=== PATIENT | female | born 1955 | race Asian ===

== ENCOUNTER 2017-10-03 12:40 | Inpatient (IN) | payer OTHER ==
[2017-10-03] MEDS ORDERED: SODIUM CHLORIDE 1,000 ML IV ONE (13:34)
--- NOTE | 2017-10-03 13:46 | PDOC ---
History of Present Illness - General History Source: Patient, Family Exam Limitations: No Limitations - History of Present Illness Initial Comments: 10/03/17 14:23 The patient is a 62 year old female, with a significant past medical history ETOH abuse, who presents to the emergency department with, approx. 3 days of generalized weakness. The patient report she has been feeling progressively weaker for the past couple of days and has been eating and drinking less. The patients daughter is present and states she has been concerned because the patient appears yellow for the past couple of days. The patient reports she normally drinks about 2 glasses of Scotch per day with her last drink being approx. 3-4 days ago. She denies recent fevers, chills, headache or dizziness. She denies recent nausea, vomit, diarrhea or constipation. She denies recent dysuria, frequency, urgency or hematuria. She denies recent chest pain or shortness of breath. Allergies: NKA Primary Care Physician: Dr. Muro <Derick Chisholm - Last Filed: 10/03/17 17:50> <Geoffrey Jenkins - Last Filed: 10/06/17 11:38> - General Chief Complaint: Weakness Stated Complaint: UNABLE TO EAT/WEAKNESS Time Seen by Provider: 10/03/17 13:32 Past History <Derick Chisholm - Last Filed: 10/03/17 17:50> - Past Medical History CVA: No COPD: No DVT: No Dementia: No - Immunization History Immunization Up to Date: Yes - Suicide/Smoking/Psychosocial Hx Smoking History: Never smoked Information on smoking cessation initiated: No Hx Alcohol Use: Yes (LAST DRINK 3 WEEKS AGO) Drug/Substance Use Hx: No Substance Use Type: None <Geoffrey Jenkins - Last Filed: 10/06/17 11:38> - Past Medical History Allergies/Adverse Reactions: Allergies Allergy/AdvReac Type Severity Reaction Status Date / Time No Known Allergies Allergy Verified 10/03/17 13:00 Home Medications: Ambulatory Orders Pantoprazole Sodium [Protonix -] 40 mg PO DAILY tablet.ec 10/04/17 Review of Systems - Review of Systems Comments:: 10/03/17 14:23 CONSTITUTIONAL: Present: +Generalized weakness. +Loss of appetite. Jaundice No reported: Fever, Chills, Diaphoresis, Malaise, HEENT: No reported: Rhinorrhea, Nasal Congestion, Throat Pain, Throat Swelling, Difficulty Swallowing, Mouth Swelling, Ear Pain, Eye Pain, Visual Changes CARDIOVASCULAR: No reported: Chest Pain, Syncope, Palpitations, Irregular Heart Rate, Lightheadedness, Peripheral Edema RESPIRATORY: No reported: Cough, Shortness of Breath, SOB with Exertion, Orthopnea, Wheezing , Stridor, Hemoptysis GASTROINTESTINAL: No reported: Abdominal pain, Abdominal Distension, Nausea, Vomiting, Diarrhea, Constipation, Melena, Hematochezia GENITOURINARY: No reported: Dysuria, Frequency, Urgency, Hesitancy, Flank Pain, Genital Pain MUSCULOSKELETAL: No reported: Myalgia, Arthralgia, Joint Swelling, Back pain, Neck Pain SKIN: No reported: Rash, Itching, Pallor HEMEATOLOGIC/IMMUNOLOGIC: No reported: Easy Bleeding, Easy Bruising, Lymphadenopathy, Frequent infections ENDOCRINE: No reported: Unexplained Weight Gain, Unexplained Weight Loss, Heat Intolerance , Cold Intolerance NEUROLOGIC: No reported: Headache, Focal Weakness, Paresthesias, Vertigo, Lightheadedness, Unsteady Gait, Seizure, Mental Status Changes, Incontinence PSYCHIATRIC: No reported: Anxiety, Depression <Derick Chisholm - Last Filed: 10/03/17 17:50> *Physical Exam - Vital Signs Last Vital Signs Temp Pulse Resp BP Pulse Ox 98.6 F 87 17 89/45 98 10/03/17 13:00 10/03/17 13:00 10/03/17 13:00 10/03/17 13:00 10/03/17 13:30 - Physical Exam Comments: 10/03/17 14:23 GENERAL: The patient is awake, alert, and fully oriented, Nontoxic - in no acute distress. HEAD: Normocephalic, atraumatic. EYES: extraocular movements intact, sclera icteric, conjunctiva clear. ENT: Normal voice, Moist mucous membranes. NECK: Normal range of motion, supple LUNGS: Breath sounds equal, clear to auscultation bilaterally. No wheezes, no rhonchi, no rales. HEART: Regular rate and rhythm, normal S1 and S2 without murmur, rub or gallop. ABDOMEN: Soft, nontender, distended No guarding, no rebound. . No CVA tenderness EXTREMITIES: Normal range of motion, no edema. No clubbing or cyanosis. No cords, erythema, or tenderness. NEUROLOGICAL: No facial assymetry, Normal speech, BACK: Mild tenderness in the mid thoracic region PSYCH: Normal mood, normal affect. SKIN: Warm, Dry, normal turgor, jaundiced skin <Derick Chisholm - Last Filed: 10/03/17 17:50> - Vital Signs Last Vital Signs Temp Pulse Resp BP Pulse Ox 98.6 F 87 17 89/45 98 10/03/17 13:00 10/03/17 13:00 10/03/17 13:00 10/03/17 13:00 10/03/17 13:30 <Gregory,Geoffrey - Last Filed: 10/06/17 11:38> Heart Score/ECG Review - ECG Impressions Comment:: 10/03/17 15:01 Twelve-lead EKG was performed and reviewed by me. There is normal sinus rhythm with a normal rate. Rate of 81 The axis is normal. Nonspecific ST wave changes <GregoryGeoffrey - Last Filed: 10/06/17 11:38> ED Treatment Course - LABORATORY CBC & Chemistry Diagram: 10/03/17 13:55 10/03/17 13:55 - ADDITIONAL ORDERS Additional order review: Laboratory Results 10/03/17 10/03/17 13:55 13:55 PT with INR 23.00 H INR 2.04 H Alcohol, Quantitative Cancelled 10/03/17 13:55 RBC 2.48 L MCV 121.6 H MCHC 34.2 RDW 21.0 H MPV 6.6 L Neutrophils % No Result Required. Lymphocytes % No Result Required. - RADIOLOGY Radiograph Interpretation: 10/03/17 15:39 EXAM#: TYPE/EXAM: RESULT: [id number] RAD/CHEST X-RAY PORTABLE* HISTORY PROVIDED: Baseline. A single frontal portable projection of the chest at 2:43 PM is submitted. The heart size is within normal limits. The lung devi are free of pulmonary infiltrates or pleural effusions. IMPRESSION: No acute pathology Reported By: Ayush Porter MD 10/03/17 15:46 EXAM#: TYPE/EXAM: RESULT: [id number] RAD/SPINE-THORACIC HISTORY PROVIDED: Rule out fracture. AP and lateral projections of the thoracic spine reveals no evidence of fracture, subluxation or acute bony abnormalities. Mild degenerative changes are noted diffusely. IMPRESSION: Mild degenerative arthritis, no fracture or acute bony abnormalities. Reported By: Ayush Porter MD <Derick Chisholm - Last Filed: 10/03/17 17:50> - LABORATORY CBC & Chemistry Diagram: 10/06/17 07:20 10/06/17 07:20 - RADIOLOGY Radiology Studies Ordered: Category Date Time Status CHEST X-RAY PORTABLE* [RAD] Stat Radiology 10/03/17 13:34 Ordered <Geoffrey Jenkins - Last Filed: 10/06/17 11:38> Medical Decision Making - Medical Decision Making 10/03/17 15:[address] Muro at 3:05 pm. Page returned at 3:15 pm. 10/03/17 17:32 Dr. Burkett paged at 5:30 pm. Folding Machine Operator advised Dr. Mann is rn transitional care and will return the page. Dr. Mann returned the page at 5:50 pm. <Derick Chisholm - Last Filed: 10/03/17 17:50> - Medical Decision Making 10/03/17 13:44 62y F hx of ETOH abuse presents with painless juandice - pt states she has been feeling generally weak for the past month, 2-3 days ago, they found her jaundiced. The pt states she drinks 2 cups of scotch daily formany years. No cp , abd pain, f/c, n/v, headache, dizzines.. on exam the pt is noted jaundice. her BP noted to be hypotensive, abd slightly distended but nontender, obese vs. asctic concern for possible liver cirrhosis, consider pancreatic ca will obtain labs, will obtain RUQ US will give fluids A portion of this note was documented by scribe services under my direction. I have reviewed the details of the note, within reason, and agree with the documentation with the following case summary and management plan written by me 10/03/17 18:04 labs reviewed elevated bilirubins and lfts gb US shows no ductal diltation cr slightly elevated - likely hepatorenal syndrome dw hospitalist service, requests attepmt to transfer to a liver center for higher level of care oralia franks - recommends attempting to transfer but might be declined due to hx of active etoh use. 10/03/17 18:39 discussed with za from [facility] liver technical training coordinator - thy will let their doctor know and call back 10/03/17 19:03 i discussed with the patient - she states she refuses to be transferred to a tertiary care center at this time. she would prefer to wait until tomorrow after a through discussion with her family and the options. will admit to med surg for further management 10/03/17 19:25 [facility] had called back and said liver refused on their service, but would agree to transfer to their medicine servie - i went back to the patient to discuss with the pt, and recommended that she be transferred, but the pt refused, states she needs to talk to her family to make the decision to transfer. i specifically discussed that although she might feel ok right now, she may quickly deteriorate and would best be served in a more advanced facility. case dw dr. capps agree with admission for further management Case discussed in detail with admitting physician including history, physical exam and ancillary studies. Admitting physician has assumed care for the patient, will follow all pending diagnostics and will complete the evaluation and treatment. MyCRITICAL CARE DOCUMENTATION: I spent ~35 minutes of Critical Care time, excluding separately billable procedures, involving high complexity decision making to assess, manipulate and support vital system function(s) to treat single or multiple vital organ system failure and/or to prevent further life threatening deterioration of the patient' s condition. <Geoffrey Jenkins - Last Filed: 10/06/17 11:38> *DC/Admit/Observation/Transfer - Attestations Scribe Attestion: 10/03/17 14:24 Documentation prepared by Derick Chisholm, acting as medical surgical tech for Geoffrey Jenkins MD. <Derick Chisholm - Last Filed: 10/03/17 17:50> - Discharge Dispostion Admit: Yes <Geoffrey Jenkins - Last Filed: 10/06/17 11:38> Diagnosis at time of Disposition: Hepatorenal syndrome Liver failure Qualifiers: Liver failure chronicity: acute Hepatic coma status: without hepatic coma Qualified Code(s): K72.00 - Acute and subacute hepatic failure without coma - Discharge Dispostion Condition at time of disposition: Guarded
[2017-10-03 14:03] LABS: HEMATOCRIT 30.1 % (32.4-45.2); HEMOGLOBIN 10.3 GM/dL (10.7-15.3); MCHC 34.2 g/dl (32.0-36.0); MEAN CELL VOLUME 121.6 fl (80-96); MEAN PLT VOLUME 6.6 fl (7.5-11.1); PLATELET COUNT 142 K/MM3 (134-434); RBC 2.48 M/mm3 (3.60-5.2); WHITE BLOOD COUNT 13.9 K/mm3 (4.0-10.0)
[2017-10-03 14:15] LABS: INR 2.04 (0.82-1.09)
[2017-10-03 14:18] LABS: MCH 41.5 pg (25.7-33.7)
[2017-10-03 14:30] LABS: ALBUMIN 1.7 g/dl (3.4-5.0); ALCOHOL < 5.0 mg/dl (0-5); ANION GAP 13 (8-16); BILIRUBIN,TOTAL 14.7 mg/dL (0.2-1.0); BLOOD UREA NITROGEN 50 mg/dL (7-18); CALCIUM 8.7 mg/dL (8.5-10.1); CHLORIDE 88 mmol/L (98-107); CO2 31 mmol/L (21-32); CREATININE 1.8 mg/dL (0.55-1.02); GLUCOSE,RANDOM 114 mg/dL (74-106); POTASSIUM 3.4 mmol/L (3.5-5.1); SGOT/AST 352 U/L (15-37); SGPT/ALT 127 U/L (12-78); SODIUM 132 mmol/L (136-145); TOT PROT 7.2 g/dl (6.4-8.2)
[2017-10-03 14:31] LABS: BILIRUBIN,DIRECT 11.1 mg/dL (0.0-0.2); LIPASE 1264 U/L (73-393)
[2017-10-03 14:33] LABS: ALK PHOS 205 U/L (45-117)
[2017-10-03 14:36] LABS: ACETAMINOPHEN < 3 ug/ml (10.0-30.0)
[2017-10-03 15:30] LABS: ANISOCYTOSIS 2+; MACROCYTOSIS 3+; OVALOCYTE 2+; PLATELET ESTIMATE DECREASED; TARGET CELLS 1+
--- NOTE | 2017-10-03 17:02 | EKG ---
Test Reason : Blood Pressure : / mmHG Vent. Rate : 081 BPM Atrial Rate : 081 BPM P-R Int : 124 ms QRS Dur : 086 ms QT Int : 238 ms P-R-T Axes : 020 001 220 degrees QTc Int : 276 ms NORMAL SINUS RHYTHM NONSPECIFIC ST AND T WAVE ABNORMALITY ABNORMAL ECG NO PREVIOUS ECGS AVAILABLE Confirmed by MD Kaden, Stanislaw ([id number]) on 10/03/2017 5:01:44 PM Referred By: Confirmed By:Stanislaw Alfonso MD
[2017-10-03 18:54] LABS: URINE APPEARANCE CLOUDY; URINE BLOOD 2+ (NEGATIVE); URINE COLOR AMBER; URINE GLUCOSE (UA) NEGATIVE (NEGATIVE); URINE KETONE NEGATIVE (NEGATIVE); URINE NITRITE NEGATIVE (NEGATIVE); URINE PROTEIN NEGATIVE (NEGATIVE); URINE UROBILINOGEN 4.0 E.U/dl mg/dL (0.2-1.0)
[2017-10-03 19:31] LABS: URINE LEUK ESTERASE 1+ (NEGATIVE)
[2017-10-03 20:31] LABS: EPI CELLS FEW /HPF (FEW); URINE BACTERIA MANY /hpf (NONE SEEN); URINE MUCUS RARE
[2017-10-03] MEDS ORDERED: FOLIC ACID INJECTION - 1 MG, THIAMINE HCL 100 MG, MULTIVIT INJECTION ADULT 10 ML in SOD... IVPB ONE (20:52)
[2017-10-03] MEDS ORDERED: OCTREOTIDE ACETATE 500 MCG/1 ML - 1 ML VIAL IVPUSH SCH (21:00)
--- NOTE | 2017-10-03 21:14 | PN ---
Teaching Attending Note Name of Resident: Medardo Roblero ATTENDING PHYSICIAN STATEMENT I saw and evaluated the patient. I reviewed the resident's note and discussed the case with the resident. I agree with the resident's findings and plan as documented. SUBJECTIVE: 62 year old female with history of alcoholic liver cirrhosis brought for evaluation of generalized weakness and fatigue. Reports low appetite. Denies nausea, vomiting , abdominal pain . She reports that her last drink was around [place] OBJECTIVE: Vital Signs Temperature 98.6 F 10/03/17 13:00 Pulse Rate 81 10/03/17 19:40 Respiratory Rate 16 10/03/17 19:40 Blood Pressure 108/62 10/03/17 19:40 O2 Sat by Pulse Oximetry (%) 96 10/03/17 19:40 Dry mucous membraines Jaundice S1 S2 WNL CTA b.l abdomen is distended , non tender , no fluid wave appreciated anasarca CBC, BMP 10/03/17 13:55 10/03/17 13:55 CMP Sodium 132 mmol/L (136-145) L 10/03/17 13:55 Potassium 3.4 mmol/L (3.5-5.1) L 10/03/17 13:55 Chloride 88 mmol/L (98-107) L 10/03/17 13:55 Carbon Dioxide 31 mmol/L (21-32) 10/03/17 13:55 Anion Gap 13 (8-16) 10/03/17 13:55 BUN 50 mg/dL (7-18) H 10/03/17 13:55 Creatinine 1.8 mg/dL (0.55-1.02) H 10/03/17 13:55 Creat Clearance w eGFR 28.33 (>60) 10/03/17 13:55 Random Glucose 114 mg/dL (74-106) H 10/03/17 13:55 Calcium 8.7 mg/dL (8.5-10.1) 10/03/17 13:55 Total Bilirubin 14.7 mg/dL (0.2-1.0) H 10/03/17 13:55 Direct Bilirubin 11.1 mg/dL (0.0-0.2) H 10/03/17 13:55 AST 352 U/L (15-37) H 10/03/17 13:55 ALT 127 U/L (12-78) H 10/03/17 13:55 Alkaline Phosphatase 205 U/L (45-117) H 10/03/17 13:55 Creatine Kinase 44 IU/L (26-192) 10/03/17 13:55 Troponin I < 0.02 ng/ml (0.00-0.05) 10/03/17 13:55 Total Protein 7.2 g/dl (6.4-8.2) 10/03/17 13:55 Albumin 1.7 g/dl (3.4-5.0) L 10/03/17 13:55 Lipase 1264 U/L (73-393) H 10/03/17 13:55 ASSESSMENT AND PLAN: 1. Acute on chronic liver failure with high risk of hepatorenal syndrome. MELD [address] [facility] / hepatology unit was initiated however patient refused. I had an extensive discussion regarding proposed plan of care and need to be in specialized unit due to high risk of deterioration. Patient is fully alert understands. She wants to await for her family to discuss her condition with Dr Douglas. I offered to speak to her family but she inssts on not getting transferred anywhere till tomorrow. - admit to ICU - IVF/ Albumin - Thiamine + MVI IV - GI consult - monitor CMP/CBC - reevaluate MELD in am - possible transfer in am - monitor MAP 2. Hypokalemia- supplement 3. History of alcohol abuse- last drink in august - no risk of withdrawal 4 DVT PPX - no pharm ac due to elevated inr
--- NOTE | 2017-10-03 21:43 | HP ---
CHIEF COMPLAINT: weak and tired for 3 days with decreased PO intake PCP: Jina HISTORY OF PRESENT ILLNESS: Pt is a 62 y/o F with history of EtOH abuse who presents to the ED with fatigue and weakness for 3 days. Pt states that in during this time, she has not been eating or drinking. She states that she had been drinking 2 glasses of scotch daily for years but stopped drinking alcohol on Sep 01 except for a small drink on Sep 11. Pt denies having had any withdrawal symptoms following her cessation of alcohol including fever, chills, tremors, sweating. Pt normally has a BM every other day, and last BM was yesterday. Admits to distended abdomen. Pt states that at this time she feels weak from not having eaten for the past few days. No other complaints. Denies fever, chills, nausea, vomiting, diarrhea , bleeding gums, blood in urine/stools, difficulty urinating/defecated. ER course was notable for: (1) WBC 13.9, Hb 10.3, INR 2.04, Na 132, K 3.4, BUN 50, Certified Pharmacy Tech 1.8, T bili 14.7, D bili 11.1, AST 352, ALT 127, AlkP 205, Alb 1.7, Lipase 1264, Urine blood 2+, U bili 4, LE 1+ (2) CXR neg, Abd U/S: ascites, ? gall bladder wall thickening (3) Recent Travel: denies PAST MEDICAL HISTORY: EtOH abuse PAST SURGICAL HISTORY: denies Social History: Smoking: denies Alcohol: 2 scotch daily. Quit Sep 11 Drugs: denies Family History: denies Allergies No Known Allergies Allergy (Verified 10/03/17 13:00) HOME MEDICATIONS: Home Medications Medication Instructions Recorded NK [No Known Home Medication] 10/03/17 REVIEW OF SYSTEMS CONSTITUTIONAL: generalized weakness Absent: fever, chills, diaphoresis, , malaise, loss of appetite, weight change HEENT: Absent: rhinorrhea, nasal congestion, throat pain, throat swelling, difficulty swallowing, mouth swelling, ear pain, eye pain, visual changes CARDIOVASCULAR: Absent: chest pain, syncope, palpitations, irregular heart rate, lightheadedness , peripheral edema RESPIRATORY: Absent: cough, shortness of breath, dyspnea with exertion, orthopnea, wheezing, stridor, hemoptysis GASTROINTESTINAL:abdominal distension Absent: abdominal pain, , nausea, vomiting, diarrhea, constipation, melena, hematochezia GENITOURINARY: Absent: dysuria, frequency, urgency, hesitancy, hematuria, flank pain, genital pain MUSCULOSKELETAL: Absent: myalgia, arthralgia, joint swelling, back pain, neck pain SKIN: Absent: rash, itching, pallor HEMATOLOGIC/IMMUNOLOGIC: Absent: easy bleeding, easy bruising, lymphadenopathy, frequent infections ENDOCRINE: Absent: unexplained weight gain, unexplained weight loss, heat intolerance, cold intolerance NEUROLOGIC: Absent: headache, focal weakness or paresthesias, dizziness, unsteady gait, seizure, mental status changes, bladder or bowel incontinence PSYCHIATRIC: Absent: anxiety, depression, suicidal or homicidal ideation, hallucinations. PHYSICAL EXAMINATION Vital Signs - 24 hr 10/03/17 10/03/17 10/03/17 13:00 13:30 18:52 Temperature 98.6 F Pulse Rate 87 Pulse Rate [ 78 Apical] Respiratory 17 18 Rate Blood Pressure 89/45 Blood Pressure 103/58 [Right Arm] O2 Sat by Pulse 98 98 99 Oximetry (%) 10/03/17 19:40 Temperature Pulse Rate Pulse Rate [ 81 Apical] Respiratory 16 Rate Blood Pressure Blood Pressure 108/62 [Right Arm] O2 Sat by Pulse 96 Oximetry (%) GENERAL: Awake, alert, and fully oriented, in no acute distress. jaundiced HEAD: Normal with no signs of trauma. EYES: Pupils equal, round and reactive to light, extraocular movements intact, sclera icteric, conjunctiva clear. No lid lag. EARS, NOSE, THROAT: oropharynx clear without exudates. Dry mucous membranes. NECK: Normal range of motion, supple without lymphadenopathy, JVD, or masses. LUNGS: Breath sounds equal, clear to auscultation bilaterally. No wheezes, and no crackles. No accessory muscle use. HEART: Regular rate and rhythm, normal S1 and S2 with systolic 3/6 cresc/ decresc murmur, no rub or gallop. ABDOMEN: Soft, nontender, distended, tympanic normoactive bowel sounds, no guarding, no rebound, no masses. No hepatomegaly or splenomegaly detected. MUSCULOSKELETAL: Normal range of motion at all joints. No bony deformities or tenderness. No CVA tenderness. UPPER EXTREMITIES: 2+ pulses, warm, well-perfused. No cyanosis. No clubbing. No peripheral edema. LOWER EXTREMITIES: 2+ pulses, warm, well-perfused. No calf tenderness. No peripheral edema. NEUROLOGICAL: Cranial nerves II-XII intact. Normal speech. Gait not observed. PSYCHIATRIC: Cooperative. Good eye contact. Appropriate mood and affect. SKIN: Warm, dry, normal turgor, no rashes or lesions noted, normal capillary refill. Laboratory Results - last 24 hr 10/03/17 10/03/17 10/03/17 13:55 13:55 13:55 WBC 13.9 H RBC 2.48 L Hgb 10.3 L Hct 30.1 L MCV 121.6 H MCH 41.5 H MCHC 34.2 RDW 21.0 H Plt Count 142 MPV 6.6 L Neutrophils % No Result Required. Neutrophils % (Manual) 87.1 H Band Neutrophils % 0.0 Lymphocytes % No Result Required. Lymphocytes % (Manual) 4.0 L Monocytes % (Manual) 9 Eosinophils % (Manual) 0.0 Basophils % (Manual) 0.0 Myelocytes % (Man) 0 Metamyelocytes 0 Hypochromia 0 Platelet Estimate Decreased Polychromasia 1+ Poikilocytosis 1+ Anisocytosis 2+ Microcytosis 0 Macrocytosis 3+ Target Cells 1+ Ovalocytes 2+ PT with INR 23.00 H INR 2.04 H Sodium 132 L Potassium 3.4 L Chloride 88 L Carbon Dioxide 31 Anion Gap 13 BUN 50 H Creatinine 1.8 H Creat Clearance w eGFR 28.33 Random Glucose 114 H Calcium 8.7 Total Bilirubin 14.7 H Direct Bilirubin 11.1 H AST 352 H ALT 127 H Alkaline Phosphatase 205 H Creatine Kinase 44 Troponin I < 0.02 Total Protein 7.2 Albumin 1.7 L Lipase 1264 H Urine Color Urine Appearance Urine pH Ur Specific Newton Urine Protein Urine Glucose (UA) Urine Ketones Urine Blood Urine Nitrite Urine Bilirubin Urine Urobilinogen Ur Leukocyte Esterase Urine WBC (Auto) Urine RBC (Auto) Ur Epithelial Cells Urine Bacteria Urine Mucus Acetaminophen Alcohol, Quantitative Acetone, Qual 10/03/17 10/03/17 10/03/17 13:55 13:55 13:55 WBC RBC Hgb Hct MCV MCH MCHC RDW Plt Count MPV Neutrophils % Neutrophils % (Manual) Band Neutrophils % Lymphocytes % Lymphocytes % (Manual) Monocytes % (Manual) Eosinophils % (Manual) Basophils % (Manual) Myelocytes % (Man) Metamyelocytes Hypochromia Platelet Estimate Polychromasia Poikilocytosis Anisocytosis Microcytosis Macrocytosis Target Cells Ovalocytes PT with INR INR Sodium Potassium Chloride Carbon Dioxide Anion Gap BUN Creatinine Creat Clearance w eGFR Random Glucose Calcium Total Bilirubin Direct Bilirubin AST ALT Alkaline Phosphatase Creatine Kinase Troponin I Total Protein Albumin Lipase Urine Color Urine Appearance Urine pH Ur Specific [place] Urine Protein Urine Glucose (UA) Urine Ketones Urine Blood Urine Nitrite Urine Bilirubin Urine Urobilinogen Ur Leukocyte Esterase Urine WBC (Auto) Urine RBC (Auto) Ur Epithelial Cells Urine Bacteria Urine Mucus Acetaminophen < 3 L Alcohol, Quantitative < 5.0 Cancelled Acetone, Qual Negative L 10/03/17 18:38 WBC RBC Hgb Hct MCV MCH MCHC RDW Plt Count MPV Neutrophils % Neutrophils % (Manual) Band Neutrophils % Lymphocytes % Lymphocytes % (Manual) Monocytes % (Manual) Eosinophils % (Manual) Basophils % (Manual) Myelocytes % (Man) Metamyelocytes Hypochromia Platelet Estimate Polychromasia Poikilocytosis Anisocytosis Microcytosis Macrocytosis Target Cells Ovalocytes PT with INR INR Sodium Potassium Chloride Carbon Dioxide Anion Gap BUN Creatinine Creat Clearance w eGFR Random Glucose Calcium Total Bilirubin Direct Bilirubin AST ALT Alkaline Phosphatase Creatine Kinase Troponin I Total Protein Albumin Lipase Urine Color Martha Urine Appearance Cloudy Urine pH 5.0 Ur Specific [place] 1.015 Urine Protein Negative Urine Glucose (UA) Negative Urine Ketones Negative Urine Blood 2+ H Urine Nitrite Negative Urine Bilirubin 4.0 Urine Urobilinogen 4.0 e.u/dl H Ur Leukocyte Esterase 1+ H Urine WBC (Auto) 22 Urine RBC (Auto) 4 Ur Epithelial Cells Few Urine Bacteria Many Urine Mucus Rare Acetaminophen Alcohol, Quantitative Acetone, Qual ASSESSMENT/PLAN: Pt is a 62 y/o F with a hist of chronic alcohol abuse who presents to ED with weakness/fatigue decreased PO intake for 3d. Pt with transaminitis, bilirubinemia, hypokalemia, hyponatremia, ascites. #Alcoholic hepatitis -MELD: 30, MORTALITY: 52.6% (INR 2.04, Tbili 14.7, Certified Pharmacy Tech 1.8, Na 132) -ascites, fatty liver on U/S -GI consult -NPO -banana bag -albumin -octreotide drip -Admit to ICU -Note that numerous people have discussed possibility of transfer to [facility] and pt refuses insisting she wants to speak with Dr. Muro tomorrow before making any decisions. Pt has not seen Dr. Muro as a patient, but states that he cares for her family members. #? EtOH withdrawal -pt does not appear to be withdrawing at the moment. -no anxiousness -no tremor -VS wnl -Will monitor #Pancreatitis -elevated lipase -NPO -IV fluids #FEN -banana bag at 200 ml/hr -hypoNa, hypoK, repleting -NPO (lipase elevated) #PPx -SCDs -no Hep. INR 2.04 -Octreotide #Dispo -admit to ICU Medardo Roblero MD PGY-1 Visit type - Emergency Visit Emergency Visit: Yes ED Registration Date: 10/03/17 Care time: The patient presented to the Emergency Department on the above date and was hospitalized for further evaluation of their emergent condition. - New Patient This patient is new to me today: Yes Date on this admission: 10/04/17 - Critical Care Critical Care patient: Yes Total Critical Care Time (in minutes): 35 Critical Care Statement: The care of this patient involved high complexity decision making to prevent further life threatening deterioration of the patient 's condition and/or to evaluate & treat vital organ system(s) failure or risk of failure.
[2017-10-03] MEDS ORDERED: POTASSIUM CHLORIDE TABS 20 MEQ TABLET.ER (FP) PO ONE ×2 (21:45→22:21)
[2017-10-03] MEDS ORDERED: OCTREOTIDE ACETATE 500 MCG/1 ML - 1 ML VIAL IVPB SCH (22:15)
[2017-10-03] MEDS: ALBUMIN HUMAN 25% 12.5 GM/50 ML VIAL IVPB SCH ×3 (22:30→23:24)
[2017-10-04] MEDS: ALBUMIN HUMAN 25% 12.5 GM/50 ML VIAL IVPB SCH (00:14)
[2017-10-04] MEDS: CHLORHEXIDINE GLUCONATE 4% CLEANSER FOR DECOLONIZATION TP SCH (06:10)
[2017-10-04] MEDS: MUPIROCIN 2% TOPICAL OINTMENT FOR DECOLONIZATION NS SCH ×2 (06:10→11:04)
[2017-10-04 07:51] LABS: BASO % 0.5 % (0-2.0); EOS % 0.6 % (0-4.5); HEMATOCRIT 25.5 % (32.4-45.2); HEMOGLOBIN 8.8 GM/dL (10.7-15.3); LYMPH % 13.8 % (8-40); MCHC 34.5 g/dl (32.0-36.0); MEAN CELL VOLUME 122.7 fl (80-96); MEAN PLT VOLUME 6.6 fl (7.5-11.1); MONO % 8.9 % (3.8-10.2); NEUT % 76.2 % (42.8-82.8); PLATELET COUNT 110 K/MM3 (134-434); RBC 2.07 M/mm3 (3.60-5.2); WHITE BLOOD COUNT 11.5 K/mm3 (4.0-10.0)
[2017-10-04 08:11] LABS: INR 2.09 (0.82-1.09); PROTHROMBIN TIME (PATIENT) 23.6 SEC (9.98-11.88)
[2017-10-04 08:21] LABS: MCH 42.3 pg (25.7-33.7)
[2017-10-04 08:24] LABS: ALBUMIN 2.3 g/dl (3.4-5.0); AMYLASE 74 U/L (25-115); ANION GAP 10 (8-16); BLOOD UREA NITROGEN 49 mg/dL (7-18); CALCIUM 8.1 mg/dL (8.5-10.1); CHLORIDE 94 mmol/L (98-107); CO2 30 mmol/L (21-32); CREATININE 1.7 mg/dL (0.55-1.02); GLUCOSE,RANDOM 82 mg/dL (74-106); MAGNESIUM 2.1 mg/dL (1.8-2.4); PHOSPHOROUS 2.9 mg/dL (2.5-4.9); POTASSIUM 3.6 mmol/L (3.5-5.1); SGOT/AST 265 U/L (15-37); SGPT/ALT 96 U/L (12-78); SODIUM 134 mmol/L (136-145)
[2017-10-04 08:27] LABS: ALK PHOS 159 U/L (45-117); LIPASE 1004 U/L (73-393); TOT PROT 6.5 g/dl (6.4-8.2)
[2017-10-04 08:30] LABS: BILIRUBIN,TOTAL 15.5 mg/dL (0.2-1.0)
[2017-10-04] MEDS ORDERED: ALBUMIN HUMAN 25% 12.5 GM/50 ML VIAL IVPB ONE (11:24)
--- NOTE | 2017-10-04 11:26 | CONSULT ---
Consult Consult Specialty:: nephrology Referred by:: Dr. Vanegas Reason for Consultation:: Possible hepatorenal syndrome - History of Present Illness Chief Complaint: "I came to the hospital because I was weak and could not eat" History of Present Illness: 62F denies PMH with history of alcohol abuse presents to the hospital with a 3 day history of loss of appetite and weakness. She sates she has been drinking 2 glasses of scotch daily for many years but has recently stopped since august but had one drink on . Patient denies a family history of any liver or kidney disease although she seems uncertain of her families medical history. She also endorses she had one blood tranfusion here in the [facility] in 1985 but she does not know the reason for the transfusion. Pt denies having had any withdrawal symptoms following her cessation of alcohol including fever, chills, tremors, sweating. Patient currently feels better. No other complaints. Denies nausea vomiting fever chills chest pain or shortness of breath. Denies hematuria or dysuria. Patient has never followed with a primary care doctor but states her family uses Dr. Douglas. - History Source History Provided By: Patient, Medical Record Limitations to Obtaining History: Poor Historian - Past Medical History Additional Medical History: Denies all medical problems. Alcohol abuse - Past Surgical History Past Surgical History: Yes: None - Alcohol/Substance Use Hx Alcohol Use: Yes (LAST DRINK 3 WEEKS AGO 2 scotches ) - Smoking History Smoking history: Never smoked Home Medications - Allergies Allergies/Adverse Reactions: Allergies Allergy/AdvReac Type Severity Reaction Status Date / Time No Known Allergies Allergy Verified 10/03/17 13:00 - Home Medications Home Medications: Ambulatory Orders NK [No Known Home Medication] 10/03/17 Family Disease History - Family Disease History Family History: Denies (patient unsure of family history) Review of Systems - Review of Systems Constitutional: reports: Loss of Appetite, Weakness HENT: reports: No Symptoms Cardiovascular: reports: No Symptoms Respiratory: reports: No Symptoms Gastrointestinal: reports: Other (+distention and thirst) Genitourinary: reports: No Symptoms Breasts: reports: No Symptoms Reported Musculoskeletal: reports: No Symptoms Integumentary: reports: No Symptoms Neurological: reports: No Symptoms Endocrine: reports: No Symptoms Physical Exam Vital Signs: Vital Signs Temperature 97.6 F 10/04/17 08:00 Pulse Rate 86 10/04/17 08:00 Respiratory Rate 20 10/04/17 08:00 Blood Pressure 101/64 10/04/17 08:00 O2 Sat by Pulse Oximetry (%) 97 10/04/17 08:00 Constitutional: Yes: No Distress, Calm, Obese Eyes: Yes: Conjunctiva Clear, Sclera Icterus HENT: Yes: Atraumatic Neck: Yes: Supple Cardiovascular: Yes: Regular Rate and Rhythm, Murmur (systolic 3/6 murmur at RUSB) Respiratory: Yes: CTA Bilaterally Gastrointestinal: Yes: Soft, Abdomen, Obese, Ascites Edema: Yes Edema: LLE: 1+, RLE: 1+ Integumentary: Yes: Jaundice Neurological: Yes: Alert, Oriented Labs: CBC, BMP 10/04/17 07:36 10/04/17 07:36 Imaging - Results X-ray: Report Reviewed, Image Reviewed Ultrasound: Report Reviewed, Image Reviewed Assessment/Plan 62F presents with weakness and anorexia found to have multiple lab abnormalities and jaundice. Problem List: Leukocytosis possible hepatorenal syndrome hyponatremia VALERIA Possible CKD coagulopathy-elevated INR Sclreal icterus/jaundiced Hyperbilirubinemia transaminitis morbid obesity hypokalemia Plan: Primary team plans to transfer patient to hepatology service at [facility]-in agreement with this plan Give patient 100ml/hr normal saline for 5 hours and 25gm albumin and repeat labs in morning avoid nephrotoxic drugs renally dose all medications trend electrolytes GI consult trend LFTs f/u renal ultrasound-Seems like there is ascites on monitor while ultrasound being done.
[2017-10-04] MEDS ORDERED: SODIUM CHLORIDE 500 ML IV SCH (11:30)
--- NOTE | 2017-10-04 13:17 | PN ---
Teaching Attending Note Name of Resident: Chandra Garrett ATTENDING PHYSICIAN STATEMENT Time of evaluation: 9:20 AM I saw and evaluated the patient. I reviewed the resident's note and discussed the case with the resident. I agree with the resident's findings and plan as documented. SUBJECTIVE: Patient seen and examined. report weakness, but no nausea, vomiting or abdominal pain currently. Reports had some 'gas' pain in her abdomen yesterday, resolved now. No other complaints. Reports last drink in August. OBJECTIVE: Vital Signs Period Temp Pulse Resp BP Sys/Lui Pulse Ox Last 24 Hr 97.5 F-97.6 F 64-86 15-20 93-108/52-64 96-99 Intake & Output 10/01/17 10/02/17 10/03/17 10/04/17 23:59 23:59 23:59 23:59 Weight 165 lb General: sitting in bed in no acute distress, postive icterus, dry skin and mucous membrane CVS;S1S2 regular Chest: decreased breath sounds at bases Abdomen: soft, distended, zain-umbilical and epigastric mild tenderness, no voluntary or involuntary guarding or rigidity, unable to appreciate bowel sounds extremities: no asterexis, no edema, positive pulses Neuro: AAOx3 Home Medication List Medication Instructions Recorded Confirmed Type NK [No Known Home Medication] 10/03/17 10/03/17 History Active Medications Generic Name Dose Route Start Last Admin Trade Name Khushbu PRN Reason Stop Dose Admin Chlorhexidine Gluconate 1 applic 10/03/17 22:00 10/04/17 06:10 Hibiclens For Decolonization - TP Not Given HS JOVANNA Sodium Chloride 500 mls @ 100 mls/hr 10/04/17 11:30 Normal Saline - IV 10/04/17 16:29 ASDIR JOVANNA Mupirocin 1 applic 10/03/17 22:00 10/04/17 11:04 Bactroban Ointment (For Decolonization) - NS 10/08/17 21:59 Not Given BID JOVANNA Octreotide Acetate 500 mcg 10/03/17 22:15 Sandostatin - IVPB 10/04/17 14:16 Q8H JOVANNA Laboratory Results - last 24 hr 10/03/17 10/03/17 10/03/17 13:55 13:55 13:55 WBC 13.9 H RBC 2.48 L Hgb 10.3 L Hct 30.1 L MCV 121.6 H MCH 41.5 H MCHC 34.2 RDW 21.0 H Plt Count 142 MPV 6.6 L Neutrophils % No Result Required. Neutrophils % (Manual) 87.1 H Band Neutrophils % 0.0 Lymphocytes % No Result Required. Lymphocytes % (Manual) 4.0 L Monocytes % Monocytes % (Manual) 9 Eosinophils % Eosinophils % (Manual) 0.0 Basophils % Basophils % (Manual) 0.0 Myelocytes % (Man) 0 Metamyelocytes 0 Hypochromia 0 Platelet Estimate Decreased Polychromasia 1+ Poikilocytosis 1+ Anisocytosis 2+ Microcytosis 0 Macrocytosis 3+ Target Cells 1+ Ovalocytes 2+ PT with INR 23.00 H INR 2.04 H Sodium 132 L Potassium 3.4 L Chloride 88 L Carbon Dioxide 31 Anion Gap 13 BUN 50 H Creatinine 1.8 H Creat Clearance w eGFR 28.33 Random Glucose 114 H Calcium 8.7 Phosphorus Magnesium Total Bilirubin 14.7 H Direct Bilirubin 11.1 H AST 352 H ALT 127 H Alkaline Phosphatase 205 H Ammonia Creatine Kinase 44 Troponin I < 0.02 Total Protein 7.2 Albumin 1.7 L Total Amylase Lipase 1264 H Urine Color Urine Appearance Urine pH Ur Specific [place] Urine Protein Urine Glucose (UA) Urine Ketones Urine Blood Urine Nitrite Urine Bilirubin Urine Urobilinogen Ur Leukocyte Esterase Urine WBC (Auto) Urine RBC (Auto) Ur Epithelial Cells Urine Bacteria Urine Mucus Acetaminophen Alcohol, Quantitative Acetone, Qual Blood Type Antibody Screen 10/03/17 10/03/17 10/03/17 13:55 13:55 13:55 WBC RBC Hgb Hct MCV MCH MCHC RDW Plt Count MPV Neutrophils % Neutrophils % (Manual) Band Neutrophils % Lymphocytes % Lymphocytes % (Manual) Monocytes % Monocytes % (Manual) Eosinophils % Eosinophils % (Manual) Basophils % Basophils % (Manual) Myelocytes % (Man) Metamyelocytes Hypochromia Platelet Estimate Polychromasia Poikilocytosis Anisocytosis Microcytosis Macrocytosis Target Cells Ovalocytes PT with INR INR Sodium Potassium Chloride Carbon Dioxide Anion Gap BUN Creatinine Creat Clearance w eGFR Random Glucose Calcium Phosphorus Magnesium Total Bilirubin Direct Bilirubin AST ALT Alkaline Phosphatase Ammonia Creatine Kinase Troponin I Total Protein Albumin Total Amylase Lipase Urine Color Urine Appearance Urine pH Ur Specific [place] Urine Protein Urine Glucose (UA) Urine Ketones Urine Blood Urine Nitrite Urine Bilirubin Urine Urobilinogen Ur Leukocyte Esterase Urine WBC (Auto) Urine RBC (Auto) Ur Epithelial Cells Urine Bacteria Urine Mucus Acetaminophen < 3 L Alcohol, Quantitative < 5.0 Cancelled Acetone, Qual Negative L Blood Type Antibody Screen 10/03/17 10/03/17 10/04/17 18:38 20:34 07:36 WBC 11.5 H RBC 2.07 L Hgb 8.8 L D Hct 25.5 L D MCV 122.7 H MCH 42.3 H MCHC 34.5 RDW 21.0 H Plt Count 110 L D MPV 6.6 L Neutrophils % 76.2 Neutrophils % (Manual) Band Neutrophils % Lymphocytes % 13.8 Lymphocytes % (Manual) Monocytes % 8.9 Monocytes % (Manual) Eosinophils % 0.6 Eosinophils % (Manual) Basophils % 0.5 Basophils % (Manual) Myelocytes % (Man) Metamyelocytes Hypochromia Platelet Estimate Polychromasia Poikilocytosis Anisocytosis Microcytosis Macrocytosis Target Cells Ovalocytes PT with INR INR Sodium Potassium Chloride Carbon Dioxide Anion Gap BUN Creatinine Creat Clearance w eGFR Random Glucose Calcium Phosphorus Magnesium Total Bilirubin Direct Bilirubin AST ALT Alkaline Phosphatase Ammonia 12.6 Creatine Kinase Troponin I Total Protein Albumin Total Amylase Lipase Urine Color [place] Urine Appearance Cloudy Urine pH 5.0 Ur Specific [place] 1.015 Urine Protein Negative Urine Glucose (UA) Negative Urine Ketones Negative Urine Blood 2+ H Urine Nitrite Negative Urine Bilirubin 4.0 Urine Urobilinogen 4.0 e.u/dl H Ur Leukocyte Esterase 1+ H Urine WBC (Auto) 22 Urine RBC (Auto) 4 Ur Epithelial Cells Few Urine Bacteria Many Urine Mucus Rare Acetaminophen Alcohol, Quantitative Acetone, Qual Blood Type Antibody Screen 10/04/17 10/04/17 10/04/17 07:36 07:36 10:00 WBC RBC Hgb Hct MCV MCH MCHC RDW Plt Count MPV Neutrophils % Neutrophils % (Manual) Band Neutrophils % Lymphocytes % Lymphocytes % (Manual) Monocytes % Monocytes % (Manual) Eosinophils % Eosinophils % (Manual) Basophils % Basophils % (Manual) Myelocytes % (Man) Metamyelocytes Hypochromia Platelet Estimate Polychromasia Poikilocytosis Anisocytosis Microcytosis Macrocytosis Target Cells Ovalocytes PT with INR 23.60 H INR 2.09 H Sodium 134 L Potassium 3.6 Chloride 94 L Carbon Dioxide 30 Anion Gap 10 BUN 49 H Creatinine 1.7 H Creat Clearance w eGFR 30.26 Random Glucose 82 Calcium 8.1 L Phosphorus 2.9 Magnesium 2.1 Total Bilirubin 15.5 H* Direct Bilirubin Cancelled AST 265 H D ALT 96 H D Alkaline Phosphatase 159 H D Ammonia Creatine Kinase Troponin I Total Protein 6.5 Albumin 2.3 L D Total Amylase 74 Lipase 1004 H Urine Color Urine Appearance Urine pH Ur Specific [place] Urine Protein Urine Glucose (UA) Urine Ketones Urine Blood Urine Nitrite Urine Bilirubin Urine Urobilinogen Ur Leukocyte Esterase Urine WBC (Auto) Urine RBC (Auto) Ur Epithelial Cells Urine Bacteria Urine Mucus Acetaminophen Alcohol, Quantitative Acetone, Qual Blood Type A POSITIVE Antibody Screen Negative 10/04/17 10/04/17 10:37 10:37 WBC RBC Hgb Hct MCV MCH MCHC RDW Plt Count MPV Neutrophils % Neutrophils % (Manual) Band Neutrophils % Lymphocytes % Lymphocytes % (Manual) Monocytes % Monocytes % (Manual) Eosinophils % Eosinophils % (Manual) Basophils % Basophils % (Manual) Myelocytes % (Man) Metamyelocytes Hypochromia Platelet Estimate Polychromasia Poikilocytosis Anisocytosis Microcytosis Macrocytosis Target Cells Ovalocytes PT with INR INR Sodium Potassium Chloride Carbon Dioxide Anion Gap BUN Creatinine Creat Clearance w eGFR Random Glucose Calcium Phosphorus Magnesium Total Bilirubin Direct Bilirubin AST ALT Alkaline Phosphatase Ammonia Creatine Kinase Troponin I Total Protein Albumin Total Amylase Lipase Urine Color Urine Appearance Urine pH Ur Specific [place] Urine Protein Urine Glucose (UA) Urine Ketones Urine Blood Urine Nitrite Urine Bilirubin Urine Urobilinogen Ur Leukocyte Esterase Urine WBC (Auto) Urine RBC (Auto) Ur Epithelial Cells Urine Bacteria Urine Mucus Acetaminophen Alcohol, Quantitative Acetone, Qual Blood Type Cancelled A POSITIVE Antibody Screen Cancelled Abdominal Ultrasound and renal utlrasound noted ASSESSMENT AND PLAN: 62 yof with PMHx of ETOH abuse, reportedly last drink in 08/2017, comes with jaundice, ascitis, abnormal LFTs, all suggestive of acute alcoholic hepatitis. -Acute alcoholic hepatitis with coagulopathy/ascitis -Cholelithiasis, low suspicion for obstructive jaundice -Coagulopathy -Anemia -Renzo, prerenal vs hepatorenal syndrome -?alcoholic pancreatitis Plan: GI consulted with Dr. Pa, MELD score of 38, high 3 month mortality. Plan for diagnostic paracentesis, start on prednisolone once SBP ruled out. Patient with mild tenderness in epigastric region, ?pancreatitis, NPO and diagnostic paracentesis as above. FFP prior to tap. MRCP per Dr Douglas, will follow up. ERCP with Dr. Mann if obstructive process. Check FOBT, place on PPI, monitor h/h, follow up with GI. Check iron panel. Renal input appreciated. Trial with IVF with albumin, if fails to improve, high suspicion for hepatorenal synddrome. Alcohol abstinence counseling. DVTPXX with heparin with caution. GIPPX with protonix Dispo possible transfer to [facility]/tertiary care center for concerning alcoholic hepatitis if MRCP neg for obstructive process. Plan discussed with patient in detail and all questions answered. Care co-ordinated with ED, Dr. Douglas, Dr. Pa and Dr. Hernández.
--- NOTE | 2017-10-04 13:28 | CON.GI ---
Consult Consult Specialty:: GI Reason for Consultation:: ascites - History of Present Illness History of Present Illness: A 62 yof with history of alcohol abuse presents to ED with complaints of feeling weak and tired for the last 3 days. Denies passing out, increased forgetfulness, altered mental status, dysphagia, odynophagia, nausea, vomiting, jaundice, fever, blood in stool, changes stool caliber, unexplained weight loss. Early satiety, abdominal pain. Denies prior history of liver disease. Patient's grandfather had known liver disease. Patient reports last medical checkup 5 years ago. At the time of this exam awake, alert and oriented to place and time. Appears mildly lethargic however. MELD 30, HDF 81 - History Source History Provided By: Patient, Medical Record - Past Medical History Additional Medical History: Denies all medical problems. Alcohol abuse - Past Surgical History Past Surgical History: Yes: None - Alcohol/Substance Use Hx Alcohol Use: Yes (LAST DRINK 3 WEEKS AGO 2 scotches ) - Smoking History Smoking history: Never smoked Home Medications - Allergies Allergies/Adverse Reactions: Allergies Allergy/AdvReac Type Severity Reaction Status Date / Time No Known Allergies Allergy Verified 10/03/17 13:00 - Home Medications Home Medications: Ambulatory Orders NK [No Known Home Medication] 10/03/17 Family Disease History - Family Disease History Family Disease History: Other: Grandparent (liver diseasev) Review of Systems Findings/Remarks: Please see history of present illness and history and physical Physical Exam-GI Vital Signs: Vital Signs Temperature 97.5 F L 10/04/17 12:07 Pulse Rate 83 10/04/17 12:07 Respiratory Rate 16 10/04/17 12:07 Blood Pressure 104/60 10/04/17 12:07 O2 Sat by Pulse Oximetry (%) 96 10/04/17 12:07 Constitutional: Yes: No Distress Eyes: Yes: Sclera Icterus HENT: Yes: Normocephalic, Other (Dental hygiene) Neck: Yes: Supple Cardiovascular: Yes: Regular Rate and Rhythm Respiratory: Yes: Regular Gastrointestinal Inspection: Yes: Distention ...Palpate: Yes: Soft. No: Firm/Rigid, Guarding, Splenomegaly, Tenderness, Epigastium, Tenderness, Rebound Labs: CBC, BMP 10/04/17 07:36 10/04/17 07:36 INR, PTT INR 2.09 (0.82-1.09) H 10/04/17 07:36 Laboratory Tests 10/03/17 10/03/17 10/03/17 13:55 13:55 13:55 WBC 13.9 H RBC 2.48 L Hgb 10.3 L Hct 30.1 L MCV 121.6 H MCH 41.5 H MCHC 34.2 RDW 21.0 H Plt Count 142 MPV 6.6 L Neutrophils % No Result Required. Neutrophils % (Manual) 87.1 H Band Neutrophils % 0.0 Lymphocytes % No Result Required. Lymphocytes % (Manual) 4.0 L Monocytes % Monocytes % (Manual) 9 Eosinophils % Eosinophils % (Manual) 0.0 Basophils % Basophils % (Manual) 0.0 Myelocytes % (Man) 0 Metamyelocytes 0 Hypochromia 0 Platelet Estimate Decreased Polychromasia 1+ Poikilocytosis 1+ Anisocytosis 2+ Microcytosis 0 Macrocytosis 3+ Target Cells 1+ Ovalocytes 2+ PT with INR 23.00 H INR 2.04 H Sodium 132 L Potassium 3.4 L Chloride 88 L Carbon Dioxide 31 Anion Gap 13 BUN 50 H Creatinine 1.8 H Creat Clearance w eGFR 28.33 Random Glucose 114 H Calcium 8.7 Phosphorus Magnesium Total Bilirubin 14.7 H Direct Bilirubin 11.1 H AST 352 H ALT 127 H Alkaline Phosphatase 205 H Ammonia Creatine Kinase 44 Troponin I < 0.02 Total Protein 7.2 Albumin 1.7 L Total Amylase Lipase 1264 H Urine Color Urine Appearance Urine pH Ur Specific [place] Urine Protein Urine Glucose (UA) Urine Ketones Urine Blood Urine Nitrite Urine Bilirubin Urine Urobilinogen Ur Leukocyte Esterase Urine WBC (Auto) Urine RBC (Auto) Ur Epithelial Cells Urine Bacteria Urine Mucus Acetaminophen Alcohol, Quantitative Acetone, Qual Blood Type Antibody Screen 10/03/17 10/03/17 10/03/17 13:55 13:55 13:55 WBC RBC Hgb Hct MCV MCH MCHC RDW Plt Count MPV Neutrophils % Neutrophils % (Manual) Band Neutrophils % Lymphocytes % Lymphocytes % (Manual) Monocytes % Monocytes % (Manual) Eosinophils % Eosinophils % (Manual) Basophils % Basophils % (Manual) Myelocytes % (Man) Metamyelocytes Hypochromia Platelet Estimate Polychromasia Poikilocytosis Anisocytosis Microcytosis Macrocytosis Target Cells Ovalocytes PT with INR INR Sodium Potassium Chloride Carbon Dioxide Anion Gap BUN Creatinine Creat Clearance w eGFR Random Glucose Calcium Phosphorus Magnesium Total Bilirubin Direct Bilirubin AST ALT Alkaline Phosphatase Ammonia Creatine Kinase Troponin I Total Protein Albumin Total Amylase Lipase Urine Color Urine Appearance Urine pH Ur Specific [place] Urine Protein Urine Glucose (UA) Urine Ketones Urine Blood Urine Nitrite Urine Bilirubin Urine Urobilinogen Ur Leukocyte Esterase Urine WBC (Auto) Urine RBC (Auto) Ur Epithelial Cells Urine Bacteria Urine Mucus Acetaminophen < 3 L Alcohol, Quantitative < 5.0 Cancelled Acetone, Qual Negative L Blood Type Antibody Screen 10/03/17 10/03/17 10/04/17 18:38 20:34 07:36 WBC 11.5 H RBC 2.07 L Hgb 8.8 L D Hct 25.5 L D MCV 122.7 H MCH 42.3 H MCHC 34.5 RDW 21.0 H Plt Count 110 L D MPV 6.6 L Neutrophils % 76.2 Neutrophils % (Manual) Band Neutrophils % Lymphocytes % 13.8 Lymphocytes % (Manual) Monocytes % 8.9 Monocytes % (Manual) Eosinophils % 0.6 Eosinophils % (Manual) Basophils % 0.5 Basophils % (Manual) Myelocytes % (Man) Metamyelocytes Hypochromia Platelet Estimate Polychromasia Poikilocytosis Anisocytosis Microcytosis Macrocytosis Target Cells Ovalocytes PT with INR INR Sodium Potassium Chloride Carbon Dioxide Anion Gap BUN Creatinine Creat Clearance w eGFR Random Glucose Calcium Phosphorus Magnesium Total Bilirubin Direct Bilirubin AST ALT Alkaline Phosphatase Ammonia 12.6 Creatine Kinase Troponin I Total Protein Albumin Total Amylase Lipase Urine Color [place] Urine Appearance Cloudy Urine pH 5.0 Ur Specific [place] 1.015 Urine Protein Negative Urine Glucose (UA) Negative Urine Ketones Negative Urine Blood 2+ H Urine Nitrite Negative Urine Bilirubin 4.0 Urine Urobilinogen 4.0 e.u/dl H Ur Leukocyte Esterase 1+ H Urine WBC (Auto) 22 Urine RBC (Auto) 4 Ur Epithelial Cells Few Urine Bacteria Many Urine Mucus Rare Acetaminophen Alcohol, Quantitative Acetone, Qual Blood Type Antibody Screen 10/04/17 10/04/17 10/04/17 07:36 07:36 10:00 WBC RBC Hgb Hct MCV MCH MCHC RDW Plt Count MPV Neutrophils % Neutrophils % (Manual) Band Neutrophils % Lymphocytes % Lymphocytes % (Manual) Monocytes % Monocytes % (Manual) Eosinophils % Eosinophils % (Manual) Basophils % Basophils % (Manual) Myelocytes % (Man) Metamyelocytes Hypochromia Platelet Estimate Polychromasia Poikilocytosis Anisocytosis Microcytosis Macrocytosis Target Cells Ovalocytes PT with INR 23.60 H INR 2.09 H Sodium 134 L Potassium 3.6 Chloride 94 L Carbon Dioxide 30 Anion Gap 10 BUN 49 H Creatinine 1.7 H Creat Clearance w eGFR 30.26 Random Glucose 82 Calcium 8.1 L Phosphorus 2.9 Magnesium 2.1 Total Bilirubin 15.5 H* Direct Bilirubin Cancelled AST 265 H D ALT 96 H D Alkaline Phosphatase 159 H D Ammonia Creatine Kinase Troponin I Total Protein 6.5 Albumin 2.3 L D Total Amylase 74 Lipase 1004 H Urine Color Urine Appearance Urine pH Ur Specific [place] Urine Protein Urine Glucose (UA) Urine Ketones Urine Blood Urine Nitrite Urine Bilirubin Urine Urobilinogen Ur Leukocyte Esterase Urine WBC (Auto) Urine RBC (Auto) Ur Epithelial Cells Urine Bacteria Urine Mucus Acetaminophen Alcohol, Quantitative Acetone, Qual Blood Type A POSITIVE Antibody Screen Negative 10/04/17 10/04/17 10:37 10:37 WBC RBC Hgb Hct MCV MCH MCHC RDW Plt Count MPV Neutrophils % Neutrophils % (Manual) Band Neutrophils % Lymphocytes % Lymphocytes % (Manual) Monocytes % Monocytes % (Manual) Eosinophils % Eosinophils % (Manual) Basophils % Basophils % (Manual) Myelocytes % (Man) Metamyelocytes Hypochromia Platelet Estimate Polychromasia Poikilocytosis Anisocytosis Microcytosis Macrocytosis Target Cells Ovalocytes PT with INR INR Sodium Potassium Chloride Carbon Dioxide Anion Gap BUN Creatinine Creat Clearance w eGFR Random Glucose Calcium Phosphorus Magnesium Total Bilirubin Direct Bilirubin AST ALT Alkaline Phosphatase Ammonia Creatine Kinase Troponin I Total Protein Albumin Total Amylase Lipase Urine Color Urine Appearance Urine pH Ur Specific [place] Urine Protein Urine Glucose (UA) Urine Ketones Urine Blood Urine Nitrite Urine Bilirubin Urine Urobilinogen Ur Leukocyte Esterase Urine WBC (Auto) Urine RBC (Auto) Ur Epithelial Cells Urine Bacteria Urine Mucus Acetaminophen Alcohol, Quantitative Acetone, Qual Blood Type Cancelled A POSITIVE Antibody Screen Cancelled Imaging - Results Ultrasound: Report Reviewed Problem List - Problems (1) Ascites Code(s): R18.8 - OTHER ASCITES (2) Leukocytosis Code(s): D72.829 - ELEVATED WHITE BLOOD CELL COUNT, UNSPECIFIED (3) Cholestasis Code(s): K83.1 - OBSTRUCTION OF BILE DUCT (4) Acute on chronic alcoholic liver disease Code(s): K70.9 - ALCOHOLIC LIVER DISEASE, UNSPECIFIED (5) Encephalopathy Code(s): G93.40 - ENCEPHALOPATHY, UNSPECIFIED (6) Liver failure Code(s): K72.90 - HEPATIC FAILURE, UNSPECIFIED WITHOUT COMA Qualifiers: Liver failure chronicity: acute Hepatic coma status: without hepatic coma Qualified Code(s): K72.00 - Acute and subacute hepatic failure without coma (7) Renal insufficiency Code(s): N28.9 - DISORDER OF KIDNEY AND URETER, UNSPECIFIED (8) Hepatorenal syndrome Code(s): K76.7 - HEPATORENAL SYNDROME Assessment/Plan Stop IVF Urine Na, electrolytes 500 cc fluid challenge if oliguric Diagnostic paracentesis to r/o SBP, start abx while awaiting for the results ( Cefotaxime 2 gm IV q8) Viral hepatitis profile Autoimmune liver work up JEYSON, AMA, ASMA, ALK-1 MRI of the abdomen/liver If negative for infection, SBP, HBV, HCV start prednisolone 40 mg po daily Protonix 40 mg po qAM 2 gm sodium and 1.5 L/day fluid restriction EGD for EGV variceal dx/surveillance Daily PT/INR, CMP, dir. bili, ALP, CBC
--- NOTE | 2017-10-04 13:38 | PN ---
Teaching Attending Note Name of Resident: Rico Beltran (Nephrology) ATTENDING PHYSICIAN STATEMENT I saw and evaluated the patient. I reviewed the resident's note and discussed the case with the resident. I agree with the resident's findings and plan as documented. Nephrology Consult Pt is a 62 year old female with pmhx of etoh abuse who presents to the ER with increased weakness. She complains of decreased appetite. She was found to be in liver failure. She says she drinks daily but her last drink was a few days ago. I was called to evaluate her for elevated creatinine. She denies dysuria or hematuria. She denies diarrhea or vomiting PMHx liver disease pshx denies social hx daily etoh use nkda family hx denies Current Medications Generic Name Dose Route Start Last Admin Trade Name Freq PRN Reason Stop Dose Admin Chlorhexidine Gluconate 1 applic 10/03/17 22:00 10/04/17 06:10 Hibiclens For Decolonization - TP Not Given HS JOVANNA Sodium Chloride 500 mls @ 100 mls/hr 10/04/17 11:30 Normal Saline - IV 10/04/17 16:29 ASDIR JOVANNA Mupirocin 1 applic 10/03/17 22:00 10/04/17 11:04 Bactroban Ointment (For Decolonization) - NS 10/08/17 21:59 Not Given BID JOVANNA Octreotide Acetate 500 mcg 10/03/17 22:15 Sandostatin - IVPB 10/04/17 14:16 Q8H JOVANNA Last Vital Signs Temp Pulse Resp BP Pulse Ox 97.5 F L 83 16 104/60 96 10/04/17 12:07 10/04/17 12:07 10/04/17 12:07 10/04/17 12:07 10/04/17 12:07 Laboratory Tests 10/03/17 10/03/17 10/03/17 13:55 13:55 18:38 WBC 13.9 H Hgb 10.3 L Sodium 132 L Potassium 3.4 L Chloride 88 L BUN 50 H Creatinine 1.8 H Total Bilirubin 14.7 H Lipase 1264 H Tumor Marker AFP Urine Protein Negative Urine Blood 2+ H Hepatitis A Ab Total Hep Bs Antigen Hep Bs Antibody Hep B Core Total Ab Hepatitis C Antibody 10/04/17 10/04/17 10/04/17 07:36 07:36 09:00 WBC 11.5 H Hgb 8.8 L D Sodium 134 L Potassium 3.6 Chloride BUN 49 H Creatinine 1.7 H Total Bilirubin 15.5 H* Lipase 1004 H Tumor Marker AFP Urine Protein Urine Blood Hepatitis A Ab Total Hep Bs Antigen Hep Bs Antibody Hep B Core Total Ab Hepatitis C Antibody Pending 10/04/17 10/04/17 09:00 09:00 WBC Hgb Sodium Potassium Chloride BUN Creatinine Total Bilirubin Lipase Tumor Marker AFP Pending Urine Protein Urine Blood Hepatitis A Ab Total Pending Hep Bs Antigen Pending Hep Bs Antibody Pending Hep B Core Total Ab Pending Hepatitis C Antibody cardio s1s2 reg pulm clear GI soft, ascites ext edema neuro awake skin jaundice heent scleral icterus Impression 1. VALERIA with unclear baseline creatinine, r/o HRS 2. liver failure likely from etoh 3. etoh abuse 4. jaundice Plan - will give fluid and albumin challenge - repeat labs in am - check urine sodium - discussed with medical team - GI eval - pt is up for transfer to [facility] - follow hep panel Dr Hernández
--- NOTE | 2017-10-04 15:14 | MSN ---
Progress Note (short form) - Note Progress Note: SUBJECTIVE CC: progressive weakness and lethargy for 3 days with decreased PO intake HPI: Pt is a 62 y/o F with PMHx ETOH abuse who presented to the ED with worsening PO intake and progressive fatigue/weakness. She states her feeling of anorexia began after Thanksgi, when she stopped feeling hungry. However, it has gotten progressively worse over the past 3 days. She states the smell of food makes her averse. She states she feels weak when ambulating; this began August 22. She has been drinking 2 glasses of scotch daily for many years but had her last drink on September 11. Pt denies any fever, chills, nausea, vomiting, tremors, hallucinations, and reports her abdominal distension is much improved from admission. She believes her abdomen is "normal size" now. She denies noticing any new bruises or bleeding, denies pain in stomach or feeling lightheaded. She has no problems urinating or passing stool. CIWA score 0 at time of exam (8:20 AM). Throughout exam, pt paused in between sentences and would take a 3-4 seconds to focus back to the conversation. OBJECTIVE Last Vital Signs Temp Pulse Resp BP Pulse Ox 97.3 F L 72 16 108/62 96 10/04/17 14:00 10/04/17 14:00 10/04/17 14:00 10/04/17 14:10/04/17 12:07 General: Pt was lying comfortably in bed, resting, in no acute distress. Alert and oriented x 3. Eyes: PERRLA. EOMI B/L. Severe scleroicterus noted B/L. No APD. Chest: Regular rate, regular rhythm. No murmurs appreciated. Lungs: Clear to auscultation B/L. Equal breath sounds. Abdomen: NTto light palpation. Mild tenderness to deep palpation in epigastric region. Mild distention. Obese. Normoactive bowel sounds in all 4 quadrants. No ecchymoses noted. Tympanic to percussion throughout. Extremities: 2+ DP pulses. 2+ radial pulses. No edema noted in B/L LE. Intact to light sensation all throughout UE and LE. Symmetric sensation in UE and LE B/ L. CBC, BMP 10/04/17 07:36 10/04/17 07:36 Abnormal Lab Results 10/03/17 10/03/17 10/04/17 13:55 18:38 07:36 WBC 11.5 H RBC 2.07 L Hgb 8.8 L D Hct 25.5 L D MCV 122.7 H MCH 42.3 H RDW 21.0 H Plt Count 110 L D MPV 6.6 L Neutrophils % (Manual) 87.1 H Lymphocytes % (Manual) 4.0 L PT with INR INR Sodium Chloride BUN Creatinine Calcium Total Bilirubin AST ALT Alkaline Phosphatase Albumin Lipase Urine Blood 2+ H Urine Urobilinogen 4.0 e.u/dl H Ur Leukocyte Esterase 1+ H 10/04/17 10/04/17 07:36 07:36 WBC RBC Hgb Hct MCV MCH RDW Plt Count MPV Neutrophils % (Manual) Lymphocytes % (Manual) PT with INR 23.60 H INR 2.09 H Sodium 134 L Chloride 94 L BUN 49 H Creatinine 1.7 H Calcium 8.1 L Total Bilirubin 15.5 H* AST 265 H D ALT 96 H D Alkaline Phosphatase 159 H D Albumin 2.3 L D Lipase 1004 H Urine Blood Urine Urobilinogen Ur Leukocyte Esterase Active Medications Generic Name Dose Route Start Last Admin Trade Name Freq PRN Reason Stop Dose Admin Chlorhexidine Gluconate 1 applic 10/03/17 22:00 10/04/17 06:10 Hibiclens For Decolonization - TP Not Given HS JOVANNA Mupirocin 1 applic 10/03/17 22:00 10/04/17 11:04 Bactroban Ointment (For Decolonization) - NS 10/08/17 21:59 Not Given BID JOVANNA Pantoprazole Sodium 40 mg 10/05/17 10:00 Protonix - PO DAILY JOVANNA Home Medications Medication Instructions Recorded NK [No Known Home Medication] 10/03/17 ASSESSMENT Pt is a 62 y/o F with PMHx ETOH abuse who presented to the ED with worsening PO intake, progressive fatigue/weakness, jaundice, ascites, and admitted for acute alcoholic hepatitis. PLAN 1. Acute alcoholic hepatitis with coagulopathy/ascites * likely secondary to chronic alcohol abuse * FFP prior to diagnostic paracentesis for ascites to r/o SBP; start on Prenisolone once SBP, HBV, HCV ruled out. * MELD score 38, high 3 mo mortality * GI consult - Dr. Pa - will stop IVF, order urine lytes, 500cc fluid challenge if oligouric. Start abx - Cefotaxime 2 gm IVq8. Order Viral hepatitis profile. Autoimmune liver work up: JEYSON, AMA, ASMA, ALK-1. MRI abdomen/liver. Protonix 40mg po qAM, 2 gm sodium, 1.5 L/day fluid restriction. EGD for EGV variceal dx/surveillance. Daily PT/INR, CMP, dir. bili, ALP, CBC. * MRCP as per Dr. Douglas, f/u official report. Spoke with Dr. Bates ( radiologist) who gave a verbal non-official read -- peripancreatic edema with enlarged pancreas, likely pancreatitis. No obstructive process noted. Normal common bile duct. 2. VALERIA * likely secondary to pre-renal azotemia (poor PO intake) vs. hepatorenal syndrome * Urine lytes * Nephro consult - fluid and albumin challenge to r/o pre-renal azotemia vs. hepatorenal syndrome. Follow help panel. Repeat labs. 3. PPX * DVT PPX: Heparin 5000U SQ. Monitor for active bleeding, marv. given increased INR and hepatic disease. * GI PPX: Protonix 40 mg PO daily as per Dr. Pa rec 4. FEN * Fluids: Hold IV fluids, give fluid/albumin challenge * Electrolytes: monitor, replenish lytes as needed * Nutrition: NPO 4. Dispo * Transfer to [facility]/tertiary care center for more intensive care, pending bed availability
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
--- NOTE | 2017-10-04 18:24 | DS ---
Physical Exam: SUBJECTIVE: Patient seen and examined. She complained of bright red blood in her underwear when she went to use the restroom. Also says she has not had a BM in 3 days. Denies abdominal pain, dysuria, diarrhea, chest pain, dizziness. OBJECTIVE: Vital Signs Period Temp Pulse Resp BP Sys/Lui Pulse Ox Last 24 Hr 97.3 F-97.6 F 64-86 15-20 93-108/52-64 96-99 PHYSICAL EXAM GENERAL:Jaundiced. A/o x 3, in no acute distress HEAD: Normal with no signs of trauma. EYES: Scleral icterus. ENT: dry mucous membranes NECK: supple. LUNGS: Breath sounds equal, clear to auscultation bilaterally, no wheezes, no crackles, no accessory muscle use. HEART: Regular rate and rhythm, S1, S2 without murmur, rub or gallop. ABDOMEN: Distended, RUQ tenderness to palpation, negative burleson. Hepatomegaly. No asterixes. mild hand tremors. EXTREMITIES: 2+ pulses, warm, well-perfused, no edema. NEUROLOGICAL: Cranial nerves II through XII grossly intact. Normal speech, gait not observed. PSYCH: Normal mood, normal affect. SKIN: jaunced. LABS Laboratory Results - last 24 hr 10/03/17 10/03/17 10/04/17 18:38 20:34 07:36 WBC 11.5 H RBC 2.07 L Hgb 8.8 L D Hct 25.5 L D MCV 122.7 H MCH 42.3 H MCHC 34.5 RDW 21.0 H Plt Count 110 L D MPV 6.6 L Neutrophils % 76.2 Lymphocytes % 13.8 Monocytes % 8.9 Eosinophils % 0.6 Basophils % 0.5 PT with INR INR Sodium Potassium Chloride Carbon Dioxide Anion Gap BUN Creatinine Creat Clearance w eGFR Random Glucose Calcium Phosphorus Magnesium Total Bilirubin Direct Bilirubin AST ALT Alkaline Phosphatase Ammonia 12.6 Total Protein Albumin Total Amylase Lipase Urine Color Martha Urine Appearance Cloudy Urine pH 5.0 Ur Specific [place] 1.015 Urine Protein Negative Urine Glucose (UA) Negative Urine Ketones Negative Urine Blood 2+ H Urine Nitrite Negative Urine Bilirubin 4.0 Urine Urobilinogen 4.0 e.u/dl H Ur Leukocyte Esterase 1+ H Urine WBC (Auto) 22 Urine RBC (Auto) 4 Ur Epithelial Cells Few Urine Bacteria Many Urine Mucus Rare Hepatitis C Antibody Blood Type Antibody Screen 10/04/17 10/04/17 10/04/17 07:36 07:36 09:00 WBC RBC Hgb Hct MCV MCH MCHC RDW Plt Count MPV Neutrophils % Lymphocytes % Monocytes % Eosinophils % Basophils % PT with INR 23.60 H INR 2.09 H Sodium 134 L Potassium 3.6 Chloride 94 L Carbon Dioxide 30 Anion Gap 10 BUN 49 H Creatinine 1.7 H Creat Clearance w eGFR 30.26 Random Glucose 82 Calcium 8.1 L Phosphorus 2.9 Magnesium 2.1 Total Bilirubin 15.5 H* Direct Bilirubin Cancelled AST 265 H D ALT 96 H D Alkaline Phosphatase 159 H D Ammonia Total Protein 6.5 Albumin 2.3 L D Total Amylase 74 Lipase 1004 H Urine Color Urine Appearance Urine pH Ur Specific [place] Urine Protein Urine Glucose (UA) Urine Ketones Urine Blood Urine Nitrite Urine Bilirubin Urine Urobilinogen Ur Leukocyte Esterase Urine WBC (Auto) Urine RBC (Auto) Ur Epithelial Cells Urine Bacteria Urine Mucus Hepatitis C Antibody Cancelled Blood Type Antibody Screen 10/04/17 10/04/17 10/04/17 10:00 10:37 10:37 WBC RBC Hgb Hct MCV MCH MCHC RDW Plt Count MPV Neutrophils % Lymphocytes % Monocytes % Eosinophils % Basophils % PT with INR INR Sodium Potassium Chloride Carbon Dioxide Anion Gap BUN Creatinine Creat Clearance w eGFR Random Glucose Calcium Phosphorus Magnesium Total Bilirubin Direct Bilirubin AST ALT Alkaline Phosphatase Ammonia Total Protein Albumin Total Amylase Lipase Urine Color Urine Appearance Urine pH Ur Specific [place] Urine Protein Urine Glucose (UA) Urine Ketones Urine Blood Urine Nitrite Urine Bilirubin Urine Urobilinogen Ur Leukocyte Esterase Urine WBC (Auto) Urine RBC (Auto) Ur Epithelial Cells Urine Bacteria Urine Mucus Hepatitis C Antibody Blood Type A POSITIVE Cancelled A POSITIVE Antibody Screen Negative Cancelled HOSPITAL COURSE: Date of Admission:10/03/17 Date of Discharge: 10/04/17 Discharge Summary Reason For Visit: LIVER FAILURE Current Active Problems Acute on chronic alcoholic liver disease (Acute) Ascites (Acute) Cholestasis (Acute) Encephalopathy (Acute) Hepatorenal syndrome (Acute) Leukocytosis (Acute) Liver failure (Acute) Renal insufficiency (Acute) Condition: Guarded - Instructions Diet, Activity, Other Instructions: You are being transferred to [facility] for higher level of care. Referrals: Singh Muro MD [Primary Care Provider] - Disposition: TRANSFER ACUTE CARE/OTHER HOSP - Home Medications Comprehensive Discharge Medication List: Ambulatory Orders Pantoprazole Sodium [Protonix -] 40 mg PO DAILY tablet.ec 10/04/17
[2017-10-04 18:31] LABS: COCAINE, UR NEGATIVE ng/ml (CUTOFF=300); METHADONE, UR NEGATIVE ng/ml (CUTOFF=300); OPIATES, URI NEGATIVE ng/ml (CUTOFF=300); PHENCYCLIDINE,URINE NEGATIVE ng/ml (CUTOFF=25); URINE AMPHETAMINES NEGATIVE ng/ml (CUTOFF=500); URINE BARBITURATES NEGATIVE ng/ml (CUTOFF=200); URINE BENZODIAZEPINES NEGATIVE ng/ml (CUTOFF=200)
--- NOTE | 2017-10-04 19:52 | HOSP ---
Physical Examination Vital Signs: Vital Signs Temperature 97.3 F L 10/04/17 14:00 Pulse Rate 72 10/04/17 14:00 Respiratory Rate 16 10/04/17 14:00 Blood Pressure 108/62 10/04/17 14:00 O2 Sat by Pulse Oximetry (%) 96 10/04/17 12:07 Labs: CBC, BMP 10/04/17 07:36 10/04/17 07:36 Hospitalist Encounter Assessment: Time of encounter: 7:45 am this morning. Was signed out by the night team regarding patients transfer to [facility]. Last night, [facility] had accepted the patient however patient refused to leave hence transfer was cancelled. Spoke with the patient this morning who agrees to be transferred to [facility]. Discussed the case with Dr. Pa and Dr. Vanegas who recommended patient to be transferred hence initiated the transfer. Spoke with Dr Gloria Gates (Attending physician at [facility] ) who accepted the patient in Med-Surg floor for further evaluation and treatment. Called transfer center again at 5:45 pm:Awaiting for bed. Transfer papers has been filled. Phone no: [phone]. Case discussed with Dr. Vanegas and Math Coach. Visit type - Emergency Visit Emergency Visit: Yes ED Registration Date: 10/03/17 Care time: The patient presented to the Emergency Department on the above date and was hospitalized for further evaluation of their emergent condition. - New Patient This patient is new to me today: Yes Date on this admission: 10/04/17 - Critical Care Critical Care patient: No
[2017-10-05] MEDS: MUPIROCIN 2% TOPICAL OINTMENT FOR DECOLONIZATION NS SCH (00:48)
[2017-10-05] MEDS: CHLORHEXIDINE GLUCONATE 4% CLEANSER FOR DECOLONIZATION TP SCH (00:48)
[2017-10-05 01:07] VITALS: BMI 33.8
[2017-10-05 07:39] LABS: HEMATOCRIT 22.6 % (32.4-45.2); HEMOGLOBIN 7.9 GM/dL (10.7-15.3); MCHC 34.7 g/dl (32.0-36.0); MEAN CELL VOLUME 123.2 fl (80-96); MEAN PLT VOLUME 6.8 fl (7.5-11.1); PLATELET COUNT 92 K/MM3 (134-434); RBC 1.84 M/mm3 (3.60-5.2); RDW 20.4 % (11.6-15.6); WHITE BLOOD COUNT 8.6 K/mm3 (4.0-10.0)
--- NOTE | 2017-10-05 07:48 | MSN ---
Progress Note (short form) - Note Progress Note: SUBJECTIVE Pt seen and examined today. Pt has less pauses in between sentences, as compared to yesterday. Nurse reports bright red blood seen in incontinence underwear. Pt states her last BM was 1 week ago, she does not experience any urge to go. She denies abdominal fullness, nausea, vomiting, pain in abdomen. She states she is able to drink and ambulate fine with her cane. She denies fever, chills. OBJECTIVE Last Vital Signs Temp Pulse Resp BP Pulse Ox 97.9 F 70 21 120/69 96 10/05/17 05:55 10/05/17 05:55 10/05/17 05:55 10/05/17 05:55 10/04/17 23:00 General: Pt was lying comfortably in bed, resting, in no acute distress. Alert and oriented x 3. Eyes: PERRLA. EOMI B/L. Severe scleroicterus noted B/L. No APD. Chest: Regular rate, regular rhythm. No murmurs appreciated. Lungs: Clear to auscultation B/L. Equal breath sounds. Abdomen: NT to light palpation. Tender to deep palpation in epigastric region. Distended. Obese. Hypoactive bowel sounds in all 4 quadrants. No ecchymoses noted. Tympanic to percussion throughout. Negative Garcia's sign. Hepatomegaly 3 cm below rib cage noted on percussion. Extremities: 2+ DP pulses. 2+ radial pulses. No edema noted in B/L LE. Intact to light sensation all throughout UE and LE. Symmetric sensation in UE and LE B/ L. Ecchymosis noted on dorsal forearm. No asterixis. 1+ b/l hand tremor noted with arms outstretched. CBC, BMP 10/05/17 06:30 10/05/17 06:30 Laboratory Results - last 24 hr 10/04/17 10/04/17 10/04/17 09:00 09:00 17:50 WBC RBC Hgb Hct MCV MCH MCHC RDW Plt Count MPV PT with INR INR Sodium Potassium Chloride Carbon Dioxide Anion Gap BUN Creatinine Creat Clearance w eGFR POC Glucometer Random Glucose Calcium Magnesium Total Bilirubin AST ALT Alkaline Phosphatase Total Protein Albumin Tumor Marker AFP 3.2 Vitamin B12 Serum Folate Urine Creatinine Stool Occult Blood Opiates Screen Negative Methadone Screen Negative Barbiturate Screen Negative Phencyclidine Screen Negative Ur Amphetamines Screen Negative MDMA (Ecstasy) Screen Negative Benzodiazepines Screen Negative Cocaine Screen Negative U Marijuana (THC) Screen Negative Hep A IgM Ab Confirm Negative Hepatitis A Ab Total Positive H Hep Bs Antigen Negative Hep Bs Antibody Non reactive Hep B Core Total Ab Negative Hepatitis C Antibody 0.1 10/04/17 10/05/17 10/05/17 17:50 06:00 06:30 WBC 8.6 RBC 1.84 L Hgb 7.9 L D Hct 22.6 L MCV 123.2 H MCH 42.7 H MCHC 34.7 RDW 20.4 H Plt Count 92 L MPV 6.8 L PT with INR INR Sodium Potassium Chloride Carbon Dioxide Anion Gap BUN Creatinine Creat Clearance w eGFR POC Glucometer Random Glucose Calcium Magnesium Total Bilirubin AST ALT Alkaline Phosphatase Total Protein Albumin Tumor Marker AFP Vitamin B12 Serum Folate Urine Creatinine 126.0 Stool Occult Blood Negative Opiates Screen Methadone Screen Barbiturate Screen Phencyclidine Screen Ur Amphetamines Screen MDMA (Ecstasy) Screen Benzodiazepines Screen Cocaine Screen U Marijuana (THC) Screen Hep A IgM Ab Confirm Hepatitis A Ab Total Hep Bs Antigen Hep Bs Antibody Hep B Core Total Ab Hepatitis C Antibody 10/05/17 10/05/17 10/05/17 06:30 06:30 07:05 WBC RBC Hgb Hct MCV MCH MCHC RDW Plt Count MPV PT with INR 19.70 H INR 1.74 H Sodium 137 Potassium 3.2 L Chloride 99 Carbon Dioxide 29 Anion Gap 9 BUN 44 H Creatinine 1.3 H Creat Clearance w eGFR 41.24 POC Glucometer Random Glucose 66 L Calcium 7.8 L Magnesium 2.2 Cancelled Total Bilirubin 16.2 H* AST 208 H ALT 79 H Alkaline Phosphatase 135 H Total Protein 5.9 L Albumin 2.2 L Tumor Marker AFP Vitamin B12 2613 H Serum Folate 4 Urine Creatinine Stool Occult Blood Opiates Screen Methadone Screen Barbiturate Screen Phencyclidine Screen Ur Amphetamines Screen MDMA (Ecstasy) Screen Benzodiazepines Screen Cocaine Screen U Marijuana (THC) Screen Hep A IgM Ab Confirm Hepatitis A Ab Total Hep Bs Antigen Hep Bs Antibody Hep B Core Total Ab Hepatitis C Antibody 10/05/17 10/05/17 11:57 12:45 WBC RBC Hgb Hct MCV MCH MCHC RDW Plt Count MPV PT with INR INR Sodium Potassium Chloride Carbon Dioxide Anion Gap BUN Creatinine Creat Clearance w eGFR POC Glucometer 76 Random Glucose Calcium Magnesium Total Bilirubin AST ALT Alkaline Phosphatase Total Protein Albumin Tumor Marker AFP Vitamin B12 Serum Folate Urine Creatinine Stool Occult Blood Positive Opiates Screen Methadone Screen Barbiturate Screen Phencyclidine Screen Ur Amphetamines Screen MDMA (Ecstasy) Screen Benzodiazepines Screen Cocaine Screen U Marijuana (THC) Screen Hep A IgM Ab Confirm Hepatitis A Ab Total Hep Bs Antigen Hep Bs Antibody Hep B Core Total Ab Hepatitis C Antibody Active Medications Generic Name Dose Route Start Last Admin Trade Name Freq PRN Reason Stop Dose Admin Hepatitis B Vaccine 10 mcg 10/05/17 15:11 Engerix-B 10 Mcg/0.5 Ml *Pediatric* - IM 10/05/17 15:12 .ONCE ONE Sodium Chloride 1,000 mls @ 42 mls/hr 10/05/17 11:30 10/05/17 12:41 Normal Saline - IV 42 mls/hr ASDIR JOVANNA Administration Lactulose 20 gm 10/05/17 14:58 Cephulac (Oral Use) PO Q8H PRN CONSTIPATION Pantoprazole Sodium 40 mg 10/05/17 10:00 10/05/17 11:18 Protonix - PO 40 mg DAILY JOVANNA Administration Prednisolone 45 mg 10/05/17 15:15 Prednisolone Unit Dose Cups PO DAILY JOVANNA Rifaximin 550 mg 10/05/17 22:00 Xifaxan - PO BID JOVANNA Home Medications Medication Instructions Recorded Pantoprazole Sodium [Protonix -] 40 mg PO DAILY tablet.ec 10/04/17 ASSESSMENT Pt is a 62 y/o F with PMHx ETOH abuse who presented to the ED with worsening PO intake, progressive fatigue/weakness, jaundice, ascites, and admitted for acute alcoholic hepatitis. PLAN 1. Acute on chronic alcoholic hepatitis with coagulopathy/ascites * likely secondary to chronic alcohol abuse * FFP prior to diagnostic paracentesis for ascites to r/o SBP; start on Prenisolone once SBP, HBV, HCV ruled out. * MELD score 26, high 3 mo mortality. * GI consult - Dr. Pa - will stop IVF, order urine lytes, 500cc fluid challenge if oligouric. Start abx - Cefotaxime 2 gm IVq8. Order Viral hepatitis profile. Autoimmune liver work up: JEYSON, AMA, ASMA, ALK-1. MRI abdomen/liver. Protonix 40mg po qAM, 2 gm sodium, 1.5 L/day fluid restriction. EGD for EGV variceal dx/surveillance. Daily PT/INR, CMP, dir. bili, ALP, CBC. * Dr. Muro consult, as per family request -- no MRCP evidence to suggest CBD stone. Likely acute pancreatitis. renal insufficiency. Macrocytic anemia likely due to liver disease. IVF as required. Check B12/folate/lipase/Ca 19-9. Renal/GI f/u. * Pt is pending transfer to [facility]. * BRBPM - stool occult blood positive. Likely secondary to increased INR, possible anorectal varices vs. internal hemorrhoids. Will require anoscopy at later time. INR improved from yesterday. Pt hemodynamically stable. H/H 7.9/ 22.6. BP 120/69. No need to transfuse at this time. * Start rifaximin, lactulose for hepatic encephalopathy given physical exam findings, acute hepatitis and pt lab abnormalities. * Thrombocytopenia likely alcohol induced. 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 B12 and folate were wnl. * AFP wnl 3.2, not likely HCC. 2. Acute Pancreatitis * likely due to alcohol consumption vs. gallbladder stone. * IVF NS 1000 mls @ 42 cc/hr * NPO, bowel rest 3. VALERIA * likely secondary to pre-renal azotemia (poor PO intake) * Urine lytes * Nephro consult - fluid and albumin challenge to r/o pre-renal azotemia vs. hepatorenal syndrome. Follow hep panel. * Given improvement with fluid/albumin challenge, not likely to be hepatorenal syndrome. 4. PPX * DVT PPX: SCDs b/l. * GI PPX: Protonix 40 mg PO daily 5. FEN * Fluids: NS 1000 mls @42 mls/hr. * Electrolytes: monitor, replenish lytes as needed * Nutrition: NPO 6. Dispo * Transfer to [facility]/tertiary care center for more intensive care, transfer pending.
[2017-10-05 08:01] LABS: INR 1.74 (0.82-1.09); PROTHROMBIN TIME (PATIENT) 19.7 SEC (9.98-11.88)
[2017-10-05 08:03] LABS: ALBUMIN 2.2 g/dl (3.4-5.0); ANION GAP 9 (8-16); BLOOD UREA NITROGEN 44 mg/dL (7-18); CALCIUM 7.8 mg/dL (8.5-10.1); CHLORIDE 99 mmol/L (98-107); CO2 29 mmol/L (21-32); CREATININE 1.3 mg/dL (0.55-1.02); GLUCOSE,RANDOM 66 mg/dL (74-106); POTASSIUM 3.2 mmol/L (3.5-5.1); SGOT/AST 208 U/L (15-37); SGPT/ALT 79 U/L (12-78); SODIUM 137 mmol/L (136-145)
[2017-10-05 08:16] LABS: ALK PHOS 135 U/L (45-117); TOT PROT 5.9 g/dl (6.4-8.2)
[2017-10-05 08:33] LABS: BILIRUBIN,TOTAL 16.2 mg/dL (0.2-1.0)
[2017-10-05] MEDS ORDERED: KCL 10 MEQ IVPB 10 MEQ/100 ML INFUS.BAG IVPB SCH (09:15)
[2017-10-05 09:17] LABS: MCH 42.7 pg (25.7-33.7)
[2017-10-05 09:33] LABS: MAGNESIUM 2.2 mg/dL (1.8-2.4)
[2017-10-05] MEDS ORDERED: LACTULOSE 20 GM/30 ML UDC (FOR ORAL USE ONLY) PO ONE (10:00)
[2017-10-05] MEDS ORDERED: SODIUM CHLORIDE 100 ML with POTASSIUM CHLORIDE 10 MEQ IVPB SCH (10:45)
--- NOTE | 2017-10-05 11:04 | PN ---
Progress Note (short form) - Note Progress Note: Resting in NAD. No acute events overnight. No CP or SOB. Intake & Output 10/02/17 10/03/17 10/04/17 10/05/17 23:59 23:59 23:59 23:59 Intake Total 444 Balance 444 Weight 165 lb 191 lb 4.8 oz Last Vital Signs Temp Pulse Resp BP Pulse Ox 97.9 F 70 21 120/69 96 10/05/17 05:55 10/05/17 05:55 10/05/17 05:55 10/05/17 05:55 10/04/17 23:00 Active Medications Potassium Chloride 10 meq/ (Sodium Chloride) 105 mls @ 105 mls/hr IVPB Q1H JOVANNA Stop: 10/05/17 12:44 Pantoprazole Sodium (Protonix -) 40 mg PO DAILY JOVANNA Constitutional: Yes: NAD Eyes: Yes: EOM Intact HENT: Yes: Normocephalic Neck: Yes: Trachea Midline Cardiovascular: Yes: Regular Rate and Rhythm Respiratory: Yes: CTA Bilaterally Gastrointestinal: Yes: Soft, Ascites Renal/: Yes: WNL Extremities: Yes: WNL Labs: Laboratory Results - last 24 hr 10/04/17 10/04/17 10/04/17 09:00 09:00 09:00 WBC RBC Hgb Hct MCV MCH MCHC RDW Plt Count MPV PT with INR INR Sodium Potassium Chloride Carbon Dioxide Anion Gap BUN Creatinine Creat Clearance w eGFR Random Glucose Calcium Magnesium Total Bilirubin AST ALT Alkaline Phosphatase Total Protein Albumin Tumor Marker AFP 3.2 Urine Creatinine Stool Occult Blood Opiates Screen Methadone Screen Barbiturate Screen Phencyclidine Screen Ur Amphetamines Screen MDMA (Ecstasy) Screen Benzodiazepines Screen Cocaine Screen U Marijuana (THC) Screen Hepatitis C Antibody Cancelled 0.1 Blood Type Antibody Screen 10/04/17 10/04/17 10/04/17 10:00 10:37 10:37 WBC RBC Hgb Hct MCV MCH MCHC RDW Plt Count MPV PT with INR INR Sodium Potassium Chloride Carbon Dioxide Anion Gap BUN Creatinine Creat Clearance w eGFR Random Glucose Calcium Magnesium Total Bilirubin AST ALT Alkaline Phosphatase Total Protein Albumin Tumor Marker AFP Urine Creatinine Stool Occult Blood Opiates Screen Methadone Screen Barbiturate Screen Phencyclidine Screen Ur Amphetamines Screen MDMA (Ecstasy) Screen Benzodiazepines Screen Cocaine Screen U Marijuana (THC) Screen Hepatitis C Antibody Blood Type A POSITIVE Cancelled A POSITIVE Antibody Screen Negative Cancelled 10/04/17 10/04/17 10/05/17 17:50 17:50 06:00 WBC RBC Hgb Hct MCV MCH MCHC RDW Plt Count MPV PT with INR INR Sodium Potassium Chloride Carbon Dioxide Anion Gap BUN Creatinine Creat Clearance w eGFR Random Glucose Calcium Magnesium Total Bilirubin AST ALT Alkaline Phosphatase Total Protein Albumin Tumor Marker AFP Urine Creatinine 126.0 Stool Occult Blood Negative Opiates Screen Negative Methadone Screen Negative Barbiturate Screen Negative Phencyclidine Screen Negative Ur Amphetamines Screen Negative MDMA (Ecstasy) Screen Negative Benzodiazepines Screen Negative Cocaine Screen Negative U Marijuana (THC) Screen Negative Hepatitis C Antibody Blood Type Antibody Screen 10/05/17 10/05/17 10/05/17 06:30 06:30 06:30 WBC 8.6 RBC 1.84 L Hgb 7.9 L D Hct 22.6 L MCV 123.2 H MCH 42.7 H MCHC 34.7 RDW 20.4 H Plt Count 92 L MPV 6.8 L PT with INR INR Sodium 137 Potassium 3.2 L Chloride 99 Carbon Dioxide 29 Anion Gap 9 BUN 44 H Creatinine 1.3 H Creat Clearance w eGFR 41.24 Random Glucose 66 L Calcium 7.8 L Magnesium Cancelled Total Bilirubin 16.2 H* AST 208 H ALT 79 H Alkaline Phosphatase 135 H Total Protein 5.9 L Albumin 2.2 L Tumor Marker AFP Urine Creatinine Stool Occult Blood Opiates Screen Methadone Screen Barbiturate Screen Phencyclidine Screen Ur Amphetamines Screen MDMA (Ecstasy) Screen Benzodiazepines Screen Cocaine Screen U Marijuana (THC) Screen Hepatitis C Antibody Blood Type Antibody Screen 10/05/17 07:05 WBC RBC Hgb Hct MCV MCH MCHC RDW Plt Count MPV PT with INR 19.70 H INR 1.74 H Sodium Potassium Chloride Carbon Dioxide Anion Gap BUN Creatinine Creat Clearance w eGFR Random Glucose Calcium Magnesium Total Bilirubin AST ALT Alkaline Phosphatase Total Protein Albumin Tumor Marker AFP Urine Creatinine Stool Occult Blood Opiates Screen Methadone Screen Barbiturate Screen Phencyclidine Screen Ur Amphetamines Screen MDMA (Ecstasy) Screen Benzodiazepines Screen Cocaine Screen U Marijuana (THC) Screen Hepatitis C Antibody Blood Type Antibody Screen Problem List - Problems (1) Acute on chronic alcoholic liver disease Code(s): K70.9 - ALCOHOLIC LIVER DISEASE, UNSPECIFIED (2) Ascites Code(s): R18.8 - OTHER ASCITES (3) Encephalopathy Code(s): G93.40 - ENCEPHALOPATHY, UNSPECIFIED (4) Renal insufficiency Code(s): N28.9 - DISORDER OF KIDNEY AND URETER, UNSPECIFIED Assessment/Plan Acute on chronic alcoholic liver disease Ascites Likely acute pancreatitis No MRCP evidence to suggest CBD stone Renal insufficiency Macrocytic anemia likely due to liver disease Patient to be transferred to [facility] for further treatment of her cirrhosis Off ABX O2 as needed Aspiration precautions Dr Richardson
[2017-10-05] MEDS: PANTOPRAZOLE 40 MG TABLET (FP) PO SCH (11:18)
--- NOTE | 2017-10-05 11:28 | PN ---
Progress Note, Physician History of Present Illness: Patient seen ane examined at bedside feels the same as yesterday no complaints pending transfer to [facility] - Current Medication List Current Medications: Active Medications Potassium Chloride 10 meq/ (Sodium Chloride) 105 mls @ 105 mls/hr IVPB Q1H [facility] Stop: 10/05/17 12:44 Sodium Chloride (Normal Saline -) 1,000 mls @ 50 mls/hr IV ASDIR JOVANNA Pantoprazole Sodium (Protonix -) 40 mg PO DAILY JOVANNA Last Admin: 10/05/17 11:18 Dose: 40 mg - Objective Vital Signs: Vital Signs Temperature 97.9 F 10/05/17 05:55 Pulse Rate 70 10/05/17 05:55 Respiratory Rate 21 10/05/17 05:55 Blood Pressure 120/69 10/05/17 05:55 O2 Sat by Pulse Oximetry (%) 96 10/04/17 23:00 Constitutional: Yes: No Distress, Calm, Obese Eyes: Yes: Sclera Icterus HENT: Yes: Atraumatic Neck: Yes: Supple Cardiovascular: Yes: Regular Rate and Rhythm, Murmur (systolic 3/6 murmur best heard at LUSB) Respiratory: Yes: CTA Bilaterally Gastrointestinal: Yes: Soft, Abdomen, Obese, Ascites Edema: Yes Edema: LLE: 1+, RLE: 1+ Integumentary: Yes: Jaundice-worsened from yesterday Neurological: Yes: Alert, Oriented Labs: CBC, BMP 10/05/17 06:30 10/05/17 06:30 INR, PTT INR 1.74 (0.82-1.09) H 10/05/17 07:05 - ....Imaging Ultrasound: Report Reviewed, Image Reviewed MRI: Report Reviewed, Image Reviewed Assessment/Plan 62F presents with weakness and anorexia found to have multiple lab abnormalities and jaundice. Problem List: Leukocytosis possible hepatorenal syndrome-unlikely hyponatremia-resolved VALERIA Possible CKD coagulopathy-elevated INR Sclreal icterus/jaundiced Hyperbilirubinemia transaminitis morbid obesity hypokalemia Plan: Primary team plans to transfer patient to hepatology service at [facility]-in agreement with this plan start NS @ 42ml/hr Renal ultrasound showed kidneys WNL. Show hepatocellular disease vs fatty infiltration. Also shows ascites avoid nephrotoxic drugs MRI reviewed renally dose all medications trend electrolytes GI consult trend LFTs f/u urine sodium Given improvement with albumin/fluid challenge yesterday, it is unlikely patient has hepatorenal syndrome Case discussed with Dr. Hernández .
[2017-10-05] MEDS ORDERED: SODIUM CHLORIDE 1,000 ML IV SCH ×2 (11:30)
[2017-10-05] MEDS: SODIUM CHLORIDE 1,000 ML IV SCH (12:41)
[2017-10-05] MEDS: POTASSIUM CHLORIDE 10 MEQ in SODIUM CHLORIDE 100 ML IVPB SCH ×2 (12:42→16:51)
[2017-10-05 14:11] LABS: HBSAG SCREEN Negative (Negative); HEP A AB, IGM Negative (Negative); HEP B CORE AB, TOT Negative (Negative)
--- NOTE | 2017-10-05 14:29 | PN ---
Teaching Attending Note Name of Resident: Rico Beltran (Nephrology) ATTENDING PHYSICIAN STATEMENT I saw and evaluated the patient. I reviewed the resident's note and discussed the case with the resident. I agree with the resident's findings and plan as documented. Renal Follow Up Pt seen and examined at bedside. She is awake and appears comfortable. She denies shortness of breath. Current Medications Generic Name Dose Route Start Last Admin Trade Name Freq PRN Reason Stop Dose Admin Sodium Chloride 1,000 mls @ 42 mls/hr 10/05/17 11:30 10/05/17 12:41 Normal Saline - IV 42 mls/hr ASDIR JOVANNA Administration Pantoprazole Sodium 40 mg 10/05/17 10:00 10/05/17 11:18 Protonix - PO 40 mg DAILY JOVANNA Administration Last Vital Signs Temp Pulse Resp BP Pulse Ox 97.9 F 70 21 120/69 96 10/05/17 05:55 10/05/17 05:55 10/05/17 05:55 10/05/17 05:55 10/04/17 23:00 Laboratory Tests 10/04/17 10/05/17 07:36 06:30 Sodium 137 Potassium 3.2 L BUN 44 H Creatinine 1.3 H Total Bilirubin 15.5 H* 16.2 H* cardio s1s2 reg pulm clear GI soft, ascites ext edema neuro awake skin jaundice heent scleral icterus Impression 1. VALERIA with unclear baseline creatinine, r/o HRS 2. liver failure likely from etoh 3. etoh abuse 4. jaundice 5. hypokalemia Plan - renal function is improving, she responded to fluids/albumin challenge - unlikely HRS - repeat labs in am - bili is worse - replace potassium - check mag - GI follow up Dr Hernández
--- NOTE | 2017-10-05 14:51 | PN ---
Progress Note, Physician History of Present Illness: Jaundiced, and lethargic, but oriented x 3. Astirexis present. Visible, small amount of fresh blood per rectum reported. No acute events overnight. MELD 26. MRI, viral serology results noted. - Current Medication List Current Medications: Active Medications Sodium Chloride (Normal Saline -) 1,000 mls @ 42 mls/hr IV ASDIR [facility] Last Admin: 10/05/17 12:41 Dose: 42 mls/hr Pantoprazole Sodium (Protonix -) 40 mg PO DAILY [facility] Last Admin: 10/05/17 11:18 Dose: 40 mg - Objective Vital Signs: Vital Signs Temperature 98.7 F 10/05/17 14:38 Pulse Rate 83 10/05/17 14:38 Respiratory Rate 21 10/05/17 05:55 Blood Pressure 100/63 10/05/17 14:38 O2 Sat by Pulse Oximetry (%) 96 10/04/17 23:00 Constitutional: Yes: Calm Eyes: Yes: Sclera Icterus Neck: Yes: Supple Cardiovascular: Yes: Regular Rate and Rhythm Respiratory: Yes: Regular Gastrointestinal: Yes: Soft, Distention. No: Melena, Rectal Bleeding, Tenderness, Vomiting Integumentary: Yes: Jaundice Neurological: Yes: Asterixis, Lethargy Labs: CBC, BMP 10/05/17 06:30 10/05/17 06:30 INR, PTT INR 1.74 (0.82-1.09) H 10/05/17 07:05 Laboratory Results - last 24 hr 10/04/17 10/04/17 10/04/17 09:00 09:00 09:00 WBC RBC Hgb Hct MCV MCH MCHC RDW Plt Count MPV PT with INR INR Sodium Potassium Chloride Carbon Dioxide Anion Gap BUN Creatinine Creat Clearance w eGFR POC Glucometer Random Glucose Calcium Magnesium Total Bilirubin AST ALT Alkaline Phosphatase Total Protein Albumin Tumor Marker AFP 3.2 Vitamin B12 Serum Folate Urine Creatinine Stool Occult Blood Opiates Screen Methadone Screen Barbiturate Screen Phencyclidine Screen Ur Amphetamines Screen MDMA (Ecstasy) Screen Benzodiazepines Screen Cocaine Screen U Marijuana (THC) Screen Hep A IgM Ab Confirm Negative Hepatitis A Ab Total Positive H Hep Bs Antigen Negative Hep Bs Antibody Non reactive Hep B Core Total Ab Negative Hepatitis C Antibody Cancelled 0.1 01/17/18 01/17/18 01/18/18 17:50 17:50 06:00 WBC RBC Hgb Hct MCV MCH MCHC RDW Plt Count MPV PT with INR INR Sodium Potassium Chloride Carbon Dioxide Anion Gap BUN Creatinine Creat Clearance w eGFR POC Glucometer Random Glucose Calcium Magnesium Total Bilirubin AST ALT Alkaline Phosphatase Total Protein Albumin Tumor Marker AFP Vitamin B12 Serum Folate Urine Creatinine 126.0 Stool Occult Blood Negative Opiates Screen Negative Methadone Screen Negative Barbiturate Screen Negative Phencyclidine Screen Negative Ur Amphetamines Screen Negative MDMA (Ecstasy) Screen Negative Benzodiazepines Screen Negative Cocaine Screen Negative U Marijuana (THC) Screen Negative Hep A IgM Ab Confirm Hepatitis A Ab Total Hep Bs Antigen Hep Bs Antibody Hep B Core Total Ab Hepatitis C Antibody 10/05/17 10/05/17 10/05/17 06:30 06:30 06:30 WBC 8.6 RBC 1.84 L Hgb 7.9 L D Hct 22.6 L MCV 123.2 H MCH 42.7 H MCHC 34.7 RDW 20.4 H Plt Count 92 L MPV 6.8 L PT with INR INR Sodium 137 Potassium 3.2 L Chloride 99 Carbon Dioxide 29 Anion Gap 9 BUN 44 H Creatinine 1.3 H Creat Clearance w eGFR 41.24 POC Glucometer Random Glucose 66 L Calcium 7.8 L Magnesium 2.2 Cancelled Total Bilirubin 16.2 H* AST 208 H ALT 79 H Alkaline Phosphatase 135 H Total Protein 5.9 L Albumin 2.2 L Tumor Marker AFP Vitamin B12 2613 H Serum Folate 4 Urine Creatinine Stool Occult Blood Opiates Screen Methadone Screen Barbiturate Screen Phencyclidine Screen Ur Amphetamines Screen MDMA (Ecstasy) Screen Benzodiazepines Screen Cocaine Screen U Marijuana (THC) Screen Hep A IgM Ab Confirm Hepatitis A Ab Total Hep Bs Antigen Hep Bs Antibody Hep B Core Total Ab Hepatitis C Antibody 10/05/17 10/05/17 10/05/17 07:05 11:57 12:45 WBC RBC Hgb Hct MCV MCH MCHC RDW Plt Count MPV PT with INR 19.70 H INR 1.74 H Sodium Potassium Chloride Carbon Dioxide Anion Gap BUN Creatinine Creat Clearance w eGFR POC Glucometer 76 Random Glucose Calcium Magnesium Total Bilirubin AST ALT Alkaline Phosphatase Total Protein Albumin Tumor Marker AFP Vitamin B12 Serum Folate Urine Creatinine Stool Occult Blood Positive Opiates Screen Methadone Screen Barbiturate Screen Phencyclidine Screen Ur Amphetamines Screen MDMA (Ecstasy) Screen Benzodiazepines Screen Cocaine Screen U Marijuana (THC) Screen Hep A IgM Ab Confirm Hepatitis A Ab Total Hep Bs Antigen Hep Bs Antibody Hep B Core Total Ab Hepatitis C Antibody Problem List - Problems (1) Ascites Code(s): R18.8 - OTHER ASCITES (2) Leukocytosis Code(s): D72.829 - ELEVATED WHITE BLOOD CELL COUNT, UNSPECIFIED (3) Cholestasis Code(s): K83.1 - OBSTRUCTION OF BILE DUCT (4) Acute on chronic alcoholic liver disease Code(s): K70.9 - ALCOHOLIC LIVER DISEASE, UNSPECIFIED (5) Encephalopathy Code(s): G93.40 - ENCEPHALOPATHY, UNSPECIFIED (6) Liver failure Code(s): K72.90 - HEPATIC FAILURE, UNSPECIFIED WITHOUT COMA Qualifiers: Liver failure chronicity: acute Hepatic coma status: without hepatic coma Qualified Code(s): K72.00 - Acute and subacute hepatic failure without coma (7) Renal insufficiency Code(s): N28.9 - DISORDER OF KIDNEY AND URETER, UNSPECIFIED (8) Hepatorenal syndrome Code(s): K76.7 - HEPATORENAL SYNDROME Assessment/Plan Autoimmune liver work up JEYSON, AMA, ASMA, ALK-1 Start prednisolone 40 mg po daily Protonix 40 mg po qAM Lactulose 10 gm po tid Rifaximine 550 po bid 2 gm sodium and 1.5 L/day fluid restriction EGD for EGV variceal dx/surveillance Daily PT/INR, CMP, dir. bili, ALP, CBC
[2017-10-05] MEDS ORDERED: LACTULOSE 20 GM/30 ML UDC (FOR ORAL USE ONLY) PO PRN (14:58)
[2017-10-05] MEDS ORDERED: HEPATITIS B VIR VAC (ENGERIX) 10 MCG/0.5 ML VIAL (PF) IM ONE (15:11)
[2017-10-05] MEDS ORDERED: PrednisoLONE 15 MG/5 ML UNIT-DOSE CUP PO SCH (15:15)
--- NOTE | 2017-10-05 15:24 | PN ---
Physical Exam: SUBJECTIVE: Patient seen and examined. Patient states she feels better than she did the night before. She denies abdominal pain, diarrhea, chest pain dizziness , nausea and vomiting. OBJECTIVE: Vital Signs Period Temp Pulse Resp BP Sys/Lui Pulse Ox Last 24 Hr 97.5 F-98.7 F 70-89 18-21 100-140/63-90 96-97 GENERAL:Jaundiced. A/o x 3, in no acute distress HEAD: Normal with no signs of trauma. EYES: Scleral icterus. ENT: dry mucous membranes NECK: supple. LUNGS: Breath sounds equal, clear to auscultation bilaterally, no wheezes, no crackles, no accessory muscle use. HEART: Regular rate and rhythm, S1, S2 without murmur, rub or gallop. ABDOMEN: +BS, episgastric tenderness to deep palpation, distended abdomen. hepatomegaly EXTREMITIES: 2+ pulses, warm, well-perfused, no edema. NEUROLOGICAL: Cranial nerves II through XII grossly intact. Normal speech, gait not observed. PSYCH: Normal mood, normal affect. SKIN: jaunced. Laboratory Results - last 24 hr 10/04/17 10/04/17 10/04/17 09:00 09:00 17:50 WBC RBC Hgb Hct MCV MCH MCHC RDW Plt Count MPV PT with INR INR Sodium Potassium Chloride Carbon Dioxide Anion Gap BUN Creatinine Creat Clearance w eGFR POC Glucometer Random Glucose Calcium Magnesium Total Bilirubin AST ALT Alkaline Phosphatase Total Protein Albumin Tumor Marker AFP 3.2 Vitamin B12 Serum Folate Urine Creatinine Stool Occult Blood Opiates Screen Negative Methadone Screen Negative Barbiturate Screen Negative Phencyclidine Screen Negative Ur Amphetamines Screen Negative MDMA (Ecstasy) Screen Negative Benzodiazepines Screen Negative Cocaine Screen Negative U Marijuana (THC) Screen Negative Hep A IgM Ab Confirm Negative Hepatitis A Ab Total Positive H Hep Bs Antigen Negative Hep Bs Antibody Non reactive Hep B Core Total Ab Negative Hepatitis C Antibody 0.1 10/04/17 10/05/17 10/05/17 17:50 06:00 06:30 WBC 8.6 RBC 1.84 L Hgb 7.9 L D Hct 22.6 L MCV 123.2 H MCH 42.7 H MCHC 34.7 RDW 20.4 H Plt Count 92 L MPV 6.8 L PT with INR INR Sodium Potassium Chloride Carbon Dioxide Anion Gap BUN Creatinine Creat Clearance w eGFR POC Glucometer Random Glucose Calcium Magnesium Total Bilirubin AST ALT Alkaline Phosphatase Total Protein Albumin Tumor Marker AFP Vitamin B12 Serum Folate Urine Creatinine 126.0 Stool Occult Blood Negative Opiates Screen Methadone Screen Barbiturate Screen Phencyclidine Screen Ur Amphetamines Screen MDMA (Ecstasy) Screen Benzodiazepines Screen Cocaine Screen U Marijuana (THC) Screen Hep A IgM Ab Confirm Hepatitis A Ab Total Hep Bs Antigen Hep Bs Antibody Hep B Core Total Ab Hepatitis C Antibody 10/05/17 10/05/17 10/05/17 06:30 06:30 07:05 WBC RBC Hgb Hct MCV MCH MCHC RDW Plt Count MPV PT with INR 19.70 H INR 1.74 H Sodium 137 Potassium 3.2 L Chloride 99 Carbon Dioxide 29 Anion Gap 9 BUN 44 H Creatinine 1.3 H Creat Clearance w eGFR 41.24 POC Glucometer Random Glucose 66 L Calcium 7.8 L Magnesium 2.2 Cancelled Total Bilirubin 16.2 H* AST 208 H ALT 79 H Alkaline Phosphatase 135 H Total Protein 5.9 L Albumin 2.2 L Tumor Marker AFP Vitamin B12 2613 H Serum Folate 4 Urine Creatinine Stool Occult Blood Opiates Screen Methadone Screen Barbiturate Screen Phencyclidine Screen Ur Amphetamines Screen MDMA (Ecstasy) Screen Benzodiazepines Screen Cocaine Screen U Marijuana (THC) Screen Hep A IgM Ab Confirm Hepatitis A Ab Total Hep Bs Antigen Hep Bs Antibody Hep B Core Total Ab Hepatitis C Antibody 10/05/17 10/05/17 11:57 12:45 WBC RBC Hgb Hct MCV MCH MCHC RDW Plt Count MPV PT with INR INR Sodium Potassium Chloride Carbon Dioxide Anion Gap BUN Creatinine Creat Clearance w eGFR POC Glucometer 76 Random Glucose Calcium Magnesium Total Bilirubin AST ALT Alkaline Phosphatase Total Protein Albumin Tumor Marker AFP Vitamin B12 Serum Folate Urine Creatinine Stool Occult Blood Positive Opiates Screen Methadone Screen Barbiturate Screen Phencyclidine Screen Ur Amphetamines Screen MDMA (Ecstasy) Screen Benzodiazepines Screen Cocaine Screen U Marijuana (THC) Screen Hep A IgM Ab Confirm Hepatitis A Ab Total Hep Bs Antigen Hep Bs Antibody Hep B Core Total Ab Hepatitis C Antibody Active Medications Generic Name Dose Route Start Last Admin Trade Name Freq PRN Reason Stop Dose Admin Sodium Chloride 1,000 mls @ 42 mls/hr 10/05/17 11:30 10/05/17 12:41 Normal Saline - IV 42 mls/hr ASDIR JOVANNA Administration Lactulose 20 gm 01/18/18 14:58 Cephulac (Oral Use) PO Q8H PRN CONSTIPATION Pantoprazole Sodium 40 mg 10/05/17 10:00 10/05/17 11:18 Protonix - PO 40 mg DAILY JOVANNA Administration Prednisolone 40 mg 10/05/17 15:00 Prednisolone Unit Dose Cups PO DAILY JOVANNA Rifaximin 550 mg 10/05/17 22:00 Xifaxan - PO BID JOVANNA ASSESSMENT/PLAN: Pt is a 62 y/o F with PMHx ETOH abuse who presented to the ED with worsening PO intake, progressive fatigue/weakness, jaundice, ascites, and admitted for acute alcoholic hepatitis. PLAN #Acute alcoholic hepatitis withascites -MELD score 38 -likely secondary to chronic alcohol abuse -Paracentesis planned to rule out SBP. FFP prior to diagnostic paracentesis. -Will start on Prenisolone once SBP, HBV, HCV ruled out. -GI consulted. -Cefotaxime 2 gm IVq8. -Hep panel -Autoimmune liver work up: JEYSON, AMA, ASMA, ALK-1. -MRI abdomen/liver. -fluid restriction -Daily PT/INR, CMP, dir. bili, ALP, CBC. -MRCP as per dr. Douglas -MRCP: Cirrhotic liver with small perihepatic and perisplenic ascites and mesenteric edema in addition to trace bilateral pleural effusions. Prominent and heterogeneous pancreas with peripancreatic edema likely pancreatitis. #VALERIA -likely secondary to pre-renal azotemia (poor PO intake) vs. hepatorenal syndrome -Urine lytes -Nephro consult - fluid and albumin challenge to r/o pre-renal azotemia vs. hepatorenal syndrome. Follow help panel. Repeat labs. #PPX -DVT: Heparin SQ -GI PPX: Protonix 40 mg PO daily #FEN Hold IV fluids, give fluid/albumin challenge Replenish as needed NPO # Dispo Plan to transfer to [facility] for higher level of care. Visit type - Emergency Visit Emergency Visit: Yes ED Registration Date: 10/03/17 Care time: The patient presented to the Emergency Department on the above date and was hospitalized for further evaluation of their emergent condition. - New Patient This patient is new to me today: Yes Date on this admission: 10/05/17 - Critical Care Critical Care patient: No
[2017-10-05] MEDS ORDERED: prednisoLONE SODIUM PHOSPHATE 5 MG/5 ML ORAL SOLN BOTTLE PO SCH (15:28)
[2017-10-05] MEDS ORDERED: prednisoLONE SODIUM PHOSPHATE 15 MG/5 ML ORAL SOLN BOTTLE PO SCH (15:34)
--- NOTE | 2017-10-05 15:41 | DS ---
Physical Exam: SUBJECTIVE: Patient seen and examined. No acute events overnight. Patient stated she saw bright red blood on underwear when going to the restroom. Patient denies abdominal pain, dizziness, chest pain, dysuria, fevers, nausea and vomiting. OBJECTIVE: Vital Signs Period Temp Pulse Resp BP Sys/Lui Pulse Ox Last 24 Hr 97.5 F-98.7 F 70-89 18-21 100-140/63-90 96-97 PHYSICAL EXAM GENERAL: Jaundiced (more than yesterday). A/o x 3, in no acute distress HEAD: Normal with no signs of trauma. EYES: Scleral icterus. ENT: dry mucous membranes NECK: supple. LUNGS: Breath sounds equal, clear to auscultation bilaterally, no wheezes, no crackles, no accessory muscle use. HEART: Regular rate and rhythm, S1, S2 without murmur, rub or gallop. ABDOMEN: +BS, distended, RUQ tenderness to deep palpation, no rebound or guarding, negative burleson Rectal: skin tag, NT to palpation, no external hemorrhoids, visible bright red blood, stool in rectal vault, no masses, normal sphincter tone. Vaginal: no discharge or bleeding. EXTREMITIES: 2+ pulses, warm, well-perfused, no edema. NEUROLOGICAL: Cranial nerves II through XII grossly intact. Normal speech, gait not observed. SKIN: jaundiced. LABS Laboratory Results - last 24 hr 10/04/17 10/04/17 10/04/17 09:00 09:00 17:50 WBC RBC Hgb Hct MCV MCH MCHC RDW Plt Count MPV PT with INR INR Sodium Potassium Chloride Carbon Dioxide Anion Gap BUN Creatinine Creat Clearance w eGFR POC Glucometer Random Glucose Calcium Magnesium Total Bilirubin AST ALT Alkaline Phosphatase Total Protein Albumin Tumor Marker AFP 3.2 Vitamin B12 Serum Folate Urine Creatinine Stool Occult Blood Opiates Screen Negative Methadone Screen Negative Barbiturate Screen Negative Phencyclidine Screen Negative Ur Amphetamines Screen Negative MDMA (Ecstasy) Screen Negative Benzodiazepines Screen Negative Cocaine Screen Negative U Marijuana (THC) Screen Negative Hep A IgM Ab Confirm Negative Hepatitis A Ab Total Positive H Hep Bs Antigen Negative Hep Bs Antibody Non reactive Hep B Core Total Ab Negative Hepatitis C Antibody 0.1 10/04/17 10/05/17 10/05/17 17:50 06:00 06:30 WBC 8.6 RBC 1.84 L Hgb 7.9 L D Hct 22.6 L MCV 123.2 H MCH 42.7 H MCHC 34.7 RDW 20.4 H Plt Count 92 L MPV 6.8 L PT with INR INR Sodium Potassium Chloride Carbon Dioxide Anion Gap BUN Creatinine Creat Clearance w eGFR POC Glucometer Random Glucose Calcium Magnesium Total Bilirubin AST ALT Alkaline Phosphatase Total Protein Albumin Tumor Marker AFP Vitamin B12 Serum Folate Urine Creatinine 126.0 Stool Occult Blood Negative Opiates Screen Methadone Screen Barbiturate Screen Phencyclidine Screen Ur Amphetamines Screen MDMA (Ecstasy) Screen Benzodiazepines Screen Cocaine Screen U Marijuana (THC) Screen Hep A IgM Ab Confirm Hepatitis A Ab Total Hep Bs Antigen Hep Bs Antibody Hep B Core Total Ab Hepatitis C Antibody 10/05/17 10/05/17 10/05/17 06:30 06:30 07:05 WBC RBC Hgb Hct MCV MCH MCHC RDW Plt Count MPV PT with INR 19.70 H INR 1.74 H Sodium 137 Potassium 3.2 L Chloride 99 Carbon Dioxide 29 Anion Gap 9 BUN 44 H Creatinine 1.3 H Creat Clearance w eGFR 41.24 POC Glucometer Random Glucose 66 L Calcium 7.8 L Magnesium 2.2 Cancelled Total Bilirubin 16.2 H* AST 208 H ALT 79 H Alkaline Phosphatase 135 H Total Protein 5.9 L Albumin 2.2 L Tumor Marker AFP Vitamin B12 2613 H Serum Folate 4 Urine Creatinine Stool Occult Blood Opiates Screen Methadone Screen Barbiturate Screen Phencyclidine Screen Ur Amphetamines Screen MDMA (Ecstasy) Screen Benzodiazepines Screen Cocaine Screen U Marijuana (THC) Screen Hep A IgM Ab Confirm Hepatitis A Ab Total Hep Bs Antigen Hep Bs Antibody Hep B Core Total Ab Hepatitis C Antibody 10/05/17 10/05/17 11:57 12:45 WBC RBC Hgb Hct MCV MCH MCHC RDW Plt Count MPV PT with INR INR Sodium Potassium Chloride Carbon Dioxide Anion Gap BUN Creatinine Creat Clearance w eGFR POC Glucometer 76 Random Glucose Calcium Magnesium Total Bilirubin AST ALT Alkaline Phosphatase Total Protein Albumin Tumor Marker AFP Vitamin B12 Serum Folate Urine Creatinine Stool Occult Blood Positive Opiates Screen Methadone Screen Barbiturate Screen Phencyclidine Screen Ur Amphetamines Screen MDMA (Ecstasy) Screen Benzodiazepines Screen Cocaine Screen U Marijuana (THC) Screen Hep A IgM Ab Confirm Hepatitis A Ab Total Hep Bs Antigen Hep Bs Antibody Hep B Core Total Ab Hepatitis C Antibody Imaging: MRCP: Cirrhotic liver with small perihepatic and perisplenic ascites and mesenteric edema in addition to trace bilateral pleural effusions. Prominent and heterogeneous pancreas with peripancreatic edema likely pancreatitis. Correlate with patient's symptoms, amylase and lipase level. No pancreatic ductal dilatation seen. Cholelithiasis with significantly distended gallbladder and some surrounding edema which could be secondary to the above-described third spacing however underlying cholecystitis cannot be completely excluded. If clinically indicated HIDA scan may be obtained for further evaluation. No choledocholithiasis or biliary ductal dilatation. Renal US: Both kidneys appear unremarkable. Ascites. Included portion of the liver is echogenic suggestive of fatty infiltration versus hepatocellular disease. Please correlate with liver enzymes. ABD US: Limited visualization due to body habitus and obscuring bowel gas. Ascites is noted which is probably moderate in volume. Cholelithiasis is seen. There is mild diffuse nonspecific gallbladder wall thickening with possible etiologies including acute cholecystitis versus reactive thickening due to ascites, hepatic disease or systemic illness. If there is clinical concern for possible acute cholecystitis additional evaluation utilizing a radionuclide HIDA scan may be performed. There is no obvious biliary tract dilatation. Prominent diffuse hepatic steatosis. The pancreas could not be evaluated due to obscuring bowel gas. HOSPITAL COURSE: Date of Admission:10/03/17 Pt is a 62 y/o F with history of EtOH abuse who presents to the ED with fatigue and weakness for 3 days with decreased appetite. . She states that she had been drinking 2 glasses of scotch daily for years but stopped drinking alcohol in August. Patient was found to have severe alcoholic hepatitis with ascites likely secondary to chronic alcohol abuse and VALERIA. Patient had MELD score of 38 with a 3 month mortality and no signs of Withdrawal symptoms. GI was consulted. A diagnostic paracentesis was planned with FFP given before, but was put on hold because no significant ascites was found. Patient was started on prednisolone/lactulose/rifaximin. For the VALERIA, patient's kidney functions improved with fluid challenge and albumin 25g and hepatorenal syndome ruled out. Endoscopy is planned for tomorrow due to lower GI bleed. Prior to endoscopy, 1 unit of blood and FFP will be given. Plan is to transfer patient to [facility] where she will need higher level of care and follow with a liver specialist. Case was discussed with attending physician at [facility] and patient was accepted for transfer. Date of Discharge: 10/05/17 Minutes to complete discharge: 30 Discharge Summary Reason For Visit: LIVER FAILURE Current Active Problems Acute on chronic alcoholic liver disease (Acute) Ascites (Acute) Cholestasis (Acute) Encephalopathy (Acute) Hepatorenal syndrome (Acute) Leukocytosis (Acute) Liver failure (Acute) Renal insufficiency (Acute) Condition: Guarded - Instructions Diet, Activity, Other Instructions: You are being transferred to [facility] for higher level of care. Referrals: Singh Muro MD [Primary Care Provider] - Disposition: TRANSFER ACUTE CARE/OTHER HOSP - Home Medications Comprehensive Discharge Medication List: Ambulatory Orders Pantoprazole Sodium [Protonix -] 40 mg PO DAILY tablet.ec 10/04/17 This patient is new to me today: No Emergency Visit: Yes ED Registration Date: 10/03/17 Care time: The patient presented to the Emergency Department on the above date and was hospitalized for further evaluation of their emergent condition. Critical Care patient: No - Discharge Referral Referred to [facility] Med P.C.: No
--- NOTE | 2017-10-05 15:53 | PN ---
Teaching Attending Note Name of Resident: Chandra Garrett ATTENDING PHYSICIAN STATEMENT Time of evaluation: 9:05 AM I saw and evaluated the patient. I reviewed the resident's note and discussed the case with the resident. I agree with the resident's findings and plan as documented. SUBJECTIVE: Patient seen and examined, no nausea, vomiting, abdominal pain. reports was told has some blood on her undergarments. no chest pain, palpitations, dyspnea or dizziness. OBJECTIVE: Vital Signs Period Temp Pulse Resp BP Sys/Lui Pulse Ox Last 24 Hr 97.5 F-98.7 F 70-89 18-21 100-140/50-90 93-97 Intake & Output 10/02/17 10/03/17 10/04/17 10/05/17 23:59 23:59 23:59 23:59 Intake Total 894 Balance 894 Weight 165 lb 191 lb 4.8 oz general: icterus, mild lethargy but AAOx3 in no acute distress in bed CVS:S1s2 regular Chest: decreased breath sounds at bases Abdomen: soft, distended, tenderness along right hepatic margin, epigastric region, hepatomegaly, neg burleson's sign, no voluntary or involuntary guarding or rigidity noted Extremities: mild asterexis noted neuro AAOX3, mild lethargy, facial symmetry, moves all extremities freely rectal: skin tag, dried minimal blood, brown stool on rectal exam Active Medications Generic Name Dose Route Start Last Admin Trade Name Freq PRN Reason Stop Dose Admin Hepatitis B Vaccine 10 mcg 10/05/17 15:11 Engerix-B 10 Mcg/0.5 Ml *Pediatric* - IM 10/05/17 15:12 .ONCE ONE Sodium Chloride 1,000 mls @ 42 mls/hr 10/05/17 11:30 10/05/17 12:41 Normal Saline - IV 42 mls/hr ASDIR JOVANNA Administration Lactulose 20 gm 10/05/17 16:00 Cephulac (Oral Use) PO Q8H JOVANNA Pantoprazole Sodium 40 mg 10/05/17 10:00 10/05/17 11:18 Protonix - PO 40 mg DAILY JOVANNA Administration Prednisolone Sodium Phosphate 45 mg 10/05/17 15:34 Orapred (15 Mg/5 Ml) Oral Solution - PO DAILY JOVANNA Rifaximin 550 mg 10/05/17 22:00 Xifaxan - PO BID JOVANNA Laboratory Results - last 24 hr 10/04/17 10/04/17 10/04/17 09:00 09:00 17:50 WBC RBC Hgb Hct MCV MCH MCHC RDW Plt Count MPV PT with INR INR Sodium Potassium Chloride Carbon Dioxide Anion Gap BUN Creatinine Creat Clearance w eGFR POC Glucometer Random Glucose Calcium Magnesium Total Bilirubin AST ALT Alkaline Phosphatase Total Protein Albumin Tumor Marker AFP 3.2 Vitamin B12 Serum Folate Urine Creatinine Stool Occult Blood Opiates Screen Negative Methadone Screen Negative Barbiturate Screen Negative Phencyclidine Screen Negative Ur Amphetamines Screen Negative MDMA (Ecstasy) Screen Negative Benzodiazepines Screen Negative Cocaine Screen Negative U Marijuana (THC) Screen Negative Hep A IgM Ab Confirm Negative Hepatitis A Ab Total Positive H Hep Bs Antigen Negative Hep Bs Antibody Non reactive Hep B Core Total Ab Negative Hepatitis C Antibody 0.1 10/04/17 10/05/17 10/05/17 17:50 06:00 06:30 WBC 8.6 RBC 1.84 L Hgb 7.9 L D Hct 22.6 L MCV 123.2 H MCH 42.7 H MCHC 34.7 RDW 20.4 H Plt Count 92 L MPV 6.8 L PT with INR INR Sodium Potassium Chloride Carbon Dioxide Anion Gap BUN Creatinine Creat Clearance w eGFR POC Glucometer Random Glucose Calcium Magnesium Total Bilirubin AST ALT Alkaline Phosphatase Total Protein Albumin Tumor Marker AFP Vitamin B12 Serum Folate Urine Creatinine 126.0 Stool Occult Blood Negative Opiates Screen Methadone Screen Barbiturate Screen Phencyclidine Screen Ur Amphetamines Screen MDMA (Ecstasy) Screen Benzodiazepines Screen Cocaine Screen U Marijuana (THC) Screen Hep A IgM Ab Confirm Hepatitis A Ab Total Hep Bs Antigen Hep Bs Antibody Hep B Core Total Ab Hepatitis C Antibody 10/05/17 10/05/17 10/05/17 06:30 06:30 07:05 WBC RBC Hgb Hct MCV MCH MCHC RDW Plt Count MPV PT with INR 19.70 H INR 1.74 H Sodium 137 Potassium 3.2 L Chloride 99 Carbon Dioxide 29 Anion Gap 9 BUN 44 H Creatinine 1.3 H Creat Clearance w eGFR 41.24 POC Glucometer Random Glucose 66 L Calcium 7.8 L Magnesium 2.2 Cancelled Total Bilirubin 16.2 H* AST 208 H ALT 79 H Alkaline Phosphatase 135 H Total Protein 5.9 L Albumin 2.2 L Tumor Marker AFP Vitamin B12 2613 H Serum Folate 4 Urine Creatinine Stool Occult Blood Opiates Screen Methadone Screen Barbiturate Screen Phencyclidine Screen Ur Amphetamines Screen MDMA (Ecstasy) Screen Benzodiazepines Screen Cocaine Screen U Marijuana (THC) Screen Hep A IgM Ab Confirm Hepatitis A Ab Total Hep Bs Antigen Hep Bs Antibody Hep B Core Total Ab Hepatitis C Antibody 10/05/17 10/05/17 11:57 12:45 WBC RBC Hgb Hct MCV MCH MCHC RDW Plt Count MPV PT with INR INR Sodium Potassium Chloride Carbon Dioxide Anion Gap BUN Creatinine Creat Clearance w eGFR POC Glucometer 76 Random Glucose Calcium Magnesium Total Bilirubin AST ALT Alkaline Phosphatase Total Protein Albumin Tumor Marker AFP Vitamin B12 Serum Folate Urine Creatinine Stool Occult Blood Positive Opiates Screen Methadone Screen Barbiturate Screen Phencyclidine Screen Ur Amphetamines Screen MDMA (Ecstasy) Screen Benzodiazepines Screen Cocaine Screen U Marijuana (THC) Screen Hep A IgM Ab Confirm Hepatitis A Ab Total Hep Bs Antigen Hep Bs Antibody Hep B Core Total Ab Hepatitis C Antibody MRCP results noted. ASSESSMENT AND PLAN: 62 yof with PMHx of ETOH abuse, reportedly last drink in 08/2017, comes with jaundice, ascitis, abnormal LFTs, all suggestive of acute alcoholic hepatitis. -Acute alcoholic hepatitis with coagulopathy/ascitis, MELD 26 -Possible early hepatic encephalopathy -Cholelithiasis, low suspicion for obstructive jaundice -FLuid around pancreas, more likely reactive from hepatic process rather than primary pancreatitis. -Fluid gall bladder wall suspect again reactive from hepatic process, rather than primary gall bladder process -Acute on ?chronic blood loss anemia with hematochezia. -Coagulopathy -Anemia -Renzo, prerenal vs hepatorenal syndrome -?alcoholic pancreatitis Plan: Gi input appreciated. Started on prednisolone/lactulose/rifaximin. Continue PPI Discussed with Dr. Pa, will transfuse 1 unit PRBC tonight, NPO post midnight and FFP 6 AM tomorrow for possible EGD in Am. Monitor h/h for now. As discussed with radiology not enough ascitic fluid to tap, makes SBP unlikely. MRCP results noted. FObt positive, plan as above. Creatinine improved, making hepatorenal syndrome less likely. Alcohol abstinence counseling. DVTPXX d/ c heparin given concerns for bleed, anemia and thrombocytopenia. SCDs in bed. GIPPX with protonix Dispo patient awaiting bed at [facility], discussed with patient, agreable with the plan.
[2017-10-05] MEDS ORDERED: HEPATITIS B VIRUS VACCINE-PF 20 MCG/1ML PRE-FILLED SYRINGE IM ONE (16:15)
[2017-10-05] MEDS: LACTULOSE 20 GM/30 ML UDC (FOR ORAL USE ONLY) PO SCH ×2 (16:50→21:24)
[2017-10-05] MEDS: RIFAXIMIN 550 MG TABLET (UD) PO SCH (21:25)
[2017-10-06] MEDS: LACTULOSE 20 GM/30 ML UDC (FOR ORAL USE ONLY) PO SCH ×2 (06:07→14:00)
--- NOTE | 2017-10-06 06:32 | PN ---
Physical Exam: SUBJECTIVE: Patient seen and examined. Says she feels better than yesterday. She denies bloody stools, abdominal pain, nausea, vomiting, chest pain, and dizziness. Events overnight: -4 BMs with bloody stools as per nurse. -pt received 1U PRBC 17:49 OBJECTIVE: Vital Signs Period Temp Pulse Resp BP Sys/Lui Pulse Ox Last 24 Hr 97.9 F-98.7 F 80-86 20-20 100-112/50-63 93-95 GENERAL: Jaundiced (more today). A/o x 3, in no acute distress HEAD: Normal with no signs of trauma. EYES: Scleral icterus. ENT: dry mucous membranes NECK: supple. LUNGS: Breath sounds equal, clear to auscultation bilaterally, no wheezes, no crackles, no accessory muscle use. HEART: Regular rate and rhythm, S1, S2 without murmur, rub or gallop. ABDOMEN: +BS, distended, RUQ tenderness to deep palpation, no rebound or guarding, negative burleson EXTREMITIES: 2+ pulses, warm, well-perfused, no edema. NEUROLOGICAL: Cranial nerves II through XII grossly intact. Normal speech, gait not observed. SKIN: jaundiced. Laboratory Results - last 24 hr 10/04/17 10/04/17 10/04/17 09:00 10:00 17:47 WBC RBC Hgb Hct MCV MCH MCHC RDW Plt Count MPV PT with INR INR Sodium Potassium Chloride Carbon Dioxide Anion Gap BUN Creatinine Creat Clearance w eGFR POC Glucometer Random Glucose Calcium Magnesium Total Bilirubin AST ALT Alkaline Phosphatase Total Protein Albumin Vitamin B12 Serum Folate Ur Random Sodium 6 Ur Random Potassium 49.6 Ur Random Chloride < 10 Stool Occult Blood Hep A IgM Ab Confirm Negative Hepatitis A Ab Total Positive H Hep Bs Antigen Negative Hep Bs Antibody Non reactive Hep B Core Total Ab Negative Blood Type A POSITIVE Antibody Screen Negative Crossmatch See Detail 10/05/17 10/05/17 10/05/17 06:00 06:30 06:30 WBC 8.6 RBC 1.84 L Hgb 7.9 L D Hct 22.6 L MCV 123.2 H MCH 42.7 H MCHC 34.7 RDW 20.4 H Plt Count 92 L MPV 6.8 L PT with INR INR Sodium 137 Potassium 3.2 L Chloride 99 Carbon Dioxide 29 Anion Gap 9 BUN 44 H Creatinine 1.3 H Creat Clearance w eGFR 41.24 POC Glucometer Random Glucose 66 L Calcium 7.8 L Magnesium 2.2 Total Bilirubin 16.2 H* AST 208 H ALT 79 H Alkaline Phosphatase 135 H Total Protein 5.9 L Albumin 2.2 L Vitamin B12 2613 H Serum Folate 4 Ur Random Sodium Ur Random Potassium Ur Random Chloride Stool Occult Blood Negative Hep A IgM Ab Confirm Hepatitis A Ab Total Hep Bs Antigen Hep Bs Antibody Hep B Core Total Ab Blood Type Antibody Screen Crossmatch 10/05/17 10/05/17 10/05/17 06:30 07:05 11:57 WBC RBC Hgb Hct MCV MCH MCHC RDW Plt Count MPV PT with INR 19.70 H INR 1.74 H Sodium Potassium Chloride Carbon Dioxide Anion Gap BUN Creatinine Creat Clearance w eGFR POC Glucometer 76 Random Glucose Calcium Magnesium Cancelled Total Bilirubin AST ALT Alkaline Phosphatase Total Protein Albumin Vitamin B12 Serum Folate Ur Random Sodium Ur Random Potassium Ur Random Chloride Stool Occult Blood Hep A IgM Ab Confirm Hepatitis A Ab Total Hep Bs Antigen Hep Bs Antibody Hep B Core Total Ab Blood Type Antibody Screen Crossmatch 10/05/17 10/05/17 12:45 18:20 WBC RBC Hgb Hct MCV MCH MCHC RDW Plt Count MPV PT with INR INR Sodium Potassium Chloride Carbon Dioxide Anion Gap BUN Creatinine Creat Clearance w eGFR POC Glucometer Random Glucose Calcium Magnesium Total Bilirubin AST ALT Alkaline Phosphatase Total Protein Albumin Vitamin B12 Serum Folate Ur Random Sodium Ur Random Potassium Ur Random Chloride Stool Occult Blood Positive Hep A IgM Ab Confirm Hepatitis A Ab Total Hep Bs Antigen Hep Bs Antibody Hep B Core Total Ab Blood Type A POSITIVE Antibody Screen Negative Crossmatch See Detail Active Medications Generic Name Dose Route Start Last Admin Trade Name Freq PRN Reason Stop Dose Admin Sodium Chloride 1,000 mls @ 42 mls/hr 10/05/17 11:30 10/05/17 12:41 Normal Saline - IV 42 mls/hr ASDIR JOVANNA Administration Lactulose 20 gm 10/05/17 16:15 10/06/17 06:07 Cephulac (Oral Use) PO 20 gm TID JOVANNA Administration Pantoprazole Sodium 40 mg 10/05/17 10:00 10/05/17 11:18 Protonix - PO 40 mg DAILY JOVANNA Administration Prednisolone Sodium Phosphate 45 mg 10/05/17 15:34 Orapred (15 Mg/5 Ml) Oral Solution - PO DAILY JOVANNA Rifaximin 550 mg 01/18/18 22:00 10/05/17 21:25 Xifaxan - PO 550 mg BID JOVANNA Administration ASSESSMENT/PLAN: Pt is a 62 y/o F with PMHx ETOH abuse who presented to the ED with worsening PO intake, progressive fatigue/weakness, jaundice, ascites, and admitted for acute alcoholic hepatitis. #Acute alcoholic hepatitis with coagulpathy/ ascities -MELD score 38 -likely secondary to chronic alcohol abuse -Discriminant Function Score 56 (Normal <32) -Possible Early hepatic encephalopathy -worsening bilirubin -Prednisolone 45mg PO -Lactulose 20mg TID -Xifaxan 550mg BID -GI consulted. -AFP 3.2. WNL -Autoimmune liver work up: JEYSON, AMA, ASMA, ALK-1. -Daily PT/INR, CMP, dir. bili, ALP, CBC. -MRCP: Cirrhotic liver with small perihepatic and perisplenic ascites and mesenteric edema in addition to trace bilateral pleural effusions. Prominent and heterogeneous pancreas with peripancreatic edema likely pancreatitis. -EGD: Portal hypertensive gastropathy, with no evidence of gastric, esophageal ulcers. -BRBPM - stool occult blood positive. Likely secondary to increased INR, possible anorectal varices vs. internal hemorrhoids. -Protonix 40mg po Daily -Pending transfer to [facility]. #Normocytic Anemia - HB 9.6 today -Follow H&H #VALERIA -likely secondary to pre-renal azotemia (poor PO intake) -urine lytes -IV fluids NS @42cc/hour -Will monitor #PPX -DVT: SCDs -GI PPX: Protonix 40 mg PO daily #FEN NS @ 42cc/ hour Replete: Potassium (3.1) and Phosphorus (2) NPO after midnight # Dispo Pending transfer to [facility] for higher level of care pending bed availability. Visit type - Emergency Visit Emergency Visit: Yes ED Registration Date: 10/03/17 Care time: The patient presented to the Emergency Department on the above date and was hospitalized for further evaluation of their emergent condition. - New Patient This patient is new to me today: No - Critical Care Critical Care patient: No
--- NOTE | 2017-10-06 07:46 | MSN ---
Progress Note (short form) - Note Progress Note: SUBJECTIVE Overnight, pt received 1U PRBC 17:49. Pt. had 2 large BMs with blood noted in both. Encouraged to use bedpan, D/T weakness & rectal bleeding 1 unit of PRBC's to be infused. Sclara & urine icteric, pt. skin remains jaundice. VSS, afebrile. Pt also received 1 U FFP at 5 AM this morning and 1U FFP at 2 PM yesterday. Pt seen and examined today. She states she is still feeling pain in her RUQ, mid epigastric pain. She states she otherwise has no complaints. Pt scheduled for endoscopy today. OBJECTIVE Last Vital Signs Temp Pulse Resp BP Pulse Ox 97.7 F 82 20 112/60 95 10/06/17 06:00 10/06/17 06:00 10/05/17 21:28 10/06/17 06:00 10/05/17 20:48 General: Pt was lying comfortably in bed, resting, in no acute distress. Alert and oriented x 3. Eyes: PERRLA. EOMI B/L. Severe scleroicterus noted B/L. No APD. Throat: Moist mucus membranes. Chest: Regular rate, regular rhythm. No murmurs appreciated. Lungs: Clear to auscultation B/L. Equal breath sounds. Abdomen: NT to light palpation. Tender to deep palpation in epigastric region and RUQ. Distended. Obese. Hypoactive bowel sounds in all 4 quadrants. No ecchymoses noted. Tympanic to percussion throughout. Negative Garcia's sign. Extremities: 2+ DP pulses. 2+ radial pulses. No edema noted in B/L LE. Intact to light sensation all throughout UE and LE. Symmetric sensation in UE and LE B/ L. Ecchymosis noted on dorsal forearm. No asterixis. 1+ b/l hand tremor noted with arms outstretched. CBC, BMP 10/06/17 07:20 10/06/17 07:20 Laboratory Results - last 24 hr 10/04/17 10/04/17 10/04/17 09:00 10:00 17:47 WBC RBC Hgb Hct MCV MCH MCHC RDW Plt Count MPV PT with INR INR Sodium Potassium Chloride Carbon Dioxide Anion Gap BUN Creatinine Creat Clearance w eGFR Random Glucose Calcium Phosphorus Magnesium Total Bilirubin Direct Bilirubin AST ALT Alkaline Phosphatase Total Protein Albumin Ur Random Sodium 6 Ur Random Potassium 49.6 Ur Random Chloride < 10 Stool Occult Blood Hep A IgM Ab Confirm Negative Hepatitis A Ab Total Positive H Hep Bs Antigen Negative Hep Bs Antibody Non reactive Hep B Core Total Ab Negative Blood Type A POSITIVE Antibody Screen Negative Crossmatch See Detail 10/05/17 10/05/17 10/06/17 12:45 18:20 07:20 WBC 9.9 RBC 2.40 L D Hgb 9.6 L D Hct 27.3 L D MCV 113.7 H D MCH 39.9 H MCHC 35.1 RDW 28.3 H Plt Count 98 L MPV 6.8 L PT with INR INR Sodium Potassium Chloride Carbon Dioxide Anion Gap BUN Creatinine Creat Clearance w eGFR Random Glucose Calcium Phosphorus Magnesium Total Bilirubin Direct Bilirubin AST ALT Alkaline Phosphatase Total Protein Albumin Ur Random Sodium Ur Random Potassium Ur Random Chloride Stool Occult Blood Positive Hep A IgM Ab Confirm Hepatitis A Ab Total Hep Bs Antigen Hep Bs Antibody Hep B Core Total Ab Blood Type A POSITIVE Antibody Screen Negative Crossmatch See Detail 10/06/17 10/06/17 07:20 07:20 WBC RBC Hgb Hct MCV MCH MCHC RDW Plt Count MPV PT with INR 18.40 H INR 1.63 H Sodium 142 Potassium 3.1 L Chloride 101 Carbon Dioxide 28 Anion Gap 13 BUN 38 H Creatinine 1.6 H Creat Clearance w eGFR 32.45 Random Glucose 87 Calcium 8.4 L Phosphorus 2.0 L Magnesium 2.1 Total Bilirubin 18.1 H* Direct Bilirubin 12.6 H AST 211 H ALT 85 H Alkaline Phosphatase 149 H Total Protein 6.6 Albumin 2.3 L Ur Random Sodium Ur Random Potassium Ur Random Chloride Stool Occult Blood Hep A IgM Ab Confirm Hepatitis A Ab Total Hep Bs Antigen Hep Bs Antibody Hep B Core Total Ab Blood Type Antibody Screen Crossmatch INR, PTT INR 1.74 (0.82-1.09) H 10/05/17 07:05 CXR PORTABLE AP 10/05/17 0745: Since the prior study of 10/03/2017, again is the elevated right hemidiaphragm with prominent mediastinum and hilar markings. An acute infiltrate or failure is not seen. ABD MRI w/o contrast 10/04/17 1707: IMPRESSION: Cirrhotic liver with small perihepatic and perisplenic ascites and mesenteric edema in addition to trace bilateral pleural effusions. Prominent and heterogeneous pancreas with peripancreatic edema likely pancreatitis. Correlate with patient's symptoms, amylase and lipase level. No pancreatic ductal dilatation seen. Cholelithiasis with significantly distended gallbladder and some surrounding edema which could be secondary to the above-described third spacing however underlying cholecystitis cannot be completely excluded. If clinically indicated HIDA scan may be obtained for further evaluation. No choledocholithiasis or biliary ductal dilatation. Active Medications Generic Name Dose Route Start Last Admin Trade Name Frechristopher PRN Reason Stop Dose Admin Sodium Chloride 1,000 mls @ 42 mls/hr 10/05/17 11:30 10/05/17 12:41 Normal Saline - IV 42 mls/hr ASDIR JOVANNA Administration Lactulose 20 gm 10/05/17 16:15 10/06/17 06:07 Cephulac (Oral Use) PO 20 gm TID JOVANNA Administration Pantoprazole Sodium 40 mg 10/05/17 10:00 10/05/17 11:18 Protonix - PO 40 mg DAILY JOVANNA Administration Prednisolone Sodium Phosphate 45 mg 10/05/17 15:34 Orapred (15 Mg/5 Ml) Oral Solution - PO DAILY JOVANNA Rifaximin 550 mg 10/05/17 22:00 10/05/17 21:25 Xifaxan - PO 550 mg BID JOVANNA Administration Home Medications Medication Instructions Recorded Pantoprazole Sodium [Protonix -] 40 mg PO DAILY tablet.ec 10/04/17 ASSESSMENT Pt is a 62 y/o F with PMHx ETOH abuse who presented to the ED with worsening PO intake, progressive fatigue/weakness, jaundice, ascites, and admitted for acute alcoholic hepatitis. PLAN 1. Acute on chronic alcoholic hepatitis with coagulopathy/ascites * likely secondary to chronic alcohol abuse * Start on Prednisolone; not likely to be SBP. Discriminant fxn 51.6 indicating poor prognosis and recommend start glucocorticoid therapy. * 10/05: MELD score 26, estimated 3 mo mortality 19.6% * f/u Autoimmune liver work up: JEYSON, AMA, ASMA, ALK-1. MRI abdomen/liver. * Will require EGD for EGV variceal dx/surveillance as per Dr. Pa. Defer until later time, possibly as outpt. * Daily PT/INR, CMP, dir. bili, ALP, CBC. * Pt is pending transfer to [facility]. * BRBPM - stool occult blood positive. Likely secondary to increased INR, possible anorectal varices vs. internal hemorrhoids. Will require anoscopy at later time. INR improved from yesterday. Pt hemodynamically stable. H/H 7.9/ 22.6. BP 120/69. No need to transfuse at this time. * Start rifaximin, lactulose for hepatic encephalopathy given hand tremors/ possible asterexis seen yesterday on physical exam, acute hepatitis and pt lab abnormalities. * Thrombocytopenia likely alcohol induced. 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 B12 and folate were wnl. * AFP wnl 3.2, not likely HCC. * Protonix 40mg po qAM, 2 gm sodium, 1.5 L/day fluid restriction * EGD performed today by Dr. Pa -- portal hypertensive gastropathy, no evidence of gastric, or esophageal varices, no biopsies taken due to hypocoagulable state 2. Acute Pancreatitis * likely due to alcohol consumption vs. cholelithiasis. * IVF NS 1000 mls @ 42 cc/hr * NPO, bowel rest 3. VALERIA * likely secondary to pre-renal azotemia (poor PO intake) * Urine lytes * Nephro consult - fluid and albumin challenge to r/o pre-renal azotemia vs. hepatorenal syndrome. Follow hep panel. * Given improvement with fluid/albumin challenge, not likely to be hepatorenal syndrome. 4. PPX * DVT PPX: SCDs b/l. * GI PPX: Protonix 40 mg PO daily 5. FEN * Fluids: NS 1000 mls @42 mls/hr. * Electrolytes: monitor, replenish lytes as needed * Nutrition: NPO - possibly start on D5 W? Pt has been NPO since admission 10/03. 6. Dispo * Transfer to [facility]/tertiary care center for more intensive care, transfer pending.
[2017-10-06 08:24] LABS: HEMATOCRIT 27.3 % (32.4-45.2); HEMOGLOBIN 9.6 GM/dL (10.7-15.3); MCH 39.9 pg (25.7-33.7); MCHC 35.1 g/dl (32.0-36.0); MEAN CELL VOLUME 113.7 fl (80-96); MEAN PLT VOLUME 6.8 fl (7.5-11.1); PLATELET COUNT 98 K/MM3 (134-434); RDW 28.3 % (11.6-15.6); WHITE BLOOD COUNT 9.9 K/mm3 (4.0-10.0)
[2017-10-06 08:29] LABS: INR 1.63 (0.82-1.09); PROTHROMBIN TIME (PATIENT) 18.4 SEC (9.98-11.88)
[2017-10-06 08:38] LABS: ALBUMIN 2.3 g/dl (3.4-5.0); ANION GAP 13 (8-16); BLOOD UREA NITROGEN 38 mg/dL (7-18); CALCIUM 8.4 mg/dL (8.5-10.1); CHLORIDE 101 mmol/L (98-107); CO2 28 mmol/L (21-32); GLUCOSE,RANDOM 87 mg/dL (74-106); MAGNESIUM 2.1 mg/dL (1.8-2.4); POTASSIUM 3.1 mmol/L (3.5-5.1); SODIUM 142 mmol/L (136-145)
[2017-10-06 08:50] LABS: ALK PHOS 149 U/L (45-117); CREATININE 1.6 mg/dL (0.55-1.02); SGOT/AST 211 U/L (15-37); SGPT/ALT 85 U/L (12-78); TOT PROT 6.6 g/dl (6.4-8.2)
[2017-10-06 08:52] LABS: BILIRUBIN,DIRECT 12.6 mg/dL (0.0-0.2)
[2017-10-06 09:09] LABS: BILIRUBIN,TOTAL 18.1 mg/dL (0.2-1.0)
[2017-10-06] MEDS ORDERED: PT OWN MED DRAWER 7, Y5N ONE ×2 (11:10→14:51)
--- NOTE | 2017-10-06 12:00 | PROC ---
Endoscopy Procedure Endoscopy procedure completed. Please see scanned procedure report. portal hypertensive gastropathy no evidence of gastric, or esophageal varices no biopsies taken due to hypocoagulable state
[2017-10-06] MEDS ORDERED: POTASSIUM PHOSPHATE 10 MM in SODIUM CHLORIDE 250 ML IVPB ONE (13:37)
[2017-10-06] MEDS ORDERED: POTASSIUM PHOSPHATE 15 MM in SODIUM CHLORIDE 250 ML IVPB ONE (13:38)
[2017-10-06] MEDS ORDERED: POTASSIUM CHLORIDE 10 MEQ in SODIUM CHLORIDE 100 ML IVPB SCH (13:45)
[2017-10-06] MEDS: RIFAXIMIN 550 MG TABLET (UD) PO SCH (14:00)
[2017-10-06] MEDS: PANTOPRAZOLE 40 MG TABLET (FP) PO SCH (14:00)
[2017-10-06] MEDS: SODIUM CHLORIDE 1,000 ML IV SCH (14:09)
--- NOTE | 2017-10-06 14:21 | PN ---
Progress Note, Physician History of Present Illness: Pt seen and examined at bedside. She is awake and appears comfortable. She denies shortness of breath. - Current Medication List Current Medications: Active Medications Sodium Chloride (Normal Saline -) 1,000 mls @ 42 mls/hr IV ASDIR [facility] Last Admin: 10/06/17 14:09 Dose: Not Given Potassium Chloride 10 meq/ (Sodium Chloride) 105 mls @ 105 mls/hr IVPB Q60M [facility] Stop: 10/06/17 15:44 Potassium Phosphate 15 mm/ (Sodium Chloride) 255 mls @ 62.5 mls/hr IVPB ONCE ONE Stop: 10/06/17 17:41 Lactulose (Cephulac (Oral Use)) 20 gm PO TID [facility] Last Admin: 10/06/17 14:00 Dose: 20 gm Pantoprazole Sodium (Protonix -) 40 mg PO DAILY [facility] Last Admin: 10/06/17 14:00 Dose: 40 mg Prednisolone Sodium Phosphate (Orapred (15 Mg/5 Ml) Oral Solution -) 45 mg PO DAILY [facility] Last Admin: 10/06/17 14:00 Dose: 45 mg Rifaximin (Xifaxan -) 550 mg PO BID [facility] Last Admin: 10/06/17 14:00 Dose: 550 mg - Objective Vital Signs: Vital Signs Temperature 97.2 F L 10/06/17 12:49 Pulse Rate 80 10/06/17 12:49 Respiratory Rate 14 10/06/17 12:49 Blood Pressure 109/55 10/06/17 12:49 O2 Sat by Pulse Oximetry (%) 100 10/06/17 12:49 Constitutional: Yes: Calm Eyes: Yes: Sclera Icterus HENT: Yes: Atraumatic Cardiovascular: Yes: S1, S2 Respiratory: Yes: CTA Bilaterally Gastrointestinal: Yes: Soft, Ascites Genitourinary: Yes: WNL Musculoskeletal: Yes: WNL Edema: Yes Neurological: Yes: Oriented Psychiatric: Yes: Oriented Labs: CBC, BMP 10/06/17 07:20 10/06/17 07:20 INR, PTT INR 1.63 (0.82-1.09) H 10/06/17 07:20 Problem List - Problems (1) Acute on chronic alcoholic liver disease Code(s): K70.9 - ALCOHOLIC LIVER DISEASE, UNSPECIFIED (2) Ascites Code(s): R18.8 - OTHER ASCITES (3) Liver failure Code(s): K72.90 - HEPATIC FAILURE, UNSPECIFIED WITHOUT COMA Qualifiers: Liver failure chronicity: acute Hepatic coma status: without hepatic coma Qualified Code(s): K72.00 - Acute and subacute hepatic failure without coma (4) Renal insufficiency Code(s): N28.9 - DISORDER OF KIDNEY AND URETER, UNSPECIFIED Assessment/Plan Current Medications Generic Name Dose Route Start Last Admin Trade Name Thomq PRN Reason Stop Dose Admin Sodium Chloride 1,000 mls @ 42 mls/hr 10/05/17 11:30 10/06/17 14:09 Normal Saline - IV Not Given ASDIR JOVANNA Potassium Chloride 10 meq/ 105 mls @ 105 mls/hr 10/06/17 13:45 Sodium Chloride IVPB 10/06/17 15:44 Q60M JOVANNA Potassium Phosphate 15 mm/ 255 mls @ 62.5 mls/hr 10/06/17 13:38 Sodium Chloride IVPB 10/06/17 17:41 ONCE ONE Lactulose 20 gm 10/05/17 16:15 10/06/17 14:00 Cephulac (Oral Use) PO 20 gm TID JOVANNA Administration Pantoprazole Sodium 40 mg 10/05/17 10:00 10/06/17 14:00 Protonix - PO 40 mg DAILY JOVANNA Administration Prednisolone Sodium Phosphate 45 mg 10/05/17 15:34 10/06/17 14:00 Orapred (15 Mg/5 Ml) Oral Solution - PO 45 mg DAILY JOVANNA Administration Rifaximin 550 mg 10/05/17 22:00 10/06/17 14:00 Xifaxan - PO 550 mg BID JOVANNA Administration Impression 1. VALERIA with unclear baseline creatinine, r/o HRS 2. liver failure likely from etoh 3. etoh abuse 4. jaundice 5. hypokalemia Plan - replace potassium - replace phos - repeat labs in am - pt accepted for transfer to [facility] pending a bed - will need renal workup when she gets there - bili is worse - GI input appreciated Dr Hernández
--- NOTE | 2017-10-06 16:40 | PN ---
Teaching Attending Note Name of Resident: Chandra Garrett ATTENDING PHYSICIAN STATEMENT Time of evaluation: 1:30 PM I saw and evaluated the patient. I reviewed the resident's note and discussed the case with the resident. I agree with the resident's findings and plan as documented. SUBJECTIVE: Patient seen and examined. overall feels the same, no new nausea, vomitting, or abdominal pain. Poor appetite currently, some blood in stools yesterday, no dyspnea or new complaints. OBJECTIVE: Vital Signs Period Temp Pulse Resp BP Sys/Lui Pulse Ox Last 24 Hr 97.2 F-97.9 F 76-93 14-20 101-116/54-61 95-100 Intake & Output 10/03/17 10/04/17 10/05/17 10/06/17 23:59 23:59 23:59 23:59 Intake Total 1744 1401 Output Total 200 Balance 1544 1401 Weight 165 lb 191 lb 4.8 oz General: sitting in bed, more icteric today, mild lethargy CVS:S1S2 regular Chest: decreased breath sounds at bases Abdomen: soft, tenderness along hepatic margin, RMQ/right zain-umbilical area, neg Garcia's sign, more distended today, non tender otherwise, extremities: no edema, mild asterexis neuro: AAOx3 Active Medications Generic Name Dose Route Start Last Admin Trade Name Freq PRN Reason Stop Dose Admin Sodium Chloride 1,000 mls @ 42 mls/hr 10/05/17 11:30 10/06/17 14:09 Normal Saline - IV Not Given ASDIR JOVANNA Potassium Phosphate 15 mm/ 255 mls @ 62.5 mls/hr 10/06/17 13:38 10/06/17 16: 31 Sodium Chloride IVPB 10/06/17 17:41 62.5 mls/hr ONCE ONE Administration Lactulose 20 gm 10/05/17 16:15 10/06/17 14:00 Cephulac (Oral Use) PO 20 gm TID JOVANNA Administration Pantoprazole Sodium 40 mg 10/05/17 10:00 10/06/17 14:00 Protonix - PO 40 mg DAILY JOVANNA Administration Prednisolone Sodium Phosphate 45 mg 10/05/17 15:34 10/06/17 14:00 Orapred (15 Mg/5 Ml) Oral Solution - PO 45 mg DAILY JOVANNA Administration Rifaximin 550 mg 10/05/17 22:00 01/19/18 14:00 Xifaxan - PO 550 mg BID JOVANNA Administration Laboratory Results - last 24 hr 10/04/17 10/04/17 10/05/17 10:00 17:47 18:20 WBC RBC Hgb Hct MCV MCH MCHC RDW Plt Count MPV PT with INR INR Sodium Potassium Chloride Carbon Dioxide Anion Gap BUN Creatinine Creat Clearance w eGFR Random Glucose Calcium Phosphorus Magnesium Total Bilirubin Direct Bilirubin AST ALT Alkaline Phosphatase Total Protein Albumin Ur Random Sodium 6 Ur Random Potassium 49.6 Ur Random Chloride < 10 Blood Type A POSITIVE A POSITIVE Antibody Screen Negative Negative Crossmatch See Detail See Detail 10/06/17 10/06/17 10/06/17 07:20 07:20 07:20 WBC 9.9 RBC 2.40 L D Hgb 9.6 L D Hct 27.3 L D MCV 113.7 H D MCH 39.9 H MCHC 35.1 RDW 28.3 H Plt Count 98 L MPV 6.8 L PT with INR 18.40 H INR 1.63 H Sodium 142 Potassium 3.1 L Chloride 101 Carbon Dioxide 28 Anion Gap 13 BUN 38 H Creatinine 1.6 H Creat Clearance w eGFR 32.45 Random Glucose 87 Calcium 8.4 L Phosphorus 2.0 L Magnesium 2.1 Total Bilirubin 18.1 H* Direct Bilirubin 12.6 H AST 211 H ALT 85 H Alkaline Phosphatase 149 H Total Protein 6.6 Albumin 2.3 L Ur Random Sodium Ur Random Potassium Ur Random Chloride Blood Type Antibody Screen Crossmatch EGD prelim - portal hypertensive gastropathy ASSESSMENT AND PLAN: 62 yof with PMHx of ETOH abuse, reportedly last drink in 08/2017, comes with jaundice, ascitis, abnormal LFTs, all suggestive of acute alcoholic hepatitis. -Acute alcoholic hepatitis with coagulopathy/ascitis, -Possible early hepatic encephalopathy -Cholelithiasis, low suspicion for obstructive jaundice -FLuid around pancreas, more likely reactive from hepatic process rather than primary pancreatitis. -Fluid gall bladder wall suspect again reactive from hepatic process, rather than primary gall bladder process -Acute on ?chronic blood loss anemia with hematochezia. -Coagulopathy -Anemia -Valeria, prerenal vs hepatorenal syndrome -?alcoholic pancreatitis Plan: WOrsenign jaundice, abdominal distension now with concerns for lower GI bleed. Gi input appreciated. Started on prednisolone/lactulose/rifaximin. Continue PPI Appropriate response to PRBC transfuse. 2 episodes of bloody stools Hemodynamics and h/h stable for now. EGD noted, COntiue PPI. As discussed with radiology not enough ascitic fluid to tap, makes SBP unlikely. However abdomen looks more distended today, repeat ultrasound with possible tap as indicated. MRCP results noted. Worsening VALERIA on hydration, unclear if now hepatorenal syndrome from progressive decompensated cirrhosis. Alcohol abstinence counseling. [id number] d/ c heparin given concerns for bleed, anemia and thrombocytopenia. SCDs in bed. GIPPX with protonix patient with worsening liver function, ascitis and now with concerns for lower GI bleed. Discussed with [facility] about urgency to transfer patient to liver center before continued decompensation. No beds available still. [facility] Continue to monitor closely here. Dispo patient still awaiting bed at [facility], also transfer options expanded to [facility], will continue to monitor closely. Discussed with patient in detail and all questions answered.
--- NOTE | 2017-10-06 18:39 | DS ---
Physical Exam: SUBJECTIVE: Patient seen and examined. Says she feels better than yesterday. She denies bloody stools, abdominal pain, nausea, vomiting, chest pain, and dizziness. Events overnight: -4 BMs with bloody stools as per nurse. -pt received 1U PRBC 17:49 OBJECTIVE: Vital Signs Period Temp Pulse Resp BP Sys/Lui Pulse Ox Last 24 Hr 97.2 F-97.9 F 76-93 14-20 101-116/54-61 95-100 PHYSICAL EXAM GENERAL: Jaundiced (more today). A/o x 3, in no acute distress HEAD: Normal with no signs of trauma. EYES: Scleral icterus. ENT: dry mucous membranes NECK: supple. LUNGS: Breath sounds equal, clear to auscultation bilaterally, no wheezes, no crackles, no accessory muscle use. HEART: Regular rate and rhythm, S1, S2 without murmur, rub or gallop. ABDOMEN: +BS, distended (worse today), RUQ tenderness to deep palpation, no rebound or guarding, negative burleson EXTREMITIES: 2+ pulses, warm, well-perfused, no edema. NEUROLOGICAL: Cranial nerves II through XII grossly intact. Normal speech, gait not observed. SKIN: jaundiced. LABS Laboratory Results - last 24 hr 10/04/17 10/05/17 10/06/17 17:47 18:20 07:20 WBC 9.9 RBC 2.40 L D Hgb 9.6 L D Hct 27.3 L D MCV 113.7 H D MCH 39.9 H MCHC 35.1 RDW 28.3 H Plt Count 98 L MPV 6.8 L PT with INR INR Sodium Potassium Chloride Carbon Dioxide Anion Gap BUN Creatinine Creat Clearance w eGFR Random Glucose Calcium Phosphorus Magnesium Total Bilirubin Direct Bilirubin AST ALT Alkaline Phosphatase Total Protein Albumin Ur Random Sodium 6 Ur Random Potassium 49.6 Ur Random Chloride < 10 Blood Type A POSITIVE Antibody Screen Negative Crossmatch See Detail 10/06/17 10/06/17 07:20 07:20 WBC RBC Hgb Hct MCV MCH MCHC RDW Plt Count MPV PT with INR 18.40 H INR 1.63 H Sodium 142 Potassium 3.1 L Chloride 101 Carbon Dioxide 28 Anion Gap 13 BUN 38 H Creatinine 1.6 H Creat Clearance w eGFR 32.45 Random Glucose 87 Calcium 8.4 L Phosphorus 2.0 L Magnesium 2.1 Total Bilirubin 18.1 H* Direct Bilirubin 12.6 H AST 211 H ALT 85 H Alkaline Phosphatase 149 H Total Protein 6.6 Albumin 2.3 L Ur Random Sodium Ur Random Potassium Ur Random Chloride Blood Type Antibody Screen Crossmatch Imaging: MRCP: Cirrhotic liver with small perihepatic and perisplenic ascites and mesenteric edema in addition to trace bilateral pleural effusions. Prominent and heterogeneous pancreas with peripancreatic edema likely pancreatitis. Correlate with patient's symptoms, amylase and lipase level. No pancreatic ductal dilatation seen. Cholelithiasis with significantly distended gallbladder and some surrounding edema which could be secondary to the above-described third spacing however underlying cholecystitis cannot be completely excluded. If clinically indicated HIDA scan may be obtained for further evaluation. No choledocholithiasis or biliary ductal dilatation. Renal US: Both kidneys appear unremarkable. Ascites. Included portion of the liver is echogenic suggestive of fatty infiltration versus hepatocellular disease. Please correlate with liver enzymes. ABD US: Limited visualization due to body habitus and obscuring bowel gas. Ascites is noted which is probably moderate in volume. Cholelithiasis is seen. There is mild diffuse nonspecific gallbladder wall thickening with possible etiologies including acute cholecystitis versus reactive thickening due to ascites, hepatic disease or systemic illness. If there is clinical concern for possible acute cholecystitis additional evaluation utilizing a radionuclide HIDA scan may be performed. There is no obvious biliary tract dilatation. Prominent diffuse hepatic steatosis. The pancreas could not be evaluated due to obscuring bowel gas. HOSPITAL COURSE: Date of Admission:10/03/17 Pt is a 62 y/o F with history of EtOH abuse who presents to the ED with fatigue and weakness for 3 days with decreased appetite. She stated that she had been drinking 2 glasses of scotch daily for years but stopped drinking alcohol in August. Patient was found to have severe alcoholic hepatitis with ascites likely secondary to chronic alcohol abuse and VALERIA. Patient had MELD score of 38 with a 3 month mortality. Patient also has bright red blood per rectum. GI was consulted. A diagnostic paracentesis was planned with FFP given before, but was put on hold because no significant ascites was found. Patient was started on prednisolone/lactulose/rifaximin. EGD revealed: Portal hypertensive gastropathy, with no evidence of gastric, esophageal ulcers. Patient is having worsening liver function, ascities and now with concerns for lower GI bleed. Patient will also need a renal workup.Worsening VALERIA on hydration , unclear if now hepatorenal syndrome from progressive decompensated cirrhosis. Plan is to transfer patient to [facility] where she will need higher level of care and follow with a liver specialist. Case was discussed with attending physician at [place] and patient was accepted for transfer. Date of Discharge: 10/06/17 Minutes to complete discharge: 35 Discharge Summary Reason For Visit: LIVER FAILURE Current Active Problems Acute on chronic alcoholic liver disease (Acute) Ascites (Acute) Cholestasis (Acute) Encephalopathy (Acute) Hepatorenal syndrome (Acute) Leukocytosis (Acute) Liver failure (Acute) Renal insufficiency (Acute) Condition: Guarded - Instructions Diet, Activity, Other Instructions: You are being transferred to [facility] for higher level of care. Referrals: Singh Muro MD [Primary Care Provider] - Disposition: TRANSFER ACUTE CARE/OTHER HOSP - Home Medications Comprehensive Discharge Medication List: Ambulatory Orders RX: Pantoprazole Sodium [Protonix -] 40 mg PO DAILY tablet.ec 10/04/17 This patient is new to me today: No Emergency Visit: Yes ED Registration Date: 10/03/17 Care time: The patient presented to the Emergency Department on the above date and was hospitalized for further evaluation of their emergent condition. Critical Care patient: No - Discharge Referral Referred to [facility] Med [facility] No
[2017-10-06 19:09] VITALS: BP 114/64; PULSE 84; TEMP 98.6
== END 2017-10-06 21:12 | disposition short-term general hospital (02) | DRG 432 ==
LOC: JER 12:40 → JERBED 19:27 → J6S 10-05 00:40
PROVIDERS: ADMIT Internal Medicine; ATTEND Hospitalist
PROC: 30233L1 Transfusion of Nonautologous Fresh Plasma into Peripheral Vein, Percutaneous Approach (ICD-10-PCS; 2017-10-04)
PROC: 30233N1 Transfusion of Nonautologous Red Blood Cells into Peripheral Vein, Percutaneous Approach (ICD-10-PCS; 2017-10-04)
PROC: 30233K1 Transfusion of Nonautologous Frozen Plasma into Peripheral Vein, Percutaneous Approach (ICD-10-PCS; 2017-10-05)
PROC: 0DJ08ZZ Inspection of Upper Intestinal Tract, Via Natural or Artificial Opening Endoscopic (ICD-10-PCS; principal; 2017-10-06 11:30)
DX: K70.11 Alcoholic hepatitis with ascites (principal); K76.7 Hepatorenal syndrome; K72.00 Acute and subacute hepatic failure without coma; K85.90 Acute pancreatitis without necrosis or infection, unspecified; E87.1 Hypo-osmolality and hyponatremia; N17.9 Acute kidney failure, unspecified; D68.9 Coagulation defect, unspecified; K76.6 Portal hypertension; I85.00 Esophageal varices without bleeding; F10.10 Alcohol abuse, uncomplicated; E87.6 Hypokalemia; R63.0 Anorexia; E66.01 Morbid (severe) obesity due to excess calories; Z68.33 Body mass index [BMI] 33.0-33.9, adult; K80.20 Calculus of gallbladder without cholecystitis without obstruction; D64.9 Anemia, unspecified; D53.9 Nutritional anemia, unspecified; K70.9 Alcoholic liver disease, unspecified; K72.90 Hepatic failure, unspecified without coma; K31.89 Other diseases of stomach and duodenum; N28.9 Disorder of kidney and ureter, unspecified
CPT/HCPCS: 36415; 36430; 71045-TC; 72070-TC-FY; 74181-TC; 76700-TC; 76775-TC; 80053; 80307; 81003; 81015; 82009; 82105; 82140; 82150; 82248; 82272; 82436; 82550; 82570; 82607; 82746; 82962; 83690; 83735; 84100; 84133; 84300; 84484; 85025; 85027; 85610; 86704; 86706; 86708; 86803; 86850; 86900; 86901; 86922; 87340; 93005; 93010; 99285-25; P9017; P9038; P9047; P9058

== ENCOUNTER 2018-01-21 03:01 | Inpatient (IN) | payer OTHER ==
[2018-01-21 03:21] VITALS: BMI 34.5
[2018-01-21] MEDS ORDERED: FUROSEMIDE 40 MG/4 ML INJECTABLE VIAL IVPUSH ONE (04:19)
--- NOTE | 2018-01-21 04:20 | PDOC ---
History of Present Illness - General History Source: Patient, Old Records Exam Limitations: No Limitations - History of Present Illness Initial Comments: 01/21/18 05:43 Patient is a 62 year old female with a significant past medical history of EtOH abuse, liver disease, who presents to the ED with complaints of shortness of breath that began this morning. Patient reports experiencing intermittent episodes of shortness of breath that she states gradually increased in intensity over time, prompting her to come into the ED for further evaluation. She reports experiencing associated symptoms of dry cough, and chills that began Monday afternoon. Denies chest pain. Denies nausea, vomiting. Denies contact with sick individuals , out of state travelling. Denies any other symptoms. Allergies: None Social history: Former smoker. Former alcohol use. No illicit drugs. Surgical history: None PMD: Dr. Douglas <Sreekanth Ward - Last Filed: 01/21/18 05:42> <Althea Marie - Last Filed: 01/22/18 01:57> - General Chief Complaint: Shortness of Breath Stated Complaint: DIFFICULTY BREATHING Time Seen by Provider: 01/21/18 03:22 Past History <Sreekanth Ward - Last Filed: 01/21/18 05:42> - Past Medical History Cardiac Disorders: Yes (A-fib) CVA: No COPD: No DVT: No Dementia: No GI Disorders: Yes (Liver cirrhosis) - Immunization History Immunization Up to Date: Yes - Suicide/Smoking/Psychosocial Hx Smoking History: Never smoked Have you smoked in the past 12 months: No Information on smoking cessation initiated: No 'Breaking Loose' booklet given: 10/05/17 Hx Alcohol Use: No Drug/Substance Use Hx: No Substance Use Type: None Hx Substance Use Treatment: No <Althea Marie - Last Filed: 01/22/18 01:57> - Past Medical History Allergies/Adverse Reactions: Allergies Allergy/AdvReac Type Severity Reaction Status Date / Time No Known Allergies Allergy Verified 01/21/18 03:19 Home Medications: Ambulatory Orders Pantoprazole Sodium [Protonix -] 40 mg PO DAILY tablet.ec 10/04/17 Furosemide [Lasix] 40 mg PO DAILY 01/21/18 Lactulose 10 gm PO BID 01/21/18 Rifaximin [Xifaxan] 550 mg PO BID 01/21/18 Spironolactone [Aldactone] 50 mg PO DAILY 01/21/18 Review of Systems - Review of Systems Able to Perform ROS?: Yes Comments:: 01/21/18 05:43 GENERAL/CONSTITUTIONAL: +chills No fever No weakness. HEAD, EYES, EARS, NOSE AND THROAT: No change in vision. No ear pain or discharge. No sore throat. CARDIOVASCULAR: +Shortness of breath No chest pain RESPIRATORY: +cough. No wheezing, or hemoptysis. GASTROINTESTINAL: No nausea, vomiting, diarrhea or constipation. GENITOURINARY: No dysuria, frequency, or change in urination. MUSCULOSKELETAL: No joint or muscle swelling or pain. No neck or back pain. SKIN: No rash NEUROLOGIC: No headache, vertigo, loss of consciousness, or change in strength/ sensation. ENDOCRINE: No increased thirst. No abnormal weight change. HEMATOLOGIC/LYMPHATIC: No anemia, easy bleeding, or history of blood clots. ALLERGIC/IMMUNOLOGIC: No hives or skin allergy. <Sreekanth Ward - Last Filed: 01/21/18 05:42> *Physical Exam - Vital Signs Last Vital Signs Temp Pulse Resp BP Pulse Ox 98.2 F 101 H 22 140/74 100 01/21/18 03:14 01/21/18 03:14 01/21/18 03:14 01/21/18 03:14 01/21/18 05:15 - Physical Exam Comments: 01/21/18 05:43 GENERAL: Awake, alert, and fully oriented, in no acute distress HEAD: No signs of trauma EYES: +Scleral icterus. +Right eye cataract PERRLA, EOMI, sclera anicteric, conjunctiva clear ENT: Auricles normal inspection, hearing grossly normal, nares patent, oropharynx clear without exudates. Moist mucosa NECK: Normal ROM, supple, no lymphadenopathy, JVD, or masses LUNGS: Breath sounds equal, clear to auscultation bilaterally. No wheezes, and no crackles HEART: Regular rate and rhythm, normal S1 and S2, no murmurs, rubs or gallops ABDOMEN: Soft, nontender, normoactive bowel sounds. No guarding, no rebound. No masses EXTREMITIES: 2+ pitting edema. +Left leg 1.5x larger than right. Normal range of motion, no edema. No clubbing or cyanosis. No cords, erythema, or tenderness NEUROLOGICAL: Cranial nerves II through XII grossly intact. Normal speech, normal gait SKIN: +Jaundice Warm, Dry, normal turgor, no rashes or lesions noted. <Sreekanth Ward - Last Filed: 01/21/18 05:42> - Vital Signs Last Vital Signs Temp Pulse Resp BP Pulse Ox 98.2 F 101 H 22 140/74 95 01/21/18 03:14 01/21/18 03:14 01/21/18 03:14 01/21/18 03:14 01/21/18 03:14 <Althea Marie - Last Filed: 01/22/18 01:57> ED Treatment Course - LABORATORY CBC & Chemistry Diagram: 01/21/18 04:45 01/21/18 04:45 - ADDITIONAL ORDERS Additional order review: Laboratory Results 01/21/18 04:45 Ammonia 79.10 H 01/21/18 04:45 RBC 2.80 L MCV 96.2 H MCHC 34.4 RDW 17.4 H D MPV 7.0 L Neutrophils % 86.9 H Lymphocytes % 7.3 L D Monocytes % 5.1 Eosinophils % 0.6 Basophils % 0.1 - Medications Given in the ED: ED Medications Discontinued Medications Generic Name Dose Route Start Last Admin Trade Name Khushbu PRN Reason Stop Dose Admin Furosemide 40 mg 01/21/18 04:19 01/21/18 05:16 Lasix Injection - IVPUSH 01/21/18 04:20 40 mg ONCE ONE Administration <Sreekanth Ward - Last Filed: 01/21/18 05:42> - LABORATORY CBC & Chemistry Diagram: 01/21/18 04:45 01/21/18 04:45 <Althea Marie - Last Filed: 01/22/18 01:57> Medical Decision Making - Medical Decision Making 01/22/18 01:54 Pt comes with jaundice, liver failure and SOB/CHF that has been getting worse. 01/22/18 01:54 Pt placed on BiPAP and she is feeling better. Will be signed out to the Day ER docs to admit the patient. Pt will be given lactulose for her elevated ammonia. <Althea Marie - Last Filed: 01/22/18 01:57> *DC/Admit/Observation/Transfer - Attestations Scribe Attestion: 01/21/18 05:44 Documentation prepared by Sreekanth Ward, acting as medical office manager for Althea Marie MD/. <Sreekanth Ward - Last Filed: 01/21/18 05:42> <Althea Marie - Last Filed: 01/22/18 01:57> Diagnosis at time of Disposition: Respiratory distress, Acute respiratory failure with hypoxia, Liver failure, Hyperammonemia, Pleural effusion, left - Discharge Dispostion Condition at time of disposition: Guarded
[2018-01-21] MEDS ORDERED: FUROSEMIDE 40 MG/4 ML INJECTABLE VIAL ONE (05:05)
[2018-01-21 05:17] LABS: BASO % 0.1 % (0-2.0); EOS % 0.6 % (0-4.5); HEMATOCRIT 26.9 % (32.4-45.2); HEMOGLOBIN 9.3 GM/dL (10.7-15.3); LYMPH % 7.3 % (8-40); MCH 33.1 pg (25.7-33.7); MCHC 34.4 g/dl (32.0-36.0); MEAN CELL VOLUME 96.2 fl (80-96); MONO % 5.1 % (3.8-10.2); NEUT % 86.9 % (42.8-82.8); PLATELET COUNT 94 K/MM3 (134-434); RDW 17.4 % (11.6-15.6); WHITE BLOOD COUNT 7.3 K/mm3 (4.0-10.0)
[2018-01-21 05:28] LABS: INR 1.7 (0.82-1.09); PROTHROMBIN TIME (PATIENT) 19.2 SEC (9.7-13.0)
[2018-01-21 05:39] LABS: ALBUMIN 2.4 g/dl (3.4-5.0); ANION GAP 11 (8-16); BILIRUBIN,TOTAL 3.5 mg/dL (0.2-1.0); BLOOD UREA NITROGEN 18 mg/dL (7-18); CALCIUM 8.7 mg/dL (8.5-10.1); CHLORIDE 107 mmol/L (98-107); CO2 24 mmol/L (21-32); CREATININE 1.1 mg/dL (0.55-1.02); GLUCOSE,RANDOM 139 mg/dL (74-106); POTASSIUM 4.3 mmol/L (3.5-5.1); SGOT/AST 46 U/L (15-37); SGPT/ALT 23 U/L (12-78); SODIUM 142 mmol/L (136-145); TOT PROT 8.4 g/dl (6.4-8.2)
[2018-01-21 05:41] LABS: ALK PHOS 120 U/L (45-117)
[2018-01-21] MEDS ORDERED: LACTULOSE 20 GM/30 ML UDC (FOR ORAL USE ONLY) PO ONE (07:04)
[2018-01-21] MEDS ORDERED: LACTULOSE 20 GM/30 ML UDC (FOR ORAL USE ONLY) ONE (07:34)
--- NOTE | 2018-01-21 09:47 | PDOC ---
*Physical Exam - Vital Signs Last Vital Signs Temp Pulse Resp BP Pulse Ox 98.2 F 88 79 H 138/82 100 01/21/18 03:14 01/21/18 07:10 01/21/18 07:15 01/21/18 07:15 01/21/18 07:15 - Physical Exam Comments: 01/21/18 09:43 Gen: sleeping, but easily arousable, on bipap - off bipap pt desats to 82% Heart: +s1s2 reg lungs: soft rales at the bases, on bipap abd: soft, mild RUQ ttp, no rebound or guarding ext: 2+pitting edema to LE neuro: no focal neuro deficits ED Treatment Course - LABORATORY CBC & Chemistry Diagram: 01/21/18 04:45 01/21/18 04:45 - ADDITIONAL ORDERS Additional order review: Laboratory Results 01/21/18 01/21/18 01/21/18 04:45 04:45 04:45 PT with INR 19.20 H INR 1.70 H Sodium Potassium Chloride Carbon Dioxide Anion Gap BUN Creatinine Creat Clearance w eGFR Random Glucose Calcium Total Bilirubin AST ALT Alkaline Phosphatase Ammonia 79.10 H Creatine Kinase Troponin I B-Natriuretic Peptide 694.80 H Total Protein Albumin 01/21/18 04:45 PT with INR INR Sodium 142 Potassium 4.3 Chloride 107 Carbon Dioxide 24 Anion Gap 11 BUN 18 Creatinine 1.1 H Creat Clearance w eGFR 50.01 Random Glucose 139 H Calcium 8.7 Total Bilirubin 3.5 H D AST 46 H ALT 23 Alkaline Phosphatase 120 H Ammonia Creatine Kinase 36 Troponin I < 0.02 B-Natriuretic Peptide Total Protein 8.4 H Albumin 2.4 L 01/21/18 04:45 RBC 2.80 L MCV 96.2 H MCHC 34.4 RDW 17.4 H D MPV 7.0 L Neutrophils % 86.9 H Lymphocytes % 7.3 L D Monocytes % 5.1 Eosinophils % 0.6 Basophils % 0.1 - RADIOLOGY Radiology Studies Ordered: Category Date Time Status CHEST X-RAY PORTABLE* [RAD] Stat Radiology 01/21/18 07:50 Completed - Medications Given in the ED: ED Medications Discontinued Medications Generic Name Dose Route Start Last Admin Trade Name Freq PRN Reason Stop Dose Admin Furosemide 40 mg 01/21/18 04:19 01/21/18 05:16 Lasix Injection - IVPUSH 01/21/18 04:20 40 mg ONCE ONE Administration Lactulose 20 gm 01/21/18 07:04 01/21/18 07:30 Cephulac (Oral Use) PO 01/21/18 07:05 20 gm ONCE ONE Administration Medical Decision Making - Medical Decision Making 01/21/18 09:44 a/p: 62yo female with pulm edema on bipap, resp distress with generalized anasarca signed out by the prior ED attending pending imaging studies -pt is bipap dependent -pt feels better on bipap and has been urinating -hx of alcoholic liver disease on lactulose at home, elevated ammonia today -given lasix and lactulose today -will admit for further eval of resp distress, bipap dependence, elevated lfts -doppler still pending, unable to go to [facility] for imaging given bipap dependence , tech will come to bedside -PMD dr. muro - call placed -microblog sent to [facility] for admission 01/21/18 09:52 case discussed with [facility] who accepts pt in transfer 01/21/18 09:[address] Guerrero *DC/Admit/Observation/Transfer Diagnosis at time of Disposition: Respiratory distress, Acute respiratory failure with hypoxia, Liver failure, Hyperammonemia, Pleural effusion, left - Discharge Dispostion Condition at time of disposition: Guarded Admit: Yes - Referrals Referrals: Singh Muro MD [Primary Care Provider] - - Patient Instructions - Post Discharge Activity - Attestations Physician Attestion: 01/21/18 09:47 I, Dr. Kelsy Grimes, DO, attest that this document has been prepared under my direction and personally reviewed by me in its entirety. I further attest, that it accurately reflects all work, treatment, procedures and medical decision -making performed by me.
[2018-01-21 10:16] LABS: ARTERIAL BLD GAS O2 SATURATION 99.1 % (90-98.9); ARTERIAL BLOOD GAS BASE EXCESS -1.9 meq/l (-2-2); ARTERIAL BLOOD GAS PCO2 38.2 mmHg (35-45); ARTERIAL BLOOD GAS pH 7.38 (7.35-7.45)
[2018-01-21 10:22] LABS: ALLENS TEST POSITIVE
--- NOTE | 2018-01-21 14:03 | HP ---
CHIEF COMPLAINT: shortness of breath PCP: Kam Blake Dr, [facility] (Liver specialist) HISTORY OF PRESENT ILLNESS: Patient is a 62 year old female with a significant past medical history of ETOH abuse, pulmonary edema and liver disease. She presents to the ED today with complaints of shortness of breath that gradually worsened in the past few days and exacerbated today prompting her ED visit. She was also noted to have generalized anasarca and was given Lasix IV and placed on bipap. Patient was placed on bipap in ED for low oxygen levels in the 60s on room air. For her history of alcoholic liver disease, she is on Lactulose and Rifaxamin and follows Dr. Humphrey at [facility] for liver failure. Her left lower ext was noted to have non pitting edema. She denies trauma or falls. Vascular study negative for DVT. She denies chest pain. Denies nausea, vomiting. Denies contact with sick individuals. She denies any recent alcohol consumption. ER course was notable for: (1) left leg non pitting edema (2) bipap (3) ammonia level 79, ammonia levels 44 with repeat (4) abg (5) anemia, thrombocytopenia (6) chest xray: since 10/05/2017, there is new fluid with atelectasis or infiltrate in the left base. CT chest pending Recent Travel: denies PAST MEDICAL HISTORY: ETOH abuse PAST SURGICAL HISTORY: Social History: Smoking: denies Alcohol: denies recent alcohol consumption, former etoh abuse Drugs: denies Family History: Allergies No Known Allergies Allergy (Verified 01/21/18 03:19) HOME MEDICATIONS: Home Medications Medication Instructions Recorded Pantoprazole Sodium [Protonix -] 40 mg PO DAILY tablet.ec 10/04/17 Furosemide [Lasix] 40 mg PO DAILY 01/21/18 Lactulose 10 gm PO BID 01/21/18 Rifaximin [Xifaxan] 550 mg PO BID 01/21/18 Spironolactone [Aldactone] 50 mg PO DAILY 01/21/18 PHYSICAL EXAMINATION Vital Signs - 24 hr 01/21/18 01/21/18 01/21/18 03:14 05:15 07:10 Temperature 98.2 F Pulse Rate 101 H Pulse Rate [ 88 Left] Respiratory 22 20 Rate Blood Pressure 140/74 Blood Pressure 124/67 [Right Arm] O2 Sat by Pulse 95 100 100 Oximetry (%) 01/21/18 01/21/18 01/21/18 07:15 07:30 09:30 Temperature Pulse Rate Pulse Rate [ 82 Left] Respiratory 79 H 18 Rate Blood Pressure Blood Pressure 138/82 125/64 [Right Arm] O2 Sat by Pulse 100 100 100 Oximetry (%) 01/21/18 11:30 Temperature Pulse Rate Pulse Rate [ 77 Left] Respiratory 14 Rate Blood Pressure Blood Pressure 123/66 [Right Arm] O2 Sat by Pulse 100 Oximetry (%) GENERAL: Awake, alert, and fully oriented, in no acute distress. jaundiced sclera HEAD: Normal with no signs of trauma. EYES: Pupils equal, round and reactive to light, extraocular movements intact, sclera icteric, conjunctiva clear. No lid lag. EARS, NOSE, THROAT: oropharynx clear without exudates. Dry mucous membranes. NECK: Normal range of motion, supple without lymphadenopathy, JVD, or masses. LUNGS: diminished breath sounds bilaterally, no wheezing, + accessory muscle use , conversational dyspnea, on bipap HEART: Regular rate and rhythm, normal S1 and S2 with systolic 3/6 cresc/ decresc murmur, no rub or gallop. ABDOMEN: Soft, nontender, distended, tympanic normoactive bowel sounds, no guarding, no rebound, no masses. No hepatomegaly or splenomegaly detected. MUSCULOSKELETAL: Normal range of motion at all joints. No bony deformities or tenderness. No CVA tenderness. UPPER EXTREMITIES: 2+ pulses, warm, well-perfused. No cyanosis. No clubbing. No peripheral edema. LOWER EXTREMITIES: left lower ext non pitting edema, negative for DVT NEUROLOGICAL: Cranial nerves II-XII intact. Normal speech. Gait not observed. PSYCHIATRIC: Cooperative. Good eye contact. Appropriate mood and affect. SKIN: Warm, dry, normal turgor, no rashes or lesions noted, normal capillary refill. Laboratory Results - last 24 hr 01/21/18 01/21/18 01/21/18 04:45 04:45 04:45 WBC 7.3 RBC 2.80 L Hgb 9.3 L Hct 26.9 L MCV 96.2 H MCH 33.1 D MCHC 34.4 RDW 17.4 H D Plt Count 94 L MPV 7.0 L Neutrophils % 86.9 H Lymphocytes % 7.3 L D Monocytes % 5.1 Eosinophils % 0.6 Basophils % 0.1 PT with INR INR Puncture Site ABG pH ABG pCO2 at Pt Temp ABG pO2 at Pt Temp ABG HCO3 ABG O2 Sat (Measured) ABG O2 Content ABG Base Excess Chandler Test Oxygen Flow Rate Sodium 142 Potassium 4.3 Chloride 107 Carbon Dioxide 24 Anion Gap 11 BUN 18 Creatinine 1.1 H Creat Clearance w eGFR 50.01 Random Glucose 139 H Calcium 8.7 Total Bilirubin 3.5 H D AST 46 H ALT 23 Alkaline Phosphatase 120 H Ammonia Creatine Kinase 36 Troponin I < 0.02 B-Natriuretic Peptide 694.80 H Total Protein 8.4 H Albumin 2.4 L 01/21/18 01/21/18 01/21/18 04:45 04:45 10:12 WBC RBC Hgb Hct MCV MCH MCHC RDW Plt Count MPV Neutrophils % Lymphocytes % Monocytes % Eosinophils % Basophils % PT with INR 19.20 H INR 1.70 H Puncture Site Left radial ABG pH 7.38 ABG pCO2 at Pt Temp 38.2 ABG pO2 at Pt Temp 114.0 H ABG HCO3 22.3 ABG O2 Sat (Measured) 99.1 H ABG O2 Content 13.2 L ABG Base Excess -1.9 Chandler Test Positive Oxygen Flow Rate Yes Sodium Potassium Chloride Carbon Dioxide Anion Gap BUN Creatinine Creat Clearance w eGFR Random Glucose Calcium Total Bilirubin AST ALT Alkaline Phosphatase Ammonia 79.10 H Creatine Kinase Troponin I B-Natriuretic Peptide Total Protein Albumin ASSESSMENT/PLAN: Patient is a 62 year old female with a significant past medical history of ETOH abuse, pulmonary edema and liver disease. She presents to the ED today with complaints of shortness of breath that gradually worsened in the past few days and exacerbated today prompting her ED visit. She was also noted to have generalized anasarca and was given Lasix IV and placed on bipap. Patient was placed on bipap in ED for low oxygen levels in the 60s on room air. For her history of alcoholic liver disease, she is on Lactulose and Rifaxamin and follows Dr. Humphrey at [facility] for liver failure. Her left lower ext was noted to have non pitting edema. She denies trauma or falls. Vascular study negative for DVT. She denies chest pain. Denies nausea, vomiting. Denies contact with sick individuals. She denies any recent alcohol consumption. Imaging: Vascular study, left lower ext: negative for DVT Pulmonary: Acute Respiratory Failure LLL infiltrate, effusion on chest xray, CT chest ordered On bipap Given Lasix 40mg in ED on Rocephin Blood cultures pending ID consulted GI: Liver Cirrhosis Elevated ammonia levels Alcoholic hepatitis with coagulopathy/ascites MELD score with 3-4% est 90 day mortality Follows with the [facility] liver specialist Had recent EGD on last admission with Dr. Pa: portal hypertensive gastropathy , no evidence of gastric, or esophageal varices, no biopsies taken due to hypocoagulable state On Rifaximin, Lactulose for hepatic encephalopathy, on Aldactone Thrombocytopenia likely chronic due to ETOH abuse Protonix 40mg daily Heme: Anemia, thrombocytopenia Bleeding risk Trend Cardiology: Respiratory failure Trend trops Echo ordered Daily weights Strict monitoring of intake and output Renal: Creat @ 1.1, improved since last admission Nephro followed on last admission, trend with daily labs consider renal consult if creat. increases F.E.N. Fluids: none secondary to anasarca Electrolytes: Monitor and replete Nutrition: low sodium diet Prophy: DVT: deferred for thrombocytopenia GI: on Protonix Disposition: full code Hospitalist Screening - Colonoscopy Questionnaire Colonoscopy Questionnaire: Colonoscopy Questionnaire
--- NOTE | 2018-01-21 14:30 | EKG ---
Test Reason : Blood Pressure : / mmHG Vent. Rate : 099 BPM Atrial Rate : 099 BPM P-R Int : 112 ms QRS Dur : 084 ms QT Int : 364 ms P-R-T Axes : 011 016 052 degrees QTc Int : 467 ms NORMAL SINUS RHYTHM NONSPECIFIC ST AND T WAVE ABNORMALITY ABNORMAL ECG WHEN COMPARED WITH ECG OF 03-OCT-2017 14:00, T WAVE INVERSION NO LONGER EVIDENT IN ANTERIOR LEADS QT HAS LENGTHENED Confirmed by MD Kaden, Stanislaw ([id number]) on 01/21/2018 2:30:06 PM Referred By: Confirmed By:Stanislaw Alfonso MD
--- NOTE | 2018-01-21 15:36 | PN ---
Progress Note (short form) - Note Progress Note: PULMONARY CONSULTATION DICTATED 01/21/18 IMP ACUTE RESPIRATORY FAILURE ? CHF LLL INFILTRATE/EFFUSION ETOH LIVER DISEASE CIRRHOSIS ANEMIA/THROMBOCYTOPENIA ELEVATED AMMONIA LEVEL CKD PLAN BIPAP/O2 LASIX ALDACTONE ABX LACTULOSE MONITOR LYTES,RENAL FUNCTION,AMMONIA LEVEL MONITOR CBC,PLT CT STRICT I+OS DAILY WTS CHEST CT CULTURES ECHO DR VENEGAS Problem List - Problems (1) CKD (chronic kidney disease) Code(s): N18.9 - CHRONIC KIDNEY DISEASE, UNSPECIFIED (2) Acute respiratory failure with hypoxia Code(s): J96.01 - ACUTE RESPIRATORY FAILURE WITH HYPOXIA (3) Hyperammonemia Code(s): E72.20 - DISORDER OF UREA CYCLE METABOLISM, UNSPECIFIED (4) Liver failure Code(s): K72.90 - HEPATIC FAILURE, UNSPECIFIED WITHOUT COMA (5) Pleural effusion, left Code(s): J90 - PLEURAL EFFUSION, NOT ELSEWHERE CLASSIFIED (6) Respiratory distress Code(s): R06.03 - ACUTE RESPIRATORY DISTRESS (7) Acute on chronic alcoholic liver disease Code(s): K70.9 - ALCOHOLIC LIVER DISEASE, UNSPECIFIED (8) Renal insufficiency Code(s): N28.9 - DISORDER OF KIDNEY AND URETER, UNSPECIFIED
--- NOTE | 2018-01-21 16:08 | CONS ---
PULMONARY CONSULTATION DATE OF CONSULTATION: 01/21/2018 REFERRING PHYSICIAN: Dr. Buck HISTORY OF PRESENT ILLNESS: The patient is a 62-year-old female with past medical history of end-stage liver disease, history of ETOH abuse, last drank in August, currently being followed at [facility]. Past history of none. History of tobacco use greater than 30 years ago. Admitted to [facility] with complaint of increasing shortness of breath. The patient states that 2 days prior to admission she started developing some dry cough associated with some chills. This developed on Monday afternoon. She denied any fevers, nausea or vomiting. Yesterday she suddenly developed shortness of breath which increased in severity over the course of a day, at which time she presented to the emergency room. In the ER she was noted to be in acute respiratory distress. She was placed on BiPAP and transferred to the medical floor, telemetry unit, for further management. She denied any recent travel history. No history of DVT or PE in the past. Of note, she was noted to have increasing lower extremity edema. She is currently maintained at home on Aldactone and Lasix. She states that she has been compliant with her medications. Of note, she is also noted to have elevated ammonia level of 79.10 on admission. She was started on lactulose. The patient denies any history of COPD or asthma in the past. She is a retired banker. There is no history of recent moves. No history of respiratory failure in the past requiring ventilatory support. PAST MEDICAL HISTORY: Again includes history of ETOH liver disease, cirrhosis, ascites, anemia, chronic anemia secondary to chronic liver disease, also chronic kidney disease. REVIEW OF SYSTEMS: Positive for shortness of breath, positive nonproductive cough. Positive chills, no fever. No chest pain. No palpitations. No abdominal pain. Positive lower extremity edema. PHYSICAL EXAMINATION: General: The patient is a well-developed, well-nourished female, awake, alert, currently in no acute distress on BiPAP. Vital Signs: Her blood pressure is 140/68, respiratory rate 20, O2 saturation is 100% on BiPAP 35%. Heart rate 84. HEENT: Exam is normocephalic, atraumatic. Neck: Supple. Heart: Regular, S1, S2. Chest: A few bibasilar crackles. Abdomen: Soft. Bowel sounds present. Extremity: Bilateral lower extremity edema, left greater than right. LABORATORY: WBC is 7.3, hemoglobin 9.3, hematocrit 29.9, with a platelet count of 94,000. INR is 1.7. Blood gas with pH 7.38, pCO2 of 38, a pO2 of 114, bicarbonate of 22 and a saturation of 99. That is on unknown quantity of oxygen. BUN is 18, creatinine of 1.8. Of note, her last creatinine in September was 1.6. Bilirubin was 3.5. Ammonia level initially on admission was 79.10, followup 44.26. BNP is 694.8. Chest x-ray reveals mild congestion, elevated right hemidiaphragm and new atelectasis and/or infiltrate at the left base. IMPRESSION: 1. Acute respiratory failure, rule out possibility of congestive heart failure. 2. Rule out possibility of pneumonia, left lower lobe. 3. Ascites. 4. End-stage liver disease. 5. Chronic kidney disease. 6. Anemia. 7. Thrombocytopenia. PLAN: Antibiotic therapy. Continue supplemental O2, ultimately a BiPAP. Monitor electrolytes, daily weights, diuretics. Obtain cultures, CT scan of the chest. Obtain echocardiogram. Strict input and output. Monitor CBC, platelet count, hemoglobin and hematocrit as well as renal function. JUDITH VENEGAS M.D. [id number]
[2018-01-21] MEDS ORDERED: PNEUMOC 13-VAL CONJ-DIP CRM/PF 0.5 ML DISP.SYRIN IM ONE (16:30)
[2018-01-21] MEDS ORDERED: cefTRIAXone SODIUM 1 GM VIAL ONE (20:26)
[2018-01-21] MEDS ORDERED: DEXTROSE 5%-WATER - 50 ML IVPB ONE (20:27)
[2018-01-21] MEDS ORDERED: PT OWN MED DRAWER 7, Y5N ONE (20:40)
[2018-01-21] MEDS: CEFTRIAXONE 1 GM in DEXTROSE 5%-WATER - 50 ML IVPB SCH (20:43)
[2018-01-21] MEDS: RIFAXIMIN 550 MG TABLET (UD) PO SCH (21:06)
[2018-01-21] MEDS: LACTULOSE 20 GM/30 ML UDC (FOR ORAL USE ONLY) PO SCH (21:06)
[2018-01-22 07:54] LABS: BASO % 0.5 % (0-2.0); LYMPH % 23.4 % (8-40); MCH 33.2 pg (25.7-33.7); MCHC 34.6 g/dl (32.0-36.0); MEAN PLT VOLUME 6.6 fl (7.5-11.1); MONO % 9.2 % (3.8-10.2); NEUT % 62.9 % (42.8-82.8); PLATELET COUNT 78 K/MM3 (134-434); RDW 17.6 % (11.6-15.6); WHITE BLOOD COUNT 6.1 K/mm3 (4.0-10.0)
[2018-01-22 08:25] LABS: ANION GAP 2 (8-16); BLOOD UREA NITROGEN 19 mg/dL (7-18); CALCIUM 8.3 mg/dL (8.5-10.1); CHLORIDE 111 mmol/L (98-107); CO2 29 mmol/L (21-32); GLUCOSE,RANDOM 88 mg/dL (74-106); MAGNESIUM 1.8 mg/dL (1.8-2.4); POTASSIUM 4.4 mmol/L (3.5-5.1); SODIUM 142 mmol/L (136-145)
[2018-01-22 08:29] LABS: CHOLESTEROL 152 mg/dL (50-200); CREATININE 1.1 mg/dL (0.55-1.02); HDL CHOLESTEROL 38 mg/dL (40-60); TRIGLYCERIDES 55 mg/dL (35-160)
--- NOTE | 2018-01-22 08:37 | CON.CARD ---
Cardiology Consult (text) - Consultation Consultation Note: IMP: ETOH cirrhosis Hypoalbuminemia Dyspnea Left pleural effusion, suspected LLL PNA REC: 1. Agree w/ Chest CT to r/o left basilar infiltrate, effusion, lung parenchyma 2. Echo for LVEF, RV assessment, evaluate for PHTN 3. Continue empiric Rx for PNA, suspected LLL; follow cultures 4. Possible component of CHF, ETOH cardiomyopathy, Echo as above. Continue Lasix Will follow. Thank you Full consult dictated
--- NOTE | 2018-01-22 09:27 | CONS ---
DATE OF CONSULTATION: 01/21/2018 REFERRING PHYSICIAN: Stan Quesada MD Requested by Dr. Quesada for evaluation of possible congestive heart failure. The patient is a 62-year-old female with a pertinent past medical history of alcoholism, alcoholic cirrhosis who presented to [facility] with 2 days of chills with subsequent dyspnea and dry cough. She was treated for empiric pneumonia with blood cultures sent. Her BMP was noted to be mildly elevated and consultation was requested for evaluation for the presence of concomitant congestive heart failure. The patient describes starting to feel chills on Monday and then again on Monday of last week. Monday evening, she became short of breath and generally uncomfortable and felt as though she had to cough, felt as though she had chest congestion, which was not productive. She has chronic lower extremity edema, which has not changed. She denies any exertional chest pain, palpitations, syncope. She denies any prior cardiac history. She is followed at [facility] by Dr. Humphrey for her cirrhosis and had an echocardiogram there -- it is unavailable for review at this time. PAST MEDICAL HISTORY: As above. ALLERGIES: None. CURRENT MEDICATIONS: Include ceftriaxone intravenously, Lasix 40 mg IV daily, lactulose 20 g p.o. b.i.d., Protonix 40 mg p.o. daily, Xifaxan 500 mg p.o. b.i.d. and Aldactone 50 mg p.o. daily. FAMILY HISTORY: No early sudden cardiac or early coronary disease. SOCIAL HISTORY: Former smoker, quit 20 years ago. Lives with her sister. Former heavy alcohol use -- 3 drinks a day with a diagnosis of cirrhosis of the liver made in August of last year as per patient. Denies drug use. PHYSICAL EXAMINATION: General: Comfortable, no distress. Vital Signs: Temperature 97.7, pulse 76, blood pressure 115/50, weight 181 pounds, O2 saturation 97% on 35% FiO2. Neck: Minimal JVD. Heart: S1, S2 regular, no murmurs. Chest: Scattered expiratory wheezing, rhonchi. Abdomen: Obese, soft, nontender. Extremities: 2+ bilateral edema. EKG shows sinus rhythm at 99 beats per minute, borderline low voltage and nonspecific ST changes. Chest x-ray shows possible left lower infiltrate with associated left effusion. LABORATORY STUDIES: White count 6.1, hemoglobin 8, platelets 78, INR 1.7. AB.38/38/114 on unspecified oxygen. Sodium 142, potassium 4.4, BUN 19, creatinine 1.1, ammonia level 79. It had been 44. BNP 694. Albumin 2.4. Blood cultures are pending and are negative to date. Lower extremity venous Duplex was performed yesterday and was negative for DVT on the left leg, which was noted to be mildly more edematous. IMPRESSION: 1. Alcoholic cirrhosis. 2. Hypoalbuminemia. 3. Dyspnea with left pleural effusion, suspected left lower lobe pneumonia. RECOMMENDATION: 1. Agree with chest CT to rule out a left basilar infiltrate and further assess the left effusion as well as lung parenchyma. 2. Echocardiogram today for evaluation of LVEF, right ventricular assessment and to evaluate for the presence of pulmonary hypertension. 3. Continue empiric therapy for pneumonia, follow cultures. 4. There may be a component of chronic CHF due to alcoholic cardiomyopathy -- echocardiogram is planned, as above. For now, continue Lasix intravenously and follow creatinine closely. Thank you for the consultation. NAVIN LAZO M.D. [id number]
[2018-01-22] MEDS ORDERED: PT OWN MED DRAWER 7, Y5N ONE ×2 (09:42→21:43)
[2018-01-22] MEDS ORDERED: cefTRIAXone SODIUM 1 GM VIAL ONE (09:43)
[2018-01-22] MEDS ORDERED: DEXTROSE 5%-WATER - 50 ML IVPB ONE (09:43)
[2018-01-22] MEDS ORDERED: FUROSEMIDE 40 MG TABLET (FP) PO SCH (10:00)
[2018-01-22] MEDS: SPIRONOLACTONE 25 MG TABLET (FP) PO SCH (10:09)
[2018-01-22] MEDS: FUROSEMIDE 40 MG/4 ML INJECTABLE VIAL IVPUSH SCH (10:09)
[2018-01-22] MEDS: CEFTRIAXONE 1 GM in DEXTROSE 5%-WATER - 50 ML IVPB SCH (10:09)
[2018-01-22] MEDS: LACTULOSE 20 GM/30 ML UDC (FOR ORAL USE ONLY) PO SCH ×2 (10:10→21:45)
[2018-01-22] MEDS: PANTOPRAZOLE 40 MG TABLET (FP) PO SCH (10:10)
[2018-01-22] MEDS: RIFAXIMIN 550 MG TABLET (UD) PO SCH ×2 (10:10→21:45)
--- NOTE | 2018-01-22 11:08 | CON.GI ---
Consult Consult Specialty:: GI Reason for Consultation:: history of alcoholic liver cirrhosis - History of Present Illness History of Present Illness: chart reviewed. Events noted. The patient is known to GI service from admission for alcoholic hepatitis in September of this year. This time the patient was admitted for left lower lobe pneumonia. As per initial encounter: The patient presents to the ED today with complaints of shortness of breath that gradually worsened in the past few days and exacerbated today prompting her ED visit. She reports dry cough, and chills that began Monday afternoon. Denies nausea, vomiting, hematemesis, hematochezia, melena, increased abdominal girth, jaundice. Denies asterixis, tremors, increased forgetfulness, confusion. Reports Symmetrical lower extremity swelling. T-max 98 2. Mild leukocytosis. Mild cholestasis. Creatinine 1.1. Microcytic anemia. Diagnostic paracentesis was not done on admission. Had An EGD, MRI of the abdomen and ultrasound of the liver in September of this year - chronic liver disease with ascites. Follows With Dr. Calderon at [facility]. - History Source History Provided By: Patient, Medical Record - Past Medical History Gastrointestinal: Yes: Ascites. No: Constipation Hepatobiliary: Yes: Cirrhosis Renal/: Yes: Renal Inusuff Psych: Yes: Addictions Additional Medical History: Denies all medical problems. Alcohol abuse - Past Surgical History Past Surgical History: Yes: None - Alcohol/Substance Use Hx Alcohol Use: No - Smoking History Smoking history: Never smoked Have you smoked in the past 12 months: No - Social History ADL: Independent History of Recent Travel: No Home Medications - Allergies Allergies/Adverse Reactions: Allergies Allergy/AdvReac Type Severity Reaction Status Date / Time No Known Allergies Allergy Verified 01/21/18 03:19 - Home Medications Home Medications: Ambulatory Orders Pantoprazole Sodium [Protonix -] 40 mg PO DAILY tablet.ec 10/04/17 Furosemide [Lasix] 40 mg PO DAILY 01/21/18 Lactulose 10 gm PO BID 01/21/18 Rifaximin [Xifaxan] 550 mg PO BID 01/21/18 Spironolactone [Aldactone] 50 mg PO DAILY 01/21/18 Family Disease History - Family Disease History Family History: Unremarkable Family Disease History: Other: Grandparent (liver diseasev) Review of Systems Findings/Remarks: as per H&P and HPI. Physical Exam-GI Vital Signs: Vital Signs Temperature 97.7 F 01/22/18 02:00 Pulse Rate 76 01/22/18 02:00 Respiratory Rate 22 01/22/18 02:00 Blood Pressure 113/50 01/22/18 02:00 O2 Sat by Pulse Oximetry (%) 97 01/22/18 07:35 Labs: CBC, BMP 01/22/18 07:20 01/22/18 07:20 INR, PTT INR 1.70 (0.82-1.09) H 01/21/18 04:45 Imaging - Results Ultrasound: Report Reviewed MRI: Report Reviewed Problem List - Problems (1) Alcoholic hepatitis with ascites Code(s): K70.11 - ALCOHOLIC HEPATITIS WITH ASCITES (2) Acute on chronic alcoholic liver disease Code(s): K70.9 - ALCOHOLIC LIVER DISEASE, UNSPECIFIED Assessment/Plan Continue current care as per primary/pulmonary teams. Recommend increasing Aldactone to 50 mg twice a day while continuing Lasix at 40 daily. Continue lactulose and rifaximin. Maintain low salt diet. Due for ultrasound of the liver and alpha-fetoprotein in February of this year. Will follow.
--- NOTE | 2018-01-22 12:42 | CON.ID ---
Consult Consult Specialty:: infectious disease Referred by:: hospitalist Reason for Consultation:: pneumonia - History of Present Illness Chief Complaint: cough, chills, sob History of Present Illness: developed chills on Monday dry cough on Monday, SOB over the weekend came to ED on Monday brother with cough and chills at home former cig/etoh use stopped drinking ETOH in August followed at [facility] by Dr Humphrey- etoh cirrhosis no recent travel lives with family currently on disability started on ceftriaxone, feels much better today - History Source History Provided By: Patient Limitations to Obtaining History: No Limitations - Past Medical History Gastrointestinal: Yes: Ascites. No: Constipation Hepatobiliary: Yes: Cirrhosis Renal/: Yes: Renal Inusuff Psych: Yes: Addictions Additional Medical History: Denies all medical problems. Alcohol abuse - Past Surgical History Past Surgical History: Yes: None - Alcohol/Substance Use Hx Alcohol Use: Yes (stopped in August) - Smoking History Smoking history: Former smoker Have you smoked in the past 12 months: No - Social History Usual Living Arrangement: Other ADL: Independent Occupation: banker History of Recent Travel: No Home Medications - Allergies Allergies/Adverse Reactions: Allergies Allergy/AdvReac Type Severity Reaction Status Date / Time No Known Allergies Allergy Verified 01/21/18 03:19 - Home Medications Home Medications: Ambulatory Orders Pantoprazole Sodium [Protonix -] 40 mg PO DAILY tablet.ec 10/04/17 Furosemide [Lasix] 40 mg PO DAILY 01/21/18 Lactulose 10 gm PO BID 01/21/18 Rifaximin [Xifaxan] 550 mg PO BID 01/21/18 Spironolactone [Aldactone] 50 mg PO DAILY 01/21/18 Family Disease History - Family Disease History Family Disease History: Other: Grandparent (liver diseasev) Review of Systems - Review of Systems Constitutional: reports: Chills. denies: Fever Eyes: reports: No Symptoms HENT: reports: No Symptoms. denies: Difficult Swallowing, Throat Pain Neck: reports: No Symptoms. denies: Pain on Movement, Stiffness, Swollen Glands Cardiovascular: reports: Shortness of Breath Respiratory: reports: Cough. denies: Hemoptysis, Wheezing Gastrointestinal: denies: Abdominal Pain, Bloating, Constipation, Melena, Rectal Bleeding, Vomiting Blood Genitourinary: reports: No Symptoms Musculoskeletal: reports: No Symptoms Integumentary: reports: No Symptoms Neurological: reports: No Symptoms Endocrine: reports: No Symptoms Psychiatric: reports: No Symptoms Physical Exam Vital Signs: Vital Signs Temperature 98.0 F 01/22/18 10:00 Pulse Rate 82 01/22/18 10:00 Respiratory Rate 22 01/22/18 10:00 Blood Pressure 108/53 01/22/18 10:00 O2 Sat by Pulse Oximetry (%) 99 01/22/18 09:00 Constitutional: Yes: Well Nourished, No Distress, Calm Eyes: Yes: EOM Intact HENT: Yes: Atraumatic, Normocephalic. No: Thrush Neck: Yes: Supple, Trachea Midline Cardiovascular: Yes: Regular Rate and Rhythm Respiratory: Yes: Diminished (left base) Gastrointestinal: Yes: Normal Bowel Sounds, Soft ...Rectal Exam: Yes: Deferred Musculoskeletal: Yes: WNL Extremities: Yes: WNL Edema: Yes Edema: LLE: 1+, RLE: Trace Integumentary: Yes: WNL Neurological: Yes: Other (no asterixis) Psychiatric: Yes: Alert, Oriented Labs: CBC, BMP 01/22/18 07:20 01/22/18 07:20 Imaging - Results Chest X-ray: Report Reviewed Cat Scan: Pending Problem List - Problems (1) Pneumonia Code(s): J18.9 - PNEUMONIA, UNSPECIFIED ORGANISM (2) Alcoholic hepatitis with ascites Code(s): K70.11 - ALCOHOLIC HEPATITIS WITH ASCITES Assessment/Plan possible pneumonia agree with chest ct urinary antigens for pneumonia feeling much better on ceftriaxone- would continue etoh cirrhosis with ascites continue meds per GI
--- NOTE | 2018-01-22 12:49 | PN ---
Progress Note, Physician History of Present Illness: PULMONARY ALERT,FEELING BETTER,SOB IMPROVING,-COUGH,-CP - Current Medication List Current Medications: Active Medications Albuterol/Ipratropium (Duoneb -) 1 amp NEB Q4HWA [facility] Furosemide (Lasix Injection -) 40 mg IVPUSH DAILY [facility] Last Admin: 01/22/18 10:09 Dose: 40 mg Ceftriaxone Sodium 1 gm/ (Dextrose) 50 mls @ 200 mls/hr IVPB DAILY [facility] PRN Reason: Protocol Stop: 01/28/18 17:14 Last Admin: 01/22/18 10:09 Dose: 200 mls/hr Lactulose (Cephulac (Oral Use)) 20 gm PO BID [facility] Last Admin: 01/22/18 10:10 Dose: 20 gm Pantoprazole Sodium (Protonix -) 40 mg PO DAILY [facility] Last Admin: 01/22/18 10:10 Dose: 40 mg Rifaximin (Xifaxan -) 550 mg PO BID [facility] Last Admin: 01/22/18 10:10 Dose: 550 mg Spironolactone (Aldactone -) 50 mg PO DAILY [facility] Last Admin: 01/22/18 10:09 Dose: 50 mg - Objective Vital Signs: Vital Signs Temperature 98.0 F 01/22/18 10:00 Pulse Rate 82 01/22/18 10:00 Respiratory Rate 22 01/22/18 10:00 Blood Pressure 108/53 01/22/18 10:00 O2 Sat by Pulse Oximetry (%) 99 01/22/18 09:00 Constitutional: Yes: Well Nourished, Calm Eyes: Yes: WNL HENT: Yes: WNL Neck: Yes: Supple Cardiovascular: Yes: Regular Rate and Rhythm, S1, S2 Respiratory: Yes: Wheezes (FEW WHEEZES) Gastrointestinal: Yes: Normal Bowel Sounds, Soft Extremities: Yes: WNL Edema: No Labs: CBC, BMP 01/22/18 07:20 01/22/18 07:20 INR, PTT INR 1.70 (0.82-1.09) H 01/21/18 04:45 Problem List - Problems (1) CKD (chronic kidney disease) Code(s): N18.9 - CHRONIC KIDNEY DISEASE, UNSPECIFIED (2) Acute respiratory failure with hypoxia Code(s): J96.01 - ACUTE RESPIRATORY FAILURE WITH HYPOXIA (3) Hyperammonemia Code(s): E72.20 - DISORDER OF UREA CYCLE METABOLISM, UNSPECIFIED (4) Liver failure Code(s): K72.90 - HEPATIC FAILURE, UNSPECIFIED WITHOUT COMA (5) Pleural effusion, left Code(s): J90 - PLEURAL EFFUSION, NOT ELSEWHERE CLASSIFIED (6) Respiratory distress Code(s): R06.03 - ACUTE RESPIRATORY DISTRESS (7) Acute on chronic alcoholic liver disease Code(s): K70.9 - ALCOHOLIC LIVER DISEASE, UNSPECIFIED (8) Renal insufficiency Code(s): N28.9 - DISORDER OF KIDNEY AND URETER, UNSPECIFIED Assessment/Plan CONSULTATION DICTATED 01/21/18 IMP ACUTE RESPIRATORY FAILURE ? CHF IMPROVED BILATERAL EFFUSIONS ETOH LIVER DISEASE CIRRHOSIS ANEMIA/THROMBOCYTOPENIA ELEVATED AMMONIA LEVEL CKD PLAN BIPAP/O2 LASIX ALDACTONE ABX LACTULOSE MONITOR LYTES,RENAL FUNCTION,AMMONIA LEVEL MONITOR CBC,PLT CT STRICT I+OS DAILY WT DR VENEGAS Problem List - Problems (1) CKD (chronic kidney disease) Code(s): N18.9 - CHRONIC KIDNEY DISEASE, UNSPECIFIED (2) Acute respiratory failure with hypoxia Code(s): J96.01 - ACUTE RESPIRATORY FAILURE WITH HYPOXIA (3) Hyperammonemia Code(s): E72.20 - DISORDER OF UREA CYCLE METABOLISM, UNSPECIFIED (4) Liver failure Code(s): K72.90 - HEPATIC FAILURE, UNSPECIFIED WITHOUT COMA (5) Pleural effusion, left Code(s): J90 - PLEURAL EFFUSION, NOT ELSEWHERE CLASSIFIED (6) Respiratory distress Code(s): R06.03 - ACUTE RESPIRATORY DISTRESS (7) Acute on chronic alcoholic liver disease Code(s): K70.9 - ALCOHOLIC LIVER DISEASE, UNSPECIFIED (8) Renal insufficiency Code(s): N28.9 - DISORDER OF KIDNEY AND URETER, UNSPECIFIED
[2018-01-22] MEDS: ALBUTEROL SO4 2.5/IPRATROPIUM 0.5 INH SOL 3 ML VIAL.NEB. NEB SCH ×3 (13:28→21:33)
--- NOTE | 2018-01-22 13:55 | PN ---
Physical Exam: SUBJECTIVE: Patient seen and examined at the bedside. Breathing has improved, able to tolerate 4 liters of nasal cannula overnight No chest pain, shortness of breath still present but improving. OBJECTIVE: Vital Signs Period Temp Pulse Resp BP Sys/Lui Pulse Ox Last 24 Hr 97.6 F-98.0 F 76-92 18-22 108-146/50-72 97-100 GENERAL: Awake, alert, and fully oriented, in no acute distress. jaundiced sclera HEAD: Normal with no signs of trauma. EYES: Pupils equal, round and reactive to light, extraocular movements intact, sclera icteric, conjunctiva clear. No lid lag. EARS, NOSE, THROAT: oropharynx clear without exudates. Dry mucous membranes. NECK: Normal range of motion, supple without lymphadenopathy, JVD, or masses. LUNGS: scattered wheezing bilaterally left > right, anterior lungs sounds with wheezing HEART: Regular rate and rhythm ABDOMEN: Soft, nontender, distended, tympanic normoactive bowel sounds, no guarding, no rebound, no masses. No hepatomegaly or splenomegaly detected. MUSCULOSKELETAL: Normal range of motion at all joints. No bony deformities or tenderness. No CVA tenderness. UPPER EXTREMITIES: 2+ pulses, warm, well-perfused. No cyanosis. No clubbing. No peripheral edema. LOWER EXTREMITIES: left lower ext non pitting edema, negative for DVT NEUROLOGICAL: Normal speech. Gait not observed. PSYCHIATRIC: Cooperative. Good eye contact. Appropriate mood and affect. Laboratory Results - last 24 hr 01/21/18 01/21/18 01/22/18 13:45 15:18 07:20 WBC 6.1 RBC 2.40 L Hgb 8.0 L D Hct 23.0 L MCV 96.0 MCH 33.2 MCHC 34.6 RDW 17.6 H Plt Count 78 L MPV 6.6 L Neutrophils % 62.9 D Lymphocytes % 23.4 D Monocytes % 9.2 D Eosinophils % 4.0 D Basophils % 0.5 D Sodium Potassium Chloride Carbon Dioxide Anion Gap BUN Creatinine Random Glucose Calcium Magnesium Ferritin Ammonia 44.26 H Troponin I < 0.02 Triglycerides Cholesterol Total LDL Cholesterol HDL Cholesterol 01/22/18 01/22/18 07:20 07:26 WBC RBC Hgb Hct MCV MCH MCHC RDW Plt Count MPV Neutrophils % Lymphocytes % Monocytes % Eosinophils % Basophils % Sodium 142 Potassium 4.4 Chloride 111 H Carbon Dioxide 29 Anion Gap 2 L BUN 19 H Creatinine 1.1 H Random Glucose 88 Calcium 8.3 L Magnesium 1.8 Ferritin 694.266 H Cancelled Ammonia Troponin I Triglycerides 55 Cholesterol 152 Total LDL Cholesterol 101 H HDL Cholesterol 38 L Active Medications Generic Name Dose Route Start Last Admin Trade Name Khushbu PRN Reason Stop Dose Admin Albuterol/Ipratropium 1 amp 01/22/18 14:00 01/22/18 13:28 Duoneb - NEB 1 amp Q4HWA JOVANNA Administration Furosemide 40 mg 01/22/18 10:00 01/22/18 10:09 Lasix Injection - IVPUSH 40 mg DAILY JOVANNA Administration Ceftriaxone Sodium 1 gm/ 50 mls @ 200 mls/hr 01/21/18 17:15 01/22/18 10:09 Dextrose IVPB 01/28/18 17:14 200 mls/hr DAILY JOVANNA Administration Protocol Lactulose 20 gm 01/21/18 22:00 01/22/18 10:10 Cephulac (Oral Use) PO 20 gm BID JOVANNA Administration Pantoprazole Sodium 40 mg 01/22/18 10:00 01/22/18 10:10 Protonix - PO 40 mg DAILY JOVANNA Administration Rifaximin 550 mg 01/21/18 22:00 01/22/18 10:10 Xifaxan - PO 550 mg BID JOVANNA Administration Spironolactone 50 mg 01/22/18 10:00 01/22/18 10:09 Aldactone - PO 50 mg DAILY JOVANNA Administration ASSESSMENT/PLAN: Patient is a 62 year old female with a significant past medical history of ETOH abuse, pulmonary edema and liver disease. She presents to the ED today with complaints of shortness of breath that gradually worsened in the past few days and exacerbated today prompting her ED visit. She was also noted to have generalized anasarca and was given Lasix IV and placed on bipap. Patient was placed on bipap in ED for low oxygen levels in the 60s on room air. For her history of alcoholic liver disease, she is on Lactulose and Rifaxamin and follows Dr. Humphrey at [facility] for liver failure. Her left lower ext was noted to have non pitting edema. She denies trauma or falls. Vascular study negative for DVT. She denies chest pain. Denies nausea, vomiting. Denies contact with sick individuals. She denies any recent alcohol consumption. Imaging: Vascular study, left lower ext: negative for DVT Pulmonary: Acute Respiratory Failure/Pneumonia LLL infiltrate, effusion on chest xray, CT chest ordered and pending Negative for DVT, no recent travel oxygen now stable on 3 liters, bipap prn Lasix 40mg IV push daily on Rocephin as per ID Blood cultures pending ID consulted and following GI: Liver Cirrhosis Elevated ammonia levels Alcoholic hepatitis with coagulopathy/ascites MELD score with 3-4% est 90 day mortality Follows with the [facility] liver specialist Had recent EGD on last admission with Dr. Pa: portal hypertensive gastropathy , no evidence of gastric, or esophageal varices, no biopsies taken due to hypocoagulable state On Rifaximin, Lactulose 20mg BID for hepatic encephalopathy, on Aldactone Thrombocytopenia likely chronic due to ETOH abuse Protonix 40mg daily Heme: Anemia, thrombocytopenia Bleeding risk Trend CBC Tranfuse if hmg <8 Cardiology: Respiratory failure Trend trops Echo ordered Daily weights Strict monitoring of intake and output Renal: Creat @ 1.1, improved since last admission Nephro followed on last admission, trend with daily labs consider renal consult if creat. increases F.E.N. Fluids: none secondary to anasarca Electrolytes: Monitor and replete Nutrition: low sodium diet Prophy: DVT: deferred for thrombocytopenia GI: on Protonix Disposition: full code Visit type - Emergency Visit Emergency Visit: Yes ED Registration Date: 01/21/18 Care time: The patient presented to the Emergency Department on the above date and was hospitalized for further evaluation of their emergent condition. - New Patient This patient is new to me today: No - Critical Care Critical Care patient: No - Discharge Referral Referred to [facility] No
[2018-01-23] MEDS: ALBUTEROL SO4 2.5/IPRATROPIUM 0.5 INH SOL 3 ML VIAL.NEB. NEB SCH ×5 (06:27→21:00)
--- NOTE | 2018-01-23 08:46 | PN ---
Progress Note, Physician Chief Complaint: feeling better - Current Medication List Current Medications: Active Medications Albuterol/Ipratropium (Duoneb -) 1 amp NEB Q4HWA ON LICENSE OF [facility] Last Admin: 01/23/18 06:27 Dose: 1 amp Furosemide (Lasix Injection -) 40 mg IVPUSH DAILY ON LICENSE OF [facility] Last Admin: 01/22/18 10:09 Dose: 40 mg Ceftriaxone Sodium 1 gm/ (Dextrose) 50 mls @ 200 mls/hr IVPB DAILY ON LICENSE OF [facility] PRN Reason: Protocol Stop: 01/28/18 17:14 Last Admin: 01/22/18 10:09 Dose: 200 mls/hr Lactulose (Cephulac (Oral Use)) 20 gm PO BID ON LICENSE OF [facility] Last Admin: 01/22/18 21:45 Dose: 20 gm Pantoprazole Sodium (Protonix -) 40 mg PO DAILY ON LICENSE OF [facility] Last Admin: 01/22/18 10:10 Dose: 40 mg Rifaximin (Xifaxan -) 550 mg PO BID ON LICENSE OF [facility] Last Admin: 01/22/18 21:45 Dose: 550 mg Spironolactone (Aldactone -) 50 mg PO DAILY ON LICENSE OF [facility] Last Admin: 01/22/18 10:09 Dose: 50 mg - Objective Vital Signs: Vital Signs Temperature 98.6 F 01/23/18 01:40 Pulse Rate 82 01/23/18 01:40 Respiratory Rate 20 01/23/18 01:40 Blood Pressure 105/53 01/23/18 01:40 O2 Sat by Pulse Oximetry (%) 100 01/22/18 21:00 Constitutional: Yes: Calm Cardiovascular: Yes: Regular Rate and Rhythm Respiratory: Yes: Other (decreased breath sounds at bases) Gastrointestinal: Yes: Soft Edema: Yes Edema: LLE: 2+, RLE: 2+ Neurological: Yes: Alert, Oriented Psychiatric: Yes: WNL Labs: CBC, BMP 01/22/18 07:20 01/22/18 07:20 INR, PTT INR 1.70 (0.82-1.09) H 01/21/18 04:45 Assessment/Plan IMP: ETOH cirrhosis Hypoalbuminemia Dyspnea Pleural effusions REC: Echo shows normal biV fxn w/ no sig valve dz and no PHTN. Her edema and effusions are most likely due to 3rd spacing from hypoalbuminemia. Trial of Lasix. Follow renal fxn.
[2018-01-23 10:03] LABS: BASO % 0.4 % (0-2.0); EOS % 2.9 % (0-4.5); HEMATOCRIT 23.8 % (32.4-45.2); HEMOGLOBIN 8.2 GM/dL (10.7-15.3); LYMPH % 26.4 % (8-40); MCH 33.2 pg (25.7-33.7); MCHC 34.3 g/dl (32.0-36.0); MEAN CELL VOLUME 96.5 fl (80-96); MEAN PLT VOLUME 6.7 fl (7.5-11.1); MONO % 9.2 % (3.8-10.2); NEUT % 61.1 % (42.8-82.8); PLATELET COUNT 79 K/MM3 (134-434); RBC 2.46 M/mm3 (3.60-5.2); RDW 17.3 % (11.6-15.6); WHITE BLOOD COUNT 5.3 K/mm3 (4.0-10.0)
[2018-01-23] MEDS ORDERED: PT OWN MED DRAWER 7, Y5N ONE ×2 (10:05→21:57)
[2018-01-23] MEDS ORDERED: cefTRIAXone SODIUM 1 GM VIAL ONE (10:06)
[2018-01-23] MEDS ORDERED: DEXTROSE 5%-WATER - 50 ML IVPB ONE (10:06)
[2018-01-23] MEDS: SPIRONOLACTONE 25 MG TABLET (FP) PO SCH (10:16)
[2018-01-23] MEDS: FUROSEMIDE 40 MG/4 ML INJECTABLE VIAL IVPUSH SCH (10:16)
[2018-01-23] MEDS: PANTOPRAZOLE 40 MG TABLET (FP) PO SCH (10:16)
[2018-01-23] MEDS: RIFAXIMIN 550 MG TABLET (UD) PO SCH ×2 (10:16→22:03)
[2018-01-23] MEDS: LACTULOSE 20 GM/30 ML UDC (FOR ORAL USE ONLY) PO SCH ×2 (10:16→22:03)
[2018-01-23] MEDS: CEFTRIAXONE 1 GM in DEXTROSE 5%-WATER - 50 ML IVPB SCH (10:17)
[2018-01-23 10:25] LABS: ALBUMIN 2.1 g/dl (3.4-5.0); ANION GAP 8 (8-16); BLOOD UREA NITROGEN 18 mg/dL (7-18); CALCIUM 8.2 mg/dL (8.5-10.1); CHLORIDE 107 mmol/L (98-107); CO2 26 mmol/L (21-32); CREATININE 1.1 mg/dL (0.55-1.02); GLUCOSE,RANDOM 157 mg/dL (74-106); MAGNESIUM 1.6 mg/dL (1.8-2.4); POTASSIUM 3.8 mmol/L (3.5-5.1); SGOT/AST 43 U/L (15-37); SGPT/ALT 21 U/L (12-78); SODIUM 141 mmol/L (136-145)
[2018-01-23 10:27] LABS: ALK PHOS 101 U/L (45-117); BILIRUBIN,TOTAL 2.2 mg/dL (0.2-1.0); TOT PROT 7.3 g/dl (6.4-8.2)
--- NOTE | 2018-01-23 12:18 | PN ---
Progress Note, Physician History of Present Illness: PULMONARY ALERT,FEELING BETTER - RESP DISTRESS,BUT C/O INCREASED COUGH AND CONGESTION - Current Medication List Current Medications: Active Medications Albuterol/Ipratropium (Duoneb -) 1 amp NEB Q4HWA [facility] Last Admin: 01/23/18 11:00 Dose: 1 amp Furosemide (Lasix Injection -) 40 mg IVPUSH DAILY [facility] Last Admin: 01/23/18 10:16 Dose: 40 mg Ceftriaxone Sodium 1 gm/ (Dextrose) 50 mls @ 200 mls/hr IVPB DAILY [facility] PRN Reason: Protocol Stop: 01/28/18 17:14 Last Admin: 01/23/18 10:17 Dose: 200 mls/hr Lactulose (Cephulac (Oral Use)) 20 gm PO BID [facility] Last Admin: 01/23/18 10:16 Dose: 20 gm Pantoprazole Sodium (Protonix -) 40 mg PO DAILY [facility] Last Admin: 01/23/18 10:16 Dose: 40 mg Rifaximin (Xifaxan -) 550 mg PO BID [facility] Last Admin: 01/23/18 10:16 Dose: 550 mg Spironolactone (Aldactone -) 50 mg PO DAILY [facility] Last Admin: 01/23/18 10:16 Dose: 50 mg - Objective Vital Signs: Vital Signs Temperature 98.6 F 01/23/18 01:40 Pulse Rate 82 01/23/18 01:40 Respiratory Rate 20 01/23/18 01:40 Blood Pressure 105/53 01/23/18 01:40 O2 Sat by Pulse Oximetry (%) 100 01/22/18 21:00 Constitutional: Yes: Well Nourished, Calm Eyes: Yes: WNL HENT: Yes: WNL Neck: Yes: WNL Cardiovascular: Yes: Regular Rate and Rhythm, S1, S2 Respiratory: Yes: Rhonchi (BILATERAL RHONCHI AND WHEEZES) Gastrointestinal: Yes: Normal Bowel Sounds, Soft Extremities: Yes: WNL Edema: No Labs: CBC, BMP 01/23/18 09:25 01/23/18 09:25 INR, PTT INR 1.70 (0.82-1.09) H 01/21/18 04:45 Laboratory Tests 01/23/18 09:25 Ammonia 20.52 - ....Imaging Cat Scan: Report Reviewed, Image Reviewed (BILATERAL PLEURAL EFFUSUINS,ASCITES) Problem List - Problems (1) CKD (chronic kidney disease) Code(s): N18.9 - CHRONIC KIDNEY DISEASE, UNSPECIFIED (2) Acute respiratory failure with hypoxia Code(s): J96.01 - ACUTE RESPIRATORY FAILURE WITH HYPOXIA (3) Hyperammonemia Code(s): E72.20 - DISORDER OF UREA CYCLE METABOLISM, UNSPECIFIED (4) Liver failure Code(s): K72.90 - HEPATIC FAILURE, UNSPECIFIED WITHOUT COMA (5) Pleural effusion, left Code(s): J90 - PLEURAL EFFUSION, NOT ELSEWHERE CLASSIFIED (6) Respiratory distress Code(s): R06.03 - ACUTE RESPIRATORY DISTRESS (7) Acute on chronic alcoholic liver disease Code(s): K70.9 - ALCOHOLIC LIVER DISEASE, UNSPECIFIED (8) Renal insufficiency Code(s): N28.9 - DISORDER OF KIDNEY AND URETER, UNSPECIFIED Assessment/Plan CONSULTATION DICTATED 01/21/18 IMP ACUTE RESPIRATORY FAILURE ? CHF IMPROVED BILATERAL EFFUSIONS ETOH LIVER DISEASE CIRRHOSIS ANEMIA/THROMBOCYTOPENIA ELEVATED AMMONIA LEVEL NORMAL CKD PLAN BIPAP/O2 LASIX ALDACTONE INHALED BRONCHODILATORS ABX PER ID LACTULOSE MONITOR LYTES,RENAL FUNCTION,AMMONIA LEVEL MONITOR CBC,PLT CT STRICT I+OS DAILY WTS DR VENEGAS Problem List - Problems (1) CKD (chronic kidney disease) Code(s): N18.9 - CHRONIC KIDNEY DISEASE, UNSPECIFIED (2) Acute respiratory failure with hypoxia Code(s): J96.01 - ACUTE RESPIRATORY FAILURE WITH HYPOXIA (3) Hyperammonemia Code(s): E72.20 - DISORDER OF UREA CYCLE METABOLISM, UNSPECIFIED (4) Liver failure Code(s): K72.90 - HEPATIC FAILURE, UNSPECIFIED WITHOUT COMA (5) Pleural effusion, left Code(s): J90 - PLEURAL EFFUSION, NOT ELSEWHERE CLASSIFIED (6) Respiratory distress Code(s): R06.03 - ACUTE RESPIRATORY DISTRESS (7) Acute on chronic alcoholic liver disease Code(s): K70.9 - ALCOHOLIC LIVER DISEASE, UNSPECIFIED (8) Renal insufficiency Code(s): N28.9 - DISORDER OF KIDNEY AND URETER, UNSPECIFIED
[2018-01-23] MEDS: methylPREDNISolone NA SUCC 40 MG/1 ML VIAL IVPUSH SCH ×3 (12:45→22:01)
--- NOTE | 2018-01-23 13:32 | PN ---
Progress Note, Physician History of Present Illness: The patient was seen in the morning. Complain of shortness of breath. - Current Medication List Current Medications: Active Medications Albuterol/Ipratropium (Duoneb -) [address] [facility] Last Admin: 01/23/18 11:00 Dose: 1 amp Furosemide (Lasix Injection -) [address] [facility] Last Admin: 01/23/18 10:16 Dose: 40 mg Ceftriaxone Sodium 1 gm/ (Dextrose) 50 mls @ 200 mls/hr IVPB DAILY [facility] PRN Reason: Protocol Stop: 01/28/18 17:14 Last Admin: 01/23/18 10:17 Dose: 200 mls/hr Lactulose (Cephulac (Oral Use)) [address] [facility] Last Admin: 01/23/18 10:16 Dose: 20 gm Methylprednisolone Sodium Succinate (Solu-Medrol -) 40 mg IVPUSH Q6H-IV JOVANNA Pantoprazole Sodium (Protonix -) [address] [facility] Last Admin: 01/23/18 10:16 Dose: 40 mg Rifaximin (Xifaxan -) [address] [facility] Last Admin: 01/23/18 10:16 Dose: 550 mg Spironolactone (Aldactone -) [address] [facility] Last Admin: 01/23/18 10:16 Dose: 50 mg - Objective Vital Signs: Vital Signs Temperature 98.6 F 01/23/18 01:40 Pulse Rate 82 01/23/18 01:40 Respiratory Rate 20 01/23/18 01:40 Blood Pressure 105/53 01/23/18 01:40 O2 Sat by Pulse Oximetry (%) 100 01/22/18 21:00 Eyes: No: Sclera Icterus Respiratory: Yes: On Nasal O2, Other ( No platypnea). No: Orthopnea Gastrointestinal: Yes: Soft. No: Distention, Tenderness Neurological: Yes: Alert, Oriented Labs: CBC, BMP 01/23/18 09:25 01/23/18 09:25 INR, PTT INR 1.70 (0.82-1.09) H 01/21/18 04:45 Laboratory Last Values WBC 5.3 K/mm3 (4.0-10.0) 01/23/18 09:25 RBC 2.46 M/mm3 (3.60-5.2) L 01/23/18 09:25 Hgb 8.2 GM/dL (10.7-15.3) L 01/23/18 09:25 Hct 23.8 % (32.4-45.2) L 01/23/18 09:25 MCV 96.5 fl (80-96) H 01/23/18 09:25 MCH 33.2 pg (25.7-33.7) 01/23/18 09:25 MCHC 34.3 g/dl (32.0-36.0) 01/23/18 09:25 RDW 17.3 % (11.6-15.6) H 01/23/18 09:25 Plt Count 79 K/MM3 (134-434) L 01/23/18 09:25 MPV 6.7 fl (7.5-11.1) L 01/23/18 09:25 Neutrophils % 61.1 % (42.8-82.8) 01/23/18 09:25 Lymphocytes % 26.4 % (8-40) 01/23/18 09:25 Monocytes % 9.2 % (3.8-10.2) 01/23/18 09:25 Eosinophils % 2.9 % (0-4.5) 01/23/18 09:25 Basophils % 0.4 % (0-2.0) 01/23/18 09:25 PT with INR 19.20 SEC (9.7-13.0) H 01/21/18 04:45 INR 1.70 (0.82-1.09) H 01/21/18 04:45 Puncture Site Left radial 01/21/18 10:12 ABG pH 7.38 (7.35-7.45) 01/21/18 10:12 ABG pCO2 at Pt Temp 38.2 mmHg (35-45) 01/21/18 10:12 ABG pO2 at Pt Temp 114.0 mmHg (80-100) H 01/21/18 10:12 ABG HCO3 22.3 meq/L (22-26) 01/21/18 10:12 ABG O2 Sat (Measured) 99.1 % (90-98.9) H 01/21/18 10:12 ABG O2 Content 13.2 % vol (15-22) L 01/21/18 10:12 ABG Base Excess -1.9 meq/l (-2-2) 01/21/18 10:12 Chandler Test Positive 01/21/18 10:12 Oxygen Flow Rate Yes 01/21/18 10:12 Sodium 141 mmol/L (136-145) 01/23/18 09:25 Potassium 3.8 mmol/L (3.5-5.1) 01/23/18 09:25 Chloride 107 mmol/L (98-107) 01/23/18 09:25 Carbon Dioxide 26 mmol/L (21-32) 01/23/18 09:25 Anion Gap 8 (8-16) 01/23/18 09:25 BUN 18 mg/dL (7-18) 01/23/18 09:25 Creatinine 1.1 mg/dL (0.55-1.02) H 01/23/18 09:25 Creat Clearance w eGFR 50.01 (>60) 01/23/18 09:25 Random Glucose 157 mg/dL (74-106) H 01/23/18 09:25 Calcium 8.2 mg/dL (8.5-10.1) L 01/23/18 09:25 Magnesium 1.6 mg/dL (1.8-2.4) L 01/23/18 09:25 Ferritin Cancelled 01/22/18 07:26 Total Bilirubin 2.2 mg/dL (0.2-1.0) H D 01/23/18 09:25 AST 43 U/L (15-37) H 01/23/18 09:25 ALT 21 U/L (12-78) 01/23/18 09:25 Alkaline Phosphatase 101 U/L (45-117) 01/23/18 09:25 Ammonia 20.52 umol/L (11-32) 01/23/18 09:25 Creatine Kinase 36 IU/L (26-192) 01/21/18 04:45 Troponin I < 0.02 ng/ml (0.00-0.05) 01/21/18 15:18 B-Natriuretic Peptide 694.80 pg/ml (5-125) H 01/21/18 04:45 Total Protein 7.3 g/dl (6.4-8.2) 01/23/18 09:25 Albumin 2.1 g/dl (3.4-5.0) L 01/23/18 09:25 Triglycerides 55 mg/dL (35-160) 01/22/18 07:20 Cholesterol 152 mg/dL (50-200) 01/22/18 07:20 Total LDL Cholesterol 101 mg/dL (5-100) H 01/22/18 07:20 HDL Cholesterol 38 mg/dL (40-60) L 01/22/18 07:20 Problem List - Problems (1) Alcoholic hepatitis with ascites Code(s): K70.11 - ALCOHOLIC HEPATITIS WITH ASCITES (2) Acute on chronic alcoholic liver disease Code(s): K70.9 - ALCOHOLIC LIVER DISEASE, UNSPECIFIED Assessment/Plan Doubt hepatopulmonary syndrome. Continue current care as per primary/ pulmonary teams. Recommend increasing Aldactone to 50 mg twice a day while continuing Lasix at 40 daily. Continue lactulose and rifaximin. Maintain low salt diet. Due for ultrasound of the liver and alpha-fetoprotein in February of this year.
[2018-01-23 14:22] LABS: SERUM IRON SATURATION > 90 % (15-55); TOTAL IRON BINDING CAPACITY < 172 ug/dL (250-450); UIBC < 17 ug/dL (118-369)
[2018-01-23] MEDS ORDERED: MAGNESIUM SULF 50% (8.12 MEQ/2 ML-1 GM VIAL) IVPB ONE (15:25)
--- NOTE | 2018-01-23 15:26 | PN ---
Physical Exam: SUBJECTIVE: Patient seen and examined. She states her breathing is better than yesterday, she cant expectorate her sputum, it feels stuck. OBJECTIVE: Vital Signs Period Temp Pulse Resp BP Sys/Lui Pulse Ox Last 24 Hr 98.6 F-98.7 F 82-88 20-20 105-115/53-70 99-100 PE Neuro: alert,awake, cn 2-12intact Pulm: rales, wheezing, + non productive cough + nc CV: s1 s2 rrr 2/6 murmur Abd: s nt nd + bs Ext: LLE +2 edema > R Laboratory Results - last 24 hr 01/22/18 01/23/18 01/23/18 07:26 09:25 09:25 WBC 5.3 RBC 2.46 L Hgb 8.2 L Hct 23.8 L MCV 96.5 H MCH 33.2 MCHC 34.3 RDW 17.3 H Plt Count 79 L MPV 6.7 L Neutrophils % 61.1 Lymphocytes % 26.4 Monocytes % 9.2 Eosinophils % 2.9 Basophils % 0.4 Sodium 141 Potassium 3.8 Chloride 107 Carbon Dioxide 26 Anion Gap 8 BUN 18 Creatinine 1.1 H Creat Clearance w eGFR 50.01 Random Glucose 157 H Calcium 8.2 L Magnesium 1.6 L Iron 155 H TIBC < 172 L Iron Saturation > 90 H Total Bilirubin 2.2 H D AST 43 H ALT 21 Alkaline Phosphatase 101 Ammonia Total Protein 7.3 Albumin 2.1 L 01/23/18 09:25 WBC RBC Hgb Hct MCV MCH MCHC RDW Plt Count MPV Neutrophils % Lymphocytes % Monocytes % Eosinophils % Basophils % Sodium Potassium Chloride Carbon Dioxide Anion Gap BUN Creatinine Creat Clearance w eGFR Random Glucose Calcium Magnesium Iron TIBC Iron Saturation Total Bilirubin AST ALT Alkaline Phosphatase Ammonia 20.52 Total Protein Albumin Active Medications Generic Name Dose Route Start Last Admin Trade Name Freq PRN Reason Stop Dose Admin Albuterol/Ipratropium 1 amp 01/22/18 14:00 01/23/18 11:00 Duoneb - NEB 1 amp Q4HWA JOVANNA Administration Furosemide 40 mg 01/22/18 10:00 01/23/18 10:16 Lasix Injection - IVPUSH 40 mg DAILY JOVANNA Administration Ceftriaxone Sodium 1 gm/ 50 mls @ 200 mls/hr 01/21/18 17:15 01/23/18 10:17 Dextrose IVPB 01/28/18 17:14 200 mls/hr DAILY JOVANNA Administration Protocol Lactulose 20 gm 01/21/18 22:00 01/23/18 10:16 Cephulac (Oral Use) PO 20 gm BID JOVANNA Administration Magnesium Sulfate 2 gm 01/23/18 15:25 Magnesium Sulfate IVPB 01/23/18 15:26 ONCE ONE Methylprednisolone Sodium Succinate 40 mg 01/23/18 12:45 01/23/18 12:45 Solu-Medrol - IVPUSH 40 mg Q6H-IV JOVANNA Administration Pantoprazole Sodium 40 mg 01/22/18 10:00 01/23/18 10:16 Protonix - PO 40 mg DAILY JOVANNA Administration Rifaximin 550 mg 01/21/18 22:00 01/23/18 10:16 Xifaxan - PO 550 mg BID JOVANNA Administration Spironolactone 50 mg 01/22/18 10:00 01/23/18 10:16 Aldactone - PO 50 mg DAILY JOVANNA Administration Microbiology 01/23/18 07:05 Legionella Antigen - Final Urine For Antigen Detection Streptococcus pneumoniae Antigen (M - Final 01/21/18 04:45 Blood Culture - Preliminary Blood - Peripheral Venous NO GROWTH OBTAINED AFTER 48 HOURS, INCUBATION TO CONTINUE FOR 3 DAYS. 01/21/18 04:45 Blood Culture - Preliminary Blood - Peripheral Venous NO GROWTH OBTAINED AFTER 48 HOURS, INCUBATION TO CONTINUE FOR 3 DAYS. Imaging: - EGD 09/2017: portal hypertensive gastropathy, no evidence of gastric, or esophageal varices, no biopsies taken due to hypocoaguable state Assessment: 62 year old female with a pmhx ETOH abuse, pulmonary edema, ESLD sees Dr. Humphrey, presented to the ED with worsening SOB, anascarca. Plan: 1. Acute resp failure, PNA - Short course steroids 40mg q6 x48hr - Continue supplemental o2 - Ceftriaxone daily 2. PNA - Ceftriaxone (day 3) 3. Chronic liver disease d/t ETOH hepatitis, asites - Total bili improving, ammonia wnl - Increased aldactone 50mg daily - Lasix 40mg daily - Rifaximin - Lactulose 20mg TID - GI seeing 4. Pleural effusions - ECHO normal biV fxn w/ no sig valve dz and no pulm htn - Trialing lasix 40mg daily - Possibly due to hypoalbuminemia d/t liver failure 5. Thrombocytopenia - Due to liver failure - Trend 6. Anemia - Iron panel noted 7. Hypomagnesemia - Replete 2mg x1 iv 8. DVT - SCDS Visit type - Emergency Visit Emergency Visit: Yes ED Registration Date: 01/21/18 Care time: The patient presented to the Emergency Department on the above date and was hospitalized for further evaluation of their emergent condition. - New Patient This patient is new to me today: Yes Date on this admission: 01/23/18 - Critical Care Critical Care patient: No
[2018-01-23] MEDS ORDERED: MAGNESIUM SULFATE IN WATER 2 GM/50 ML IVPB IVPB ONE (16:00)
[2018-01-24] MEDS: methylPREDNISolone NA SUCC 40 MG/1 ML VIAL IVPUSH SCH ×4 (02:33→20:58)
[2018-01-24] MEDS: ALBUTEROL SO4 2.5/IPRATROPIUM 0.5 INH SOL 3 ML VIAL.NEB. NEB SCH ×6 (06:20→22:05)
[2018-01-24 09:06] LABS: HEMATOCRIT 23.6 % (32.4-45.2); HEMOGLOBIN 8.3 GM/dL (10.7-15.3); MCH 33.8 pg (25.7-33.7); MCHC 35.3 g/dl (32.0-36.0); MEAN CELL VOLUME 95.7 fl (80-96); MEAN PLT VOLUME 7.1 fl (7.5-11.1); PLATELET COUNT 71 K/MM3 (134-434); RBC 2.47 M/mm3 (3.60-5.2); RDW 17.3 % (11.6-15.6); WHITE BLOOD COUNT 2.7 K/mm3 (4.0-10.0)
--- NOTE | 2018-01-24 09:35 | PN ---
Progress Note, Physician History of Present Illness: The patient was seen in the morning. Comfortable. Shortness of breath improved. - Current Medication List Current Medications: Active Medications Albuterol/Ipratropium (Duoneb -) 1 amp NEB Q4HWA [facility] Last Admin: 01/24/18 08:57 Dose: 1 amp Furosemide (Lasix Injection -) 40 mg IVPUSH DAILY [facility] Last Admin: 01/23/18 10:16 Dose: 40 mg Ceftriaxone Sodium 1 gm/ (Dextrose) 50 mls @ 200 mls/hr IVPB DAILY [facility] PRN Reason: Protocol Stop: 01/28/18 17:14 Last Admin: 01/23/18 10:17 Dose: 200 mls/hr Lactulose (Cephulac (Oral Use)) 20 gm PO BID [facility] Last Admin: 01/23/18 22:03 Dose: 20 gm Methylprednisolone Sodium Succinate (Solu-Medrol -) 40 mg IVPUSH Q6H-IV [facility] Last Admin: 01/24/18 02:33 Dose: 40 mg Pantoprazole Sodium (Protonix -) 40 mg PO DAILY [facility] Last Admin: 01/23/18 10:16 Dose: 40 mg Rifaximin (Xifaxan -) 550 mg PO BID [facility] Last Admin: 01/23/18 22:03 Dose: 550 mg Spironolactone (Aldactone -) 50 mg PO DAILY [facility] Last Admin: 01/23/18 10:16 Dose: 50 mg - Objective Vital Signs: Vital Signs Temperature 97.5 F L 01/24/18 06:50 Pulse Rate 75 01/24/18 06:50 Respiratory Rate 20 01/24/18 06:50 Blood Pressure 121/63 01/24/18 06:50 O2 Sat by Pulse Oximetry (%) 98 01/23/18 21:00 Constitutional: Yes: No Distress, Calm Eyes: No: Sclera Icterus Labs: INR, PTT INR 1.70 (0.82-1.09) H 01/21/18 04:45 Problem List - Problems (1) Alcoholic hepatitis with ascites Code(s): K70.11 - ALCOHOLIC HEPATITIS WITH ASCITES (2) Acute on chronic alcoholic liver disease Code(s): K70.9 - ALCOHOLIC LIVER DISEASE, UNSPECIFIED Assessment/Plan Doubt hepatopulmonary syndrome. Continue current care as per primary/ pulmonary teams. Recommend increasing Aldactone to 50 mg twice a day while continuing Lasix at 40 daily. Continue lactulose and rifaximin. Maintain low salt diet. Due for ultrasound of the liver and alpha-fetoprotein in February of this year. Screening colonoscopy as part of transplant evaluation.
[2018-01-24] MEDS ORDERED: DEXTROSE 5%-WATER - 50 ML IVPB ONE (10:17)
[2018-01-24] MEDS ORDERED: cefTRIAXone SODIUM 1 GM VIAL ONE (10:17)
[2018-01-24] MEDS: CEFTRIAXONE 1 GM in DEXTROSE 5%-WATER - 50 ML IVPB SCH (10:21)
[2018-01-24] MEDS: LACTULOSE 20 GM/30 ML UDC (FOR ORAL USE ONLY) PO SCH ×2 (10:21→21:01)
[2018-01-24] MEDS: SPIRONOLACTONE 25 MG TABLET (FP) PO SCH (10:22)
[2018-01-24] MEDS: PANTOPRAZOLE 40 MG TABLET (FP) PO SCH (10:22)
[2018-01-24] MEDS: FUROSEMIDE 40 MG/4 ML INJECTABLE VIAL IVPUSH SCH (10:23)
[2018-01-24] MEDS: RIFAXIMIN 550 MG TABLET (UD) PO SCH ×2 (10:23→21:01)
[2018-01-24 10:40] LABS: CHLORIDE 104 mmol/L (98-107); POTASSIUM 4.2 mmol/L (3.5-5.1); SODIUM 137 mmol/L (136-145)
[2018-01-24 11:00] LABS: ALBUMIN 2.3 g/dl (3.4-5.0); ALK PHOS 115 U/L (45-117); ANION GAP 10 (8-16); BILIRUBIN,TOTAL 1.8 mg/dL (0.2-1.0); BLOOD UREA NITROGEN 22 mg/dL (7-18); CALCIUM 8.3 mg/dL (8.5-10.1); CO2 23 mmol/L (21-32); CREATININE 1.2 mg/dL (0.55-1.02); GLUCOSE,RANDOM 181 mg/dL (74-106); MAGNESIUM 2.3 mg/dL (1.8-2.4); SGOT/AST 42 U/L (15-37); SGPT/ALT 23 U/L (12-78); TOT PROT 8.1 g/dl (6.4-8.2)
--- NOTE | 2018-01-24 12:42 | PN ---
Progress Note, Physician History of Present Illness: PULMONARY ALERT,FEELING BETTER,LESS DYSPNEIC,LESS CONGESTED - Current Medication List Current Medications: Active Medications Albuterol/Ipratropium (Duoneb -) 1 amp NEB Q4HWA [facility] Last Admin: 01/24/18 11:00 Dose: 1 amp Furosemide (Lasix Injection -) 40 mg IVPUSH DAILY [facility] Last Admin: 01/24/18 10:23 Dose: 40 mg Ceftriaxone Sodium 1 gm/ (Dextrose) 50 mls @ 200 mls/hr IVPB DAILY [facility] PRN Reason: Protocol Stop: 01/28/18 17:14 Last Admin: 01/24/18 10:21 Dose: 200 mls/hr Lactulose (Cephulac (Oral Use)) 20 gm PO BID [facility] Last Admin: 01/24/18 10:21 Dose: 20 gm Methylprednisolone Sodium Succinate (Solu-Medrol -) 40 mg IVPUSH Q6H-IV [facility] Last Admin: 01/24/18 10:23 Dose: 40 mg Pantoprazole Sodium (Protonix -) 40 mg PO DAILY [facility] Last Admin: 01/24/18 10:22 Dose: 40 mg Rifaximin (Xifaxan -) 550 mg PO BID [facility] Last Admin: 01/24/18 10:23 Dose: 550 mg Spironolactone (Aldactone -) 50 mg PO DAILY [facility] Last Admin: 01/24/18 10:22 Dose: 50 mg - Objective Vital Signs: Vital Signs Temperature 97.7 F 01/24/18 10:00 Pulse Rate 76 01/24/18 10:00 Respiratory Rate 18 01/24/18 10:00 Blood Pressure 112/68 01/24/18 10:00 O2 Sat by Pulse Oximetry (%) 98 01/23/18 21:00 Constitutional: Yes: Well Nourished, Calm Eyes: Yes: WNL HENT: Yes: WNL Neck: Yes: WNL Cardiovascular: Yes: Regular Rate and Rhythm, S1, S2 Respiratory: Yes: Wheezes (LESS WHEEZES MADDY) Gastrointestinal: Yes: Normal Bowel Sounds, Soft Extremities: Yes: WNL Edema: No Labs: CBC, BMP 01/24/18 06:49 01/24/18 06:49 INR, PTT INR 1.70 (0.82-1.09) H 01/21/18 04:45 Problem List - Problems (1) CKD (chronic kidney disease) Code(s): N18.9 - CHRONIC KIDNEY DISEASE, UNSPECIFIED (2) Acute respiratory failure with hypoxia Code(s): J96.01 - ACUTE RESPIRATORY FAILURE WITH HYPOXIA (3) Hyperammonemia Code(s): E72.20 - DISORDER OF UREA CYCLE METABOLISM, UNSPECIFIED (4) Liver failure Code(s): K72.90 - HEPATIC FAILURE, UNSPECIFIED WITHOUT COMA (5) Pleural effusion, left Code(s): J90 - PLEURAL EFFUSION, NOT ELSEWHERE CLASSIFIED (6) Respiratory distress Code(s): R06.03 - ACUTE RESPIRATORY DISTRESS (7) Acute on chronic alcoholic liver disease Code(s): K70.9 - ALCOHOLIC LIVER DISEASE, UNSPECIFIED (8) Renal insufficiency Code(s): N28.9 - DISORDER OF KIDNEY AND URETER, UNSPECIFIED Assessment/Plan CONSULTATION DICTATED 01/21/18 IMP ACUTE RESPIRATORY FAILURE ? CHF IMPROVED BILATERAL EFFUSIONS ETOH LIVER DISEASE CIRRHOSIS ANEMIA/THROMBOCYTOPENIA ELEVATED AMMONIA LEVEL NORMAL CKD PLAN O2 LASIX ALDACTONE CONTINUE STEROIDS INHALED BRONCHODILATORS ABX PER ID LACTULOSE MONITOR LYTES,RENAL FUNCTION,AMMONIA LEVEL MONITOR CBC,PLT CT STRICT I+OS DAILY WTS DR VENEGAS Problem List - Problems (1) CKD (chronic kidney disease) Code(s): N18.9 - CHRONIC KIDNEY DISEASE, UNSPECIFIED (2) Acute respiratory failure with hypoxia Code(s): J96.01 - ACUTE RESPIRATORY FAILURE WITH HYPOXIA (3) Hyperammonemia Code(s): E72.20 - DISORDER OF UREA CYCLE METABOLISM, UNSPECIFIED (4) Liver failure Code(s): K72.90 - HEPATIC FAILURE, UNSPECIFIED WITHOUT COMA (5) Pleural effusion, left Code(s): J90 - PLEURAL EFFUSION, NOT ELSEWHERE CLASSIFIED (6) Respiratory distress Code(s): R06.03 - ACUTE RESPIRATORY DISTRESS (7) Acute on chronic alcoholic liver disease Code(s): K70.9 - ALCOHOLIC LIVER DISEASE, UNSPECIFIED (8) Renal insufficiency Code(s): N28.9 - DISORDER OF KIDNEY AND URETER, UNSPECIFIED
--- NOTE | 2018-01-24 14:24 | PN ---
Physical Exam: SUBJECTIVE: Patient seen and examined. She appears much improved, still with non productive cough with feeling of thick mucus. OBJECTIVE: Vital Signs Period Temp Pulse Resp BP Sys/Lui Pulse Ox Last 24 Hr 97.5 F-98.5 F 75-94 18-20 106-121/56-68 98 PE Neuro: alert,awake, cn 2-12intact Pulm: wheezing- improved, l lobe clearing, + cough CV: s1 s2 rrr 2/6 murmur Abd: s nt nd + bs Ext: LLE +2 edema > R Laboratory Results - last 24 hr 01/24/18 01/24/18 06:49 06:49 WBC 2.7 L D RBC 2.47 L Hgb 8.3 L Hct 23.6 L MCV 95.7 MCH 33.8 H MCHC 35.3 RDW 17.3 H Plt Count 71 L MPV 7.1 L Sodium 137 Potassium 4.2 Chloride 104 Carbon Dioxide 23 Anion Gap 10 BUN 22 H Creatinine 1.2 H Creat Clearance w eGFR 45.23 Random Glucose 181 H Calcium 8.3 L Magnesium 2.3 Total Bilirubin 1.8 H AST 42 H ALT 23 Alkaline Phosphatase 115 Total Protein 8.1 Albumin 2.3 L Active Medications Generic Name Dose Route Start Last Admin Trade Name Freq PRN Reason Stop Dose Admin Albuterol/Ipratropium 1 amp 01/22/18 14:00 01/24/18 11:00 Duoneb - NEB 1 amp Q4HWA [facility] Administration Furosemide 40 mg 01/22/18 10:00 01/24/18 10:23 Lasix Injection - IVPUSH 40 mg DAILY [facility] Administration Guaifenesin 10 ml 01/24/18 14:23 Diabetic Tussin Dm - PO Q4H PRN COUGH Ceftriaxone Sodium 1 gm/ 50 mls @ 200 mls/hr 01/21/18 17:15 01/24/18 10:21 Dextrose IVPB 01/28/18 17:14 200 mls/hr DAILY [facility] Administration Protocol Lactulose 20 gm 01/21/18 22:00 01/24/18 10:21 Cephulac (Oral Use) PO 20 gm BID [facility] Administration Loratadine 10 mg 01/24/18 14:30 Claritin - PO DAILY [facility] Methylprednisolone Sodium Succinate 40 mg 01/23/18 12:45 05/09/18 10:23 Solu-Medrol - IVPUSH 40 mg Q6H-IV [facility] Administration Rifaximin 550 mg 01/21/18 22:00 01/24/18 10:23 Xifaxan - PO 550 mg BID [facility] Administration Spironolactone 50 mg 01/22/18 10:00 01/24/18 10:22 Aldactone - PO 50 mg DAILY [facility] Administration Imaging: - EGD 09/2017: portal hypertensive gastropathy, no evidence of gastric, or esophageal varices, no biopsies taken due to hypocoaguable state Assessment: 62 year old female with a pmhx ETOH abuse, pulmonary edema, ESLD sees Dr. Humphrey, presented to the ED with worsening SOB, anascarca. Plan: 1. Acute resp failure, PNA - Shortness of breath imroving - Short course steroids 40mg q6 x48hr - Continue supplemental o2 - Ceftriaxone daily 2. PNA - Ceftriaxone (day 4) 3. Chronic liver disease d/t ETOH hepatitis, ascities - Aldactone 50mg daily - Lasix 40mg daily - Rifaximin - Lactulose 20mg TID - GI seeing 4. Pleural effusions - ECHO normal biV fxn w/ no sig valve dz and no pulm htn - Continue lasix 40mg daily - Possibly due to hypoalbuminemia d/t liver failure 5. Thrombocytopenia - Due to liver failure - Trend 6. VALERIA on ckd - HRS - Mild rise in cr, likely due to diuresis - Will monitor 7. Anemia - Iron panel noted 8. Hypomagnesemia - Resolved 9. DVT - SCDS Visit type - Emergency Visit Emergency Visit: Yes ED Registration Date: 01/21/18 Care time: The patient presented to the Emergency Department on the above date and was hospitalized for further evaluation of their emergent condition. - New Patient This patient is new to me today: No - Critical Care Critical Care patient: No
[2018-01-24] MEDS: LORATADINE 10 MG TABLET PO SCH (15:43)
--- NOTE | 2018-01-24 16:03 | PN ---
Progress Note (short form) - Note Progress Note: still with some cough feeling better Vital Signs Period Temp Pulse Resp BP Sys/Lui Pulse Ox Last 24 Hr 97.5 F-98.5 F 75-89 18-23 105-121/52-68 98 cor-rrr lungs bilateral rhonchi abd soft,nt ext +edema CBC, BMP 01/24/18 06:49 01/24/18 06:49 Microbiology 01/21/18 04:45 Blood - Peripheral Venous Blood Culture - Preliminary NO GROWTH OBTAINED AFTER 72 HOURS, INCUBATION TO CONTINUE FOR 2 DAYS. 01/21/18 04:45 Blood - Peripheral Venous Blood Culture - Preliminary NO GROWTH OBTAINED AFTER 72 HOURS, INCUBATION TO CONTINUE FOR 2 DAYS. 01/23/18 16:45 Nasopharyngeal Swab Influenza Types A,B Antigen (NEVAEH) - Final 01/23/18 16:45 Nasopharyngeal Swab - Final 01/23/18 16:45 Nasopharyngeal Swab Respiratory Syncytial Virus Ag - Final 01/23/18 07:05 Urine For Antigen Detection Legionella Antigen - Final 01/23/18 07:05 Urine For Antigen Detection Streptococcus pneumoniae Antigen Current Medications Albuterol/Ipratropium (Duoneb -) 1 amp NEB Q4HWA [facility] Last Admin: 01/24/18 14:00 Dose: 1 amp Furosemide (Lasix Injection -) 40 mg IVPUSH DAILY [facility] Last Admin: 01/24/18 10:23 Dose: 40 mg Guaifenesin (Diabetic Tussin Dm -) 10 ml PO Q4H PRN PRN Reason: COUGH Ceftriaxone Sodium 1 gm/ (Dextrose) 50 mls @ 200 mls/hr IVPB DAILY [facility] PRN Reason: Protocol Stop: 01/28/18 17:14 Last Admin: 01/24/18 10:21 Dose: 200 mls/hr Lactulose (Cephulac (Oral Use)) 20 gm PO BID [facility] Last Admin: 01/24/18 10:21 Dose: 20 gm Loratadine (Claritin -) 10 mg PO DAILY [facility] Last Admin: 01/24/18 15:43 Dose: 10 mg Methylprednisolone Sodium Succinate (Solu-Medrol -) 40 mg IVPUSH Q6H-IV [facility] Last Admin: 01/24/18 15:43 Dose: 40 mg Rifaximin (Xifaxan -) 550 mg PO BID [facility] Last Admin: 01/24/18 10:23 Dose: 550 mg Spironolactone (Aldactone -) 50 mg PO DAILY [facility] Last Admin: 01/24/18 10:22 Dose: 50 mg a/p improving chf ?bronchitis day #4 rocephin would complete 5 days total antibiotics please call back if needed Problem List - Problems (1) Pneumonia Code(s): J18.9 - PNEUMONIA, UNSPECIFIED ORGANISM (2) Alcoholic hepatitis with ascites Code(s): K70.11 - ALCOHOLIC HEPATITIS WITH ASCITES
[2018-01-24] MEDS ORDERED: PT OWN MED DRAWER 7, Y5N ONE (20:49)
[2018-01-24 21:18] LABS: URINE APPEARANCE CLEAR; URINE BILIRUBIN NEGATIVE (<2.0 mg/dL); URINE COLOR AMBER; URINE GLUCOSE (UA) NEGATIVE (NEGATIVE); URINE KETONE NEGATIVE (NEGATIVE); URINE LEUK ESTERASE NEGATIVE (NEGATIVE); URINE NITRITE NEGATIVE (NEGATIVE); URINE PROTEIN NEGATIVE (NEGATIVE)
[2018-01-24] MEDS: guaiFENesin/D-M SUGAR-FREE/ACLHOL-FREE 118 ML BOTTLE PO PRN (21:47)
[2018-01-25] MEDS: methylPREDNISolone NA SUCC 40 MG/1 ML VIAL IVPUSH SCH ×3 (02:35→21:00)
[2018-01-25] MEDS: ALBUTEROL SO4 2.5/IPRATROPIUM 0.5 INH SOL 3 ML VIAL.NEB. NEB SCH ×5 (06:25→21:17)
[2018-01-25 06:38] LABS: HEMATOCRIT 23.6 % (32.4-45.2); HEMOGLOBIN 8.2 GM/dL (10.7-15.3); MCH 33.2 pg (25.7-33.7); MCHC 34.7 g/dl (32.0-36.0); MEAN CELL VOLUME 95.7 fl (80-96); MEAN PLT VOLUME 7.2 fl (7.5-11.1); PLATELET COUNT 76 K/MM3 (134-434); RBC 2.47 M/mm3 (3.60-5.2); RDW 17.3 % (11.6-15.6); WHITE BLOOD COUNT 5.5 K/mm3 (4.0-10.0)
--- NOTE | 2018-01-25 09:07 | PN ---
Progress Note, Physician Chief Complaint: TELE: NSR - Current Medication List Current Medications: Active Medications Albuterol/Ipratropium (Duoneb -) 1 amp NEB Q4HWA [facility] Last Admin: 01/25/18 06:25 Dose: 1 amp Furosemide (Lasix Injection -) 40 mg IVPUSH DAILY [facility] Last Admin: 01/24/18 10:23 Dose: 40 mg Guaifenesin (Diabetic Tussin Dm -) 10 ml PO Q4H PRN PRN Reason: COUGH Last Admin: 01/24/18 21:47 Dose: 10 ml Lactulose (Cephulac (Oral Use)) 20 gm PO BID [facility] Last Admin: 01/24/18 21:01 Dose: 20 gm Loratadine (Claritin -) 10 mg PO DAILY [facility] Last Admin: 01/24/18 15:43 Dose: 10 mg Methylprednisolone Sodium Succinate (Solu-Medrol -) 40 mg IVPUSH Q6H-IV [facility] Last Admin: 01/25/18 02:35 Dose: 40 mg Rifaximin (Xifaxan -) 550 mg PO BID [facility] Last Admin: 01/24/18 21:01 Dose: 550 mg Spironolactone (Aldactone -) 50 mg PO DAILY [facility] Last Admin: 01/24/18 10:22 Dose: 50 mg - Objective Vital Signs: Vital Signs Temperature 97.8 F 01/25/18 06:00 Pulse Rate 76 01/25/18 06:00 Respiratory Rate 20 01/25/18 06:00 Blood Pressure 114/62 01/25/18 06:00 O2 Sat by Pulse Oximetry (%) 97 01/24/18 21:00 Constitutional: Yes: No Distress Cardiovascular: Yes: Regular Rate and Rhythm Respiratory: Yes: Other (slight decreased breath sounds at bases) Gastrointestinal: Yes: Soft Edema: No Labs: CBC, BMP 01/25/18 05:35 INR, PTT INR 1.70 (0.82-1.09) H 01/21/18 04:45 - ....Imaging EKG: Image Reviewed Assessment/Plan IMP: ETOH cirrhosis Hypoalbuminemia Dyspnea Pleural effusions REC: Echo shows normal biV fxn w/ no sig valve dz and no PHTN. Her edema and effusions are most likely due to 3rd spacing from hypoalbuminemia. Trial of Lasix seems to be helping, modest improvement Follow renal fxn.
[2018-01-25] MEDS ORDERED: PT OWN MED DRAWER 7, Y5N ONE ×2 (09:41→20:49)
[2018-01-25] MEDS: LACTULOSE 20 GM/30 ML UDC (FOR ORAL USE ONLY) PO SCH ×2 (09:50→21:00)
[2018-01-25] MEDS: SPIRONOLACTONE 25 MG TABLET (FP) PO SCH (09:50)
[2018-01-25] MEDS: RIFAXIMIN 550 MG TABLET (UD) PO SCH ×2 (09:50→21:00)
[2018-01-25] MEDS: FUROSEMIDE 40 MG/4 ML INJECTABLE VIAL IVPUSH SCH (09:50)
[2018-01-25] MEDS: guaiFENesin/D-M SUGAR-FREE/ACLHOL-FREE 118 ML BOTTLE PO PRN ×2 (09:51→20:54)
[2018-01-25] MEDS: LORATADINE 10 MG TABLET PO SCH (09:51)
[2018-01-25 10:40] LABS: ANION GAP 10 (8-16); BLOOD UREA NITROGEN 28 mg/dL (7-18); CALCIUM 8.6 mg/dL (8.5-10.1); CHLORIDE 105 mmol/L (98-107); CO2 22 mmol/L (21-32); CREATININE 1.5 mg/dL (0.55-1.02); GLUCOSE,RANDOM 186 mg/dL (74-106); POTASSIUM 4.1 mmol/L (3.5-5.1); SODIUM 137 mmol/L (136-145)
--- NOTE | 2018-01-25 12:41 | PN ---
Progress Note (short form) - Note Progress Note: PULMONARY States breathing is better but still dyspneic with exertion. +nonproductive cough. Last Vital Signs Temp Pulse Resp BP Pulse Ox 97.8 F 76 20 114/62 96 01/25/18 06:00 01/25/18 06:00 01/25/18 06:00 01/25/18 06:00 01/25/18 09:00 Intake & Output 01/22/18 01/23/18 01/24/18 01/25/18 23:59 23:59 23:59 23:59 Intake Total 270 950 Balance 270 950 Weight 82.1 kg 82.1 kg Gen: NAD at rest Heart: RRR Lung: scattered rhonchi, wheezes Abd: soft, nontender Ext: + edema CBC, BMP 01/25/18 05:35 01/25/18 05:35 Active Medications Albuterol/Ipratropium (Duoneb -) 1 amp NEB Q4HWA [facility] Last Admin: 01/25/18 06:25 Dose: 1 amp Furosemide (Lasix Injection -) 40 mg IVPUSH DAILY [facility] Last Admin: 01/25/18 09:50 Dose: 40 mg Guaifenesin (Diabetic Tussin Dm -) 10 ml PO Q4H PRN PRN Reason: COUGH Last Admin: 01/25/18 09:51 Dose: 10 ml Lactulose (Cephulac (Oral Use)) 20 gm PO BID [facility] Last Admin: 01/25/18 09:50 Dose: 20 gm Loratadine (Claritin -) 10 mg PO DAILY [facility] Last Admin: 01/25/18 09:51 Dose: 10 mg Methylprednisolone Sodium Succinate (Solu-Medrol -) 40 mg IVPUSH Q6H-IV [facility] Last Admin: 01/25/18 09:50 Dose: 40 mg Rifaximin (Xifaxan -) 550 mg PO BID [facility] Last Admin: 01/25/18 09:50 Dose: 550 mg Spironolactone (Aldactone -) 50 mg PO DAILY [facility] Last Admin: 01/25/18 09:50 Dose: 50 mg A/P Acute on Chronic Diastolic Heart Failure Liver Cirrhosis Pleural Effusions Anemia Thrombocytopenia CKD - continue lasix, aldactone - monitor urine output, creatinine - will decrease medrol - inhaled bronchodilators - O2 as needed - DVT prophylaxis
--- NOTE | 2018-01-25 14:58 | CONSULT ---
Consult Consult Specialty:: Nephrology Reason for Consultation:: CKD - History of Present Illness Chief Complaint: shortness of breath History of Present Illness: Pt is a 62 year old female with liver cirrhosis, etoh abuse, and CKD who presented with shortness of breath and generalized edema. She is known to me from previous hospitalizations when she was also found to be in renal failure. Since then she did see a loan coordinator and follows with Dr Resendiz. She was started on diuretics. I was called to evaluate her for elevated creatinine. She denies dysuria or hematuria. She has not followed in the office since her last hospitalization. She denies etoh use. - History Source History Provided By: Patient, Medical Record - Past Medical History Gastrointestinal: Yes: Ascites Hepatobiliary: Yes: Cirrhosis Renal/: Yes: Renal Inusuff Psych: Yes: Addictions Additional Medical History: Denies all medical problems. Alcohol abuse - Past Surgical History Past Surgical History: Yes: None - Alcohol/Substance Use Hx Alcohol Use: Yes (stopped in August) - Smoking History Smoking history: Former smoker Have you smoked in the past 12 months: No - Social History Usual Living Arrangement: Other ADL: Independent Occupation: banker History of Recent Travel: No Home Medications - Allergies Allergies/Adverse Reactions: Allergies Allergy/AdvReac Type Severity Reaction Status Date / Time No Known Allergies Allergy Verified 01/21/18 03:19 - Home Medications Home Medications: Ambulatory Orders Pantoprazole Sodium [Protonix -] 40 mg PO DAILY tablet.ec 10/04/17 Furosemide [Lasix] 40 mg PO DAILY 01/21/18 Lactulose 10 gm PO BID 01/21/18 Rifaximin [Xifaxan] 550 mg PO BID 01/21/18 Spironolactone [Aldactone] 50 mg PO DAILY 01/21/18 Family Disease History - Family Disease History Family Disease History: Other: Grandparent (liver disease) Review of Systems - Review of Systems Constitutional: reports: Malaise Eyes: reports: No Symptoms HENT: reports: No Symptoms Neck: reports: No Symptoms Cardiovascular: reports: Edema, Shortness of Breath Respiratory: reports: SOB, SOB on Exertion Gastrointestinal: reports: Bloating Genitourinary: reports: No Symptoms Musculoskeletal: reports: No Symptoms Integumentary: reports: No Symptoms Neurological: reports: No Symptoms Endocrine: reports: No Symptoms Hematology/Lymphatic: reports: No Symptoms Psychiatric: reports: No Symptoms Physical Exam Vital Signs: Vital Signs Temperature 97.7 F 01/25/18 13:45 Pulse Rate 83 01/25/18 13:45 Respiratory Rate 18 01/25/18 13:45 Blood Pressure 109/54 01/25/18 13:45 O2 Sat by Pulse Oximetry (%) 96 01/25/18 09:00 Constitutional: Yes: Calm HENT: Yes: Atraumatic Neck: Yes: Supple Cardiovascular: Yes: S1, S2 Respiratory: Yes: CTA Bilaterally Gastrointestinal: Yes: Soft, Ascites Renal/: Yes: WNL Musculoskeletal: Yes: WNL Edema: Yes Edema: LLE: 2+, RLE: 1+ Neurological: Yes: Oriented Psychiatric: Yes: Oriented Labs: CBC, BMP 01/25/18 05:35 01/25/18 05:35 Imaging - Results Chest X-ray: Report Reviewed Problem List - Problems (1) Alcoholic hepatitis with ascites Code(s): K70.11 - ALCOHOLIC HEPATITIS WITH ASCITES (2) CKD (chronic kidney disease) Code(s): N18.9 - CHRONIC KIDNEY DISEASE, UNSPECIFIED Assessment/Plan Current Medications Generic Name Dose Route Start Last Admin Trade Name Freq PRN Reason Stop Dose Admin Albuterol/Ipratropium 1 amp 01/22/18 14:00 01/25/18 06:25 Duoneb - NEB 1 amp Q4HWA [facility] Administration Furosemide 40 mg 01/22/18 10:00 01/25/18 09:50 Lasix Injection - IVPUSH 40 mg DAILY [facility] Administration Guaifenesin 10 ml 01/24/18 14:28 01/25/18 09:51 Diabetic Tussin Dm - PO 10 ml Q4H PRN Administration COUGH Lactulose 20 gm 01/21/18 22:00 01/25/18 09:50 Cephulac (Oral Use) PO 20 gm BID [facility] Administration Loratadine 10 mg 01/24/18 14:30 01/25/18 09:51 Claritin - PO 10 mg DAILY [facility] Administration Methylprednisolone Sodium Succinate 40 mg 01/25/18 22:00 Solu-Medrol - IVPUSH BID [facility] Rifaximin 550 mg 01/21/18 22:00 01/25/18 09:50 Xifaxan - PO 550 mg BID [facility] Administration Spironolactone 50 mg 01/22/18 10:00 01/25/18 09:50 Aldactone - PO 50 mg DAILY [facility] Administration Impression 1. CKD 2. liver cirrhosis 3. etoh abuse 4. jaundice 5. dyspnea 6. pleural effusions Plan - cont with diuretics as she is fluid overloaded - repeat labs in am - repeat cxr - monitor bili levels - GI input appreciated - check urine lytes - central services tech likely rising from diuresis Dr Hernández
--- NOTE | 2018-01-25 15:00 | PN ---
Physical Exam: SUBJECTIVE: Patient seen and examined. She is feeling better, however still requiring oxygen OBJECTIVE: Vital Signs Period Temp Pulse Resp BP Sys/Lui Pulse Ox Last 24 Hr 97.4 F-97.8 F 76-90 18-20 109-120/54-63 96-97 PE Neuro: alert,awake, cn 2-12intact Pulm: mild wheezing, rhonci + NC CV: s1 s2 rrr 2/6 murmur Abd: s nt nd + bs Ext: LLE edema +1 Laboratory Results - last 24 hr 01/24/18 01/25/18 01/25/18 20:25 05:35 05:35 WBC 5.5 D RBC 2.47 L Hgb 8.2 L Hct 23.6 L MCV 95.7 MCH 33.2 MCHC 34.7 RDW 17.3 H Plt Count 76 L MPV 7.2 L Sodium 137 Potassium 4.1 Chloride 105 Carbon Dioxide 22 Anion Gap 10 BUN 28 H Creatinine 1.5 H Random Glucose 186 H Calcium 8.6 Urine Color Martha Urine Appearance Clear Urine pH 5.0 Ur Specific [place] 1.017 Urine Protein Negative Urine Glucose (UA) Negative Urine Ketones Negative Urine Blood Negative Urine Nitrite Negative Urine Bilirubin Negative Urine Urobilinogen 2.0 H Ur Leukocyte Esterase Negative Active Medications Generic Name Dose Route Start Last Admin Trade Name Khushbu PRN Reason Stop Dose Admin Albuterol/Ipratropium 1 amp 01/22/18 14:00 01/25/18 06:25 Duoneb - NEB 1 amp Q4HWA [facility] Administration Furosemide 40 mg 01/22/18 10:00 01/25/18 09:50 Lasix Injection - IVPUSH 40 mg DAILY [facility] Administration Guaifenesin 10 ml 01/24/18 14:28 01/25/18 09:51 Diabetic Tussin Dm - PO 10 ml Q4H PRN Administration COUGH Lactulose 20 gm 01/21/18 22:00 01/25/18 09:50 Cephulac (Oral Use) PO 20 gm BID [facility] Administration Loratadine 10 mg 01/24/18 14:30 01/25/18 09:51 Claritin - PO 10 mg DAILY [facility] Administration Methylprednisolone Sodium Succinate 40 mg 01/25/18 22:00 Solu-Medrol - IVPUSH BID [facility] Rifaximin 550 mg 01/21/18 22:00 01/25/18 09:50 Xifaxan - PO 550 mg BID [facility] Administration Spironolactone 50 mg 01/22/18 10:00 01/25/18 09:50 Aldactone - PO 50 mg DAILY [facility] Administration Imaging: - EGD 09/2017: portal hypertensive gastropathy, no evidence of gastric, or esophageal varices, no biopsies taken due to hypocoaguable state Assessment: 62 year old female with a pmhx ETOH abuse, pulmonary edema, ESLD sees Dr. Humphrey, presented to the ED with worsening SOB, anascarca. Plan: 1. Acute resp failure, PNA - Obtain cxr now - Taper steroids 40mg BID - Continue supplemental o2 - Ceftriaxone daily 2. PNA - Ceftriaxone (day 5) 3. Chronic liver disease d/t ETOH hepatitis, ascities - Aldactone 50mg daily - Lasix 40mg daily - Rifaximin - Lactulose 20mg TID - GI seeing 4. Pleural effusions - ECHO normal biV fxn w/ no sig valve dz and no pulm htn - Continue lasix 40mg daily - Possibly due to hypoalbuminemia d/t liver failure - CXR today 5. Thrombocytopenia - Due to liver failure - Trend 6. VALERIA on ckd - Cr increasing likely due to diuresis - Kidney/bladder US, urine studies - d/w renal, continue diuresis 7. Anemia - Iron panel noted 8. Hypomagnesemia - Resolved 9. DVT - SCDS Visit type - Emergency Visit Emergency Visit: Yes ED Registration Date: 01/21/18 Care time: The patient presented to the Emergency Department on the above date and was hospitalized for further evaluation of their emergent condition. - New Patient This patient is new to me today: No - Critical Care Critical Care patient: No
--- NOTE | 2018-01-25 15:12 | PN ---
Progress Note, Physician History of Present Illness: Comfortable. Shortness of breath improved. - Current Medication List Current Medications: Active Medications Albuterol/Ipratropium (Duoneb -) 1 amp NEB Q4HWA [facility] Last Admin: 01/25/18 06:25 Dose: 1 amp Furosemide (Lasix Injection -) 40 mg IVPUSH DAILY [facility] Last Admin: 01/25/18 09:50 Dose: 40 mg Guaifenesin (Diabetic Tussin Dm -) 10 ml PO Q4H PRN PRN Reason: COUGH Last Admin: 01/25/18 09:51 Dose: 10 ml Lactulose (Cephulac (Oral Use)) 20 gm PO BID [facility] Last Admin: 01/25/18 09:50 Dose: 20 gm Loratadine (Claritin -) 10 mg PO DAILY [facility] Last Admin: 01/25/18 09:51 Dose: 10 mg Methylprednisolone Sodium Succinate (Solu-Medrol -) 40 mg IVPUSH BID [facility] Rifaximin (Xifaxan -) 550 mg PO BID [facility] Last Admin: 01/25/18 09:50 Dose: 550 mg Spironolactone (Aldactone -) 50 mg PO DAILY [facility] Last Admin: 01/25/18 09:50 Dose: 50 mg - Objective Vital Signs: Vital Signs Temperature 97.7 F 01/25/18 13:45 Pulse Rate 83 01/25/18 13:45 Respiratory Rate 18 01/25/18 13:45 Blood Pressure 109/54 01/25/18 13:45 O2 Sat by Pulse Oximetry (%) 96 01/25/18 09:00 Labs: CBC, BMP 01/25/18 05:35 01/25/18 05:35 INR, PTT INR 1.70 (0.82-1.09) H 01/21/18 04:45 Laboratory Last Values WBC 5.5 K/mm3 (4.0-10.0) D 01/25/18 05:35 RBC 2.47 M/mm3 (3.60-5.2) L 01/25/18 05:35 Hgb 8.2 GM/dL (10.7-15.3) L 01/25/18 05:35 Hct 23.6 % (32.4-45.2) L 01/25/18 05:35 MCV 95.7 fl (80-96) 01/25/18 05:35 MCH 33.2 pg (25.7-33.7) 01/25/18 05:35 MCHC 34.7 g/dl (32.0-36.0) 01/25/18 05:35 RDW 17.3 % (11.6-15.6) H 01/25/18 05:35 Plt Count 76 K/MM3 (134-434) L 01/25/18 05:35 MPV 7.2 fl (7.5-11.1) L 01/25/18 05:35 Neutrophils % 61.1 % (42.8-82.8) 01/23/18 09:25 Lymphocytes % 26.4 % (8-40) 01/23/18 09:25 Monocytes % 9.2 % (3.8-10.2) 01/23/18 09:25 Eosinophils % 2.9 % (0-4.5) 01/23/18 09:25 Basophils % 0.4 % (0-2.0) 01/23/18 09:25 PT with INR 19.20 SEC (9.7-13.0) H 01/21/18 04:45 INR 1.70 (0.82-1.09) H 01/21/18 04:45 Puncture Site Left radial 01/21/18 10:12 ABG pH 7.38 (7.35-7.45) 01/21/18 10:12 ABG pCO2 at Pt Temp 38.2 mmHg (35-45) 01/21/18 10:12 ABG pO2 at Pt Temp 114.0 mmHg (80-100) H 01/21/18 10:12 ABG HCO3 22.3 meq/L (22-26) 01/21/18 10:12 ABG O2 Sat (Measured) 99.1 % (90-98.9) H 01/21/18 10:12 ABG O2 Content 13.2 % vol (15-22) L 01/21/18 10:12 ABG Base Excess -1.9 meq/l (-2-2) 01/21/18 10:12 Chandler Test Positive 01/21/18 10:12 Oxygen Flow Rate Yes 01/21/18 10:12 Sodium 137 mmol/L (136-145) 01/25/18 05:35 Potassium 4.1 mmol/L (3.5-5.1) 01/25/18 05:35 Chloride 105 mmol/L (98-107) 01/25/18 05:35 Carbon Dioxide 22 mmol/L (21-32) 01/25/18 05:35 Anion Gap 10 (8-16) 01/25/18 05:35 BUN 28 mg/dL (7-18) H 01/25/18 05:35 Creatinine 1.5 mg/dL (0.55-1.02) H 01/25/18 05:35 Creat Clearance w eGFR 45.23 (>60) 01/24/18 06:49 Random Glucose 186 mg/dL (74-106) H 01/25/18 05:35 Calcium 8.6 mg/dL (8.5-10.1) 01/25/18 05:35 Magnesium 2.3 mg/dL (1.8-2.4) 01/24/18 06:49 Iron 155 ug/dL (27-139) H 01/22/18 07:26 TIBC < 172 ug/dL (250-450) L 01/22/18 07:26 Iron Saturation > 90 % (15-55) H 01/22/18 07:26 Ferritin Cancelled 01/22/18 07:26 Total Bilirubin 1.8 mg/dL (0.2-1.0) H 01/24/18 06:49 AST 42 U/L (15-37) H 01/24/18 06:49 ALT 23 U/L (12-78) 01/24/18 06:49 Alkaline Phosphatase 115 U/L (45-117) 01/24/18 06:49 Ammonia 20.52 umol/L (11-32) 01/23/18 09:25 Creatine Kinase 36 IU/L (26-192) 01/21/18 04:45 Troponin I < 0.02 ng/ml (0.00-0.05) 01/21/18 15:18 B-Natriuretic Peptide 694.80 pg/ml (5-125) H 01/21/18 04:45 Total Protein 8.1 g/dl (6.4-8.2) 01/24/18 06:49 Albumin 2.3 g/dl (3.4-5.0) L 01/24/18 06:49 Triglycerides 55 mg/dL (35-160) 01/22/18 07:20 Cholesterol 152 mg/dL (50-200) 01/22/18 07:20 Total LDL Cholesterol 101 mg/dL (5-100) H 01/22/18 07:20 HDL Cholesterol 38 mg/dL (40-60) L 01/22/18 07:20 Urine Color Martha 01/24/18 20:25 Urine Appearance Clear 01/24/18 20:25 Urine pH 5.0 (5.0-8.0) 01/24/18 20:25 Ur Specific [place] 1.017 (1.001-1.035) 01/24/18 20:25 Urine Protein Negative (NEGATIVE) 01/24/18 20:25 Urine Glucose (UA) Negative (NEGATIVE) 01/24/18 20:25 Urine Ketones Negative (NEGATIVE) 01/24/18 20:25 Urine Blood Negative (NEGATIVE) 01/24/18 20:25 Urine Nitrite Negative (NEGATIVE) 01/24/18 20:25 Urine Bilirubin Negative (<2.0 mg/dL) 01/24/18 20:25 Urine Urobilinogen 2.0 mg/dL (0.2-1.0) H 01/24/18 20:25 Ur Leukocyte Esterase Negative (NEGATIVE) 01/24/18 20:25 Problem List - Problems (1) Alcoholic hepatitis with ascites Code(s): K70.11 - ALCOHOLIC HEPATITIS WITH ASCITES (2) Acute on chronic alcoholic liver disease Code(s): K70.9 - ALCOHOLIC LIVER DISEASE, UNSPECIFIED Assessment/Plan The worsening BUN and creatinine. HRS versus prerenal azotemia. ? Urine sodium level. Nephrology on the case. Electrolytes normal. Due for ultrasound of the liver and alpha-fetoprotein in February of this year. Screening colonoscopy as part of transplant evaluation.
[2018-01-26] MEDS: ALBUTEROL SO4 2.5/IPRATROPIUM 0.5 INH SOL 3 ML VIAL.NEB. NEB SCH ×5 (06:29→21:15)
[2018-01-26 07:24] LABS: CHLORIDE 102 mmol/L (98-107); POTASSIUM 4.3 mmol/L (3.5-5.1); SODIUM 135 mmol/L (136-145)
[2018-01-26 07:32] LABS: ALBUMIN 2.3 g/dl (3.4-5.0); ALK PHOS 116 U/L (45-117); ANION GAP 10 (8-16); BILIRUBIN,TOTAL 1.6 mg/dL (0.2-1.0); BLOOD UREA NITROGEN 34 mg/dL (7-18); CALCIUM 8.5 mg/dL (8.5-10.1); CO2 23 mmol/L (21-32); CREATININE 1.6 mg/dL (0.55-1.02); GLUCOSE,RANDOM 199 mg/dL (74-106); SGOT/AST 50 U/L (15-37); SGPT/ALT 34 U/L (12-78); TOT PROT 7.7 g/dl (6.4-8.2)
--- NOTE | 2018-01-26 08:35 | PN ---
Progress Note, Physician Chief Complaint: no cp or increased sob - Current Medication List Current Medications: Active Medications Albuterol/Ipratropium (Duoneb -) 1 amp NEB Q4HWA [facility] Last Admin: 01/26/18 06:29 Dose: 1 amp Furosemide (Lasix Injection -) 40 mg IVPUSH DAILY [facility] Last Admin: 01/25/18 09:50 Dose: 40 mg Guaifenesin (Diabetic Tussin Dm -) 10 ml PO Q4H PRN PRN Reason: COUGH Last Admin: 01/25/18 20:54 Dose: 10 ml Lactulose (Cephulac (Oral Use)) 20 gm PO BID [facility] Last Admin: 01/25/18 21:00 Dose: 20 gm Loratadine (Claritin -) 10 mg PO DAILY [facility] Last Admin: 01/25/18 09:51 Dose: 10 mg Methylprednisolone Sodium Succinate (Solu-Medrol -) 40 mg IVPUSH BID [facility] Last Admin: 01/25/18 21:00 Dose: 40 mg Rifaximin (Xifaxan -) 550 mg PO BID [facility] Last Admin: 01/25/18 21:00 Dose: 550 mg Spironolactone (Aldactone -) 50 mg PO DAILY [facility] Last Admin: 01/25/18 09:50 Dose: 50 mg - Objective Vital Signs: Vital Signs Temperature 97.5 F L 01/26/18 05:30 Pulse Rate 75 01/26/18 05:30 Respiratory Rate 20 01/26/18 05:30 Blood Pressure 116/61 01/26/18 05:30 O2 Sat by Pulse Oximetry (%) 99 01/25/18 20:22 Constitutional: Yes: No Distress, Calm Eyes: Yes: Conjunctiva Clear Cardiovascular: Yes: Regular Rate and Rhythm Respiratory: Yes: Other (decreased breath sounds bases) Gastrointestinal: Yes: Soft Edema: Yes Edema: LLE: 1+, RLE: 1+ Neurological: Yes: Alert Labs: CBC, BMP 01/25/18 05:35 01/26/18 05:35 INR, PTT INR 1.70 (0.82-1.09) H 01/21/18 04:45 - ....Imaging EKG: Image Reviewed Assessment/Plan IMP: ETOH cirrhosis Hypoalbuminemia Dyspnea Pleural effusions REC: Echo shows normal biV fxn w/ no sig valve dz and no PHTN. Her edema and effusions are most likely due to 3rd spacing from hypoalbuminemia. Will stop Lasix, BUN rising and bump in creatinine. Renal following
[2018-01-26] MEDS ORDERED: PT OWN MED DRAWER 7, Y5N ONE ×2 (09:16→21:14)
[2018-01-26] MEDS: methylPREDNISolone NA SUCC 40 MG/1 ML VIAL IVPUSH SCH (09:57)
[2018-01-26] MEDS: RIFAXIMIN 550 MG TABLET (UD) PO SCH ×2 (09:57→21:16)
[2018-01-26] MEDS: LORATADINE 10 MG TABLET PO SCH (09:57)
[2018-01-26] MEDS: SPIRONOLACTONE 25 MG TABLET (FP) PO SCH (09:57)
[2018-01-26] MEDS: LACTULOSE 20 GM/30 ML UDC (FOR ORAL USE ONLY) PO SCH ×2 (09:57→21:15)
[2018-01-26] MEDS: guaiFENesin/D-M SUGAR-FREE/ACLHOL-FREE 118 ML BOTTLE PO PRN (09:59)
--- NOTE | 2018-01-26 10:28 | PN ---
Physical Exam: SUBJECTIVE: Patient seen and examined. She c/o chest congestion and unable to expectorate sputum. OBJECTIVE: Vital Signs Period Temp Pulse Resp BP Sys/Lui Pulse Ox Last 24 Hr 97.5 F-97.7 F 75-83 18-20 107-119/54-69 99 PE Neuro: alert,awake, cn 2-12intact Pulm: scattered rhonchi, mild wheezing + nc + cough non productive cough CV: s1 s2 rrr 2/6 murmur Abd: s nt nd + bs Ext: LLE edema +1- improved Laboratory Results - last 24 hr 01/25/18 01/25/18 01/25/18 05:35 18:00 18:00 Sodium 137 Potassium 4.1 Chloride 105 Carbon Dioxide 22 Anion Gap 10 BUN 28 H Creatinine 1.5 H Creat Clearance w eGFR Random Glucose 186 H Calcium 8.6 Total Bilirubin AST ALT Alkaline Phosphatase Total Protein Albumin Ur Random Sodium 10 Ur Random Potassium 32.6 Ur Random Chloride < 10 Ur Random Urea Nitrogn Urine Creatinine 124.0 01/25/18 01/26/18 18:00 05:35 Sodium 135 L Potassium 4.3 Chloride 102 Carbon Dioxide 23 Anion Gap 10 BUN 34 H Creatinine 1.6 H Creat Clearance w eGFR 32.45 Random Glucose 199 H Calcium 8.5 Total Bilirubin 1.6 H AST 50 H ALT 34 Alkaline Phosphatase 116 Total Protein 7.7 Albumin 2.3 L Ur Random Sodium Ur Random Potassium Ur Random Chloride Ur Random Urea Nitrogn 584 Urine Creatinine Active Medications Generic Name Dose Route Start Last Admin Trade Name Freq PRN Reason Stop Dose Admin Albuterol/Ipratropium 1 amp 01/22/18 14:00 01/26/18 06:29 Duoneb - NEB 1 amp Q4HWA [facility] Administration Guaifenesin 10 ml 01/24/18 14:28 01/26/18 09:59 Diabetic Tussin Dm - PO 10 ml Q4H PRN Administration COUGH Lactulose 20 gm 01/21/18 22:00 01/26/18 09:57 Cephulac (Oral Use) PO 20 gm BID [facility] Administration Loratadine 10 mg 01/24/18 14:30 01/26/18 09:57 Claritin - PO 10 mg DAILY [facility] Administration Methylprednisolone Sodium Succinate 40 mg 01/27/18 10:00 Solu-Medrol - IVPUSH DAILY [facility] Rifaximin 550 mg 01/21/18 22:00 01/26/18 09:57 Xifaxan - PO 550 mg BID [facility] Administration Spironolactone 50 mg 01/22/18 10:00 01/26/18 09:57 Aldactone - PO 50 mg DAILY [facility] Administration Imaging: - EGD 09/2017: portal hypertensive gastropathy, no evidence of gastric, or esophageal varices, no biopsies taken due to hypocoaguable state - ECHO normal biV fxn w/ no sig valve dz and no pulm htn Assessment: 62 year old female with a pmhx ETOH abuse, pulmonary edema, ESLD sees Dr. Humphrey, presented to the ED with worsening SOB, anascarca. Plan: 1. Acute resp failure, PNA - Taper steroids medrol 40mg daily - Continue supplemental o2 - Ceftriaxone daily (day 6) 2. Chronic liver disease d/t ETOH hepatitis, ascities - Aldactone 50mg daily - Stop Lasix 40mg daily d/t VALERIA - Rifaximin - Lactulose 20mg TID - GI seeing 3. VALERIA on CKD - Lasix stopped per cards - Cr increasing likely due to diuresis - Kidney/bladder US, urine studies - Renal following 4. Pleural effusions - Stop lasix due to valeria - Possibly due to hypoalbuminemia d/t liver failure 5. PNA - Ceftriaxone as above 6. Thrombocytopenia - Due to liver failure - Trend 7. Anemia - Iron panel noted 8. Hypomagnesemia - Resolved 9. DVT - SCDS Visit type - Emergency Visit Emergency Visit: Yes ED Registration Date: 01/21/18 Care time: The patient presented to the Emergency Department on the above date and was hospitalized for further evaluation of their emergent condition. - New Patient This patient is new to me today: No - Critical Care Critical Care patient: No
[2018-01-26] MEDS: guaiFENesin/D-METHORPHAN HB 1 EACH TAB.ER.12H PO SCH ×2 (12:53→21:16)
--- NOTE | 2018-01-26 13:47 | PN ---
Progress Note, Physician History of Present Illness: pulmonary alert,feeling better,+ guerrero,+ dry cough. - Current Medication List Current Medications: Active Medications Albuterol/Ipratropium (Duoneb -) 1 amp NEB Q4HWA [facility] Last Admin: 01/26/18 09:45 Dose: 1 amp Guaifenesin (Mucinex Dm -) 1 tablet PO BID [facility] Last Admin: 01/26/18 12:53 Dose: 1 tablet Lactulose (Cephulac (Oral Use)) 20 gm PO BID [facility] Last Admin: 01/26/18 09:57 Dose: 20 gm Loratadine (Claritin -) 10 mg PO DAILY [facility] Last Admin: 01/26/18 09:57 Dose: 10 mg Methylprednisolone Sodium Succinate (Solu-Medrol -) 40 mg IVPUSH DAILY [facility] Rifaximin (Xifaxan -) 550 mg PO BID [facility] Last Admin: 01/26/18 09:57 Dose: 550 mg Spironolactone (Aldactone -) 50 mg PO DAILY [facility] Last Admin: 01/26/18 09:57 Dose: 50 mg - Objective Vital Signs: Vital Signs Temperature 97.5 F L 01/26/18 05:30 Pulse Rate 75 01/26/18 05:30 Respiratory Rate 20 01/26/18 05:30 Blood Pressure 116/61 01/26/18 05:30 O2 Sat by Pulse Oximetry (%) 99 01/25/18 20:22 Constitutional: Yes: Well Nourished, Calm Eyes: Yes: WNL HENT: Yes: WNL Neck: Yes: WNL Cardiovascular: Yes: Regular Rate and Rhythm, S1, S2 Respiratory: Yes: Wheezes (few scattered wheezes) Gastrointestinal: Yes: Normal Bowel Sounds, Soft Extremities: Yes: WNL Edema: Yes Labs: CBC, BMP 01/25/18 05:35 01/26/18 05:35 INR, PTT INR 1.70 (0.82-1.09) H 01/21/18 04:45 - ....Imaging Chest X-ray: Image Reviewed Problem List - Problems (1) CKD (chronic kidney disease) Code(s): N18.9 - CHRONIC KIDNEY DISEASE, UNSPECIFIED (2) Acute respiratory failure with hypoxia Code(s): J96.01 - ACUTE RESPIRATORY FAILURE WITH HYPOXIA (3) Hyperammonemia Code(s): E72.20 - DISORDER OF UREA CYCLE METABOLISM, UNSPECIFIED (4) Liver failure Code(s): K72.90 - HEPATIC FAILURE, UNSPECIFIED WITHOUT COMA (5) Pleural effusion, left Code(s): J90 - PLEURAL EFFUSION, NOT ELSEWHERE CLASSIFIED (6) Respiratory distress Code(s): R06.03 - ACUTE RESPIRATORY DISTRESS (7) Acute on chronic alcoholic liver disease Code(s): K70.9 - ALCOHOLIC LIVER DISEASE, UNSPECIFIED (8) Renal insufficiency Code(s): N28.9 - DISORDER OF KIDNEY AND URETER, UNSPECIFIED Assessment/Plan CONSULTATION DICTATED 01/21/18 IMP ACUTE RESPIRATORY FAILURE ? CHF IMPROVED BILATERAL EFFUSIONS ETOH LIVER DISEASE CIRRHOSIS ANEMIA/THROMBOCYTOPENIA ELEVATED AMMONIA LEVEL NORMAL ACUTE ON CKD PLAN O2 ALDACTONE STEROID TAPER INHALED BRONCHODILATORS LACTULOSE MONITOR LYTES,RENAL FUNCTION,AMMONIA LEVEL MONITOR CBC,PLT CT STRICT I+OS DAILY WTS DR VENEGAS Problem List - Problems (1) CKD (chronic kidney disease) Code(s): N18.9 - CHRONIC KIDNEY DISEASE, UNSPECIFIED (2) Acute respiratory failure with hypoxia Code(s): J96.01 - ACUTE RESPIRATORY FAILURE WITH HYPOXIA (3) Hyperammonemia Code(s): E72.20 - DISORDER OF UREA CYCLE METABOLISM, UNSPECIFIED (4) Liver failure Code(s): K72.90 - HEPATIC FAILURE, UNSPECIFIED WITHOUT COMA (5) Pleural effusion, left Code(s): J90 - PLEURAL EFFUSION, NOT ELSEWHERE CLASSIFIED (6) Respiratory distress Code(s): R06.03 - ACUTE RESPIRATORY DISTRESS (7) Acute on chronic alcoholic liver disease Code(s): K70.9 - ALCOHOLIC LIVER DISEASE, UNSPECIFIED (8) Renal insufficiency Code(s): N28.9 - DISORDER OF KIDNEY AND URETER, UNSPECIFIED
--- NOTE | 2018-01-26 16:11 | PN ---
Progress Note, Physician History of Present Illness: Pt seen and examined at bedside. She is awake and alert. She feels that her breathing is improved. - Current Medication List Current Medications: Active Medications Albuterol/Ipratropium (Duoneb -) 1 amp NEB Q4HWA [facility] Last Admin: 01/26/18 13:47 Dose: 1 amp Guaifenesin (Mucinex Dm -) 1 tablet PO BID [facility] Last Admin: 01/26/18 12:53 Dose: 1 tablet Lactulose (Cephulac (Oral Use)) 20 gm PO BID [facility] Last Admin: 01/26/18 09:57 Dose: 20 gm Loratadine (Claritin -) 10 mg PO DAILY [facility] Last Admin: 01/26/18 09:57 Dose: 10 mg Methylprednisolone Sodium Succinate (Solu-Medrol -) 40 mg IVPUSH DAILY [facility] Rifaximin (Xifaxan -) 550 mg PO BID [facility] Last Admin: 01/26/18 09:57 Dose: 550 mg Spironolactone (Aldactone -) 50 mg PO DAILY [facility] Last Admin: 01/26/18 09:57 Dose: 50 mg - Objective Vital Signs: Vital Signs Temperature 97.4 F L 01/26/18 10:00 Pulse Rate 82 01/26/18 10:00 Respiratory Rate 20 01/26/18 10:00 Blood Pressure 116/61 01/26/18 10:00 O2 Sat by Pulse Oximetry (%) 99 01/26/18 09:00 Constitutional: Yes: Calm HENT: Yes: Atraumatic Neck: Yes: Supple Cardiovascular: Yes: S1, S2 Respiratory: Yes: On Nasal O2, Wheezes Gastrointestinal: Yes: Soft, Ascites Genitourinary: Yes: WNL Musculoskeletal: Yes: WNL Edema: Yes Edema: LLE: 1+, RLE: Trace Neurological: Yes: Oriented Psychiatric: Yes: Oriented Labs: CBC, BMP 01/25/18 05:35 01/26/18 05:35 INR, PTT INR 1.70 (0.82-1.09) H 01/21/18 04:45 - ....Imaging Ultrasound: Report Reviewed Problem List - Problems (1) Alcoholic hepatitis with ascites Code(s): K70.11 - ALCOHOLIC HEPATITIS WITH ASCITES (2) CKD (chronic kidney disease) Code(s): N18.9 - CHRONIC KIDNEY DISEASE, UNSPECIFIED Assessment/Plan Current Medications Generic Name Dose Route Start Last Admin Trade Name Khushbu PRN Reason Stop Dose Admin Albuterol/Ipratropium 1 amp 01/22/18 14:00 01/26/18 13:47 Duoneb - NEB 1 amp Q4HWA [facility] Administration Guaifenesin 1 tablet 01/26/18 10:45 01/26/18 12:53 Mucinex Dm - PO 1 tablet BID [facility] Administration Lactulose 20 gm 01/21/18 22:00 01/26/18 09:57 Cephulac (Oral Use) PO 20 gm BID [facility] Administration Loratadine 10 mg 01/24/18 14:30 01/26/18 09:57 Claritin - PO 10 mg DAILY [facility] Administration Methylprednisolone Sodium Succinate 40 mg 01/27/18 10:00 Solu-Medrol - IVPUSH DAILY [facility] Rifaximin 550 mg 01/21/18 22:00 01/26/18 09:57 Xifaxan - PO 550 mg BID [facility] Administration Spironolactone 50 mg 01/22/18 10:00 01/26/18 09:57 Aldactone - PO 50 mg DAILY [facility] Administration Impression 1. CKD 2. liver cirrhosis 3. etoh abuse 4. jaundice 5. dyspnea 6. pleural effusions Plan - pt was on 40 mg of lasix and 50 mg of spironolactone at home - creatinine is rising - will need diuretics as she has edema and ascites - repeat labs in am - will likely restart po lasix tomorrow Dr Hernández
[2018-01-27] MEDS: ALBUTEROL SO4 2.5/IPRATROPIUM 0.5 INH SOL 3 ML VIAL.NEB. NEB SCH ×2 (06:37→10:30)
[2018-01-27 08:26] LABS: CHLORIDE 100 mmol/L (98-107); POTASSIUM 4.6 mmol/L (3.5-5.1); SODIUM 133 mmol/L (136-145)
--- NOTE | 2018-01-27 08:35 | PN ---
Progress Note, Physician - Current Medication List Current Medications: Active Medications Albuterol/Ipratropium (Duoneb -) 1 amp NEB Q4HWA [facility] Last Admin: 01/27/18 06:37 Dose: 1 amp Guaifenesin (Mucinex Dm -) 1 tablet PO BID [facility] Last Admin: 01/26/18 21:16 Dose: 1 tablet Lactulose (Cephulac (Oral Use)) 20 gm PO BID [facility] Last Admin: 01/26/18 21:15 Dose: 20 gm Loratadine (Claritin -) 10 mg PO DAILY [facility] Last Admin: 01/26/18 09:57 Dose: 10 mg Methylprednisolone Sodium Succinate (Solu-Medrol -) 40 mg IVPUSH DAILY [facility] Rifaximin (Xifaxan -) 550 mg PO BID [facility] Last Admin: 01/26/18 21:16 Dose: 550 mg Spironolactone (Aldactone -) 50 mg PO DAILY [facility] Last Admin: 01/26/18 09:57 Dose: 50 mg - Objective Vital Signs: Vital Signs Temperature 97.7 F 01/27/18 06:00 Pulse Rate 76 01/27/18 06:00 Respiratory Rate 18 01/27/18 06:00 Blood Pressure 123/72 01/27/18 06:00 O2 Sat by Pulse Oximetry (%) 100 01/27/18 06:26 Eyes: Yes: WNL, Conjunctiva Clear, EOM Intact HENT: Yes: WNL, Atraumatic, Normocephalic Neck: Yes: WNL, Supple, Trachea Midline Cardiovascular: Yes: WNL, Regular Rate and Rhythm Respiratory: Yes: Diminished Gastrointestinal: Yes: WNL, Normal Bowel Sounds Genitourinary: Yes: WNL Musculoskeletal: Yes: WNL Extremities: Yes: WNL Edema: Yes Integumentary: Yes: WNL Neurological: Yes: WNL, Alert, Oriented ...Motor Strength: WNL Psychiatric: Yes: WNL Labs: CBC, BMP 01/25/18 05:35 INR, PTT INR 1.70 (0.82-1.09) H 01/21/18 04:45 Assessment/Plan IMP: ETOH cirrhosis Hypoalbuminemia Dyspnea Pleural effusions REC: Echo shows normal biV fxn w/ no sig valve dz and no PHTN. Her edema and effusions are most likely due to 3rd spacing from hypoalbuminemia. Will stop Lasix, BUN rising and bump in creatinine. Renal following coverage for dr. Ferguson
[2018-01-27 08:42] LABS: ANION GAP 9 (8-16); BLOOD UREA NITROGEN 38 mg/dL (7-18); CALCIUM 8.5 mg/dL (8.5-10.1); CO2 24 mmol/L (21-32); CREATININE 1.4 mg/dL (0.55-1.02); GLUCOSE,RANDOM 184 mg/dL (74-106)
[2018-01-27] MEDS ORDERED: PT OWN MED DRAWER 7, Y5N ONE ×2 (09:54→20:09)
[2018-01-27] MEDS: guaiFENesin/D-METHORPHAN HB 1 EACH TAB.ER.12H PO SCH ×2 (10:04→21:07)
[2018-01-27] MEDS: methylPREDNISolone NA SUCC 40 MG/1 ML VIAL IVPUSH SCH (10:04)
[2018-01-27] MEDS: LACTULOSE 20 GM/30 ML UDC (FOR ORAL USE ONLY) PO SCH ×2 (10:04→21:07)
[2018-01-27] MEDS: RIFAXIMIN 550 MG TABLET (UD) PO SCH ×2 (10:04→21:07)
[2018-01-27] MEDS: SPIRONOLACTONE 25 MG TABLET (FP) PO SCH (10:04)
[2018-01-27] MEDS: LORATADINE 10 MG TABLET PO SCH (10:04)
[2018-01-27 11:54] LABS: ALBUMIN 2.3 g/dl (3.4-5.0); ALK PHOS 105 U/L (45-117); ANION GAP 8 (8-16); BILIRUBIN,TOTAL 1.6 mg/dL (0.2-1.0); BLOOD UREA NITROGEN 39 mg/dL (7-18); CALCIUM 8.7 mg/dL (8.5-10.1); CHLORIDE 101 mmol/L (98-107); CO2 25 mmol/L (21-32); CREATININE 1.4 mg/dL (0.55-1.02); GLUCOSE,RANDOM 182 mg/dL (74-106); POTASSIUM 4.6 mmol/L (3.5-5.1); SGOT/AST 49 U/L (15-37); SGPT/ALT 43 U/L (12-78); SODIUM 134 mmol/L (136-145); TOT PROT 7.8 g/dl (6.4-8.2)
--- NOTE | 2018-01-27 12:00 | PN ---
Progress Note, Physician History of Present Illness: Pt seen and examined at bedside. She is awake and alert. She complains of cough. - Current Medication List Current Medications: Active Medications Albuterol/Ipratropium (Duoneb -) 1 amp NEB Q4HWA [facility] Last Admin: 01/27/18 06:37 Dose: 1 amp Guaifenesin (Mucinex Dm -) 1 tablet PO BID [facility] Last Admin: 01/27/18 10:04 Dose: 1 tablet Lactulose (Cephulac (Oral Use)) 20 gm PO BID [facility] Last Admin: 01/27/18 10:04 Dose: 20 gm Loratadine (Claritin -) 10 mg PO DAILY [facility] Last Admin: 01/27/18 10:04 Dose: 10 mg Methylprednisolone Sodium Succinate (Solu-Medrol -) 40 mg IVPUSH DAILY [facility] Last Admin: 01/27/18 10:04 Dose: 40 mg Rifaximin (Xifaxan -) 550 mg PO BID [facility] Last Admin: 01/27/18 10:04 Dose: 550 mg Spironolactone (Aldactone -) 50 mg PO DAILY [facility] Last Admin: 01/27/18 10:04 Dose: 50 mg - Objective Vital Signs: Vital Signs Temperature 97.9 F 01/27/18 09:00 Pulse Rate 74 01/27/18 09:00 Respiratory Rate 18 01/27/18 09:00 Blood Pressure 124/66 01/27/18 09:00 O2 Sat by Pulse Oximetry (%) 98 01/27/18 09:00 Constitutional: Yes: Calm Eyes: Yes: Conjunctiva Clear HENT: Yes: Atraumatic Neck: Yes: Supple Cardiovascular: Yes: S1, S2 Respiratory: Yes: On Nasal O2 Gastrointestinal: Yes: Soft Genitourinary: Yes: WNL Musculoskeletal: Yes: WNL Edema: Yes Edema: LLE: 1+, RLE: Trace Neurological: Yes: Oriented Psychiatric: Yes: Oriented Labs: CBC, BMP 01/25/18 05:35 01/27/18 07:00 INR, PTT INR 1.70 (0.82-1.09) H 01/21/18 04:45 Problem List - Problems (1) Alcoholic hepatitis with ascites Code(s): K70.11 - ALCOHOLIC HEPATITIS WITH ASCITES (2) CKD (chronic kidney disease) Code(s): N18.9 - CHRONIC KIDNEY DISEASE, UNSPECIFIED Assessment/Plan Current Medications Generic Name Dose Route Start Last Admin Trade Name Khushbu PRN Reason Stop Dose Admin Albuterol/Ipratropium 1 amp 01/22/18 14:00 01/27/18 06:37 Duoneb - NEB 1 amp Q4HWA [facility]NA Administration Guaifenesin 1 tablet 01/26/18 10:45 01/27/18 10:04 Mucinex Dm - PO 1 tablet BID [facility] Administration Lactulose 20 gm 01/21/18 22:00 01/27/18 10:04 Cephulac (Oral Use) PO 20 gm BID [facility]NA Administration Loratadine 10 mg 01/24/18 14:30 01/27/18 10:04 Claritin - PO 10 mg DAILY [facility] Administration Methylprednisolone Sodium Succinate 40 mg 01/27/18 10:00 01/27/18 10:04 Solu-Medrol - IVPUSH 40 mg DAILY [facility] Administration Rifaximin 550 mg 01/21/18 22:00 01/27/18 10:04 Xifaxan - PO 550 mg BID [facility] Administration Spironolactone 50 mg 01/22/18 10:00 01/27/18 10:04 Aldactone - PO 50 mg DAILY [facility] Administration Impression 1. CKD 2. liver cirrhosis 3. etoh abuse 4. jaundice 5. dyspnea 6. pleural effusions Plan - repeat labs in am - cont spironolactone - will likely restart lasix tomorrow, 40 mg daily - GI follow up - monitor LFTs - cardio input appreciated Dr Hernández
--- NOTE | 2018-01-27 12:48 | PN ---
Progress Note (short form) - Note Progress Note: NAD on NC O2. No acute events overnight. Still with some dry cough and WHELAN. Intake & Output 01/24/18 01/25/18 01/26/18 01/27/18 23:59 23:59 23:59 23:59 Intake Total 950 300 530 350 Balance 950 300 530 350 Last Vital Signs Temp Pulse Resp BP Pulse Ox 97.9 F 74 18 124/66 98 01/27/18 09:00 01/27/18 09:00 01/27/18 09:00 01/27/18 09:00 01/27/18 09:00 Active Medications Albuterol/Ipratropium (Duoneb -) 1 amp NEB Q4HWA [facility] Last Admin: 01/27/18 06:37 Dose: 1 amp Guaifenesin (Mucinex Dm -) 1 tablet PO BID [facility] Last Admin: 01/27/18 10:04 Dose: 1 tablet Lactulose (Cephulac (Oral Use)) 20 gm PO BID [facility] Last Admin: 01/27/18 10:04 Dose: 20 gm Loratadine (Claritin -) 10 mg PO DAILY [facility] Last Admin: 01/27/18 10:04 Dose: 10 mg Methylprednisolone Sodium Succinate (Solu-Medrol -) 40 mg IVPUSH DAILY [facility] Last Admin: 01/27/18 10:04 Dose: 40 mg Rifaximin (Xifaxan -) 550 mg PO BID [facility] Last Admin: 01/27/18 10:04 Dose: 550 mg Spironolactone (Aldactone -) 50 mg PO DAILY [facility] Last Admin: 01/27/18 10:04 Dose: 50 mg Constitutional: Yes: NAD Eyes: Yes: WNL HENT: Yes: WNL Neck: Yes: WNL Cardiovascular: Yes: Regular Rate and Rhythm, S1, S2 Respiratory: Yes: Scattered bilateral rhonchi Gastrointestinal: Yes: Normal Bowel Sounds, Soft Extremities: Yes: WNL Edema: Yes Labs: Laboratory Results - last 24 hr 01/27/18 01/27/18 07:00 07:00 Sodium 134 L 133 L Potassium 4.6 4.6 Chloride 101 100 Carbon Dioxide 25 24 Anion Gap 8 9 BUN 39 H 38 H Creatinine 1.4 H 1.4 H Creat Clearance w eGFR 37.86 Random Glucose 182 H 184 H Calcium 8.7 8.5 Total Bilirubin 1.6 H AST 49 H ALT 43 Alkaline Phosphatase 105 Total Protein 7.8 Albumin 2.3 L Problem List - Problems (1) CKD (chronic kidney disease) Code(s): N18.9 - CHRONIC KIDNEY DISEASE, UNSPECIFIED (2) Acute respiratory failure with hypoxia Code(s): J96.01 - ACUTE RESPIRATORY FAILURE WITH HYPOXIA (3) Hyperammonemia Code(s): E72.20 - DISORDER OF UREA CYCLE METABOLISM, UNSPECIFIED (4) Liver failure Code(s): K72.90 - HEPATIC FAILURE, UNSPECIFIED WITHOUT COMA (5) Pleural effusion, left Code(s): J90 - PLEURAL EFFUSION, NOT ELSEWHERE CLASSIFIED (6) Respiratory distress Code(s): R06.03 - ACUTE RESPIRATORY DISTRESS (7) Acute on chronic alcoholic liver disease Code(s): K70.9 - ALCOHOLIC LIVER DISEASE, UNSPECIFIED (8) Renal insufficiency Code(s): N28.9 - DISORDER OF KIDNEY AND URETER, UNSPECIFIED Assessment/Plan IMP ACUTE RESPIRATORY FAILURE BILATERAL EFFUSIONS ETOH LIVER DISEASE CIRRHOSIS ANEMIA/THROMBOCYTOPENIA ELEVATED AMMONIA LEVEL NORMAL ACUTE ON CKD PLAN O2 ALDACTONE NOTED MEDROL REDUCED TO OD INHALED BRONCHODILATORS LACTULOSE MONITOR LYTES,RENAL FUNCTION,AMMONIA LEVEL MONITOR CBC,PLT CT FOLLOW I+O DAILY WTS DR VERGARA
--- NOTE | 2018-01-27 13:55 | PN ---
Progress Note (short form) - Note Progress Note: Subjective: The patient was seen and examined at the bedside, she has no complaints at this time Current Medications Generic Name Dose Route Start Last Admin Trade Name Khushbu PRN Reason Stop Dose Admin Albuterol/Ipratropium 1 amp 01/22/18 14:00 01/27/18 06:37 Duoneb - NEB 1 amp Q4HWA JOVANNA Administration Guaifenesin 1 tablet 01/26/18 10:45 01/27/18 10:04 Mucinex Dm - PO 1 tablet BID JOVANNA Administration Lactulose 20 gm 01/21/18 22:00 01/27/18 10:04 Cephulac (Oral Use) PO 20 gm BID JOVANNA Administration Loratadine 10 mg 01/24/18 14:30 01/27/18 10:04 Claritin - PO 10 mg DAILY [facility]OV[facility]NA Administration Methylprednisolone Sodium Succinate 40 mg 01/27/18 10:00 01/27/18 10:04 Solu-Medrol - IVPUSH 40 mg DAILY JOVANNA Administration Rifaximin 550 mg 01/21/18 22:00 01/27/18 10:04 Xifaxan - PO 550 mg BID JOVANNA Administration Spironolactone 50 mg 01/22/18 10:00 01/27/18 10:04 Aldactone - PO 50 mg DAILY JOVANNA Administration Objective: Vital Signs Period Temp Pulse Resp BP Sys/Lui Pulse Ox Last 24 Hr 97.7 F-97.9 F 74-84 18-20 116-124/59-72 96-100 Physical Exam: General: NAD, A&Ox3 Lungs: CTA bilaterally Heart: RRR, S1S2 Ext: LLE 3+ pitting edema. RLE 2+ pitting edema NEuro: No focal deficits CBCD WBC 5.5 K/mm3 (4.0-10.0) D 01/25/18 05:35 RBC 2.47 M/mm3 (3.60-5.2) L 01/25/18 05:35 Hgb 8.2 GM/dL (10.7-15.3) L 01/25/18 05:35 Hct 23.6 % (32.4-45.2) L 01/25/18 05:35 MCV 95.7 fl (80-96) 01/25/18 05:35 MCHC 34.7 g/dl (32.0-36.0) 05/10/18 05:35 RDW 17.3 % (11.6-15.6) H 01/25/18 05:35 Plt Count 76 K/MM3 (134-434) L 01/25/18 05:35 MPV 7.2 fl (7.5-11.1) L 01/25/18 05:35 CMP Sodium 134 mmol/L (136-145) L 01/27/18 07:00 Potassium 4.6 mmol/L (3.5-5.1) 01/27/18 07:00 Chloride 101 mmol/L (98-107) 01/27/18 07:00 Carbon Dioxide 25 mmol/L (21-32) 01/27/18 07:00 Anion Gap 8 (8-16) 01/27/18 07:00 BUN 39 mg/dL (7-18) H 01/27/18 07:00 Creatinine 1.4 mg/dL (0.55-1.02) H 01/27/18 07:00 Creat Clearance w eGFR 37.86 (>60) 01/27/18 07:00 Random Glucose 182 mg/dL (74-106) H 01/27/18 07:00 Calcium 8.7 mg/dL (8.5-10.1) 01/27/18 07:00 Total Bilirubin 1.6 mg/dL (0.2-1.0) H 01/27/18 07:00 AST 49 U/L (15-37) H 01/27/18 07:00 ALT 43 U/L (12-78) 01/27/18 07:00 Alkaline Phosphatase 105 U/L (45-117) 01/27/18 07:00 Total Protein 7.8 g/dl (6.4-8.2) 01/27/18 07:00 Albumin 2.3 g/dl (3.4-5.0) L 01/27/18 07:00 CARDIAC ENZYMES Creatine Kinase 36 IU/L (26-192) 01/21/18 04:45 Troponin I < 0.02 ng/ml (0.00-0.05) 01/21/18 15:18 Microbiology 01/21/18 04:45 Blood - Peripheral Venous Blood Culture - Final NO GROWTH AFTER 5 DAYS INCUBATION 01/21/18 04:45 Blood - Peripheral Venous Blood Culture - Final NO GROWTH AFTER 5 DAYS INCUBATION 01/23/18 16:45 Nasopharyngeal Swab Influenza Types A,B Antigen (NEVAEH) - Final 01/23/18 16:45 Nasopharyngeal Swab - Final 01/23/18 16:45 Nasopharyngeal Swab Respiratory Syncytial Virus Ag - Final 01/23/18 07:05 Urine For Antigen Detection Legionella Antigen - Final 01/23/18 07:05 Urine For Antigen Detection Streptococcus pneumoniae Antigen (M - Final Imaging: - EGD 09/2017: portal hypertensive gastropathy, no evidence of gastric, or esophageal varices, no biopsies taken due to hypocoaguable state - ECHO normal biV fxn w/ no sig valve dz and no pulm htn Assessment: This is a 62 year old female with a PMHx of ETOH abuse, pulmonary edema, ESLD sees Dr. Humphrey, presented to the ED with worsening SOB, anascarca. Plan: 1. Acute resp failure, bronchitis? - Taper steroids medrol 40mg daily - Continue supplemental o2 - Completed 5 days of Ceftriaxone for possible bronchitis 2. Chronic liver disease d/t ETOH hepatitis, ascities - Aldactone 50mg daily - Stop Lasix 40mg daily d/t VALERIA, may restart tomorrow per nephrology - Rifaximin - Lactulose 20mg BID - Appreciate GI consult 3. VALERIA on CKD - Lasix held due to VALERIA - Cr now stable 1.4 - Kidney/bladder US reviewed - Renal following 4. Pleural effusions - Stop lasix due to valeria - Possibly due to hypoalbuminemia d/t liver failure 5. B/l lower extremity edema - B/l lower extremity doppler negative for DVT 6. Thrombocytopenia - Due to liver failure - Stable, continue to monitor 7. Anemia - Iron panel noted 8. DVT - SCDS CODE STATUS: FULL CODE Visit type - Emergency Visit Emergency Visit: Yes ED Registration Date: 01/21/18 Care time: The patient presented to the Emergency Department on the above date and was hospitalized for further evaluation of their emergent condition. - New Patient This patient is new to me today: Yes Date on this admission: 01/28/18 - Critical Care Critical Care patient: No
[2018-01-27] MEDS: ALBUTEROL SO4 2.5/IPRATROPIUM 0.5 INH SOL 3 ML VIAL.NEB. NEB PRN (20:36)
[2018-01-28] MEDS: ALBUTEROL SO4 2.5/IPRATROPIUM 0.5 INH SOL 3 ML VIAL.NEB. NEB PRN (05:25)
[2018-01-28 07:53] LABS: HEMATOCRIT 24.1 % (32.4-45.2); HEMOGLOBIN 8.4 GM/dL (10.7-15.3); MCH 33.7 pg (25.7-33.7); MCHC 35.1 g/dl (32.0-36.0); MEAN PLT VOLUME 7.3 fl (7.5-11.1); PLATELET COUNT 77 K/MM3 (134-434); RBC 2.51 M/mm3 (3.60-5.2); RDW 17.2 % (11.6-15.6); WHITE BLOOD COUNT 7.8 K/mm3 (4.0-10.0)
[2018-01-28 08:09] LABS: ALBUMIN 2.3 g/dl (3.4-5.0); ANION GAP 8 (8-16); BLOOD UREA NITROGEN 37 mg/dL (7-18); CALCIUM 8.7 mg/dL (8.5-10.1); CHLORIDE 101 mmol/L (98-107); CO2 25 mmol/L (21-32); CREATININE 1.3 mg/dL (0.55-1.02); GLUCOSE,RANDOM 176 mg/dL (74-106); POTASSIUM 4.6 mmol/L (3.5-5.1); SGOT/AST 45 U/L (15-37); SGPT/ALT 45 U/L (12-78); SODIUM 134 mmol/L (136-145)
--- NOTE | 2018-01-28 08:10 | PN ---
Progress Note, Physician - Current Medication List Current Medications: Active Medications Albuterol/Ipratropium (Duoneb -) 1 amp NEB Q4H PRN PRN Reason: SHORTNESS OF BREATH Last Admin: 01/28/18 05:25 Dose: 1 amp Guaifenesin (Mucinex Dm -) 1 tablet PO BID [facility] Last Admin: 01/27/18 21:07 Dose: 1 tablet Lactulose (Cephulac (Oral Use)) 20 gm PO BID [facility] Last Admin: 01/27/18 21:07 Dose: 20 gm Loratadine (Claritin -) 10 mg PO DAILY [facility] Last Admin: 01/27/18 10:04 Dose: 10 mg Methylprednisolone Sodium Succinate (Solu-Medrol -) 40 mg IVPUSH DAILY [facility] Last Admin: 01/27/18 10:04 Dose: 40 mg Rifaximin (Xifaxan -) 550 mg PO BID [facility] Last Admin: 01/27/18 21:07 Dose: 550 mg Spironolactone (Aldactone -) 50 mg PO DAILY [facility] Last Admin: 01/27/18 10:04 Dose: 50 mg - Objective Vital Signs: Vital Signs Temperature 97.8 F 01/28/18 06:00 Pulse Rate 75 01/28/18 06:00 Respiratory Rate 21 01/28/18 06:00 Blood Pressure 130/71 01/28/18 06:00 O2 Sat by Pulse Oximetry (%) 95 01/27/18 22:00 Eyes: Yes: WNL, Conjunctiva Clear, EOM Intact HENT: Yes: WNL, Atraumatic, Normocephalic Neck: Yes: WNL, Supple, Trachea Midline Cardiovascular: Yes: WNL, Regular Rate and Rhythm Respiratory: Yes: WNL, Regular, CTA Bilaterally Gastrointestinal: Yes: WNL, Normal Bowel Sounds Genitourinary: Yes: WNL Musculoskeletal: Yes: WNL Extremities: Yes: WNL Edema: No Integumentary: Yes: WNL Neurological: Yes: WNL, Alert, Oriented ...Motor Strength: WNL Psychiatric: Yes: WNL Labs: CBC, BMP 01/28/18 07:00 01/28/18 07:20 INR, PTT INR 1.70 (0.82-1.09) H 01/21/18 04:45 Assessment/Plan IMP: ETOH cirrhosis Hypoalbuminemia Dyspnea Pleural effusions REC: Echo shows normal biV fxn w/ no sig valve dz and no PHTN. Her edema and effusions are most likely due to 3rd spacing from hypoalbuminemia. Will stop Lasix, BUN rising and bump in creatinine. Renal following coverage for dr. Ferguson
[2018-01-28 08:11] LABS: ALK PHOS 92 U/L (45-117); BILIRUBIN,TOTAL 1.9 mg/dL (0.2-1.0); TOT PROT 7.4 g/dl (6.4-8.2)
[2018-01-28] MEDS ORDERED: PT OWN MED DRAWER 7, Y5N ONE ×2 (08:54→20:13)
[2018-01-28] MEDS: RIFAXIMIN 550 MG TABLET (UD) PO SCH (09:08)
[2018-01-28] MEDS: LACTULOSE 20 GM/30 ML UDC (FOR ORAL USE ONLY) PO SCH ×2 (09:08→21:13)
[2018-01-28] MEDS: SPIRONOLACTONE 25 MG TABLET (FP) PO SCH (09:08)
[2018-01-28] MEDS: guaiFENesin/D-METHORPHAN HB 1 EACH TAB.ER.12H PO SCH ×2 (09:08→21:13)
[2018-01-28] MEDS: methylPREDNISolone NA SUCC 40 MG/1 ML VIAL IVPUSH SCH (09:08)
[2018-01-28] MEDS: LORATADINE 10 MG TABLET PO SCH (09:09)
--- NOTE | 2018-01-28 12:35 | PN ---
Progress Note (short form) - Note Progress Note: NAD on NC O2. No acute events overnight. Still with some dry cough and WHELAN. Intake & Output 01/25/18 01/26/18 01/27/18 01/28/18 23:59 23:59 23:59 23:59 Intake Total 179 861 8335 350 Balance 024 465 5393 350 Last Vital Signs Temp Pulse Resp BP Pulse Ox 97.8 F 75 21 130/71 95 01/28/18 06:00 01/28/18 06:00 01/28/18 06:00 01/28/18 06:00 01/27/18 22:00 Active Medications Albuterol/Ipratropium (Duoneb -) 1 amp NEB Q4H PRN PRN Reason: SHORTNESS OF BREATH Last Admin: 01/28/18 05:25 Dose: 1 amp Guaifenesin (Mucinex Dm -) 1 tablet PO BID [facility] Last Admin: 01/28/18 09:08 Dose: 1 tablet Lactulose (Cephulac (Oral Use)) 20 gm PO BID [facility] Last Admin: 01/28/18 09:08 Dose: 20 gm Loratadine (Claritin -) 10 mg PO DAILY [facility] Last Admin: 01/28/18 09:09 Dose: 10 mg Methylprednisolone Sodium Succinate (Solu-Medrol -) 40 mg IVPUSH DAILY [facility] Last Admin: 01/28/18 09:08 Dose: 40 mg Rifaximin (Xifaxan -) 550 mg PO BID [facility] Last Admin: 01/28/18 09:08 Dose: 550 mg Spironolactone (Aldactone -) 50 mg PO DAILY [facility] Last Admin: 01/28/18 09:08 Dose: 50 mg Constitutional: Yes: NAD Eyes: Yes: WNL HENT: Yes: WNL Neck: Yes: WNL Cardiovascular: Yes: Regular Rate and Rhythm, S1, S2 Respiratory: Yes: Scattered bilateral rhonchi Gastrointestinal: Yes: Normal Bowel Sounds, Soft Extremities: Yes: WNL Edema: Yes Labs: Laboratory Results - last 24 hr 01/22/18 01/28/18 01/28/18 07:20 07:00 07:20 WBC 7.8 D RBC 2.51 L Hgb 8.4 L Hct 24.1 L MCV 96.0 MCH 33.7 MCHC 35.1 RDW 17.2 H Plt Count 77 L MPV 7.3 L Platelet Comment Sodium 134 L Potassium 4.6 Chloride 101 Carbon Dioxide 25 Anion Gap 8 BUN 37 H Creatinine 1.3 H Creat Clearance w eGFR 41.24 Random Glucose 176 H Hemoglobin A1c % 4.6 L Calcium 8.7 Total Bilirubin 1.9 H AST 45 H ALT 45 Alkaline Phosphatase 92 Total Protein 7.4 Albumin 2.3 L Problem List - Problems (1) CKD (chronic kidney disease) Code(s): N18.9 - CHRONIC KIDNEY DISEASE, UNSPECIFIED (2) Acute respiratory failure with hypoxia Code(s): J96.01 - ACUTE RESPIRATORY FAILURE WITH HYPOXIA (3) Hyperammonemia Code(s): E72.20 - DISORDER OF UREA CYCLE METABOLISM, UNSPECIFIED (4) Liver failure Code(s): K72.90 - HEPATIC FAILURE, UNSPECIFIED WITHOUT COMA (5) Pleural effusion, left Code(s): J90 - PLEURAL EFFUSION, NOT ELSEWHERE CLASSIFIED (6) Respiratory distress Code(s): R06.03 - ACUTE RESPIRATORY DISTRESS (7) Acute on chronic alcoholic liver disease Code(s): K70.9 - ALCOHOLIC LIVER DISEASE, UNSPECIFIED (8) Renal insufficiency Code(s): N28.9 - DISORDER OF KIDNEY AND URETER, UNSPECIFIED Assessment/Plan IMP ACUTE RESPIRATORY FAILURE BILATERAL EFFUSIONS ETOH LIVER DISEASE CIRRHOSIS ANEMIA/THROMBOCYTOPENIA ELEVATED AMMONIA LEVEL NORMAL ACUTE ON CKD PLAN O2 DIURETICS PER RENAL/CARDIOLOGY SHORT COURSE OF PREDNSIONE STARTING TOMORROW INHALED BRONCHODILATORS LACTULOSE MONITOR LYTES,RENAL FUNCTION,AMMONIA LEVEL MONITOR CBC,PLT CT FOLLOW I+O DAILY WTS DR VERGARA
--- NOTE | 2018-01-28 13:36 | PN ---
Progress Note, Physician History of Present Illness: Pt seen and examined at bedside. She is awake and alert. She complains of lower ext edema. - Current Medication List Current Medications: Active Medications Albuterol/Ipratropium (Duoneb -) 1 amp NEB Q4H PRN PRN Reason: SHORTNESS OF BREATH Last Admin: 01/28/18 05:25 Dose: 1 amp Guaifenesin (Mucinex Dm -) 1 tablet PO BID [facility] Last Admin: 01/28/18 09:08 Dose: 1 tablet Lactulose (Cephulac (Oral Use)) 20 gm PO BID [facility] Last Admin: 01/28/18 09:08 Dose: 20 gm Loratadine (Claritin -) 10 mg PO DAILY [facility] Last Admin: 01/28/18 09:09 Dose: 10 mg Methylprednisolone Sodium Succinate (Solu-Medrol -) 40 mg IVPUSH DAILY [facility] Last Admin: 01/28/18 09:08 Dose: 40 mg Rifaximin (Xifaxan -) 550 mg PO BID [facility] Last Admin: 01/28/18 09:08 Dose: 550 mg Spironolactone (Aldactone -) 50 mg PO DAILY [facility] Last Admin: 01/28/18 09:08 Dose: 50 mg - Objective Vital Signs: Vital Signs Temperature 97.8 F 01/28/18 06:00 Pulse Rate 75 01/28/18 06:00 Respiratory Rate 21 01/28/18 06:00 Blood Pressure 130/71 01/28/18 06:00 O2 Sat by Pulse Oximetry (%) 95 01/27/18 22:00 Constitutional: Yes: Calm HENT: Yes: Atraumatic Neck: Yes: Supple Cardiovascular: Yes: S1, S2 Respiratory: Yes: On Nasal O2, Wheezes Gastrointestinal: Yes: Soft Genitourinary: Yes: WNL Musculoskeletal: Yes: WNL Edema: Yes Neurological: Yes: Oriented Psychiatric: Yes: Oriented Labs: CBC, BMP 01/28/18 07:00 01/28/18 07:20 INR, PTT INR 1.70 (0.82-1.09) H 01/21/18 04:45 Problem List - Problems (1) Alcoholic hepatitis with ascites Code(s): K70.11 - ALCOHOLIC HEPATITIS WITH ASCITES (2) CKD (chronic kidney disease) Code(s): N18.9 - CHRONIC KIDNEY DISEASE, UNSPECIFIED Assessment/Plan Current Medications Generic Name Dose Route Start Last Admin Trade Name Khushbu PRN Reason Stop Dose Admin Albuterol/Ipratropium 1 amp 01/27/18 16:43 01/28/18 05:25 Duoneb - NEB 1 amp Q4H PRN Administration SHORTNESS OF BREATH Guaifenesin 1 tablet 01/26/18 10:45 01/28/18 09:08 Mucinex Dm - PO 1 tablet BID JOVANNA Administration Lactulose 20 gm 01/21/18 22:00 01/28/18 09:08 Cephulac (Oral Use) PO 20 gm BID [facility]NA Administration Loratadine 10 mg 01/24/18 14:30 01/28/18 09:09 Claritin - PO 10 mg DAILY [facility]NA Administration Methylprednisolone Sodium Succinate 40 mg 01/27/18 10:00 01/28/18 09:08 Solu-Medrol - IVPUSH 40 mg DAILY [facility]NA Administration Rifaximin 550 mg 01/21/18 22:00 01/28/18 09:08 Xifaxan - PO 550 mg BID JOVANNA Administration Spironolactone 50 mg 01/22/18 10:00 01/28/18 09:08 Aldactone - PO 50 mg DAILY JOVANNA Administration Impression 1. CKD 2. liver cirrhosis 3. etoh abuse 4. jaundice 5. dyspnea 6. pleural effusions Plan - restart PO lasix - cont aldactone - repeat labs in am - renal function is stabilizing - GI follow up Dr Hernández
[2018-01-28] MEDS: FUROSEMIDE 40 MG TABLET (FP) PO SCH (13:43)
--- NOTE | 2018-01-28 15:04 | PN ---
Progress Note (short form) - Note Progress Note: Subjective: The patient was seen and examined at the bedside, she has no complaints at this time Current Medications Generic Name Dose Route Start Last Admin Trade Name Khushbu PRN Reason Stop Dose Admin Albuterol/Ipratropium 1 amp 01/27/18 16:43 01/28/18 05:25 Duoneb - NEB 1 amp Q4H PRN Administration SHORTNESS OF BREATH Furosemide 40 mg 01/28/18 13:45 01/28/18 13:43 Lasix - PO 40 mg DAILY JOVANNA Administration Guaifenesin 1 tablet 01/26/18 10:45 01/28/18 09:08 Mucinex Dm - PO 1 tablet BID JOVANNA Administration Lactulose 20 gm 01/21/18 22:00 01/28/18 09:08 Cephulac (Oral Use) PO 20 gm BID JOVANNA Administration Loratadine 10 mg 01/24/18 14:30 01/28/18 09:09 Claritin - PO 10 mg DAILY JOVANNA Administration Methylprednisolone Sodium Succinate 40 mg 01/27/18 10:00 01/28/18 09:08 Solu-Medrol - IVPUSH 40 mg DAILY JOVANNA Administration Rifaximin 550 mg 01/21/18 22:00 01/28/18 09:08 Xifaxan - PO 550 mg BID JOVANNA Administration Spironolactone 50 mg 01/22/18 10:00 01/28/18 09:08 Aldactone - PO 50 mg DAILY JOVANNA Administration Objective: Vital Signs Period Temp Pulse Resp BP Sys/Lui Pulse Ox Last 24 Hr 97.7 F-97.9 F 72-75 18-21 119-130/64-71 95-99 Physical Exam: General: NAD, A&Ox3 Lungs: CTA bilaterally Heart: RRR, S1S2 Ext: LLE 3+ pitting edema. RLE 2+ pitting edema NEuro: No focal deficits CBCD WBC 7.8 K/mm3 (4.0-10.0) D 01/28/18 07:00 RBC 2.51 M/mm3 (3.60-5.2) L 01/28/18 07:00 Hgb 8.4 GM/dL (10.7-15.3) L 01/28/18 07:00 Hct 24.1 % (32.4-45.2) L 01/28/18 07:00 MCV 96.0 fl (80-96) 01/28/18 07:00 MCHC 35.1 g/dl (32.0-36.0) 01/28/18 07:00 RDW 17.2 % (11.6-15.6) H 01/28/18 07:00 Plt Count 77 K/MM3 (134-434) L 01/28/18 07:00 MPV 7.3 fl (7.5-11.1) L 01/28/18 07:00 CMP Sodium 134 mmol/L (136-145) L 01/28/18 07:20 Potassium 4.6 mmol/L (3.5-5.1) 01/28/18 07:20 Chloride 101 mmol/L (98-107) 01/28/18 07:20 Carbon Dioxide 25 mmol/L (21-32) 01/28/18 07:20 Anion Gap 8 (8-16) 01/28/18 07:20 BUN 37 mg/dL (7-18) H 01/28/18 07:20 Creatinine 1.3 mg/dL (0.55-1.02) H 01/28/18 07:20 Creat Clearance w eGFR 41.24 (>60) 01/28/18 07:20 Random Glucose 176 mg/dL (74-106) H 01/28/18 07:20 Calcium 8.7 mg/dL (8.5-10.1) 01/28/18 07:20 Total Bilirubin 1.9 mg/dL (0.2-1.0) H 01/28/18 07:20 AST 45 U/L (15-37) H 01/28/18 07:20 ALT 45 U/L (12-78) 01/28/18 07:20 Alkaline Phosphatase 92 U/L (45-117) 01/28/18 07:20 Total Protein 7.4 g/dl (6.4-8.2) 01/28/18 07:20 Albumin 2.3 g/dl (3.4-5.0) L 01/28/18 07:20 CARDIAC ENZYMES Creatine Kinase 36 IU/L (26-192) 01/21/18 04:45 Troponin I < 0.02 ng/ml (0.00-0.05) 01/21/18 15:18 Microbiology 01/21/18 04:45 Blood - Peripheral Venous Blood Culture - Final NO GROWTH AFTER 5 DAYS INCUBATION 01/21/18 04:45 Blood - Peripheral Venous Blood Culture - Final NO GROWTH AFTER 5 DAYS INCUBATION 01/23/18 16:45 Nasopharyngeal Swab Influenza Types A,B Antigen (NEVAEH) - Final 01/23/18 16:45 Nasopharyngeal Swab - Final 01/23/18 16:45 Nasopharyngeal Swab Respiratory Syncytial Virus Ag - Final 01/23/18 07:05 Urine For Antigen Detection Legionella Antigen - Final 01/23/18 07:05 Urine For Antigen Detection Streptococcus pneumoniae Antigen (M - Final Imaging: - EGD 09/2017: portal hypertensive gastropathy, no evidence of gastric, or esophageal varices, no biopsies taken due to hypocoaguable state - ECHO normal biV fxn w/ no sig valve dz and no pulm htn Assessment: This is a 62 year old female with a PMHx of ETOH abuse, pulmonary edema, ESLD sees Dr. Humphrey, presented to the ED with worsening SOB, anascarca. Plan: 1. Acute resp failure, bronchitis? - Taper steroids medrol 40mg daily - Continue supplemental o2 - Completed 5 days of Ceftriaxone for possible bronchitis 2. Chronic liver disease d/t ETOH hepatitis, ascities - Aldactone 50mg daily - Restart Lasix - Rifaximin - Lactulose 20mg BID - Appreciate GI consult 3. VALERIA on CKD - Cr now stable 1.3 - Kidney/bladder US reviewed - Renal following 4. Pleural effusions - Restart Lasix - Possibly due to hypoalbuminemia d/t liver failure 5. B/l lower extremity edema - B/l lower extremity doppler negative for DVT 6. Thrombocytopenia - Due to liver failure - Stable, continue to monitor 7. Anemia - Iron panel noted 8. DVT - SCDS CODE STATUS: FULL CODE Visit type - Emergency Visit Emergency Visit: Yes ED Registration Date: 01/21/18 Care time: The patient presented to the Emergency Department on the above date and was hospitalized for further evaluation of their emergent condition. - New Patient This patient is new to me today: No - Critical Care Critical Care patient: No
[2018-01-29 07:59] LABS: CHLORIDE 102 mmol/L (98-107); POTASSIUM 4.7 mmol/L (3.5-5.1); SODIUM 136 mmol/L (136-145)
[2018-01-29 08:19] LABS: ALBUMIN 2.2 g/dl (3.4-5.0); ALK PHOS 98 U/L (45-117); ANION GAP 6 (8-16); BILIRUBIN,TOTAL 1.9 mg/dL (0.2-1.0); BLOOD UREA NITROGEN 36 mg/dL (7-18); CALCIUM 8.6 mg/dL (8.5-10.1); CO2 28 mmol/L (21-32); CREATININE 1.3 mg/dL (0.55-1.02); GLUCOSE,RANDOM 161 mg/dL (74-106); SGOT/AST 45 U/L (15-37); SGPT/ALT 52 U/L (12-78); TOT PROT 7.1 g/dl (6.4-8.2)
[2018-01-29] MEDS: LACTULOSE 20 GM/30 ML UDC (FOR ORAL USE ONLY) PO SCH (09:23)
[2018-01-29] MEDS: LORATADINE 10 MG TABLET PO SCH (09:23)
[2018-01-29] MEDS: FUROSEMIDE 40 MG TABLET (FP) PO SCH (09:23)
[2018-01-29] MEDS: SPIRONOLACTONE 25 MG TABLET (FP) PO SCH (09:23)
[2018-01-29] MEDS: guaiFENesin/D-METHORPHAN HB 1 EACH TAB.ER.12H PO SCH (09:24)
[2018-01-29] MEDS: methylPREDNISolone NA SUCC 40 MG/1 ML VIAL IVPUSH SCH (09:25)
--- NOTE | 2018-01-29 10:40 | PN ---
Progress Note (short form) - Note Progress Note: Subjective: The patient was seen and examined at the bedside, she has no complaints at this time Awaiting pre/post O2 Current Medications Generic Name Dose Route Start Last Admin Trade Name Khushbu PRN Reason Stop Dose Admin Albuterol/Ipratropium 1 amp 01/27/18 16:43 01/28/18 05:25 Duoneb - NEB 1 amp Q4H PRN Administration SHORTNESS OF BREATH Furosemide 40 mg 01/28/18 13:45 01/29/18 09:23 Lasix - PO 40 mg DAILY JOVANNA Administration Guaifenesin 1 tablet 01/26/18 10:45 01/29/18 09:24 Mucinex Dm - PO 1 tablet BID JOVANNA Administration Lactulose 20 gm 01/21/18 22:00 01/29/18 09:23 Cephulac (Oral Use) PO 20 gm BID JOVANNA Administration Loratadine 10 mg 01/24/18 14:30 01/29/18 09:23 Claritin - PO 10 mg DAILY JOVANNA Administration Methylprednisolone Sodium Succinate 40 mg 01/27/18 10:00 01/29/18 09:25 Solu-Medrol - IVPUSH 40 mg DAILY JOVANNA Administration Spironolactone 50 mg 01/22/18 10:00 01/29/18 09:23 Aldactone - PO 50 mg DAILY JOVANNA Administration Objective: Vital Signs Period Temp Pulse Resp BP Sys/Lui Pulse Ox Last 24 Hr 97.4 F-98.4 F 65-99 18-21 111-128/57-66 99 Physical Exam: General: NAD, A&Ox3 Lungs: CTA bilaterally Heart: RRR, S1S2 Ext: LLE 3+ pitting edema. RLE 2+ pitting edema NEuro: No focal deficits CBCD WBC 7.8 K/mm3 (4.0-10.0) D 01/28/18 07:00 RBC 2.51 M/mm3 (3.60-5.2) L 01/28/18 07:00 Hgb 8.4 GM/dL (10.7-15.3) L 01/28/18 07:00 Hct 24.1 % (32.4-45.2) L 01/28/18 07:00 MCV 96.0 fl (80-96) 01/28/18 07:00 MCHC 35.1 g/dl (32.0-36.0) 01/28/18 07:00 RDW 17.2 % (11.6-15.6) H 01/28/18 07:00 Plt Count 77 K/MM3 (134-434) L 01/28/18 07:00 MPV 7.3 fl (7.5-11.1) L 01/28/18 07:00 CMP Sodium 136 mmol/L (136-145) 01/29/18 06:36 Potassium 4.7 mmol/L (3.5-5.1) 01/29/18 06:36 Chloride 102 mmol/L (98-107) 01/29/18 06:36 Carbon Dioxide 28 mmol/L (21-32) 01/29/18 06:36 Anion Gap 6 (8-16) L 01/29/18 06:36 BUN 36 mg/dL (7-18) H 01/29/18 06:36 Creatinine 1.3 mg/dL (0.55-1.02) H 01/29/18 06:36 Creat Clearance w eGFR 41.24 (>60) 01/29/18 06:36 Random Glucose 161 mg/dL (74-106) H 01/29/18 06:36 Calcium 8.6 mg/dL (8.5-10.1) 01/29/18 06:36 Total Bilirubin 1.9 mg/dL (0.2-1.0) H 01/29/18 06:36 AST 45 U/L (15-37) H 01/29/18 06:36 ALT 52 U/L (12-78) 01/29/18 06:36 Alkaline Phosphatase 98 U/L (45-117) 01/29/18 06:36 Total Protein 7.1 g/dl (6.4-8.2) 01/29/18 06:36 Albumin 2.2 g/dl (3.4-5.0) L 01/29/18 06:36 CARDIAC ENZYMES Creatine Kinase 36 IU/L (26-192) 01/21/18 04:45 Troponin I < 0.02 ng/ml (0.00-0.05) 01/21/18 15:18 Microbiology 01/21/18 04:45 Blood - Peripheral Venous Blood Culture - Final NO GROWTH AFTER 5 DAYS INCUBATION 01/21/18 04:45 Blood - Peripheral Venous Blood Culture - Final NO GROWTH AFTER 5 DAYS INCUBATION 01/23/18 16:45 Nasopharyngeal Swab Influenza Types A,B Antigen (NEVAEH) - Final 01/23/18 16:45 Nasopharyngeal Swab - Final 01/23/18 16:45 Nasopharyngeal Swab Respiratory Syncytial Virus Ag - Final 01/23/18 07:05 Urine For Antigen Detection Legionella Antigen - Final 01/23/18 07:05 Urine For Antigen Detection Streptococcus pneumoniae Antigen (M - Final Imaging: - EGD 09/2017: portal hypertensive gastropathy, no evidence of gastric, or esophageal varices, no biopsies taken due to hypocoaguable state - ECHO normal biV fxn w/ no sig valve dz and no pulm htn Assessment: This is a 62 year old female with a PMHx of ETOH abuse, pulmonary edema, ESLD sees Dr. Humphrey, presented to the ED with worsening SOB, anascarca. Plan: 1. Acute resp failure, bronchitis? - Taper steroids - Continue supplemental o2, f/u pre/post O2 to assess need for home O2 - Completed 5 days of Ceftriaxone for possible bronchitis 2. Chronic liver disease d/t ETOH hepatitis, ascities - Aldactone 50mg daily - Continue Lasix - Rifaximin - Lactulose 20mg BID - Appreciate GI consult 3. VALERIA on CKD - Cr now stable 1.3 - Kidney/bladder US reviewed - Renal following 4. Pleural effusions - Continue Lasix - Possibly due to hypoalbuminemia d/t liver failure 5. B/l lower extremity edema - B/l lower extremity doppler negative for DVT 6. Thrombocytopenia - Due to liver failure - Stable, continue to monitor 7. Anemia - Iron panel noted 8. DVT - SCDS CODE STATUS: FULL CODE Visit type - Emergency Visit Emergency Visit: Yes ED Registration Date: 01/21/18 Care time: The patient presented to the Emergency Department on the above date and was hospitalized for further evaluation of their emergent condition. - New Patient This patient is new to me today: No - Critical Care Critical Care patient: No
--- NOTE | 2018-01-29 11:56 | PN ---
Progress Note, Physician History of Present Illness: PULMONARY ALERT,FEELING BETTER,-RESP DISTRESS,+ COUGH - Current Medication List Current Medications: Active Medications Albuterol/Ipratropium (Duoneb -) 1 amp NEB Q4H PRN PRN Reason: SHORTNESS OF BREATH Last Admin: 01/28/18 05:25 Dose: 1 amp Furosemide (Lasix -) 40 mg PO DAILY [facility] Last Admin: 01/29/18 09:23 Dose: 40 mg Guaifenesin (Mucinex Dm -) 1 tablet PO BID [facility] Last Admin: 01/29/18 09:24 Dose: 1 tablet Lactulose (Cephulac (Oral Use)) 20 gm PO BID [facility] Last Admin: 01/29/18 09:23 Dose: 20 gm Loratadine (Claritin -) 10 mg PO DAILY [facility] Last Admin: 01/29/18 09:23 Dose: 10 mg Methylprednisolone Sodium Succinate (Solu-Medrol -) 40 mg IVPUSH DAILY [facility] Last Admin: 01/29/18 09:25 Dose: 40 mg Spironolactone (Aldactone -) 50 mg PO DAILY [facility] Last Admin: 01/29/18 09:23 Dose: 50 mg - Objective Vital Signs: Vital Signs Temperature 98.4 F 01/29/18 09:00 Pulse Rate 68 01/29/18 09:00 Respiratory Rate 18 01/29/18 09:00 Blood Pressure 111/57 01/29/18 09:00 O2 Sat by Pulse Oximetry (%) 99 01/28/18 21:00 Constitutional: Yes: Well Nourished, Calm Eyes: Yes: WNL HENT: Yes: WNL Neck: Yes: WNL Cardiovascular: Yes: Regular Rate and Rhythm, S1, S2 Respiratory: Yes: Rhonchi (FEW SCATTERED MADDY RHONCHI) Gastrointestinal: Yes: Normal Bowel Sounds, Soft Extremities: Yes: WNL Edema: No Labs: CBC, BMP 01/28/18 07:00 01/29/18 06:36 INR, PTT INR 1.70 (0.82-1.09) H 01/21/18 04:45 Problem List - Problems (1) CKD (chronic kidney disease) Code(s): N18.9 - CHRONIC KIDNEY DISEASE, UNSPECIFIED (2) Acute respiratory failure with hypoxia Code(s): J96.01 - ACUTE RESPIRATORY FAILURE WITH HYPOXIA (3) Hyperammonemia Code(s): E72.20 - DISORDER OF UREA CYCLE METABOLISM, UNSPECIFIED (4) Liver failure Code(s): K72.90 - HEPATIC FAILURE, UNSPECIFIED WITHOUT COMA (5) Pleural effusion, left Code(s): J90 - PLEURAL EFFUSION, NOT ELSEWHERE CLASSIFIED (6) Respiratory distress Code(s): R06.03 - ACUTE RESPIRATORY DISTRESS (7) Acute on chronic alcoholic liver disease Code(s): K70.9 - ALCOHOLIC LIVER DISEASE, UNSPECIFIED (8) Renal insufficiency Code(s): N28.9 - DISORDER OF KIDNEY AND URETER, UNSPECIFIED Assessment/Plan CONSULTATION DICTATED 01/21/18 IMP ACUTE RESPIRATORY FAILURE ? CHF IMPROVED BILATERAL EFFUSIONS ETOH LIVER DISEASE CIRRHOSIS ANEMIA/THROMBOCYTOPENIA ELEVATED AMMONIA LEVEL NORMAL ACUTE ON CKD PLAN O2 ALDACTONE/LASIX PREDNISONE INHALED BRONCHODILATORS LACTULOSE MONITOR LYTES,RENAL FUNCTION,AMMONIA LEVEL MONITOR CBC,PLT CT DR VENEGAS Problem List - Problems (1) CKD (chronic kidney disease) Code(s): N18.9 - CHRONIC KIDNEY DISEASE, UNSPECIFIED (2) Acute respiratory failure with hypoxia Code(s): J96.01 - ACUTE RESPIRATORY FAILURE WITH HYPOXIA (3) Hyperammonemia Code(s): E72.20 - DISORDER OF UREA CYCLE METABOLISM, UNSPECIFIED (4) Liver failure Code(s): K72.90 - HEPATIC FAILURE, UNSPECIFIED WITHOUT COMA (5) Pleural effusion, left Code(s): J90 - PLEURAL EFFUSION, NOT ELSEWHERE CLASSIFIED (6) Respiratory distress Code(s): R06.03 - ACUTE RESPIRATORY DISTRESS (7) Acute on chronic alcoholic liver disease Code(s): K70.9 - ALCOHOLIC LIVER DISEASE, UNSPECIFIED (8) Renal insufficiency Code(s): N28.9 - DISORDER OF KIDNEY AND URETER, UNSPECIFIED
[2018-01-29] MEDS ORDERED: PNEUMOC 13-VAL CONJ-DIP CRM/PF 0.5 ML DISP.SYRIN IM ONE (13:30)
--- NOTE | 2018-01-29 14:07 | PN ---
Progress Note, Physician History of Present Illness: Comfortable. Shortness of breath improved. Ambulating - Current Medication List Current Medications: Active Medications Albuterol/Ipratropium (Duoneb -) 1 amp NEB Q4H PRN PRN Reason: SHORTNESS OF BREATH Last Admin: 01/28/18 05:25 Dose: 1 amp Furosemide (Lasix -) 40 mg PO DAILY [facility] Last Admin: 01/29/18 09:23 Dose: 40 mg Guaifenesin (Mucinex Dm -) 1 tablet PO BID [facility] Last Admin: 01/29/18 09:24 Dose: 1 tablet Lactulose (Cephulac (Oral Use)) 20 gm PO BID [facility] Last Admin: 01/29/18 09:23 Dose: 20 gm Loratadine (Claritin -) 10 mg PO DAILY [facility] Last Admin: 01/29/18 09:23 Dose: 10 mg Methylprednisolone Sodium Succinate (Solu-Medrol -) 40 mg IVPUSH DAILY [facility] Stop: 01/29/18 18:00 Last Admin: 01/29/18 09:25 Dose: 40 mg Prednisone (Deltasone -) 40 mg PO DAILY [facility] Spironolactone (Aldactone -) 50 mg PO DAILY [facility] Last Admin: 01/29/18 09:23 Dose: 50 mg - Objective Vital Signs: Vital Signs Temperature 98.4 F 01/29/18 09:00 Pulse Rate 86 01/29/18 13:13 Respiratory Rate 16 01/29/18 10:00 Blood Pressure 111/57 01/29/18 10:00 O2 Sat by Pulse Oximetry (%) 94 L 01/29/18 13:13 Constitutional: Yes: No Distress, Calm HENT: Yes: Atraumatic Gastrointestinal: Yes: Normal Bowel Sounds, Soft, Distention. No: Melena, Tenderness, Vomiting Neurological: Yes: Alert, Oriented. No: Asterixis, Ataxia Labs: CBC, BMP 01/28/18 07:00 01/29/18 06:36 INR, PTT INR 1.70 (0.82-1.09) H 01/21/18 04:45 Laboratory Last Values WBC 7.8 K/mm3 (4.0-10.0) D 01/28/18 07:00 RBC 2.51 M/mm3 (3.60-5.2) L 01/28/18 07:00 Hgb 8.4 GM/dL (10.7-15.3) L 01/28/18 07:00 Hct 24.1 % (32.4-45.2) L 01/28/18 07:00 MCV 96.0 fl (80-96) 01/28/18 07:00 MCH 33.7 pg (25.7-33.7) 01/28/18 07:00 MCHC 35.1 g/dl (32.0-36.0) 01/28/18 07:00 RDW 17.2 % (11.6-15.6) H 01/28/18 07:00 Plt Count 77 K/MM3 (134-434) L 01/28/18 07:00 MPV 7.3 fl (7.5-11.1) L 01/28/18 07:00 Neutrophils % 61.1 % (42.8-82.8) 01/23/18 09:25 Lymphocytes % 26.4 % (8-40) 01/23/18 09:25 Monocytes % 9.2 % (3.8-10.2) 01/23/18 09:25 Eosinophils % 2.9 % (0-4.5) 01/23/18 09:25 Basophils % 0.4 % (0-2.0) 01/23/18 09:25 Platelet Comment 01/28/18 07:00 PT with INR 19.20 SEC (9.7-13.0) H 01/21/18 04:45 INR 1.70 (0.82-1.09) H 01/21/18 04:45 Puncture Site Left radial 01/21/18 10:12 ABG pH 7.38 (7.35-7.45) 01/21/18 10:12 ABG pCO2 at Pt Temp 38.2 mmHg (35-45) 01/21/18 10:12 ABG pO2 at Pt Temp 114.0 mmHg (80-100) H 01/21/18 10:12 ABG HCO3 22.3 meq/L (22-26) 01/21/18 10:12 ABG O2 Sat (Measured) 99.1 % (90-98.9) H 01/21/18 10:12 ABG O2 Content 13.2 % vol (15-22) L 01/21/18 10:12 ABG Base Excess -1.9 meq/l (-2-2) 01/21/18 10:12 Chandler Test Positive 01/21/18 10:12 Oxygen Flow Rate Yes 01/21/18 10:12 Sodium 136 mmol/L (136-145) 01/29/18 06:36 Potassium 4.7 mmol/L (3.5-5.1) 01/29/18 06:36 Chloride 102 mmol/L (98-107) 01/29/18 06:36 Carbon Dioxide 28 mmol/L (21-32) 01/29/18 06:36 Anion Gap 6 (8-16) L 01/29/18 06:36 BUN 36 mg/dL (7-18) H 01/29/18 06:36 Creatinine 1.3 mg/dL (0.55-1.02) H 01/29/18 06:36 Creat Clearance w eGFR 41.24 (>60) 01/29/18 06:36 Random Glucose 161 mg/dL (74-106) H 01/29/18 06:36 Hemoglobin A1c % 4.6 % (4.8-6.0) L 01/22/18 07:20 Calcium 8.6 mg/dL (8.5-10.1) 01/29/18 06:36 Magnesium 2.3 mg/dL (1.8-2.4) 01/24/18 06:49 Iron 155 ug/dL (27-139) H 01/22/18 07:26 TIBC < 172 ug/dL (250-450) L 01/22/18 07:26 Iron Saturation > 90 % (15-55) H 01/22/18 07:26 Ferritin Cancelled 01/22/18 07:26 Total Bilirubin 1.9 mg/dL (0.2-1.0) H 01/29/18 06:36 AST 45 U/L (15-37) H 01/29/18 06:36 ALT 52 U/L (12-78) 01/29/18 06:36 Alkaline Phosphatase 98 U/L (45-117) 01/29/18 06:36 Ammonia 20.52 umol/L (11-32) 01/23/18 09:25 Creatine Kinase 36 IU/L (26-192) 01/21/18 04:45 Troponin I < 0.02 ng/ml (0.00-0.05) 01/21/18 15:18 B-Natriuretic Peptide 694.80 pg/ml (5-125) H 01/21/18 04:45 Total Protein 7.1 g/dl (6.4-8.2) 01/29/18 06:36 Albumin 2.2 g/dl (3.4-5.0) L 01/29/18 06:36 Triglycerides 55 mg/dL (35-160) 01/22/18 07:20 Cholesterol 152 mg/dL (50-200) 01/22/18 07:20 Total LDL Cholesterol 101 mg/dL (5-100) H 01/22/18 07:20 HDL Cholesterol 38 mg/dL (40-60) L 01/22/18 07:20 Urine Color Martha 01/24/18 20:25 Urine Appearance Clear 01/24/18 20:25 Urine pH 5.0 (5.0-8.0) 01/24/18 20:25 Ur Specific [place] 1.017 (1.001-1.035) 01/24/18 20:25 Urine Protein Negative (NEGATIVE) 01/24/18 20:25 Urine Glucose (UA) Negative (NEGATIVE) 01/24/18 20:25 Urine Ketones Negative (NEGATIVE) 01/24/18 20:25 Urine Blood Negative (NEGATIVE) 01/24/18 20:25 Urine Nitrite Negative (NEGATIVE) 01/24/18 20:25 Urine Bilirubin Negative (<2.0 mg/dL) 01/24/18 20:25 Urine Urobilinogen 2.0 mg/dL (0.2-1.0) H 01/24/18 20:25 Ur Leukocyte Esterase Negative (NEGATIVE) 01/24/18 20:25 Ur Random Sodium 10 MMOL/L 01/25/18 18:00 Ur Random Potassium 32.6 MMOL/L 01/25/18 18:00 Ur Random Chloride < 10 MMOL/L 01/25/18 18:00 Ur Random Urea Nitrogn 584 mg/dL 01/25/18 18:00 Urine Creatinine 124.0 mg/dL (20-320) 01/25/18 18:00 Problem List - Problems (1) Alcoholic hepatitis with ascites Code(s): K70.11 - ALCOHOLIC HEPATITIS WITH ASCITES (2) Acute on chronic alcoholic liver disease Code(s): K70.9 - ALCOHOLIC LIVER DISEASE, UNSPECIFIED Assessment/Plan Continue current care Due for ultrasound of the liver and alpha-fetoprotein in February of this year. Screening colonoscopy as part of transplant evaluation.
[2018-01-29 14:24] VITALS: BP 119/61; PULSE 74; TEMP 98.3
--- NOTE | 2018-01-29 15:15 | DS ---
Physical Examination Vital Signs: Vital Signs Temperature 98.3 F 01/29/18 14:23 Pulse Rate 74 01/29/18 14:23 Respiratory Rate 18 01/29/18 14:23 Blood Pressure 119/61 01/29/18 14:23 O2 Sat by Pulse Oximetry (%) 94 L 01/29/18 13:13 Labs: CBC, BMP 01/28/18 07:00 01/29/18 06:36 Discharge Summary Reason For Visit: RESP FAILURE W/HYPOXIA LIVER FAILURE Current Active Problems Acute respiratory failure with hypoxia (Acute) Alcoholic hepatitis with ascites (Acute) CKD (chronic kidney disease) (Acute) Hyperammonemia (Acute) Liver failure (Acute) Pleural effusion, left (Acute) Pneumonia (Acute) Respiratory distress (Acute) Condition: Improved - Instructions Diet, Activity, Other Instructions: Please return to the ED with new, persistent, or worsening symptoms. Please follow-up with providers as indicated. Referrals: Singh Muro MD [Primary Care Provider] - (Please follow-up with your primary care provider within 2-3 days) Steve Pa MD [Staff Physician] - (Please follow-up with your gastrointestinal provider within 2-3 weeks to schedule your outpatient AFP ( alpha-fetoprotein) and ultrasound of your liver. You are also due to have a screening colonoscopy with your GI doctor now. ) Disposition: HOME - Home Medications Comprehensive Discharge Medication List: Ambulatory Orders Furosemide [Lasix] 40 mg PO DAILY 01/21/18 Rifaximin [Xifaxan] 550 mg PO BID 01/21/18 Spironolactone [Aldactone] 50 mg PO DAILY 01/21/18 Albuterol 2.5/Ipratropium 0.5 [Duoneb -] 1 amp NEB Q4H PRN #120 amp 01/29/18 Furosemide [Lasix -] 40 mg PO DAILY #30 tablet 01/29/18 Guaifenesin Dm [Mucinex Dm -] 1 tablet PO BID #60 tab.er.12h 01/29/18 Lactulose (Oral Use) [Cephulac -] 20 gm PO BID #1000 ml 01/29/18 Loratadine [Claritin -] 10 mg PO DAILY #30 tablet 01/29/18 predniSONE [Deltasone -] 0 mg PO DAILY #30 tablet 01/29/18 - Discharge Referral Referred to [facility] No
--- NOTE | 2018-01-29 15:33 | PN ---
Progress Note, Physician History of Present Illness: Pt seen and examined at bedside. She is awake and alert. She denies shortness of breath. - Current Medication List Current Medications: Active Medications Albuterol/Ipratropium (Duoneb -) 1 amp NEB Q4H PRN PRN Reason: SHORTNESS OF BREATH Last Admin: 01/28/18 05:25 Dose: 1 amp Furosemide (Lasix -) 40 mg PO DAILY [facility] Last Admin: 01/29/18 09:23 Dose: 40 mg Guaifenesin (Mucinex Dm -) 1 tablet PO BID [facility] Last Admin: 01/29/18 09:24 Dose: 1 tablet Lactulose (Cephulac (Oral Use)) 20 gm PO BID [facility] Last Admin: 01/29/18 09:23 Dose: 20 gm Loratadine (Claritin -) 10 mg PO DAILY [facility] Last Admin: 01/29/18 09:23 Dose: 10 mg Methylprednisolone Sodium Succinate (Solu-Medrol -) 40 mg IVPUSH DAILY [facility] Stop: 01/29/18 18:00 Last Admin: 01/29/18 09:25 Dose: 40 mg Prednisone (Deltasone -) 40 mg PO DAILY [facility] Spironolactone (Aldactone -) 50 mg PO DAILY [facility] Last Admin: 01/29/18 09:23 Dose: 50 mg - Objective Vital Signs: Vital Signs Temperature 98.3 F 01/29/18 14:23 Pulse Rate 74 01/29/18 14:23 Respiratory Rate 18 01/29/18 14:23 Blood Pressure 119/61 01/29/18 14:23 O2 Sat by Pulse Oximetry (%) 94 L 01/29/18 13:13 Constitutional: Yes: Calm Eyes: Yes: Conjunctiva Clear HENT: Yes: Atraumatic Neck: Yes: Supple Cardiovascular: Yes: S1, S2 Respiratory: Yes: Wheezes Gastrointestinal: Yes: Soft Genitourinary: Yes: WNL Musculoskeletal: Yes: WNL Edema: LLE: Trace Neurological: Yes: Oriented Psychiatric: Yes: Oriented Labs: CBC, BMP 01/28/18 07:00 01/29/18 06:36 INR, PTT INR 1.70 (0.82-1.09) H 01/21/18 04:45 Problem List - Problems (1) Alcoholic hepatitis with ascites Code(s): K70.11 - ALCOHOLIC HEPATITIS WITH ASCITES (2) CKD (chronic kidney disease) Code(s): N18.9 - CHRONIC KIDNEY DISEASE, UNSPECIFIED Assessment/Plan Current Medications Generic Name Dose Route Start Last Admin Trade Name Freq PRN Reason Stop Dose Admin Albuterol/Ipratropium 1 amp 01/27/18 16:43 01/28/18 05:25 Duoneb - NEB 1 amp Q4H PRN Administration SHORTNESS OF BREATH Furosemide 40 mg 01/28/18 13:45 01/29/18 09:23 Lasix - PO 40 mg DAILY JOVANNA Administration Guaifenesin 1 tablet 01/26/18 10:45 01/29/18 09:24 Mucinex Dm - PO 1 tablet BID JOVANNA Administration Lactulose 20 gm 01/21/18 22:00 01/29/18 09:23 Cephulac (Oral Use) PO 20 gm BID JOVANNA Administration Loratadine 10 mg 01/24/18 14:30 01/29/18 09:23 Claritin - PO 10 mg DAILY JOVANNA Administration Methylprednisolone Sodium Succinate 40 mg 01/27/18 10:00 01/29/18 09:25 Solu-Medrol - IVPUSH 01/29/18 18:00 40 mg DAILY JOVANNA Administration Prednisone 40 mg 01/30/18 10:00 Deltasone - PO DAILY [facility] Spironolactone 50 mg 01/22/18 10:00 01/29/18 09:23 Aldactone - PO 50 mg DAILY [facility] Administration Impression 1. CKD 2. liver cirrhosis 3. etoh abuse 4. jaundice 5. dyspnea 6. pleural effusions Plan - cont PO lasix and spironolactone - monitor renal function - will need further outpt follow up and workup - renal function is stabilizing - GI follow up Dr Hernández
[2018-01-30] MEDS ORDERED: predniSONE 20 MG TABLET (UD) PO SCH (10:00)
== END 2018-01-29 18:16 | disposition home or self-care (01) | DRG 189 ==
LOC: JER 03:01 → JERBED 10:12 → J4S 12:53
PROVIDERS: ADMIT Internal Medicine; ATTEND Registered Nurse
PROC: 5A09457 Assistance with Respiratory Ventilation, 24-96 Consecutive Hours, Continuous Positive Airway Pressure (ICD-10-PCS; principal; 2018-01-21)
DX: J96.01 Acute respiratory failure with hypoxia (principal); J18.9 Pneumonia, unspecified organism; E72.4 Disorders of ornithine metabolism; J90 Pleural effusion, not elsewhere classified; K76.6 Portal hypertension; D68.9 Coagulation defect, unspecified; N17.9 Acute kidney failure, unspecified; J98.11 Atelectasis; K70.11 Alcoholic hepatitis with ascites; I48.91 Unspecified atrial fibrillation; D64.9 Anemia, unspecified; D69.6 Thrombocytopenia, unspecified; K31.89 Other diseases of stomach and duodenum; E83.42 Hypomagnesemia; N28.9 Disorder of kidney and ureter, unspecified
CPT/HCPCS: 36415; 36600; 71045-TC-FY; 71046-TC-FY; 71250-TC; 76775-TC; 76856-TC; 80048; 80053; 80061; 81003; 82140; 82436; 82550; 82570; 82728; 82803; 83036; 83540; 83550; 83721; 83735; 83880; 84133; 84300; 84484; 84540; 85025; 85027; 85610; 87040; 87420; 87804; 87899; 93005; 93010; 93306-TC; 93971-TC; 94640; 94660; 94761; 99284-25; J7620

== ENCOUNTER 2018-02-09 15:18 | Inpatient (IN) | payer OTHER ==
--- NOTE | 2018-02-09 15:42 | PDOC ---
Rapid Medical Evaluation Time Seen by Provider: 02/09/18 15:38 Medical Evaluation: Allergies Allergy/AdvReac Type Severity Reaction Status Date / Time No Known Allergies Allergy Verified 02/09/18 15:37 02/09/18 15:39 I have performed a brief in-person evaluation of this patient. The patient presents with a chief complaint of:Upper abd pain w/ n/v this am. H/ o ETOH cirrhosis, CKD, PNA Pertinent physical exam findings:BP 83/46, rest of vss, chest/lungs clear, +ttp to upper abd I have ordered the following:Pt taken directly to main ED, labs pending The patient will proceed to the ED for further evaluation Discharge Disposition - Diagnosis Abdominal pain Qualifiers: Abdominal location: unspecified location Qualified Code(s): R10.9 - Unspecified abdominal pain - Referrals - Patient Instructions - Post Discharge Activity
--- NOTE | 2018-02-09 16:31 | PDOC ---
History of Present Illness - General Chief Complaint: Pain, Acute Stated Complaint: REVISIT Time Seen by Provider: 02/09/18 15:38 - History of Present Illness Initial Comments: 02/09/18 16:30 Ms. Colon is a 62 yo female w/ pmh of EtOH abuse and liver disease who presents c /o a 1 day history of intense abdominal pain. She reports she had previously been in her normal state of health however after she ate breakfast she experienced intense pain at her umbilicus. She rates the pain as severe and vomited one time from it, although she says this made her feel better. The patient denies chest pain, shortness of breath, headache and dizziness. Denies fever, chills, diarrhea and constipation. Denies dysuria, frequency, urgency and hematuria. Allergies: NKDA Past History - Past Medical History Allergies/Adverse Reactions: Allergies Allergy/AdvReac Type Severity Reaction Status Date / Time No Known Allergies Allergy Verified 02/09/18 15:37 Home Medications: Ambulatory Orders Rifaximin [Xifaxan] 550 mg PO BID 01/21/18 Spironolactone [Aldactone] 50 mg PO DAILY 01/21/18 Albuterol 2.5/Ipratropium 0.5 [Duoneb -] 1 amp NEB Q4H PRN #120 amp 01/29/18 Albuterol Sulfate Inhaler - [Ventolin HFA Inhaler -] 1 - 2 inh PO Q4H PRN #1 inhaler 01/29/18 Furosemide [Lasix -] 40 mg PO DAILY #30 tablet 01/29/18 Guaifenesin Dm [Mucinex Dm -] 1 tablet PO BID #60 tab.er.12h 01/29/18 Lactulose (Oral Use) [Cephulac -] 20 gm PO BID #1000 ml 01/29/18 Loratadine [Claritin -] 10 mg PO DAILY #30 tablet 01/29/18 Nebulizer [Aeroeclipse II] 1 each MC ASDIR #1 each 01/29/18 predniSONE [Deltasone -] 0 mg PO DAILY #30 tablet 01/29/18 Anemia: No Asthma: Yes (as an infant) Cancer: No Cardiac Disorders: Yes (A-fib) CVA: No COPD: No CHF: No DVT: No Dementia: No Diabetes: No GI Disorders: Yes (Liver cirrhosis) Disorders: No HTN: No Hypercholesterolemia: No Liver Disease: Yes Seizures: No Thyroid Disease: No - Surgical History Abdominal Surgery: No Appendectomy: No Cardiac Surgery: No Cholecystectomy: No Lung Surgery: No Neurologic Surgery: No Orthopedic Surgery: No - Immunization History Immunization Up to Date: Yes - Suicide/Smoking/Psychosocial Hx Smoking History: Former smoker Have you smoked in the past 12 months: No Information on smoking cessation initiated: No 'Breaking Loose' booklet given: 10/05/17 Hx Alcohol Use: No Drug/Substance Use Hx: No Substance Use Type: None Hx Substance Use Treatment: No Review of Systems - Review of Systems Comments:: 02/09/18 17:33 GENERAL/CONSTITUTIONAL: No fever or chills. No weakness. HEAD, EYES, EARS, NOSE AND THROAT: No change in vision. No ear pain or discharge. No sore throat. CARDIOVASCULAR: No chest pain or shortness of breath RESPIRATORY: No cough, wheezing, or hemoptysis. GASTROINTESTINAL: +N/V as described. Midline abdominal pain. No diarrhea or constipation. GENITOURINARY: No dysuria, frequency, or change in urination. MUSCULOSKELETAL: No joint or muscle swelling or pain. No neck or back pain. SKIN: No rash NEUROLOGIC: No headache, vertigo, loss of consciousness, or change in strength/ sensation. ENDOCRINE: No increased thirst. No abnormal weight change HEMATOLOGIC/LYMPHATIC: No anemia, easy bleeding, or history of blood clots. ALLERGIC/IMMUNOLOGIC: No hives or skin allergy. *Physical Exam - Vital Signs Last Vital Signs Temp Pulse Resp BP Pulse Ox 98.3 F 68 18 82/46 97 02/09/18 15:37 02/09/18 15:37 02/09/18 15:37 02/09/18 15:37 02/09/18 15:37 - Physical Exam Comments: 02/09/18 17:33 GENERAL: Awake, alert, and fully oriented, in no acute distress HEAD: No signs of trauma, normocephalic, atraumatic EYES: PERRLA, EOMI, sclera anicteric, conjunctiva clear ENT: Auricles normal inspection, hearing grossly normal, nares patent, oropharynx clear without exudates. Moist mucosa NECK: Normal ROM, supple, no lymphadenopathy, JVD, or masses LUNGS: No distress, speaks full sentences, clear to auscultation bilaterally HEART: Regular rate and rhythm, normal S1 and S2, no murmurs, rubs or gallops, peripheral pulses normal and equal bilaterally. ABDOMEN: Soft, nontender, normoactive bowel sounds. No guarding, no rebound. No masses EXTREMITIES: Normal inspection, Normal range of motion, no edema. No clubbing or cyanosis. NEUROLOGICAL: Cranial nerves II through XII grossly intact. Normal speech, normal gait, no focal sensorimotor deficits SKIN: Warm, Dry, normal turgor, no rashes or lesions noted. ED Treatment Course - LABORATORY CBC & Chemistry Diagram: 02/09/18 17:21 02/09/18 17:21 Medical Decision Making - Medical Decision Making 02/09/18 18:54 Ms. Colon is a 62 yo female w/ pmh as described who presents for evaluation of 1 day history of umbilical pain concerning for entrapment. CT abdomen/pelvis ordered for evaluation and surgery made aware. Patient signed out to Dr. Moy for further evaluation. *DC/Admit/Observation/Transfer Diagnosis at time of Disposition: Abdominal pain Qualifiers: Abdominal location: unspecified location Qualified Code(s): R10.9 - Unspecified abdominal pain - Referrals - Patient Instructions - Post Discharge Activity
[2018-02-09] MEDS ORDERED: ONDANSETRON 4 MG TABLET PO ONE (17:18)
[2018-02-09] MEDS ORDERED: SODIUM CHLORIDE 1,000 ML IV STA (17:18)
[2018-02-09] MEDS ORDERED: morphine CARPU-JECT 4 MG/1 ML DISP.SYRIN IVPUSH ONE ×2 (17:18→21:43)
[2018-02-09] MEDS ORDERED: morphine CARPU-JECT 2 MG/1 ML DISP.SYRIN ONE (17:30)
[2018-02-09] MEDS ORDERED: ONDANSETRON 4 MG/2 ML VIAL ONE (17:30)
[2018-02-09 17:37] LABS: BASO % 0.4 % (0-2.0); EOS % 0.4 % (0-4.5); HEMATOCRIT 30.8 % (32.4-45.2); HEMOGLOBIN 10.3 GM/dL (10.7-15.3); MCH 32.9 pg (25.7-33.7); MCHC 33.5 g/dl (32.0-36.0); MEAN CELL VOLUME 98.2 fl (80-96); MEAN PLT VOLUME 7.8 fl (7.5-11.1); NEUT % 83.2 % (42.8-82.8); PLATELET COUNT 91 K/MM3 (134-434); RBC 3.14 M/mm3 (3.60-5.2); RDW 17.5 % (11.6-15.6); WHITE BLOOD COUNT 7.9 K/mm3 (4.0-10.0)
--- NOTE | 2018-02-09 17:40 | PDOC ---
Attending Attestation - Resident Resident Name: Cecilio Headley - ED Attending Attestation I have performed the following: I have examined & evaluated the patient, The case was reviewed & discussed with the resident, I agree w/resident's findings & plan, Exceptions are as noted - HPI HPI: 02/09/18 17:20 62 F with h/o ETOH cirrhosis, CKD presents to ED with 1 day of abdominal pain and vomiting. Pt states that she was eating breakfast today when she first noticed the pain. Pt vomited once. She reports persistent pain in the periumbilical area. She notes that she has always had a small hernia at her bellybutton but it has gotten much bigger today. Pt denies F/C. - Physicial Exam PE: 02/09/18 17:40 "GENERAL: Awake, alert, and fully oriented, in no acute distress. HEAD: No signs of trauma EYES: PERRLA, EOMI, sclera anicteric, conjunctiva clear ENT: Auricles normal inspection, hearing grossly normal, nares patent, oropharynx clear without exudates. Moist mucosa NECK: Nontender, no stepoffs, Normal ROM, supple, no lymphadenopathy, JVD, or masses LUNGS: Breath sounds equal, clear to auscultation bilaterally. No wheezes, and no crackles HEART: Regular rate and rhythm, normal S1 and S2, no murmurs, rubs or gallops ABDOMEN: + distention, + incarcerated umbilical hernia, no overlying skin changes EXTREMITIES: Normal range of motion, no edema. No clubbing or cyanosis. No cords, erythema, or tenderness NEUROLOGICAL: Cranial nerves II through XII intact. 5/5 strength and sensation in all extremities, Normal speech, normal gait, normal cerebellar function SKIN: Warm, Dry, normal turgor, no rashes or lesions noted. " - Medical Decision Making 02/09/18 17:40 62 F with incarcerated umbilical hernia, possible strangulation. - Labs - CTAP - IVF, morphine, zofran - Surgery consult
[2018-02-09 18:10] LABS: INR 1.47 (0.82-1.09); PROTHROMBIN TIME (PATIENT) 16.6 SEC (9.7-13.0)
[2018-02-09 19:24] LABS: ALBUMIN 2.5 g/dl (3.4-5.0); ALK PHOS 144 U/L (45-117); ANION GAP 7 (8-16); BILIRUBIN,TOTAL 3.9 mg/dL (0.2-1.0); BLOOD UREA NITROGEN 31 mg/dL (7-18); CALCIUM 8.5 mg/dL (8.5-10.1); CHLORIDE 108 mmol/L (98-107); CO2 26 mmol/L (21-32); CREATININE 1.2 mg/dL (0.55-1.02); GLUCOSE,RANDOM 158 mg/dL (74-106); POTASSIUM 3.6 mmol/L (3.5-5.1); SGOT/AST 49 U/L (15-37); SGPT/ALT 76 U/L (12-78); SODIUM 141 mmol/L (136-145)
[2018-02-09] MEDS ORDERED: morphine SULFATE 4 MG/ML VIAL ONE (21:29)
--- NOTE | 2018-02-09 21:48 | PDOC ---
*Physical Exam - Vital Signs Last Vital Signs Temp Pulse Resp BP Pulse Ox 98.3 F 68 16 108/47 98 02/09/18 15:37 02/09/18 21:36 02/09/18 21:36 02/09/18 21:36 02/09/18 21:36 - Physical Exam Comments: 02/09/18 21:45 Care received at [address] to evaluate incarcerated vs strangulated hernia, Dr. Acevedo from surgery consulted and following case CTAP returned with closed loop SBO 2/[address] Acevedo has been called again Nurse to place NGT Pt is HDS, required another dose of morphine for pain control 02/09/18 21:[address] Acevedo and updated him re CTAP results Recommends ice, and will see pt [facility] Hospitalist has been paged for admission, awaiting call back 02/09/18 22:[address] Garrett/Eric, pt accepted for admission. Case discussed in detail with admitting physician including history, physical exam and ancillary studies. Admitting physician has assumed care for the patient, will follow all pending diagnostics and will complete the evaluation and treatment. <Padmini Robins - Last Filed: 02/09/18 22:53> - Vital Signs Last Vital Signs Temp Pulse Resp BP Pulse Ox 97.9 F 69 18 118/61 99 02/10/18 01:30 02/10/18 01:30 02/10/18 01:30 02/10/18 01:30 02/10/18 01:15 <Angela Mayo - Last Filed: 02/10/18 01:47> ED Treatment Course - LABORATORY CBC & Chemistry Diagram: 02/09/18 17:21 02/09/18 18:40 - ADDITIONAL ORDERS Additional order review: Laboratory Results 02/09/18 02/09/18 02/09/18 18:40 17:22 17:21 PT with INR INR PTT (Actin FS) Sodium 141 Potassium 3.6 Chloride 108 H Carbon Dioxide 26 Anion Gap 7 L BUN 31 H Creatinine 1.2 H Creat Clearance w eGFR 45.23 Random Glucose 158 H Lactic Acid 1.3 Calcium 8.5 Total Bilirubin 3.9 H D AST 49 H ALT 76 Alkaline Phosphatase 144 H Creatine Kinase Troponin I Total Protein 7.0 Albumin 2.5 L Lipase Cancelled Blood Type Antibody Screen 02/09/18 02/09/18 02/09/18 17:21 17:21 17:21 PT with INR INR PTT (Actin FS) 26.7 L Sodium Cancelled Potassium Cancelled Chloride Cancelled Carbon Dioxide Cancelled Anion Gap Cancelled BUN Cancelled Creatinine Cancelled Creat Clearance w eGFR Cancelled Random Glucose Cancelled Lactic Acid Calcium Cancelled Total Bilirubin Cancelled AST Cancelled ALT Cancelled Alkaline Phosphatase Cancelled Creatine Kinase Cancelled Troponin I Cancelled Total Protein Cancelled Albumin Cancelled Lipase Blood Type Cancelled Antibody Screen Cancelled 02/09/18 17:21 PT with INR 16.60 H INR 1.47 H PTT (Actin FS) Sodium Potassium Chloride Carbon Dioxide Anion Gap BUN Creatinine Creat Clearance w eGFR Random Glucose Lactic Acid Calcium Total Bilirubin AST ALT Alkaline Phosphatase Creatine Kinase Troponin I Total Protein Albumin Lipase Blood Type Antibody Screen 02/09/18 17:21 RBC 3.14 L D MCV 98.2 H MCHC 33.5 RDW 17.5 H MPV 7.8 Neutrophils % 83.2 H D Lymphocytes % 9.0 D Monocytes % 7.0 Eosinophils % 0.4 D Basophils % 0.4 - Medications Given in the ED: ED Medications Discontinued Medications Generic Name Dose Route Start Last Admin Trade Name Freq PRN Reason Stop Dose Admin Sodium Chloride 1,000 mls @ 1,000 mls/hr 02/09/18 17:18 02/09/18 17:21 Normal Saline - IV 02/09/18 18:17 1,000 mls/hr ASDIR STA Administration Morphine Sulfate 4 mg 02/09/18 17:18 02/09/18 17:21 Morphine Injection - IVPUSH 02/09/18 17:19 4 mg ONCE ONE Administration Ondansetron HCl 4 mg 02/09/18 17:18 02/09/18 17:21 Zofran - PO 02/09/18 17:19 4 mg ONCE ONE Administration <Padmini Robins - Last Filed: 02/09/18 22:53> - LABORATORY CBC & Chemistry Diagram: 02/09/18 17:21 02/09/18 18:40 - ADDITIONAL ORDERS Additional order review: Laboratory Results 02/09/18 02/09/18 02/09/18 18:40 17:22 17:21 PT with INR INR PTT (Actin FS) Sodium 141 Potassium 3.6 Chloride 108 H Carbon Dioxide 26 Anion Gap 7 L BUN 31 H Creatinine 1.2 H Creat Clearance w eGFR 45.23 Random Glucose 158 H Lactic Acid 1.3 Calcium 8.5 Total Bilirubin 3.9 H D AST 49 H ALT 76 Alkaline Phosphatase 144 H Creatine Kinase Troponin I Total Protein 7.0 Albumin 2.5 L Lipase Cancelled Blood Type Antibody Screen 02/09/18 02/09/18 02/09/18 17:21 17:21 17:21 PT with INR INR PTT (Actin FS) 26.7 L Sodium Cancelled Potassium Cancelled Chloride Cancelled Carbon Dioxide Cancelled Anion Gap Cancelled BUN Cancelled Creatinine Cancelled Creat Clearance w eGFR Cancelled Random Glucose Cancelled Lactic Acid Calcium Cancelled Total Bilirubin Cancelled AST Cancelled ALT Cancelled Alkaline Phosphatase Cancelled Creatine Kinase Cancelled Troponin I Cancelled Total Protein Cancelled Albumin Cancelled Lipase Blood Type Cancelled Antibody Screen Cancelled 02/09/18 17:21 PT with INR 16.60 H INR 1.47 H PTT (Actin FS) Sodium Potassium Chloride Carbon Dioxide Anion Gap BUN Creatinine Creat Clearance w eGFR Random Glucose Lactic Acid Calcium Total Bilirubin AST ALT Alkaline Phosphatase Creatine Kinase Troponin I Total Protein Albumin Lipase Blood Type Antibody Screen 02/09/18 17:21 RBC 3.14 L D MCV 98.2 H MCHC 33.5 RDW 17.5 H MPV 7.8 Neutrophils % 83.2 H D Lymphocytes % 9.0 D Monocytes % 7.0 Eosinophils % 0.4 D Basophils % 0.4 - Medications Given in the ED: ED Medications Discontinued Medications Generic Name Dose Route Start Last Admin Trade Name Freq PRN Reason Stop Dose Admin Sodium Chloride 1,000 mls @ 1,000 mls/hr 02/09/18 17:18 02/09/18 17:21 Normal Saline - IV 02/09/18 18:17 1,000 mls/hr ASDIR STA Administration Ertapenem 1 gm/ Sodium 50 mls @ 100 mls/hr 02/09/18 23:45 02/09/18 23:45 Chloride IVPB 02/10/18 00:14 100 mls/hr ONCE ONE Administration Protocol Morphine Sulfate 4 mg 02/09/18 17:18 02/09/18 17:21 Morphine Injection - IVPUSH 02/09/18 17:19 4 mg ONCE ONE Administration Morphine Sulfate 4 mg 02/09/18 21:43 02/09/18 21:47 Morphine Injection - IVPUSH 02/09/18 21:44 4 mg ONCE ONE Administration Ondansetron HCl 4 mg 02/09/18 17:18 02/09/18 17:21 Zofran - PO 02/09/18 17:19 4 mg ONCE ONE Administration <Angela Mayo - Last Filed: 02/10/18 01:47> Medical Decision Making - Medical Decision Making Case discussed with Dr. Acevedo at 21:51. <Angela Mayo - Last Filed: 02/10/18 01:47> *DC/Admit/Observation/Transfer - Discharge Dispostion Decision to Admit order: Yes - Attestations Physician Attestion: 02/09/18 22:56 I, Dr. Padmini Robins MD, attest that this document has been prepared under my direction and personally reviewed by me in its entirety. I further attest, that it accurately reflects all work, treatment, procedures and medical decision -making performed by me. <Padmini Robins - Last Filed: 02/09/18 22:53> - Attestations Scribe Attestion: Documentation prepared by Angela Mayo, acting as medical care administrator for Padmini Robins MD. <Angela Mayo - Last Filed: 02/10/18 01:47> Diagnosis at time of Disposition: Abdominal pain Qualifiers: Abdominal location: unspecified location Qualified Code(s): R10.9 - Unspecified abdominal pain - Discharge Dispostion Condition at time of disposition: Stable
[2018-02-09] MEDS ORDERED: ACETAMINOPHEN 325 MG TABLET (FP) PO PRN (23:11)
[2018-02-09] MEDS ORDERED: morphine SULFATE 4 MG/ML VIAL IVPB PRN (23:11)
[2018-02-09] MEDS ORDERED: oxyCODONE HCL 5 MG TABLET PO PRN (23:11)
--- NOTE | 2018-02-09 23:11 | OP ---
Operative Note - Note: Operative Date: 02/09/18 Pre-Operative Diagnosis: incarcerated ventral hernia, sbo, liver disease Operation: open repair of incarcerated ventral hernia, primary Findings: incarcerated loop of small bowel Post-Operative Diagnosis: Same as Pre-op Surgeon: Cal Acevedo Anesthesiologist/PROCESS ANALYST: Paulo Hinojosa Anesthesia: General Specimens Removed: hernia sac Estimated Blood Loss (mls): 10 Operative Report Dictated: Yes
[2018-02-09] MEDS ORDERED: fentaNYL CITRATE 250 MCG/5 ML VIAL ONE (23:13)
[2018-02-09] MEDS ORDERED: MIDAZOLAM HCL 2 MG/2 ML SINGLE DOSE VIAL ONE (23:13)
[2018-02-09] MEDS ORDERED: PROPOFOL 20 ML ONE (23:13)
[2018-02-09] MEDS ORDERED: SUCCINYLCHOLINE CHLORIDE 200 MG/10 ML VIAL ONE (23:13)
[2018-02-09] MEDS ORDERED: ROCURONIUM BROMIDE 50 MG/5 ML VIAL ONE (23:13)
[2018-02-09] MEDS ORDERED: LIDOCAINE HCL/PF 2% SDV 5ML VIAL ONE (23:16)
--- NOTE | 2018-02-09 23:25 | PN ---
Progress Note (short form) - Note Progress Note: surgery pt seen and examined. full consult dictated. xena b cirrhotic presents with incarcerated ventral closed loop hernia with sbo and severe constant pain requiring narcotics. Ct confirms incarcerated hernia. On exam abd is soft, nt , with localized tender ventral hernia. Plan- high grade sbo, closed loop obstruction within incarcerated ventral hernia. will proceed with emergent primary repair. icu post op. increased risk from liver disease. will give invanz prophylaxis.
--- NOTE | 2018-02-09 23:30 | HP ---
CHIEF COMPLAINT: Abd pain PCP: Dr. Douglas HISTORY OF PRESENT ILLNESS: 62yo F with history of CKD and alcoholic cirrhosis who presented with abdominal pain and vomiting bilious emesis for the past day. Pt reports she recently had pneumonia treated with a full course of antibiotics and was coughing frequently. She reports since then she noticed a small umbilical hernia , however today when eating breakfast the hernia became larger. She then developed abdominal pain localized at the site of the hernia and had multiple episodes of bilious vomiting with some nausea. At this point she came to the ER for further evaluation and was found to have an incarcerated umbilical hernia. She also reports previously drinking 2 glasses of scotch daily for "many years" and recently quit on 2016. Pt reports she was diagnosed with cirrhosis and has had swelling in her legs and ascites since being diagnosed. She reports following with Dr. Humphrey who is a liver specialist at [facility]. Of note: Pt was previously admitted with recent discharge on 01/29/18 for acute hypoxic resp. failure due to PNA and acute liver decompensaiton. Pt was discharged with instructions to continue her aldactone, lasix, rifaximine, and lactulose and to finish out a prednisone taper. ER course was notable for: (1) Gen. surgery was consulted (2) NGT inserted (3) CTAP showing closed loop SBO w/i a narrow neck umbilical hernia. No wall thickecning to suggest bowel strangulation. Cirrhosi with portal HTN and prominent collaterals with mod vol ascites. Peripancreatic fat stranding nonspecific. (4) morphine 4mg IVP x2, Zofran 4mg x1 (5) IVF PAST MEDICAL HISTORY: Alcoholic cirrhosis CKD Pulmonary HTN PAST SURGICAL HISTORY: Social History: Smoking: none Alcohol: former ETOH abuse; quit Sep 11 2017 (none since) Drugs: none Allergies No Known Allergies Allergy (Verified 02/09/18 15:37) HOME MEDICATIONS: Home Medications Medication Instructions Recorded Rifaximin [Xifaxan] 550 mg PO BID 01/21/18 Spironolactone [Aldactone] 50 mg PO DAILY 01/21/18 Albuterol 2.5/Ipratropium 0.5 1 amp NEB Q4H PRN #120 amp 01/29/18 [Duoneb -] Albuterol Sulfate Inhaler - 1 - 2 inh PO Q4H PRN #1 inhaler 01/29/18 [Ventolin HFA Inhaler -] Furosemide [Lasix -] 40 mg PO DAILY #30 tablet 01/29/18 Guaifenesin Dm [Mucinex Dm -] 1 tablet PO BID #60 tab.er.12h 01/29/18 Lactulose (Oral Use) [Cephulac -] 20 gm PO BID #1000 ml 01/29/18 Loratadine [Claritin -] 10 mg PO DAILY #30 tablet 01/29/18 Nebulizer [Aeroeclipse II] 1 each ASDIR #1 each 01/29/18 predniSONE [Deltasone -] 0 mg PO DAILY #30 tablet 01/29/18 REVIEW OF SYSTEMS CONSTITUTIONAL: Absent: fever, chills, diaphoresis, generalized weakness, malaise, loss of appetite, weight change HEENT: Absent: rhinorrhea, nasal congestion, throat pain, throat swelling, difficulty swallowing, mouth swelling, ear pain, eye pain, visual changes CARDIOVASCULAR: Present: peripheral edema Absent: chest pain, syncope, palpitations, irregular heart rate, lightheadedness , RESPIRATORY: Absent: cough, shortness of breath, dyspnea with exertion, orthopnea, wheezing, stridor, hemoptysis GASTROINTESTINAL: Present: abdominal pain, abdominal distension, nausea, vomiting Absent: diarrhea, constipation, melena, hematochezia GENITOURINARY: Absent: dysuria, frequency, urgency, hesitancy, hematuria, flank pain, genital pain SKIN: Absent: rash, itching, pallor HEMATOLOGIC/IMMUNOLOGIC: Absent: easy bleeding, easy bruising, lymphadenopathy, frequent infections PHYSICAL EXAMINATION Vital Signs - 24 hr 02/09/18 02/09/18 02/09/18 15:18 15:37 20:08 Temperature 98.3 F Pulse Rate 68 Pulse Rate [ 66 70 Right] Respiratory 16 18 16 Rate Blood Pressure 82/46 Blood Pressure 90/50 88/52 [Left Arm] O2 Sat by Pulse 99 97 100 Oximetry (%) 02/09/18 21:36 Temperature Pulse Rate Pulse Rate [ 68 Right] Respiratory 16 Rate Blood Pressure Blood Pressure 108/47 [Left Arm] O2 Sat by Pulse 98 Oximetry (%) GENERAL: NAD, Awake, alert, and fully oriented HEENT: EOMI, NANCY, no nystagmus, sclera icterus noted, NGT in place draining bilious fluid. Jaundiced dry-moist mucosa LUNGS: CTA bilaterally. No wheezes, and no crackles. No accessory muscle use. HEART: RRR, normal S1 and S2 without murmur ABDOMEN: Soft, distended, hypoactive distant BS, nontender, no guarding, firm umbilical hernia with skin changes overlying. Shifting dullness appreciated. Due to body habitus, hepatomegaly could not be palpated or percussed. No asterixis appeciated MUSCULOSKELETAL: No CVA tenderness. EXTREMITIES: 2+ DP pulses, warm, well-perfused. No cyanosis. 2+ pitting peripheral edema. NEUROLOGICAL: Cranial nerves II-XII intact. Strength 5/5 throughout. Sensation grossly intact. Normal speech. Gait not observed PSYCHIATRIC: Cooperative. Good eye contact. Appropriate mood and affect. SKIN: Warm, dry, jaundiced, no rashes or lesions noted Laboratory Results - last 24 hr 02/09/18 02/09/18 02/09/18 17:21 17:21 17:21 WBC 7.9 RBC 3.14 L D Hgb 10.3 L D Hct 30.8 L D MCV 98.2 H MCH 32.9 MCHC 33.5 RDW 17.5 H Plt Count 91 L MPV 7.8 Neutrophils % 83.2 H D Lymphocytes % 9.0 D Monocytes % 7.0 Eosinophils % 0.4 D Basophils % 0.4 Nucleated RBC % 0 PT with INR 16.60 H INR 1.47 H PTT (Actin FS) Sodium Cancelled Potassium Cancelled Chloride Cancelled Carbon Dioxide Cancelled Anion Gap Cancelled BUN Cancelled Creatinine Cancelled Creat Clearance w eGFR Cancelled Random Glucose Cancelled Lactic Acid Calcium Cancelled Total Bilirubin Cancelled AST Cancelled ALT Cancelled Alkaline Phosphatase Cancelled Creatine Kinase Cancelled Troponin I Cancelled Total Protein Cancelled Albumin Cancelled Lipase Blood Type Antibody Screen 02/09/18 02/09/18 02/09/18 17:21 17:21 17:21 WBC RBC Hgb Hct MCV MCH MCHC RDW Plt Count MPV Neutrophils % Lymphocytes % Monocytes % Eosinophils % Basophils % Nucleated RBC % PT with INR INR PTT (Actin FS) 26.7 L Sodium Potassium Chloride Carbon Dioxide Anion Gap BUN Creatinine Creat Clearance w eGFR Random Glucose Lactic Acid Calcium Total Bilirubin AST ALT Alkaline Phosphatase Creatine Kinase Troponin I Total Protein Albumin Lipase Cancelled Blood Type Cancelled Antibody Screen Cancelled 02/09/18 02/09/18 17:22 18:40 WBC RBC Hgb Hct MCV MCH MCHC RDW Plt Count MPV Neutrophils % Lymphocytes % Monocytes % Eosinophils % Basophils % Nucleated RBC % PT with INR INR PTT (Actin FS) Sodium 141 Potassium 3.6 Chloride 108 H Carbon Dioxide 26 Anion Gap 7 L BUN 31 H Creatinine 1.2 H Creat Clearance w eGFR 45.23 Random Glucose 158 H Lactic Acid 1.3 Calcium 8.5 Total Bilirubin 3.9 H D AST 49 H ALT 76 Alkaline Phosphatase 144 H Creatine Kinase Troponin I Total Protein 7.0 Albumin 2.5 L Lipase Blood Type Antibody Screen ASSESSMENT/PLAN: 1) SBO 2/2 incarcerated small bowel loop --confirmed by CTAP in ED --Dr. Acevedo to operate tonight --NPO --T&S --NGT inserted now decompressing proximal bowel --Mod. risk pt with mod risk procedure --Incentive spirometer post-op --Pain control per surgery --Ertapenem perioperatively 2) Alcoholic cirrhosis --Last drink Sep 11, 2017 --MELD 18; 6.0% 3-month mortality --most notable for increase t. Bili --continue aldactone, lasix, rifaximin --Ammonia level in morning 3) Elevated T. Bili --Previous 'baseline' around 1.9 with acute increase --RUQ US? --Evidence of peripancreatic stranding which could represent mild pancreatitis as well --Lipase now FEN: Fluids: D51/2 NS + 20meq K Electrolyte abnormalities: none currently Nutrition: NPO now for surgery PPX: DVT - Lovenox GI - Protonix 40mg IVP Meds reconciled Dispo: OR now Case discussed with Dr. Eric Patterson, DO - IM PGY-1 Visit type - Emergency Visit Emergency Visit: Yes ED Registration Date: 02/09/18 Care time: The patient presented to the Emergency Department on the above date and was hospitalized for further evaluation of their emergent condition. - New Patient This patient is new to me today: Yes Date on this admission: 02/12/18 - Critical Care Critical Care patient: No Hospitalist Screening - Colonoscopy Questionnaire Colonoscopy Questionnaire: Colonoscopy Questionnaire - Patient: 50 - 75 years old and never had a screening colonoscopy: Unknown History of colon or rectal polyps, or CA: Unknown History of IBD, Crohn's disease or UC: Unknown History of abdominal radiation therapy as a child: Unknown - Relative: 1 with colon or rectal CA, or polyps at age 60 or younger: Unknown Colon or rectal CA diagnosed at age 45 or younger: Unknown Multiple relatives with colon or rectal CA: Unknown - Outcome: Screening Result: Negative Screen
[2018-02-09] MEDS ORDERED: ERTAPENEM SODIUM 1 GM VIAL IVPB ONE (23:40)
[2018-02-09] MEDS ORDERED: ERTAPENEM SODIUM 1 GM VIAL ONE (23:42)
[2018-02-09] MEDS ORDERED: ERTAPENEM SODIUM 1 GM in SODIUM CHLORIDE 50 ML IVPB ONE (23:45)
[2018-02-09] MEDS ORDERED: ePHEDrine SULFATE 50 MG/1 ML AMPULE ONE (23:45)
[2018-02-09] MEDS ORDERED: HYDROCORTISONE SOD SUCCINATE 2 ML ONE (23:48)
[2018-02-09] MEDS ORDERED: DEXAMETHASONE SOD PHOSPHATE 4 MG/1 ML VIAL ONE (23:50)
[2018-02-10] MEDS ORDERED: NEOSTIGMINE METHYLSULFATE 0.5 MG/ML - 10 ML MDV ONE (00:12)
[2018-02-10] MEDS ORDERED: GLYCOPYRROLATE 0.2 MG/1 ML VIAL ONE (00:12)
[2018-02-10] MEDS ORDERED: LACTATED RINGERS SOLUTION 1,000 ML IV SCH (00:45)
[2018-02-10] MEDS: D5-1/2NS+20 MEQ KCL - 20 MEQ/1,000 ML INFUS.BAG IV SCH ×2 (01:30→22:44)
[2018-02-10 01:52] VITALS: BMI 33.4
--- NOTE | 2018-02-10 06:19 | PN ---
Teaching Attending Note Name of Resident: Cal Patterson ATTENDING PHYSICIAN STATEMENT I saw and evaluated the patient. I reviewed the resident's note and discussed the case with the resident. I agree with the resident's findings and plan as documented. SUBJECTIVE: OBJECTIVE: ASSESSMENT AND PLAN: this is a 62 y/o female patient with Hx ESLD presnted with abdominal distention , constipation and failure to pass gas, patient was noted to have SBO with possible incarceration - patient was taken to the OR after the patient had an NGT placed to decompress the abdomen. plan: emergent surgery c/w home medication whtn the patient can take PO medication GI consult f/u with surgery recommendation.
[2018-02-10 06:40] LABS: HEMATOCRIT 27.7 % (32.4-45.2); HEMOGLOBIN 9.4 GM/dL (10.7-15.3); MCH 33.5 pg (25.7-33.7); MCHC 33.9 g/dl (32.0-36.0); MEAN PLT VOLUME 6.9 fl (7.5-11.1); PLATELET COUNT 44 K/MM3 (134-434); RDW 17.4 % (11.6-15.6); WHITE BLOOD COUNT 6.4 K/mm3 (4.0-10.0)
[2018-02-10 07:01] LABS: INR 1.5 (0.82-1.09)
[2018-02-10 07:04] LABS: ACTIVATED PTT 28.6 SECONDS (26.9-34.4)
[2018-02-10 07:19] LABS: CHLORIDE 108 mmol/L (98-107); SODIUM 142 mmol/L (136-145)
[2018-02-10 07:25] LABS: ALBUMIN 2.1 g/dl (3.4-5.0); ALK PHOS 113 U/L (45-117); ANION GAP 9 (8-16); BILIRUBIN,TOTAL 3.4 mg/dL (0.2-1.0); BLOOD UREA NITROGEN 29 mg/dL (7-18); CO2 25 mmol/L (21-32); CREATININE 1.1 mg/dL (0.55-1.02); GLUCOSE,RANDOM 196 mg/dL (74-106); MAGNESIUM 1.9 mg/dL (1.8-2.4); PHOSPHOROUS 4.6 mg/dL (2.5-4.9); SGOT/AST 37 U/L (15-37); SGPT/ALT 65 U/L (12-78); TOT PROT 5.9 g/dl (6.4-8.2)
--- NOTE | 2018-02-10 07:29 | CONS ---
DATE OF CONSULTATION: 02/09/2018 REASON FOR CONSULTATION: Small bowel obstruction, incarcerated ventral hernia, closed loop obstruction. This is an emergency room consultation. REQUESTING PHYSICIAN: The emergency room physician. PLACE: The patient was seen and examined in the emergency room. 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 She had a CT scan of her abdomen and pelvis, which showed a loop of bowel trapped within the hernia causing a closed loop obstruction and a high grade small bowel obstruction. The patient had severe pain, and the emergency room physician stated that she was unable to maintain enough narcotic to keep her comfortable. At this point, request was made for emergency surgery due to the patient having severe pain. PAST MEDICAL HISTORY: As in HPI. In addition, she has quit drinking alcohol many years ago. HOME MEDICATIONS: Includes Xifaxan, Aldactone, albuterol, Lasix, Mucinex, lactulose, Claritin, and prednisone. PAST SURGICAL HISTORY: Only significant for back surgery. Nothing in her abdomen. SOCIAL HISTORY: Significant for quitting tobacco and significant for quitting alcohol. FAMILY HISTORY: Noncontributory. REVIEW OF SYSTEMS: General: Denies fatigue or malaise. Cardiac: Denies chest pain or palpitations. Respiratory: Denies shortness of breath or wheeze. Gastrointestinal: As stated in the HPI. Denies vomiting, denies diarrhea, denies blood in her stool. Genitourinary: Denies dysuria. Musculoskeletal: Denies joint pain or joint swelling. Psychiatric: Denies depression, anxiety, or hearing voices. PHYSICAL EXAMINATION: General: This is an overweight 62-year-old female in no distress. She states she currently is in minimal discomfort. Vital signs: She is afebrile. Her heart rate is 68, her blood pressure is 108/47, her oxygen saturation is 98%. HEENT: Her head is normocephalic. Her sclerae anicteric. Neck: Supple. Chest: Clear. Abdomen: Soft. It is mildly distended. There are no surgical scars. There is incarcerated ventral hernia without overlying skin changes that is mildly tender. Extremities: Have trace edema. REVIEW OF LABORATORY DATA: White blood cell count is normal at 7.9, her platelet count is low at 91. Her chemistries show a BUN of 31, creatinine of 1.2. Her albumin is 2.5. Her total bilirubin is elevated at 3.9. Her coagulation profile shows an INR of 1.47. On review of her imaging, it is as stated in HPI. In addition, there are incident findings of contracted gallbladder with stones. The liver is shown to be cirrhotic with portal hypertension. She has bilateral pleural effusions as well as ascites. ASSESSMENT: This is a 62-year-old female with an incarcerated ventral hernia causing an acute small bowel obstruction with a closed loop obstruction within the hernia. 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 In either event, there is not much choice and there is no time for a safe transfer. Will proceed with emergent surgery. Will give invanz prophylaxis. Will do a primary repair as she is at risk of translocation of bacteria and would risk mesh infection if that was used. Risks and benefits of surgery have been explained to the patient in detail. These are including, but not limited to, the possibility of infection, the possibility of injury to bowel requiring a bowel resection, possibility of infection of her ascites, possibility of liver failure, possibility of recurrence, possibility of injury to viscera, plus a multitude of medical problems including, but not limited to, cardiac, neurologic, pulmonary, and vascular complications, even . Patient understands these risks and is agreeable to surgery. She has also been offered a transfer to a tertiary care center, which have better capabilities at managing liver disease, but due to severe pain, she agrees that there is not enough time to do that safely and wishes to have the surgery done here. I will keep her in the intensive care unit after surgery. DO ORLIN KOVACS/[id number]
--- NOTE | 2018-02-10 09:03 | PN ---
Progress Note (short form) - Note Progress Note: surgery pt seen and examined. no pain. feels well. wants food. no flatus afebrile abd- soft, distended, incision clean, nt, ngt- 0 recorded, u/o 600 Laboratory Tests 02/10/18 02/10/18 06:10 06:10 Plt Count 44 L D INR 1.50 H A/P 1) Pod$1- cont npo, ngt, ivf 2) liver disease- per medical team, pt is at risk of liver failure. inr increased and plt dropped, bili improved 3) prophylaxis- hold lovenox because of inr and plt. oob. protonix. (doubt protonix causing plt drop and possible varices/protal htn would keep) 4) sbo- resolved, would expect ileus to last several days
--- NOTE | 2018-02-10 09:36 | PN ---
Progress Note (short form) - Note Progress Note: Pulm/CCM Pt seen and examined in ICU 24Hr: admitted Overnight after uncomplicated ventral hernia repair -awake, alert hemodynamically stable this am -spoke with Surgery, ok for floor if no evidence of acute liver decomp from surg -pt lucid, no asterixis, not bleeding, no abd pain, trace edema -pain controlled - in for floor bed Vital Signs Temp 97.6 F 02/10/18 06:00 Pulse 64 02/10/18 06:00 Resp 17 02/10/18 06:00 BP 105/60 02/10/18 06:00 Pulse Ox 99 02/10/18 01:30 Intake & Output 02/09/18 02/09/18 02/10/18 11:59 23:59 11:59 Intake Total 2250 500 Output Total 5 600 Balance 2245 -100 Weight 82.1 kg 85.638 kg Intake: IV 2150 500 D5-1/2NS+20 MEQ KCL - 20 500 meq In 1,000 ml @ 100 mls /hr IV ASDIR JOVANNA Rx#: [id number] Normal Saline - 1,000 ml 1000 @ 1000 mls/hr IV ASDIR STA Rx#:[id number] IVPB 100 Output: Gastric Drainage 0 Urine 600 Straight Cath 600 Estimated Blood Loss 5 Other: Voiding Method Bedpan # Unmeasured Voids Straight Cath 2 Bowel Movement No Height 5 ft 3 in 5 ft 3 in Body Mass Index (BMI) 32.1 33.4 Weight Measurement Method Built in [facility] Weight Measurement Method Est/Stated by Patient Active Medications Acetaminophen (Tylenol -) 650 mg PO Q4H PRN PRN Reason: FEVER Potassium Chloride/Dextrose/Sod Cl (D5-1/2ns+20 Meq Kcl -) 20 meq in 1,000 mls @ 100 mls/hr IV ASDIR JOVANNA Last Admin: 02/10/18 01:30 Dose: 100 mls/hr Lactated Ringer's (Lactated Ringers Solution) 1,000 mls @ 75 mls/hr IV ASDIR JOVANNA Morphine Sulfate (Morphine Sulfate) 4 mg IVPB Q3H PRN PRN Reason: PAIN LEVEL 7 - 10 Oxycodone HCl (Roxicodone -) 7.5 mg PO Q4H PRN PRN Reason: PAIN LEVEL 4 - 6 Pantoprazole Sodium (Protonix Iv) 40 mg IVPUSH DAILY JOVANNA PE: Gen: awake, alert, pleasant HENT: NCAT, slight icteric sclera PULM: clear anterior, no wheezes CV; RRR no m/r/g ABD: soft, near silent BS, no flatus EXT: w/w/p trace edema Neuro: non-focal, no asterixis, A & O x 3 A/ post ventral hernia repair uncomplicated P/ -NPO except for ice chips -if confused or asterixis can get KS lactulose vs IV flagyl while NPO -care/diet as per Surgery -pn control morphine -ok for floor Julia ACNP [id number]
--- NOTE | 2018-02-10 09:36 | OP ---
DATE OF OPERATION: 02/09/2018 PREOPERATIVE DIAGNOSIS: Small-bowel obstruction. POSTOPERATIVE DIAGNOSIS: Small-bowel obstruction. PROCEDURE: Primary open repair of incarcerated ventral hernia. SURGEON: Cal Acevedo D.O. SOFTWARE TEAM LEADER: None as this was an emergency. ANESTHESIA: Paulo Hinojosa M.D. (general) FINDINGS: A loop of small bowel trapped within a hernia, without vascular compromise. BLOOD LOSS: Minimal. SPECIMEN: Hernia sac. DRAINS: None. COMPLICATIONS: None. DISPOSITION: Recovery room in stable condition. BRIEF HISTORY: This is a 62-year-old female, liver cirrhotic, presented to [facility] with an incarcerated ventral hernia that had a loop of small bowel trapped within it, causing a high-grade small-bowel obstruction. She presents now for emergent surgery repair. She was given Invanz prophylactic. DESCRIPTION OF PROCEDURE: The patient was placed in supine position. After general anesthesia was initiated, the abdomen was prepped and draped in sterile fashion. A transverse incision was made infraumbilical below the ventral hernia. Scalpel was used to go through skin and subcutaneous tissue. The hernia sac was easily identified. It was dissected off of its subcutaneous attachments. The neck was then incised with electrocautery in order to enable the small bowel, which was trapped within the hernia sac, to be reduced. The small bowel was inspected after the hernia sac was opened. It was viable. There was no compromise. It was placed into the abdominal cavity. At this point, approximately 400 mL of yellow ascites was suctioned through the hernia defect. The hernia sac was then excised, sent to Pathology marked as specimen. The defect was then closed primarily with multiple interrupted number 1 Prolene sutures. Decision was made not to use mesh because of possibility of translocation of bacteria and mesh contamination. At this point , the skin was closed after the wound was irrigated. [place] and Dermabond dressing were placed. Overall, the patient tolerated the procedure well. She was sent to recovery room and then with plans to go to the intensive care unit where she would need to be monitored for signs of worsening liver failure. She will continue with nasogastric tube decompression. She also awaits return of bowel function. DO ORLIN KOVACS/[id number] [facility]
[2018-02-10] MEDS: PANTOPRAZOLE SODIUM 40 MG VIAL IVPUSH SCH (09:43)
[2018-02-10] MEDS ORDERED: ENOXAPARIN NA (PORCINE) 40 MG/0.4 ML DISP.SYRIN SQ SCH (10:00)
[2018-02-10 11:13] LABS: BILIRUBIN,DIRECT 1.7 mg/dL (0.0-0.2)
[2018-02-10 11:14] LABS: LIPASE 352 U/L (73-393)
[2018-02-10 11:15] LABS: LIPASE 1138 U/L (73-393)
--- NOTE | 2018-02-10 12:14 | CON.GI ---
Consult Consult Specialty:: GI: Dr. Chavarria covering for Dr. Pa Referred by:: Hospitalist Reason for Consultation:: History of ETOH Cirrhosis / alcoholic hepatitis - History of Present Illness Chief Complaint: Abdominal pain at umbilical hernia site History of Present Illness: 62F admitted yesterday for pain at umbilical hernia site. She underwent repair of the umbilical hernia with associated bowel obstruction, performed by Dr. Acevedo early this morning. She has a history of alcoholic hepatitis with underlying cirrhosis. She was admitted to [facility] 10/05 underwent EGD performed by Dr. Pa that revealed 1 column of small esophageal varices and portal gastropathy. She was transferred up to [facility] during that admission and has been under the care of intensive care anaesthetist Dr. Abiel Humphrey. She has an appointment with him in 2 weeks She also tells me that she was to make an appointment to see Dr. Pa to discuss colonoscopy. She states that her last drink was 09/03. she denies any focal complaints at this time. Preopteratively her INR was 1.47 with bilirubin of 3.9., Creatinine of 1.1 and Na of 141 (MELDNa score of 17) - History Source History Provided By: Patient, Medical Record Limitations to Obtaining History: No Limitations - Past Medical History Gastrointestinal: Yes: Ascites Hepatobiliary: Yes: Cirrhosis (ETOH), Other (history of alcoholic hepatitis) Renal/: Yes: Renal Inusuff Psych: Yes: Addictions Additional Medical History: Denies all medical problems. Alcohol abuse - Past Surgical History Additional Surgical History: C-spine fusion, umbilical hernia repair 02/10/18 - Alcohol/Substance Use Hx Alcohol Use: Yes (abuse, last drink 09/03. States being in AA) History of Substance Use: reports: None - Smoking History Smoking history: Former smoker Have you smoked in the past 12 months: No - Social History Usual Living Arrangement: Other ADL: Independent (single) Occupation: banker Place of : Other ([facility] Came to [place]year[place] 1971 History of Recent Travel: No Home Medications - Allergies Allergies/Adverse Reactions: Allergies Allergy/AdvReac Type Severity Reaction Status Date / Time No Known Allergies Allergy Verified 02/09/18 15:37 - Home Medications Home Medications: Ambulatory Orders Rifaximin [Xifaxan] 550 mg PO BID 01/21/18 Spironolactone [Aldactone] 50 mg PO DAILY 01/21/18 Albuterol Sulfate Inhaler - [Ventolin HFA Inhaler -] 1 - 2 inh PO Q4H PRN #1 inhaler 01/29/18 Furosemide [Lasix -] 40 mg PO DAILY #30 tablet 01/29/18 Guaifenesin Dm [Mucinex Dm -] 1 tablet PO BID #60 tab.er.12h 01/29/18 Lactulose (Oral Use) [Cephulac -] 20 gm PO BID #1000 ml 01/29/18 Family Disease History - Family Disease History Family Disease History: Other: Grandparent (liver disease), Father (: 80 's: "natural causes"), Mother (: 91: "natural causes"), Brother (2, 1 alive w/ DM II 1 : killed), Sister (1, alive w/ hyperlipidemia), Son ( None), Daughter (None) Other Family History: No family history of colorectal cancer or other GI malignancy Review of Systems - Review of Systems Constitutional: denies: Fever Cardiovascular: denies: Chest Pain Respiratory: denies: SOB Gastrointestinal: reports: Abdominal Pain (improved s/p umbilical hernia repair) . denies: Constipation, Diarrhea, Rectal Bleeding Physical Exam-GI Vital Signs: Vital Signs Temperature 97.6 F 02/10/18 10:00 Pulse Rate 58 L 02/10/18 10:00 Respiratory Rate 16 02/10/18 10:00 Blood Pressure 102/66 02/10/18 10:00 O2 Sat by Pulse Oximetry (%) 99 02/10/18 10:00 Constitutional: Yes: Calm Eyes: Yes: Sclera Icterus (mild scleral icterus) HENT: Yes: Other (NG tube in place) Cardiovascular: Yes: Bradycardia (regular rhythm). No: Murmur Respiratory: Yes: CTA Bilaterally Gastrointestinal Inspection: Yes: Distention (softly protuberant), Scars ( horizontal umbilical hernia repair scar with eh in place) ...Auscultate: Yes: Normoactive Bowel Sounds ...Palpate: Yes: Soft, Tenderness (mild TTP at hernia repair site). No: Guarding, Tenderness, Rebound ...Percussion: No: Fluid Wave, Tympanitic Edema: No (No LE edema) Neurological: Yes: Alert, Oriented. No: Asterixis Psychiatric: Yes: Alert, Oriented Labs: CBC, BMP 02/10/18 06:10 02/10/18 06:10 INR, PTT INR 1.50 (0.82-1.09) H 02/10/18 06:10 Imaging - Results Cat Scan: Report Reviewed (Cirrhotic appearing liver, portal hypertensive changes, moderate ascites, SBO w/ umbilical hernia) Problem List - Problems (1) Alcoholic cirrhosis Assessment/Plan: Assessment: Decompensated, with sequelae of ascites: Current MELDNa: 17 Now post-op secondary to umbilical hernia with associated SBO Plan: Monitor mental status / renal function / INR / liver chemistries post op Avoid excessive IV fluids. Change to PO and resume diuretics when feasible and as renal function permits Resume lactulose/rifaximin when able Monitor thrombocytopenia. If continued worsening trend consider heme eval. D/W Dr. Humphrey her transplant intensive care anaesthetist. If deterioration of liver function, transfer to [facility] Daily weights, I's and O's Incentive spirometry Post op care per surgery Will follow with you Code(s): K70.30 - ALCOHOLIC CIRRHOSIS OF LIVER WITHOUT ASCITES
--- NOTE | 2018-02-10 12:22 | PN ---
Progress Note (short form) - Note Progress Note: Anesthesiology Post-op 62 y.o. with alcoholic cirrhosis, POD#0 s/p umbilical hernia repair under GA. Pt. is awake and alert in NAD. VSS. She has no anesthesia-related complaints. 62 y.o. with stable post-operative course. Continue further medical management as per primary team.
--- NOTE | 2018-02-10 15:34 | PN ---
Physical Exam: SUBJECTIVE: Patient seen and examined. Pain much improved compared to pre- surgery. OBJECTIVE: Vital Signs Period Temp Pulse Resp BP Sys/Lui Pulse Ox Last 24 Hr 97.2 F-98.3 F 58-81 8-18 82-119/46-71 97-100 GENERAL: The patient is awake, alert, and fully oriented, in no acute distress. LUNGS: Breath sounds equal, clear to auscultation bilaterally, no wheezes, no crackles, no accessory muscle use. HEART: Regular rate and rhythm, S1, S2 ABDOMEN: NGT, scant dark fluid output; abdomen soft, mildly distended, +bowel sounds; periumbilical horizontal surgical incision, sutures clean, dry, edges well-approximated edges EXTREMITIES: 2+ pulses, warm, well-perfused, no edema. NEUROLOGICAL: Cranial nerves II through XII grossly intact. Normal speech, gait not observed. Laboratory Results - last 24 hr 02/09/18 02/09/18 02/09/18 17:21 17:21 17:21 WBC 7.9 RBC 3.14 L D Hgb 10.3 L D Hct 30.8 L D MCV 98.2 H MCH 32.9 MCHC 33.5 RDW 17.5 H Plt Count 91 L MPV 7.8 Neutrophils % 83.2 H D Lymphocytes % 9.0 D Monocytes % 7.0 Eosinophils % 0.4 D Basophils % 0.4 Nucleated RBC % 0 PT with INR 16.60 H INR 1.47 H PTT (Actin FS) Sodium Cancelled Potassium Cancelled Chloride Cancelled Carbon Dioxide Cancelled Anion Gap Cancelled BUN Cancelled Creatinine Cancelled Creat Clearance w eGFR Cancelled Random Glucose Cancelled Lactic Acid Calcium Cancelled Phosphorus Magnesium Total Bilirubin Cancelled Direct Bilirubin AST Cancelled ALT Cancelled Alkaline Phosphatase Cancelled Creatine Kinase Cancelled Troponin I Cancelled Total Protein Cancelled Albumin Cancelled Lipase Blood Type Antibody Screen 02/09/18 02/09/18 02/09/18 17:21 17:21 17:21 WBC RBC Hgb Hct MCV MCH MCHC RDW Plt Count MPV Neutrophils % Lymphocytes % Monocytes % Eosinophils % Basophils % Nucleated RBC % PT with INR INR PTT (Actin FS) 26.7 L Sodium Potassium Chloride Carbon Dioxide Anion Gap BUN Creatinine Creat Clearance w eGFR Random Glucose Lactic Acid Calcium Phosphorus Magnesium Total Bilirubin Direct Bilirubin AST ALT Alkaline Phosphatase Creatine Kinase Troponin I Total Protein Albumin Lipase Cancelled Blood Type Cancelled Antibody Screen Cancelled 02/09/18 02/09/18 02/09/18 17:22 18:40 23:20 WBC RBC Hgb Hct MCV MCH MCHC RDW Plt Count MPV Neutrophils % Lymphocytes % Monocytes % Eosinophils % Basophils % Nucleated RBC % PT with INR INR PTT (Actin FS) Sodium 141 Potassium 3.6 Chloride 108 H Carbon Dioxide 26 Anion Gap 7 L BUN 31 H Creatinine 1.2 H Creat Clearance w eGFR 45.23 Random Glucose 158 H Lactic Acid 1.3 Calcium 8.5 Phosphorus Magnesium Total Bilirubin 3.9 H D Direct Bilirubin AST 49 H ALT 76 Alkaline Phosphatase 144 H Creatine Kinase Troponin I Total Protein 7.0 Albumin 2.5 L Lipase 1138 H Blood Type A POSITIVE Antibody Screen Negative 02/10/18 02/10/18 02/10/18 06:10 06:10 06:10 WBC 6.4 RBC 2.80 L Hgb 9.4 L Hct 27.7 L MCV 99.0 H MCH 33.5 MCHC 33.9 RDW 17.4 H Plt Count 44 L D MPV 6.9 L D Neutrophils % Lymphocytes % Monocytes % Eosinophils % Basophils % Nucleated RBC % PT with INR 17.00 H INR 1.50 H PTT (Actin FS) 28.6 Sodium 142 Potassium 4.0 Chloride 108 H Carbon Dioxide 25 Anion Gap 9 BUN 29 H Creatinine 1.1 H Creat Clearance w eGFR 50.01 Random Glucose 196 H Lactic Acid Calcium 8.0 L Phosphorus 4.6 Magnesium 1.9 Total Bilirubin 3.4 H Direct Bilirubin 1.7 H AST 37 ALT 65 Alkaline Phosphatase 113 Creatine Kinase Troponin I Total Protein 5.9 L Albumin 2.1 L Lipase 352 Blood Type Antibody Screen 02/10/18 02/10/18 06:10 06:10 WBC RBC Hgb Hct MCV MCH MCHC RDW Plt Count MPV Neutrophils % Lymphocytes % Monocytes % Eosinophils % Basophils % Nucleated RBC % PT with INR INR PTT (Actin FS) Sodium Potassium Chloride Carbon Dioxide Anion Gap BUN Creatinine Creat Clearance w eGFR Random Glucose Lactic Acid Calcium Phosphorus Magnesium Total Bilirubin Direct Bilirubin 1.7 H AST ALT Alkaline Phosphatase Creatine Kinase Troponin I Total Protein Albumin Lipase Cancelled Blood Type Antibody Screen Active Medications Generic Name Dose Route Start Last Admin Trade Name Freq PRN Reason Stop Dose Admin Acetaminophen 650 mg 02/09/18 23:11 Tylenol - PO Q4H PRN FEVER Potassium Chloride/Dextrose/Sod Cl 20 meq in 1,000 mls @ 100 mls/hr 02/09/18 23:45 02/10/18 01:30 D5-1/2ns+20 Meq Kcl - IV 100 mls/hr ASDIR JOVANNA Administration Lactated Ringer's 1,000 mls @ 75 mls/hr 02/10/18 00:45 Lactated Ringers Solution IV ASDIR JOVANNA Morphine Sulfate 4 mg 02/09/18 23:11 Morphine Sulfate IVPB Q3H PRN PAIN LEVEL 7 - 10 Oxycodone HCl 7.5 mg 02/09/18 23:11 Roxicodone - PO Q4H PRN PAIN LEVEL 4 - 6 Pantoprazole Sodium 40 mg 02/10/18 10:00 02/10/18 09:43 Protonix Iv IVPUSH 40 mg DAILY JOVANNA Administration Assessment & Plan 62 year-old female with a PMH significant for alcoholic cirrhosis, pulmonary hypertension, and CKD. Admitted for an incarcerated ventral hernia and SBO. Assessment & Plan 62 year-old female with a PMH significant for alcoholic cirrhosis, pulmonary hypertension, and CKD. Admitted for an incarcerated ventral hernia and SBO. Incarcerated ventral hernia and SBO s/p open repair on 02/10 --afebrile, no leukocytosis --NGT with scant dark fluid output --pain well-managed --perioperative antibiotics per surgery --incentive spirometry Alcoholic cirrhosis --platelets 91k; INR 1.47 --bili improved 3.9 -->3.4 --continue to hold lactulose, rifaxamin, lasix and spironolactone FEN: Fluids: D51/2 NS+20K@100mL/hr Nutrition: NPO DVT prophylaxis: hold lovenox due to low platelets; oob, ambulation Dispo: continues to require inpatient care. Full code. Visit type - Emergency Visit Emergency Visit: Yes ED Registration Date: 02/09/18 Care time: The patient presented to the Emergency Department on the above date and was hospitalized for further evaluation of their emergent condition. - New Patient This patient is new to me today: Yes Date on this admission: 02/11/18 - Critical Care Critical Care patient: No
[2018-02-11] MEDS: D5-1/2NS+20 MEQ KCL - 20 MEQ/1,000 ML INFUS.BAG IV SCH (09:13)
[2018-02-11 09:32] LABS: BASO % 0.3 % (0-2.0); HEMATOCRIT 28.4 % (32.4-45.2); HEMOGLOBIN 9.4 GM/dL (10.7-15.3); LYMPH % 4.1 % (8-40); MCH 33.1 pg (25.7-33.7); MCHC 33.3 g/dl (32.0-36.0); MEAN CELL VOLUME 99.5 fl (80-96); MEAN PLT VOLUME 7.3 fl (7.5-11.1); MONO % 3.9 % (3.8-10.2); NEUT % 91.7 % (42.8-82.8); PLATELET COUNT 52 K/MM3 (134-434); RBC 2.85 M/mm3 (3.60-5.2); RDW 16.9 % (11.6-15.6); WHITE BLOOD COUNT 12.6 K/mm3 (4.0-10.0)
[2018-02-11] MEDS: PANTOPRAZOLE SODIUM 40 MG VIAL IVPUSH SCH (09:35)
[2018-02-11 10:09] LABS: ANION GAP 7 (8-16); CALCIUM 8.4 mg/dL (8.5-10.1); CHLORIDE 107 mmol/L (98-107); CO2 25 mmol/L (21-32); GLUCOSE,RANDOM 180 mg/dL (74-106); MAGNESIUM 2.1 mg/dL (1.8-2.4); POTASSIUM 4.5 mmol/L (3.5-5.1); SODIUM 139 mmol/L (136-145)
[2018-02-11 10:34] LABS: ALBUMIN 2.2 g/dl (3.4-5.0); ALK PHOS 117 U/L (45-117); BILIRUBIN,TOTAL 2.9 mg/dL (0.2-1.0); CREATININE 1.3 mg/dL (0.55-1.02); SGOT/AST 25 U/L (15-37); SGPT/ALT 55 U/L (12-78); TOT PROT 6.1 g/dl (6.4-8.2)
--- NOTE | 2018-02-11 11:03 | PN ---
Physical Exam: SUBJECTIVE: Patient seen and examined. Had two BMs today, soft. Passing gas. OBJECTIVE: Vital Signs Period Temp Pulse Resp BP Sys/Lui Pulse Ox Last 24 Hr 97.5 F-98.2 F 60-66 18-20 104-112/51-60 98-98 GENERAL: The patient is awake, alert, and fully oriented, in no acute distress. LUNGS: Breath sounds equal, clear to auscultation bilaterally, no wheezes, no crackles, no accessory muscle use. HEART: Regular rate and rhythm, S1, S2 ABDOMEN: NGT, ~100cc's dark fluid output; abdomen soft, mildly distended, + bowel sounds; periumbilical horizontal surgical incision, sutures clean, dry, edges well-approximated edges EXTREMITIES: 2+ pulses, warm, well-perfused, no edema. NEUROLOGICAL: Cranial nerves II through XII grossly intact. Normal speech, gait not observed. Laboratory Results - last 24 hr 02/09/18 02/10/18 02/11/18 18:40 06:10 09:04 WBC 12.6 H D RBC 2.85 L Hgb 9.4 L Hct 28.4 L MCV 99.5 H MCH 33.1 MCHC 33.3 RDW 16.9 H Plt Count 52 L MPV 7.3 L Neutrophils % 91.7 H Lymphocytes % 4.1 L D Monocytes % 3.9 Eosinophils % 0.0 D Basophils % 0.3 Nucleated RBC % 0 Sodium 141 Potassium 3.6 Chloride 108 H Carbon Dioxide 26 Anion Gap 7 L BUN 31 H Creatinine 1.2 H Creat Clearance w eGFR 45.23 Random Glucose 158 H Calcium 8.5 Magnesium Total Bilirubin 3.9 H D Direct Bilirubin 1.7 H AST 49 H ALT 76 Alkaline Phosphatase 144 H Total Protein 7.0 Albumin 2.5 L Lipase 1138 H 352 02/11/18 09:04 WBC RBC Hgb Hct MCV MCH MCHC RDW Plt Count MPV Neutrophils % Lymphocytes % Monocytes % Eosinophils % Basophils % Nucleated RBC % Sodium 139 Potassium 4.5 Chloride 107 Carbon Dioxide 25 Anion Gap 7 L BUN Creatinine 1.3 H Creat Clearance w eGFR 41.24 Random Glucose 180 H Calcium 8.4 L Magnesium 2.1 Total Bilirubin 2.9 H Direct Bilirubin AST 25 ALT 55 Alkaline Phosphatase 117 Total Protein 6.1 L Albumin 2.2 L Lipase Active Medications Generic Name Dose Route Start Last Admin Trade Name Freq PRN Reason Stop Dose Admin Acetaminophen 650 mg 02/09/18 23:11 Tylenol - PO Q4H PRN FEVER Potassium Chloride/Dextrose/Sod Cl 20 meq in 1,000 mls @ 100 mls/hr 02/09/18 23:45 02/11/18 09:13 D5-1/2ns+20 Meq Kcl - IV 100 mls/hr ASDIR JOVANNA Administration Lactated Ringer's 1,000 mls @ 75 mls/hr 02/10/18 00:45 02/11/18 09:11 Lactated Ringers Solution IV Not Given ASDIR JOVANNA Morphine Sulfate 4 mg 02/09/18 23:11 Morphine Sulfate IVPB Q3H PRN PAIN LEVEL 7 - 10 Oxycodone HCl 7.5 mg 02/09/18 23:11 Roxicodone - PO Q4H PRN PAIN LEVEL 4 - 6 Pantoprazole Sodium 40 mg 02/10/18 10:00 02/11/18 09:35 Protonix Iv IVPUSH 40 mg DAILY JOVANNA Administration Assessment & Plan 62 year-old female with a PMH significant for alcoholic cirrhosis, pulmonary hypertension, and CKD. Admitted for an incarcerated ventral hernia and SBO. Incarcerated ventral hernia and SBO s/p open repair on 02/10 --mild leukocytosis post-op day #1, afebrile --two BMs today and passing gas --NGT with ~100cc dark fluid over 24 hours; OK to d/c per surgery --has declined pain meds --incentive spirometry Alcoholic cirrhosis --platelets dropped to 52k, INR 1.5 --bili improved 3.9 on admission-->2.9 today --resume lactulose and rifaxamin --slight bump in Cr 1.1-->1.3, will hold lasix and spironolactone for now FEN: Fluids: PO intake adequate Nutrition: Full liquids DVT prophylaxis: hold lovenox due to low platelets; oob, ambulation Visit type - Emergency Visit Emergency Visit: Yes ED Registration Date: 02/09/18 Care time: The patient presented to the Emergency Department on the above date and was hospitalized for further evaluation of their emergent condition. - New Patient This patient is new to me today: No - Critical Care Critical Care patient: No
[2018-02-11] MEDS ORDERED: DEXTROSE 5%-0.45% SALINE 1,000 ML IV SCH (11:30)
--- NOTE | 2018-02-11 11:50 | PN ---
GI Progress Note Subjective: No acute events No abdominal pain States feeling well - Objective Vital Signs: Vital Signs Temperature 98.1 F 02/11/18 06:00 Pulse Rate 62 02/11/18 06:00 Respiratory Rate 20 02/11/18 06:00 Blood Pressure 107/60 02/11/18 06:00 O2 Sat by Pulse Oximetry (%) 98 02/10/18 21:00 Constitutional: Calm Eyes: Yes: Sclera Icterus Cardiovascular: Yes: Regular Rate and Rhythm Respiratory: Yes: CTA Bilaterally Gastrointestinal Inspection: Yes: Distention, Scars (Periumbilical. Surgical scar with eh) ...Auscultate: Yes: Normoactive Bowel Sounds ...Palpate: No: Tenderness Edema: No (No LE edema) Neurological: Yes: Alert, Oriented. No: [facility] Labs: CBC, BMP 02/11/18 09:04 02/11/18 09:04 INR, PTT INR 1.50 (0.82-1.09) H 02/10/18 06:10 Hepatic Panel Total Bilirubin 2.9 mg/dL (0.2-1.0) H 02/11/18 09:04 Direct Bilirubin 1.7 mg/dL (0.0-0.2) H 02/10/18 06:10 AST 25 U/L (15-37) 02/11/18 09:04 ALT 55 U/L (12-78) 02/11/18 09:04 Alkaline Phosphatase 117 U/L (45-117) 02/11/18 09:04 Albumin 2.2 g/dl (3.4-5.0) L 02/11/18 09:04 Problem List - Problems (1) Alcoholic cirrhosis Assessment/Plan: Clinically well. No abdominal pain, no evidence of HE, bilirubin improved Continue to monitor resume home meds when able to take PO Post op care per surgery Follow-up with Marketing Assistant Dr. Humphrey next week Code(s): K70.30 - ALCOHOLIC CIRRHOSIS OF LIVER WITHOUT ASCITES
[2018-02-11 12:00] LABS: BLOOD UREA NITROGEN 29 mg/dL (7-18)
[2018-02-11 12:24] LABS: PLATELET ESTIMATE DECREASED
--- NOTE | 2018-02-11 12:41 | PN ---
Progress Note (short form) - Note Progress Note: surgery pt seen and examined. bm. hungry afebrile abd- soft, nd, incision clean, nt, ngt minimal A/P 1) Pod#2- d/c ngt, d/c ivf, full liquids 2) liver disease- per medical team 3) prophylaxis- hold lovenox because of inr and plt. oob. protonix. (doubt protonix causing plt drop and possible varices/protal htn would keep) 4) sbo- resolved, ileus improving if patient able to tolerate full liquids, surgically stable for d/c. f/u in 2 weeks for staple removal. slowly advance to regular diet.
[2018-02-11] MEDS: LACTULOSE 20 GM/30 ML UDC (FOR ORAL USE ONLY) PO SCH (20:59)
[2018-02-11] MEDS: oxyCODONE HCL 5 MG TABLET PO PRN (21:00)
[2018-02-11] MEDS: RIFAXIMIN 550 MG TABLET (UD) PO SCH (21:00)
[2018-02-12] MEDS: oxyCODONE HCL 5 MG TABLET PO PRN ×2 (05:49→12:58)
[2018-02-12] MEDS ORDERED: ONDANSETRON 4 MG/2 ML VIAL IVPUSH ONE (06:05)
[2018-02-12] MEDS: RIFAXIMIN 550 MG TABLET (UD) PO SCH (09:26)
[2018-02-12] MEDS: PANTOPRAZOLE 40 MG TABLET (FP) PO SCH (09:26)
[2018-02-12] MEDS: LACTULOSE 20 GM/30 ML UDC (FOR ORAL USE ONLY) PO SCH (09:26)
--- NOTE | 2018-02-12 14:40 | PN ---
Physical Exam: SUBJECTIVE: Patient seen and examined. Since 3am has had cramping watery diarrhea, about 8 episodes. Feels weak. OBJECTIVE: Vital Signs Period Temp Pulse Resp BP Sys/Lui Pulse Ox Last 24 Hr 97.8 F-98.5 F 64-78 14-21 111-138/47-64 98-98 GENERAL: The patient is awake, alert, and fully oriented, in no acute distress. LUNGS: Breath sounds equal, clear to auscultation bilaterally, no wheezes, no crackles, no accessory muscle use. HEART: Regular rate and rhythm, S1, S2 ABDOMEN: soft, not distended, not tender, + BS: periumbilical horizontal surgical incision, sutures clean, dry, edges well-approximated, surrounding ecchymosis EXTREMITIES: 2+ pulses, warm, well-perfused, no edema. NEUROLOGICAL: Cranial nerves II through XII grossly intact. Normal speech, gait not observed. Active Medications Generic Name Dose Route Start Last Admin Trade Name Freq PRN Reason Stop Dose Admin Acetaminophen 650 mg 02/09/18 23:11 Tylenol - PO Q4H PRN FEVER Lactulose 10 gm 02/12/18 14:38 Cephulac (Oral Use) PO BID JOVANNA Oxycodone HCl 5 mg 02/11/18 15:44 02/12/18 12:58 Roxicodone - PO 5 mg Q6H PRN Administration PAIN LEVEL 4 - 6 Pantoprazole Sodium 40 mg 02/12/18 10:00 02/12/18 09:26 Protonix - PO 40 mg DAILY JOVANNA Administration Rifaximin 550 mg 02/11/18 22:00 02/12/18 09:26 Xifaxan - PO 550 mg BID JOVANNA Administration ASSESSMENT/PLAN: 62 year-old female with a PMH significant for alcoholic cirrhosis, pulmonary hypertension, and CKD. Admitted for an incarcerated ventral hernia and SBO. Incarcerated ventral hernia and SBO s/p open repair on 02/10 --afebrile, leukocytosis post-op day #2 --KUB: no SBO, possible ileus --stop clears, NPO Alcoholic cirrhosis --lactulose and rifampin restarted yesterday but excessive diarrhea today; hold for now --platelets trending up, INR 1.5 --bili trending up, 3.9 on admission, 5.0 today --GI following CKD --Cr 1.2 on admission, trending up FEN: Fluids: D51/2@125mL/hr Nutrition: NPO DVT prophylaxis: hold lovenox due to low platelets; oob, ambulation, TEDs Visit type - Emergency Visit Emergency Visit: Yes ED Registration Date: 02/09/18 Care time: The patient presented to the Emergency Department on the above date and was hospitalized for further evaluation of their emergent condition. - New Patient This patient is new to me today: No - Critical Care Critical Care patient: No
[2018-02-12 17:44] LABS: BASO % 0.8 % (0-2.0); EOS % 0.4 % (0-4.5); HEMATOCRIT 32.1 % (32.4-45.2); HEMOGLOBIN 10.5 GM/dL (10.7-15.3); LYMPH % 3.9 % (8-40); MCH 32.9 pg (25.7-33.7); MCHC 32.9 g/dl (32.0-36.0); MEAN PLT VOLUME 7.7 fl (7.5-11.1); MONO % 6.6 % (3.8-10.2); NEUT % 88.3 % (42.8-82.8); PLATELET COUNT 73 K/MM3 (134-434); WHITE BLOOD COUNT 15.3 K/mm3 (4.0-10.0)
[2018-02-12 20:15] LABS: ANION GAP 7 (8-16); BLOOD UREA NITROGEN 34 mg/dL (7-18); CHLORIDE 104 mmol/L (98-107); CO2 26 mmol/L (21-32); CREATININE 1.4 mg/dL (0.55-1.02); GLUCOSE,RANDOM 140 mg/dL (74-106); POTASSIUM 4.4 mmol/L (3.5-5.1); SODIUM 137 mmol/L (136-145)
[2018-02-12 20:16] LABS: ALBUMIN 2.4 g/dl (3.4-5.0); ALK PHOS 130 U/L (45-117); MAGNESIUM 2.1 mg/dL (1.8-2.4); SGOT/AST 35 U/L (15-37); SGPT/ALT 62 U/L (12-78); TOT PROT 6.5 g/dl (6.4-8.2)
[2018-02-12] MEDS ORDERED: LACTULOSE 20 GM/30 ML UDC (FOR ORAL USE ONLY) PO SCH (22:00)
[2018-02-12] MEDS: DEXTROSE 5%-0.45% SALINE 1,000 ML IV SCH (23:40)
[2018-02-13 07:44] LABS: BASO % 0.6 % (0-2.0); EOS % 1.8 % (0-4.5); HEMATOCRIT 24.6 % (32.4-45.2); HEMOGLOBIN 8.4 GM/dL (10.7-15.3); LYMPH % 16.1 % (8-40); MCH 33.6 pg (25.7-33.7); MCHC 33.9 g/dl (32.0-36.0); MEAN CELL VOLUME 99.1 fl (80-96); MEAN PLT VOLUME 7.1 fl (7.5-11.1); NEUT % 74.5 % (42.8-82.8); PLATELET COUNT 42 K/MM3 (134-434); RBC 2.48 M/mm3 (3.60-5.2); RDW 16.5 % (11.6-15.6); WHITE BLOOD COUNT 6.9 K/mm3 (4.0-10.0)
[2018-02-13] MEDS: DEXTROSE 5%-0.45% SALINE 1,000 ML IV SCH ×2 (07:50→17:12)
[2018-02-13 08:20] LABS: ALBUMIN 1.9 g/dl (3.4-5.0); ANION GAP 7 (8-16); BLOOD UREA NITROGEN 33 mg/dL (7-18); CALCIUM 8.1 mg/dL (8.5-10.1); CHLORIDE 107 mmol/L (98-107); CO2 24 mmol/L (21-32); CREATININE 1.3 mg/dL (0.55-1.02); GLUCOSE,RANDOM 123 mg/dL (74-106); SGOT/AST 29 U/L (15-37); SGPT/ALT 48 U/L (12-78); SODIUM 138 mmol/L (136-145)
[2018-02-13 08:21] LABS: ALK PHOS 98 U/L (45-117); BILIRUBIN,TOTAL 4.2 mg/dL (0.2-1.0); TOT PROT 5.1 g/dl (6.4-8.2)
[2018-02-13] MEDS: PANTOPRAZOLE 40 MG TABLET (FP) PO SCH (09:36)
--- NOTE | 2018-02-13 09:38 | PN ---
Physical Exam: SUBJECTIVE: Patient seen and examined at the bedside. Reports no BMs overnight. No pain, no discomfort. OBJECTIVE: hmg/hct, platelets low, repeat CBC ordered Vital Signs Period Temp Pulse Resp BP Sys/Lui Pulse Ox Last 24 Hr 97.6 F-99.0 F 65-79 18-20 106-138/54-64 97 GENERAL: The patient is awake, alert, and fully oriented, in no acute distress. HEAD: Normal with no signs of trauma. EYES: PERRL, extraocular movements intact, sclera anicteric, conjunctiva clear. No ptosis. ENT: Ears normal, nares patent, oropharynx clear without exudates, moist mucous membranes. NECK: Trachea midline, full range of motion, supple. LUNGS: Breath sounds equal, clear to auscultation bilaterally, right lung clear , left lung clear but diminished HEART: Regular rate and rhythm, S1, S2 without murmur, rub or gallop. ABDOMEN: s/p hernia repair surgery, eh dry and intact, abdomen soft, + bowel sounds rebound, no hepatosplenomegaly, no masses. EXTREMITIES: no edema. NEUROLOGICAL: Normal speech, gait not observed. Laboratory Results - last 24 hr 02/12/18 02/12/18 02/13/18 17:00 18:25 06:30 WBC 15.3 H 6.9 D RBC 3.20 L 2.48 L D Hgb 10.5 L D 8.4 L D Hct 32.1 L 24.6 L D MCV 100.0 H 99.1 H MCH 32.9 33.6 MCHC 32.9 33.9 RDW 17.0 H 16.5 H Plt Count 73 L D 42 L D MPV 7.7 7.1 L Neutrophils % 88.3 H 74.5 Lymphocytes % 3.9 L 16.1 D Monocytes % 6.6 7.0 Eosinophils % 0.4 D 1.8 D Basophils % 0.8 0.6 Nucleated RBC % 0 0 Sodium 137 Potassium 4.4 Chloride 104 Carbon Dioxide 26 Anion Gap 7 L BUN 34 H Creatinine 1.4 H Creat Clearance w eGFR 37.86 Random Glucose 140 H Calcium 9.0 Magnesium 2.1 Total Bilirubin 5.0 H D AST 35 ALT 62 Alkaline Phosphatase 130 H Ammonia Total Protein 6.5 Albumin 2.4 L 05/29/18 05/29/18 06:30 06:30 WBC RBC Hgb Hct MCV MCH MCHC RDW Plt Count MPV Neutrophils % Lymphocytes % Monocytes % Eosinophils % Basophils % Nucleated RBC % Sodium 138 Potassium 4.0 Chloride 107 Carbon Dioxide 24 Anion Gap 7 L BUN 33 H Creatinine 1.3 H Creat Clearance w eGFR 41.24 Random Glucose 123 H Calcium 8.1 L Magnesium 2.0 Total Bilirubin 4.2 H AST 29 ALT 48 Alkaline Phosphatase 98 Ammonia 63.85 H Total Protein 5.1 L Albumin 1.9 L Active Medications Generic Name Dose Route Start Last Admin Trade Name Freq PRN Reason Stop Dose Admin Acetaminophen 650 mg 02/09/18 23:11 Tylenol - PO Q4H PRN FEVER Dextrose/Sodium Chloride 1,000 mls @ 125 mls/hr 02/12/18 22:45 02/13/18 07:50 D5-1/2ns - IV 125 mls/hr ASDIR JOVANNA Administration Oxycodone HCl 5 mg 02/11/18 15:44 02/12/18 12:58 Roxicodone - PO 5 mg Q6H PRN Administration PAIN LEVEL 4 - 6 Pantoprazole Sodium 40 mg 02/12/18 10:00 02/13/18 09:36 Protonix - PO 40 mg DAILY JOVANNA Administration ASSESSMENT/PLAN: Patient is a 62 year old female with a significant past medical of alcoholic cirrhosis, pulmonary hypertension, and CKD. She was admitted on 02/09/2018 for an incarcerated ventral hernia and SBO. GI: Incarcerated ventral hernia and SBO, surgical repair on 02/10 Now with + bowel sounds, abdomen soft, non distended No fevers, no wbc Surgical notes reviewed Will re start clears Liver Cirrhosis Elevated ammonia levels Alcoholic hepatitis with coagulopathy/ascites Follows with the [facility] liver specialist Had recent EGD with Dr. Pa: portal hypertensive gastropathy, no evidence of gastric, or esophageal varices, no biopsies taken due to hypocoagulable state On Rifaximin, Lactulose for hepatic encephalopathy, on Aldactone Thrombocytopenia likely chronic due to ETOH abuse, will trend Protonix 40mg daily Heme: Anemia, thrombocytopenia Bleeding risk Trend F.E.N. Fluids: none secondary to anasarca Electrolytes: Monitor and replete Nutrition: clears Prophy: DVT: deferred for thrombocytopenia GI: on Protonix Disposition: full code
--- NOTE | 2018-02-13 10:20 | PN ---
Progress Note (short form) - Note Progress Note: surgery pt seen and examined. no pain. made npo by medical service for diarrhea. afebrile abd- soft, nt, nd. incision clean with small ecchymosis. Plan- no acute surgical issues. diarrhea can be expected with resolving sbo will. will follow as outpt [phone]
[2018-02-13 11:40] LABS: BASO % 0.7 % (0-2.0); EOS % 2.2 % (0-4.5); HEMATOCRIT 26.9 % (32.4-45.2); HEMOGLOBIN 9.1 GM/dL (10.7-15.3); LYMPH % 19.4 % (8-40); MCH 33.7 pg (25.7-33.7); MCHC 33.6 g/dl (32.0-36.0); MEAN CELL VOLUME 100.1 fl (80-96); MEAN PLT VOLUME 7.1 fl (7.5-11.1); MONO % 7.4 % (3.8-10.2); NEUT % 70.3 % (42.8-82.8); PLATELET COUNT 46 K/MM3 (134-434); RBC 2.69 M/mm3 (3.60-5.2); RDW 16.5 % (11.6-15.6); WHITE BLOOD COUNT 7.8 K/mm3 (4.0-10.0)
--- NOTE | 2018-02-13 12:43 | HP ---
HISTORY OF PRESENT ILLNESS PCP: ER course was notable for: (1) (2) (3) Recent travel: Family History: Social History: Smoking: Alcohol: Drugs: REVIEW OF SYSTEMS CONSTITUTIONAL: Absent: fever, chills, diaphoresis, generalized weakness, malaise, loss of appetite, weight change HEENT: Absent: rhinorrhea, nasal congestion, throat pain, throat swelling, difficulty swallowing, mouth swelling, ear pain, eye pain, visual changes CARDIOVASCULAR: Absent: chest pain, syncope, palpitations, irregular heart rate, lightheadedness , peripheral edema RESPIRATORY: Absent: cough, shortness of breath, dyspnea with exertion, orthopnea, wheezing, stridor, hemoptysis GASTROINTESTINAL: Absent: abdominal pain, abdominal distension, nausea, vomiting, diarrhea, constipation, melena, hematochezia GENITOURINARY: Absent: dysuria, frequency, urgency, hesitancy, hematuria, flank pain, genital pain MUSCULOSKELETAL: Absent: myalgia, arthralgia, joint swelling, back pain, neck pain SKIN: Absent: rash, itching, pallor HEMATOLOGIC/IMMUNOLOGIC: Absent: easy bleeding, easy bruising, lymphadenopathy, frequent infections ENDOCRINE: Absent: unexplained weight gain, unexplained weight loss, heat intolerance, cold intolerance NEUROLOGIC: Absent: headache, focal weakness or paresthesias, dizziness, unsteady gait, seizure, mental status changes, bladder or bowel incontinence PSYCHIATRIC: Absent: anxiety, depression, suicidal or homicidal ideation, hallucinations. PHYSICAL EXAMINATION: Vital Signs Temperature 98.4 F 02/13/18 08:19 Pulse Rate 70 02/13/18 08:19 Respiratory Rate 19 02/13/18 08:19 Blood Pressure 106/55 02/13/18 08:19 O2 Sat by Pulse Oximetry (%) 97 02/12/18 22:00 GENERAL: Awake, alert, and fully oriented, in no acute distress. HEAD: Normal with no signs of trauma. EYES: Pupils equal, round and reactive to light, extraocular movements intact, sclera anicteric, conjunctiva clear. No lid lag. EARS, NOSE, THROAT: Ears normal, nares patent, oropharynx clear without exudates. Moist mucous membranes. NECK: Normal range of motion, supple without lymphadenopathy, JVD, or masses. LUNGS: Breath sounds equal, clear to auscultation bilaterally. No wheezes, and no crackles. No accessory muscle use. HEART: Regular rate and rhythm, normal S1 and S2 without murmur, rub or gallop. ABDOMEN: Soft, nontender, not distended, normoactive bowel sounds, no guarding, no rebound, no masses. No hepatomegaly or splenomegaly. MUSCULOSKELETAL: Normal range of motion at all joints. No bony deformities or tenderness. No CVA tenderness. UPPER EXTREMITIES: 2+ pulses, warm, well-perfused. No cyanosis. No clubbing. No peripheral edema. LOWER EXTREMITIES: 2+ pulses, warm, well-perfused. No calf tenderness. No peripheral edema. NEUROLOGICAL: Cranial nerves II-XII intact. Normal speech. Normal gait. PSYCHIATRIC: Cooperative. Good eye contact. Appropriate mood and affect. SKIN: Warm, dry, normal turgor, no rashes or lesions noted, normal capillary refill. CBC,CMP WBC 7.8 K/mm3 (4.0-10.0) 02/13/18 11:30 RBC 2.69 M/mm3 (3.60-5.2) L 02/13/18 11:30 Hgb 9.1 GM/dL (10.7-15.3) L 02/13/18 11:30 Hct 26.9 % (32.4-45.2) L 02/13/18 11:30 MCV 100.1 fl (80-96) H 02/13/18 11:30 MCH 33.7 pg (25.7-33.7) 02/13/18 11:30 MCHC 33.6 g/dl (32.0-36.0) 02/13/18 11:30 RDW 16.5 % (11.6-15.6) H 02/13/18 11:30 Plt Count 46 K/MM3 (134-434) L 02/13/18 11:30 MPV 7.1 fl (7.5-11.1) L 02/13/18 11:30 Neutrophils % 70.3 % (42.8-82.8) 02/13/18 11:30 Neutrophils % (Manual) 87.0 % (42.8-82.8) H 02/11/18 09:04 Band Neutrophils % 4.0 % 02/11/18 09:04 Lymphocytes % 19.4 % (8-40) D 02/13/18 11:30 Lymphocytes % (Manual) 8.0 % (8-40) D 02/11/18 09:04 Monocytes % 7.4 % (3.8-10.2) 02/13/18 11:30 Monocytes % (Manual) 1 % (3.8-10.2) L D 02/11/18 09:04 Eosinophils % 2.2 % (0-4.5) 02/13/18 11:30 Basophils % 0.7 % (0-2.0) 02/13/18 11:30 Nucleated RBC % 0 % (0-0) 02/13/18 11:30 Platelet Estimate Decreased 02/11/18 09:04 Platelet Comment No clumping noted 02/11/18 09:04 Sodium 138 mmol/L (136-145) 02/13/18 06:30 Potassium 4.0 mmol/L (3.5-5.1) 02/13/18 06:30 Chloride 107 mmol/L (98-107) 02/13/18 06:30 Carbon Dioxide 24 mmol/L (21-32) 02/13/18 06:30 Anion Gap 7 (8-16) L 02/13/18 06:30 BUN 33 mg/dL (7-18) H 02/13/18 06:30 Creatinine 1.3 mg/dL (0.55-1.02) H 02/13/18 06:30 Creat Clearance w eGFR 41.24 (>60) 02/13/18 06:30 Random Glucose 123 mg/dL (74-106) H 02/13/18 06:30 Lactic Acid 1.3 mmol/L (0.0-2.0) 02/09/18 17:22 Calcium 8.1 mg/dL (8.5-10.1) L 02/13/18 06:30 Phosphorus 4.6 mg/dL (2.5-4.9) 02/10/18 06:10 Magnesium 2.0 mg/dL (1.8-2.4) 02/13/18 06:30 Total Bilirubin 4.2 mg/dL (0.2-1.0) H 02/13/18 06:30 Direct Bilirubin 1.7 mg/dL (0.0-0.2) H 02/10/18 06:10 AST 29 U/L (15-37) 02/13/18 06:30 ALT 48 U/L (12-78) 02/13/18 06:30 Alkaline Phosphatase 98 U/L (45-117) 02/13/18 06:30 Ammonia 63.85 umol/L (11-32) H 02/13/18 06:30 Creatine Kinase Cancelled 02/09/18 17:21 Troponin I Cancelled 02/09/18 17:21 Total Protein 5.1 g/dl (6.4-8.2) L 02/13/18 06:30 Albumin 1.9 g/dl (3.4-5.0) L 02/13/18 06:30 Lipase 352 U/L (73-393) 02/10/18 06:10 Active Medications Generic Name Dose Route Start Last Admin Trade Name Freq PRN Reason Stop Dose Admin Acetaminophen 650 mg 02/09/18 23:11 Tylenol - PO Q4H PRN FEVER Dextrose/Sodium Chloride 1,000 mls @ 125 mls/hr 02/12/18 22:45 02/13/18 07:50 D5-1/2ns - IV 125 mls/hr ASDIR JOVANNA Administration Oxycodone HCl 5 mg 02/11/18 15:44 02/12/18 12:58 Roxicodone - PO 5 mg Q6H PRN Administration PAIN LEVEL 4 - 6 Pantoprazole Sodium 40 mg 02/12/18 10:00 02/13/18 09:36 Protonix - PO 40 mg DAILY JOVANNA Administration ASSESSMENT/PLAN:
--- NOTE | 2018-02-13 19:30 | PN ---
Progress Note, Physician History of Present Illness: No events. Comfortable. Awake, alert, oriented. - Current Medication List Current Medications: Active Medications Acetaminophen (Tylenol -) 650 mg PO Q4H PRN PRN Reason: FEVER Dextrose/Sodium Chloride (D5-1/2ns -) 1,000 mls @ 125 mls/hr IV ASDIR [facility] Last Admin: 02/13/18 17:12 Dose: 125 mls/hr Oxycodone HCl (Roxicodone -) 5 mg PO Q6H PRN PRN Reason: PAIN LEVEL 4 - 6 Last Admin: 02/12/18 12:58 Dose: 5 mg Pantoprazole Sodium (Protonix -) 40 mg PO DAILY [facility] Last Admin: 02/13/18 09:36 Dose: 40 mg - Objective Vital Signs: Vital Signs Temperature 98.2 F 02/13/18 18:00 Pulse Rate 63 02/13/18 18:00 Respiratory Rate 98 H 02/13/18 18:00 Blood Pressure 112/58 02/13/18 18:00 O2 Sat by Pulse Oximetry (%) 96 02/13/18 09:00 Constitutional: Yes: Well Nourished, Calm Eyes: Yes: Conjunctiva Clear. No: Sclera Icterus HENT: Yes: Atraumatic Labs: CBC, BMP 02/13/18 11:30 02/13/18 06:30 INR, PTT INR 1.50 (0.82-1.09) H 02/10/18 06:10 Laboratory Last Values WBC 7.8 K/mm3 (4.0-10.0) 02/13/18 11:30 RBC 2.69 M/mm3 (3.60-5.2) L 02/13/18 11:30 Hgb 9.1 GM/dL (10.7-15.3) L 02/13/18 11:30 Hct 26.9 % (32.4-45.2) L 02/13/18 11:30 MCV 100.1 fl (80-96) H 02/13/18 11:30 MCH 33.7 pg (25.7-33.7) 02/13/18 11:30 MCHC 33.6 g/dl (32.0-36.0) 02/13/18 11:30 RDW 16.5 % (11.6-15.6) H 02/13/18 11:30 Plt Count 46 K/MM3 (134-434) L 02/13/18 11:30 MPV 7.1 fl (7.5-11.1) L 02/13/18 11:30 Neutrophils % 70.3 % (42.8-82.8) 02/13/18 11:30 Neutrophils % (Manual) 87.0 % (42.8-82.8) H 02/11/18 09:04 Band Neutrophils % 4.0 % 02/11/18 09:04 Lymphocytes % 19.4 % (8-40) D 02/13/18 11:30 Lymphocytes % (Manual) 8.0 % (8-40) D 02/11/18 09:04 Monocytes % 7.4 % (3.8-10.2) 02/13/18 11:30 Monocytes % (Manual) 1 % (3.8-10.2) L D 02/11/18 09:04 Eosinophils % 2.2 % (0-4.5) 02/13/18 11:30 Basophils % 0.7 % (0-2.0) 02/13/18 11:30 Nucleated RBC % 0 % (0-0) 02/13/18 11:30 Platelet Estimate Decreased 02/11/18 09:04 Platelet Comment No clumping noted 02/11/18 09:04 PT with INR 17.00 SEC (9.7-13.0) H 02/10/18 06:10 INR 1.50 (0.82-1.09) H 02/10/18 06:10 PTT (Actin FS) 28.6 SECONDS (26.9-34.4) 02/10/18 06:10 Sodium 138 mmol/L (136-145) 02/13/18 06:30 Potassium 4.0 mmol/L (3.5-5.1) 02/13/18 06:30 Chloride 107 mmol/L (98-107) 02/13/18 06:30 Carbon Dioxide 24 mmol/L (21-32) 02/13/18 06:30 Anion Gap 7 (8-16) L 02/13/18 06:30 BUN 33 mg/dL (7-18) H 02/13/18 06:30 Creatinine 1.3 mg/dL (0.55-1.02) H 02/13/18 06:30 Creat Clearance w eGFR 41.24 (>60) 02/13/18 06:30 Random Glucose 123 mg/dL (74-106) H 02/13/18 06:30 Lactic Acid 1.3 mmol/L (0.0-2.0) 02/09/18 17:22 Calcium 8.1 mg/dL (8.5-10.1) L 02/13/18 06:30 Phosphorus 4.6 mg/dL (2.5-4.9) 02/10/18 06:10 Magnesium 2.0 mg/dL (1.8-2.4) 02/13/18 06:30 Total Bilirubin 4.2 mg/dL (0.2-1.0) H 02/13/18 06:30 Direct Bilirubin 1.7 mg/dL (0.0-0.2) H 02/10/18 06:10 AST 29 U/L (15-37) 02/13/18 06:30 ALT 48 U/L (12-78) 02/13/18 06:30 Alkaline Phosphatase 98 U/L (45-117) 02/13/18 06:30 Ammonia 63.85 umol/L (11-32) H 02/13/18 06:30 Creatine Kinase Cancelled 02/09/18 17:21 Troponin I Cancelled 02/09/18 17:21 Total Protein 5.1 g/dl (6.4-8.2) L 02/13/18 06:30 Albumin 1.9 g/dl (3.4-5.0) L 02/13/18 06:30 Lipase 352 U/L (73-393) 02/10/18 06:10 Stool Occult Blood Positive (NEGATIVE) 02/13/18 09:45 Blood Type A POSITIVE 02/09/18 23:20 Antibody Screen Negative 02/09/18 23:20 Problem List - Problems (1) Abdominal hernia Code(s): K46.9 - UNSPECIFIED ABDOMINAL HERNIA WITHOUT OBSTRUCTION OR GANGRENE (2) Alcoholic cirrhosis Code(s): K70.30 - ALCOHOLIC CIRRHOSIS OF LIVER WITHOUT ASCITES (3) Ascites Code(s): R18.8 - OTHER ASCITES Assessment/Plan Continue to monitor liver chemistry, alkaline phosphatase, total bilirubin and PT INR daily.
[2018-02-14] MEDS: DEXTROSE 5%-0.45% SALINE 1,000 ML IV SCH ×2 (00:04→08:51)
[2018-02-14 10:26] LABS: BASO % 0.6 % (0-2.0); EOS % 2.8 % (0-4.5); HEMOGLOBIN 8.8 GM/dL (10.7-15.3); LYMPH % 22.6 % (8-40); MCHC 33.8 g/dl (32.0-36.0); MEAN CELL VOLUME 100.6 fl (80-96); MONO % 8.8 % (3.8-10.2); NEUT % 65.2 % (42.8-82.8); PLATELET COUNT 39 K/MM3 (134-434); RBC 2.58 M/mm3 (3.60-5.2); RDW 16.8 % (11.6-15.6); WHITE BLOOD COUNT 6.5 K/mm3 (4.0-10.0)
[2018-02-14] MEDS: PANTOPRAZOLE 40 MG TABLET (FP) PO SCH (10:34)
[2018-02-14 11:01] LABS: ALBUMIN 1.9 g/dl (3.4-5.0); ANION GAP 7 (8-16); BLOOD UREA NITROGEN 20 mg/dL (7-18); CALCIUM 7.7 mg/dL (8.5-10.1); CHLORIDE 108 mmol/L (98-107); CO2 24 mmol/L (21-32); CREATININE 1.1 mg/dL (0.55-1.02); GLUCOSE,RANDOM 142 mg/dL (74-106); MAGNESIUM 1.9 mg/dL (1.8-2.4); POTASSIUM 3.6 mmol/L (3.5-5.1); SGOT/AST 40 U/L (15-37); SODIUM 139 mmol/L (136-145)
[2018-02-14 11:03] LABS: ALK PHOS 105 U/L (45-117); BILIRUBIN,TOTAL 3.7 mg/dL (0.2-1.0); TOT PROT 5.3 g/dl (6.4-8.2)
--- NOTE | 2018-02-14 11:16 | PN ---
Progress Note, Physician History of Present Illness: No events. Comfortable. Awake, alert, oriented. No BMs 2 days however passes flatus - Current Medication List Current Medications: Active Medications Acetaminophen (Tylenol -) 650 mg PO Q4H PRN PRN Reason: FEVER Dextrose/Sodium Chloride (D5-1/2ns -) 1,000 mls @ 125 mls/hr IV ASDIR JOVANNA Last Admin: 02/14/18 08:51 Dose: 125 mls/hr Oxycodone HCl (Roxicodone -) 5 mg PO Q6H PRN PRN Reason: PAIN LEVEL 4 - 6 Last Admin: 02/12/18 12:58 Dose: 5 mg - Objective Vital Signs: Vital Signs Temperature 98.7 F 02/14/18 07:37 Pulse Rate 58 L 02/14/18 07:37 Respiratory Rate 16 02/14/18 07:37 Blood Pressure 113/55 02/14/18 07:37 O2 Sat by Pulse Oximetry (%) 96 02/13/18 22:00 Constitutional: Yes: No Distress, Calm Eyes: No: Sclera Icterus Gastrointestinal: Yes: Normal Bowel Sounds, Soft. No: Tenderness Neurological: Yes: Alert, Oriented Labs: CBC, BMP 02/14/18 10:05 02/14/18 10:05 INR, PTT INR 1.50 (0.82-1.09) H 02/10/18 06:10 Laboratory Last Values WBC 6.5 K/mm3 (4.0-10.0) 02/14/18 10:05 RBC 2.58 M/mm3 (3.60-5.2) L 02/14/18 10:05 Hgb 8.8 GM/dL (10.7-15.3) L 02/14/18 10:05 Hct 26.0 % (32.4-45.2) L 02/14/18 10:05 MCV 100.6 fl (80-96) H 02/14/18 10:05 MCH 34.0 pg (25.7-33.7) H 02/14/18 10:05 MCHC 33.8 g/dl (32.0-36.0) 02/14/18 10:05 RDW 16.8 % (11.6-15.6) H 02/14/18 10:05 Plt Count 39 K/MM3 (134-434) L 02/14/18 10:05 MPV 7.0 fl (7.5-11.1) L 02/14/18 10:05 Neutrophils % 65.2 % (42.8-82.8) 02/14/18 10:05 Neutrophils % (Manual) 87.0 % (42.8-82.8) H 02/11/18 09:04 Band Neutrophils % 4.0 % 02/11/18 09:04 Lymphocytes % 22.6 % (8-40) 02/14/18 10:05 Lymphocytes % (Manual) 8.0 % (8-40) D 02/11/18 09:04 Monocytes % 8.8 % (3.8-10.2) 02/14/18 10:05 Monocytes % (Manual) 1 % (3.8-10.2) L D 02/11/18 09:04 Eosinophils % 2.8 % (0-4.5) 02/14/18 10:05 Basophils % 0.6 % (0-2.0) 02/14/18 10:05 Nucleated RBC % 0 % (0-0) 02/14/18 10:05 Platelet Estimate Decreased 02/11/18 09:04 Platelet Comment No clumping noted 02/11/18 09:04 PT with INR 17.00 SEC (9.7-13.0) H 02/10/18 06:10 INR 1.50 (0.82-1.09) H 02/10/18 06:10 PTT (Actin FS) 28.6 SECONDS (26.9-34.4) 02/10/18 06:10 Sodium 139 mmol/L (136-145) 02/14/18 10:05 Potassium 3.6 mmol/L (3.5-5.1) 02/14/18 10:05 Chloride 108 mmol/L (98-107) H 02/14/18 10:05 Carbon Dioxide 24 mmol/L (21-32) 02/14/18 10:05 Anion Gap 7 (8-16) L 02/14/18 10:05 BUN 20 mg/dL (7-18) H 02/14/18 10:05 Creatinine 1.1 mg/dL (0.55-1.02) H 02/14/18 10:05 Creat Clearance w eGFR 50.01 (>60) 02/14/18 10:05 Random Glucose 142 mg/dL (74-106) H 02/14/18 10:05 Lactic Acid 1.3 mmol/L (0.0-2.0) 02/09/18 17:22 Calcium 7.7 mg/dL (8.5-10.1) L 02/14/18 10:05 Phosphorus 4.6 mg/dL (2.5-4.9) 02/10/18 06:10 Magnesium 1.9 mg/dL (1.8-2.4) 02/14/18 10:05 Total Bilirubin 3.7 mg/dL (0.2-1.0) H 02/14/18 10:05 Direct Bilirubin 1.7 mg/dL (0.0-0.2) H 02/10/18 06:10 AST 40 U/L (15-37) H 02/14/18 10:05 ALT 48 U/L (12-78) 02/13/18 06:30 Alkaline Phosphatase 105 U/L (45-117) 02/14/18 10:05 Ammonia 63.85 umol/L (11-32) H 02/13/18 06:30 Creatine Kinase Cancelled 02/09/18 17:21 Troponin I Cancelled 02/09/18 17:21 Total Protein 5.3 g/dl (6.4-8.2) L 02/14/18 10:05 Albumin 1.9 g/dl (3.4-5.0) L 02/14/18 10:05 Lipase 352 U/L (73-393) 02/10/18 06:10 Stool Occult Blood Positive (NEGATIVE) 02/13/18 09:45 Blood Type A POSITIVE 02/09/18 23:20 Antibody Screen Negative 02/09/18 23:20 Problem List - Problems (1) Abdominal hernia Code(s): K46.9 - UNSPECIFIED ABDOMINAL HERNIA WITHOUT OBSTRUCTION OR GANGRENE (2) Alcoholic cirrhosis Code(s): K70.30 - ALCOHOLIC CIRRHOSIS OF LIVER WITHOUT ASCITES (3) Ascites Code(s): R18.8 - OTHER ASCITES Assessment/Plan Continue to monitor liver chemistry, alkaline phosphatase, total bilirubin and PT INR daily. Ciet as per surgery. Surveillance colonoscopy as outpatient in 2-4 weeks. Follow up in liver center as scheduled.
[2018-02-14 12:04] LABS: SGPT/ALT 52 U/L (12-78)
--- NOTE | 2018-02-14 15:14 | PATH ---
Surgical Pathology Report Patient Name: GARRISNO CORDERO [facility]. Rec. #: [id number] /Age/Gender: 1955 (Age: 62) / F Account: [id number] Location: [address] [place] [address]/[facility] Taken: 02/09/2018 Received: 02/13/2018 Reported: 02/14/2018 Physicians: Froilan Jensen M.D. Specimen(s) Received HERNIA SAC Clinical History Incarcerated umbilical hernia Final Diagnosis HERNIA SAC, UMBILICAL HERNIA REPAIR: MESOTHELIAL LINED FIBROMEMBRANOUS TISSUE CONSISTENT WITH HERNIA SAC. Electronically Signed Heather Lemon M.D. Gross Description Received in formalin labeled "hernia sac," is a 5.8 x 1.1 x 0.4 cm portion of koehler-mccormick fibromembranous tissue, consistent with a hernia sac. Dry[employer] sections are submitted in one cassette. /02/13/2018 saudi/02/13/2018
--- NOTE | 2018-02-14 16:52 | CONSULT ---
Consult Consult Specialty:: hematology - History of Present Illness History of Present Illness: 62 year old female with a significant past medical of alcoholic cirrhosis, pulmonary hypertension, and CKD. She was admitted on 02/09/2018 for an incarcerated ventral hernia and SBO. Hematology consulted for thrombocytopenia - History Source History Provided By: Patient, Medical Record - Past Medical History Gastrointestinal: Yes: Ascites Hepatobiliary: Yes: Cirrhosis (ETOH), Other (history of alcoholic hepatitis) Renal/: Yes: Renal Inusuff Psych: Yes: Addictions Additional Medical History: Denies all medical problems. Alcohol abuse - Past Surgical History Past Surgical History: Yes: None Additional Surgical History: C-spine fusion, umbilical hernia repair 02/10/18 - Alcohol/Substance Use Hx Alcohol Use: Yes (abuse, last drink 09/03. States being in AA) History of Substance Use: reports: None - Smoking History Smoking history: Former smoker Have you smoked in the past 12 months: No - Social History Usual Living Arrangement: Other ADL: Independent (single) Occupation: banker History of Recent Travel: No Home Medications - Allergies Allergies/Adverse Reactions: Allergies Allergy/AdvReac Type Severity Reaction Status Date / Time No Known Allergies Allergy Verified 02/09/18 15:37 - Home Medications Home Medications: Ambulatory Orders Rifaximin [Xifaxan] 550 mg PO BID 01/21/18 Spironolactone [Aldactone] 50 mg PO DAILY 01/21/18 Albuterol Sulfate Inhaler - [Ventolin HFA Inhaler -] 1 - 2 inh PO Q4H PRN #1 inhaler 01/29/18 Furosemide [Lasix -] 40 mg PO DAILY #30 tablet 01/29/18 Guaifenesin Dm [Mucinex Dm -] 1 tablet PO BID #60 tab.er.12h 01/29/18 Lactulose (Oral Use) [Cephulac -] 20 gm PO BID #1000 ml 01/29/18 Family Disease History - Family Disease History Family Disease History: Other: Grandparent (liver disease), Father (: 80 's: "natural causes"), Mother (: 91: "natural causes"), Brother (2, 1 alive w/ DM II 1 : killed), Sister (1, alive w/ hyperlipidemia), Son ( None), Daughter (None) Other Family History: No family history of colorectal cancer or other GI malignancy Physical Exam Vital Signs: Vital Signs Temperature 97.6 F 02/14/18 14:00 Pulse Rate 70 02/14/18 14:00 Respiratory Rate 20 02/14/18 14:00 Blood Pressure 123/60 02/14/18 14:00 O2 Sat by Pulse Oximetry (%) 96 02/13/18 22:00 Constitutional: Yes: Well Nourished, No Distress, Calm Eyes: Yes: Conjunctiva Clear HENT: Yes: Atraumatic, Normocephalic Neck: Yes: Supple, Trachea Midline Cardiovascular: Yes: Regular Rate and Rhythm Respiratory: Yes: Regular, CTA Bilaterally Gastrointestinal: Yes: Normal Bowel Sounds, Soft, Abdomen, Obese, Ascites Extremities: Yes: WNL Labs: CBC, BMP 02/14/18 10:05 02/14/18 10:05 Imaging - Results Cat Scan: Report Reviewed, Image Reviewed Ultrasound: Report Reviewed Problem List - Problems (1) Thrombocytopenia Code(s): D69.6 - THROMBOCYTOPENIA, UNSPECIFIED (2) Alcoholic cirrhosis Code(s): K70.30 - ALCOHOLIC CIRRHOSIS OF LIVER WITHOUT ASCITES (3) Acute on chronic alcoholic liver disease Code(s): K70.9 - ALCOHOLIC LIVER DISEASE, UNSPECIFIED (4) Ascites Code(s): R18.8 - OTHER ASCITES (5) CKD (chronic kidney disease) Code(s): N18.9 - CHRONIC KIDNEY DISEASE, UNSPECIFIED (6) Anemia Code(s): D64.9 - ANEMIA, UNSPECIFIED Qualifiers: Anemia type: unspecified type Qualified Code(s): D64.9 - Anemia, unspecified Assessment/Plan Acute on chronic thrombocytopenia Patient with baseline thrombocytopenia likely from her underlying cirrhosis. reviewed chart in detail her meds(PPI/Carbopenams), post-surgical, might have been a cause, do not see any heparin products given (?one dose of lovenox), very less likely HIT. Will send B12/folate/TFts/LDH. r/o occult infection If above reasons, expect to improve. ?etiology of pleural effusion. check coags. If Hgb down trends, low threshold to repeat CT a/p(non-con should be OK to r/o bleeding). d/wpt
--- NOTE | 2018-02-14 21:51 | PN ---
Physical Exam: SUBJECTIVE: Patient seen and examined at the bedside. OBJECTIVE: Hematology consult for thrombocytopenia Restart PO meds, advance diet as tolerated Vital Signs Period Temp Pulse Resp BP Sys/Lui Pulse Ox Last 24 Hr 97.6 F-98.7 F 58-70 16-98 97-123/53-60 96-99 GENERAL: The patient is awake, alert, and fully oriented, in no acute distress. HEAD: Normal with no signs of trauma. EYES: PERRL, extraocular movements intact, sclera anicteric, conjunctiva clear. No ptosis. ENT: Ears normal, nares patent, oropharynx clear without exudates, moist mucous membranes. NECK: Trachea midline, full range of motion, supple. LUNGS: Breath sounds equal, clear to auscultation bilaterally, right lung clear , left lung clear but diminished HEART: Regular rate and rhythm, S1, S2 without murmur, rub or gallop. ABDOMEN: s/p hernia repair surgery, eh dry and intact, abdomen soft, + bowel sounds rebound, no hepatosplenomegaly, no masses. EXTREMITIES: no edema. NEUROLOGICAL: Normal speech, gait not observed. Laboratory Results - last 24 hr 02/14/18 02/14/18 10:05 10:05 WBC 6.5 RBC 2.58 L Hgb 8.8 L Hct 26.0 L MCV 100.6 H MCH 34.0 H MCHC 33.8 RDW 16.8 H Plt Count 39 L MPV 7.0 L Neutrophils % 65.2 Lymphocytes % 22.6 Monocytes % 8.8 Eosinophils % 2.8 Basophils % 0.6 Nucleated RBC % 0 Sodium 139 Potassium 3.6 Chloride 108 H Carbon Dioxide 24 Anion Gap 7 L BUN 20 H Creatinine 1.1 H Creat Clearance w eGFR 50.01 Random Glucose 142 H Calcium 7.7 L Magnesium 1.9 Total Bilirubin 3.7 H AST 40 H ALT 52 Alkaline Phosphatase 105 Total Protein 5.3 L Albumin 1.9 L Active Medications Generic Name Dose Route Start Last Admin Trade Name Freq PRN Reason Stop Dose Admin Acetaminophen 650 mg 02/09/18 23:11 Tylenol - PO Q4H PRN FEVER Lactulose 20 gm 02/14/18 22:00 Cephulac (Oral Use) PO BID JOVANNA Oxycodone HCl 5 mg 02/11/18 15:44 02/12/18 12:58 Roxicodone - PO 5 mg Q6H PRN Administration PAIN LEVEL 4 - 6 Rifaximin 550 mg 02/14/18 22:00 Xifaxan - PO BID [facility] Spironolactone 50 mg 02/15/18 10:00 Aldactone - PO DAILY [facility] ASSESSMENT/PLAN: Patient is a 62 year old female with a significant past medical of alcoholic cirrhosis, pulmonary hypertension, and CKD. She was admitted on 02/09/2018 for an incarcerated ventral hernia and SBO. GI: Incarcerated ventral hernia and SBO, surgical repair on 02/10 Now with + bowel sounds, abdomen soft, non distended No fevers, no wbc Surgical notes reviewed Advance diet, restart medications Liver Cirrhosis Elevated ammonia levels Alcoholic hepatitis with coagulopathy/ascites Follows with the [facility] liver specialist Had recent EGD with Dr. Pa: portal hypertensive gastropathy, no evidence of gastric, or esophageal varices, no biopsies taken due to hypocoagulable state On Rifaximin, Lactulose for hepatic encephalopathy, on Aldactone Thrombocytopenia likely chronic due to ETOH abuse, but platelets lower than previous visits Protonix 40mg discontinued Heme: Anemia, thrombocytopenia Bleeding risk Patelets continue to drop, heme consult F.E.N. Fluids: none secondary to anasarca Electrolytes: Monitor and replete Nutrition: Full liquid Prophy: DVT: deferred for thrombocytopenia Disposition: full code
[2018-02-14] MEDS: RIFAXIMIN 550 MG TABLET (UD) PO SCH (22:00)
[2018-02-14] MEDS: LACTULOSE 20 GM/30 ML UDC (FOR ORAL USE ONLY) PO SCH (22:00)
[2018-02-15 08:08] LABS: BASO % 0.6 % (0-2.0); EOS % 2.7 % (0-4.5); HEMATOCRIT 26.6 % (32.4-45.2); HEMOGLOBIN 9.1 GM/dL (10.7-15.3); LYMPH % 23.4 % (8-40); MCHC 34.5 g/dl (32.0-36.0); MEAN CELL VOLUME 98.6 fl (80-96); MEAN PLT VOLUME 6.7 fl (7.5-11.1); MONO % 7.7 % (3.8-10.2); NEUT % 65.6 % (42.8-82.8); PLATELET COUNT 53 K/MM3 (134-434); RBC 2.69 M/mm3 (3.60-5.2)
[2018-02-15 08:16] LABS: CHLORIDE 108 mmol/L (98-107); POTASSIUM 3.6 mmol/L (3.5-5.1); SODIUM 140 mmol/L (136-145)
[2018-02-15 08:18] LABS: INR 1.57 (0.82-1.09); PROTHROMBIN TIME (PATIENT) 17.7 SEC (9.7-13.0)
[2018-02-15 08:21] LABS: ACTIVATED PTT 30.7 SECONDS (26.9-34.4)
[2018-02-15 08:34] LABS: BLOOD UREA NITROGEN 15 mg/dL (7-18)
[2018-02-15 09:14] LABS: ALK PHOS 111 U/L (45-117); ANION GAP 9 (8-16); BILIRUBIN,TOTAL 4.3 mg/dL (0.2-1.0); CALCIUM 7.7 mg/dL (8.5-10.1); CO2 23 mmol/L (21-32); GLUCOSE,RANDOM 81 mg/dL (74-106); MAGNESIUM 1.8 mg/dL (1.8-2.4); SGOT/AST 38 U/L (15-37); SGPT/ALT 49 U/L (12-78); TOT PROT 5.4 g/dl (6.4-8.2)
[2018-02-15] MEDS ORDERED: SPIRONOLACTONE 25 MG TABLET (FP) PO SCH (10:00)
[2018-02-15] MEDS: LACTULOSE 20 GM/30 ML UDC (FOR ORAL USE ONLY) PO SCH (10:40)
[2018-02-15] MEDS: RIFAXIMIN 550 MG TABLET (UD) PO SCH (10:41)
[2018-02-15 10:52] LABS: PLATELET ESTIMATE DECREASED
--- NOTE | 2018-02-15 14:00 | DS ---
Physical Exam: SUBJECTIVE: Patient seen and examined OBJECTIVE: Vital Signs Period Temp Pulse Resp BP Sys/Lui Pulse Ox Last 24 Hr 98.7 F-98.9 F 69-76 20-20 103-124/54-61 99 PHYSICAL EXAM GENERAL: The patient is awake, alert, and fully oriented, in no acute distress. HEAD: Normal with no signs of trauma. EYES: PERRL, extraocular movements intact, sclera anicteric, conjunctiva clear. ENT: Ears normal, nares patent, oropharynx clear without exudates, moist mucous membranes. NECK: Trachea midline, full range of motion, supple. LUNGS: Breath sounds equal, clear to auscultation bilaterally, no wheezes, no crackles, no accessory muscle use. HEART: Regular rate and rhythm, S1, S2 without murmur, rub or gallop. ABDOMEN: Soft, nontender, nondistended, normoactive bowel sounds, no guarding, no rebound, no hepatosplenomegaly, no masses. EXTREMITIES: 2+ pulses, warm, well-perfused, no edema. NEUROLOGICAL: Cranial nerves II through XII grossly intact. Normal speech, gait not observed. PSYCH: Normal mood, normal affect. SKIN: Warm, dry, normal turgor, no rashes or lesions noted. LABS Laboratory Results - last 24 hr 02/15/18 02/15/18 02/15/18 07:00 07:00 07:00 WBC 7.0 RBC 2.69 L Hgb 9.1 L Hct 26.6 L MCV 98.6 H MCH 34.0 H MCHC 34.5 RDW 16.0 H Plt Count 53 L D MPV 6.7 L Neutrophils % 65.6 Lymphocytes % 23.4 Monocytes % 7.7 Eosinophils % 2.7 Basophils % 0.6 Nucleated RBC % 0 Platelet Estimate Decreased Platelet Comment No clumping noted PT with INR 17.70 H INR 1.57 H PTT (Actin FS) 30.7 Fibrinogen 192.0 L Sodium 140 Potassium 3.6 Chloride 108 H Carbon Dioxide 23 Anion Gap 9 BUN 15 Creatinine 1.0 Creat Clearance w eGFR 55.82 Random Glucose 81 Calcium 7.7 L Magnesium 1.8 Ferritin 835.401 H Total Bilirubin 4.3 H AST 38 H ALT 49 Alkaline Phosphatase 111 Total Protein 5.4 L Albumin 2.0 L Vitamin B12 1172 H Serum Folate 5 TSH 4.50 H HOSPITAL COURSE: Date of Admission:02/09/18 Date of Discharge: 02/15/18 ASSESSMENT/PLAN: Patient is a 62 year old female with a significant past medical of alcoholic cirrhosis, pulmonary hypertension, and CKD. She was admitted on 02/09/2018 for an incarcerated ventral hernia and SBO. GI: Incarcerated ventral hernia and SBO, surgical repair on 02/10, will need surgical follow up in 1 week Now with + bowel sounds, abdomen soft, non distended No fevers, no wbc Surgical notes reviewed Tolerating diet of full liquids, pt to slowly advance as tolerated Liver Cirrhosis, chronic Elevated ammonia levels Alcoholic hepatitis with coagulopathy/ascites Follows with the [facility] liver specialist, next appt is next week Had recent EGD with Dr. Pa: portal hypertensive gastropathy, no evidence of gastric, or esophageal varices, no biopsies taken due to hypocoagulable state On Rifaximin, Lactulose for hepatic encephalopathy, on Aldactone Thrombocytopenia likely chronic due to ETOH abuse, but platelets lower than previous visits - now improving Protonix 40mg discontinued Heme: Anemia, thrombocytopenia, resolving Platelets 39>53, pt to get CBC on Monday as she has standing appointment Hematology outpatient follow up Disposition: full code Minutes to complete discharge: 60 Discharge Summary Reason For Visit: SMALL BOWEL OBSTRUCTION IRREDUCIBLE UMBILICAL JH Current Active Problems Abdominal hernia (Acute) Abdominal pain (Acute) Alcoholic cirrhosis (Acute) Anemia (Acute) Thrombocytopenia (Acute) Condition: Stable - Instructions Diet, Activity, Other Instructions: Mrs. Colon: Please return to the ER with any new or worsening symptoms. Please have your blood work repeated this Monday as discussed to recheck your platelets and total blood count. Please call me with any questions that you may have. Key Buck, ERICK [phone] [facility] @. [facility] Referrals: Singh Muro MD [Staff Physician] - (March 01 @ 1:30pm. ) Steve Pa MD [Staff Physician] - Susan Garvey MD [Staff Physician] - 1 Week (follow up with blood work done in hospital) Cal Acevedo MD [Staff Physician] - 1 Week Abiel Humphrey [Non Staff, Medical] - 1 Week Disposition: HOME - Home Medications Comprehensive Discharge Medication List: Ambulatory Orders Rifaximin [Xifaxan] 550 mg PO BID 01/21/18 Spironolactone [Aldactone] 50 mg PO DAILY 01/21/18 Albuterol Sulfate Inhaler - [Ventolin HFA Inhaler -] 1 - 2 inh PO Q4H PRN #1 inhaler 01/29/18 Furosemide [Lasix -] 40 mg PO DAILY #30 tablet 01/29/18 Guaifenesin Dm [Mucinex Dm -] 1 tablet PO BID #60 tab.er.12h 01/29/18 Lactulose (Oral Use) [Cephulac -] 20 gm PO BID #1000 ml 01/29/18 Lactulose (Oral Use) [Cephulac -] 20 gm PO BID udc 02/15/18 This patient is new to me today: No Emergency Visit: Yes ED Registration Date: 02/09/18 Care time: The patient presented to the Emergency Department on the above date and was hospitalized for further evaluation of their emergent condition. Critical Care patient: No - Discharge Referral Referred to [facility] No
[2018-02-15 14:11] VITALS: BP 106/51; PULSE 83; TEMP 98.2
[2018-02-16 06:11] LABS: SERUM IRON SATURATION 66 % (15-55); TOTAL IRON BINDING CAPACITY 142 ug/dL (250-450); UIBC 48 ug/dL (118-369)
== END 2018-02-15 19:06 | disposition home or self-care (01) | DRG 355 ==
LOC: JER 15:18 → JERBED 22:57 → JICU 02-10 01:22 → J6S 02-10 11:28
PROVIDERS: ADMIT Internal Medicine; ATTEND Nurse Practitioner Family
PROC: 0W9G3ZZ Drainage of Peritoneal Cavity, Percutaneous Approach (ICD-10-PCS; 2018-02-09)
PROC: 0WQF0ZZ Repair Abdominal Wall, Open Approach (ICD-10-PCS; principal; 2018-02-09 23:00)
DX: K43.0 Incisional hernia with obstruction, without gangrene (principal); K70.31 Alcoholic cirrhosis of liver with ascites; N18.9 Chronic kidney disease, unspecified; I27.20 Pulmonary hypertension, unspecified; J45.909 Unspecified asthma, uncomplicated; I48.91 Unspecified atrial fibrillation; Z87.891 Personal history of nicotine dependence; D69.59 Other secondary thrombocytopenia; K70.9 Alcoholic liver disease, unspecified; D64.9 Anemia, unspecified
CPT/HCPCS: 36415; 74018-TC-FY; 74177-TC; 76705-TC; 80053; 82140; 82248; 82272; 82607; 82728; 82746; 82784; 83540; 83550; 83605; 83690; 83735; 84100; 84155; 84165; 84443; 85025; 85027; 85384; 85610; 85730; 86334; 86850; 86900; 86901; 87045; 87046; 87324; 87449; 88302-TC; 94760; 99282-25; J7030

== ENCOUNTER 2018-06-29 22:29 | Inpatient (IN) | payer OTHER ==
[2018-06-29 22:42] VITALS: BMI 32.1
[2018-06-29] MEDS ORDERED: ALBUTEROL SO4 2.5/IPRATROPIUM 0.5 INH SOL 3 ML VIAL.NEB. NEB ONE ×2 (22:48→23:08)
--- NOTE | 2018-06-29 22:54 | PDOC ---
History of Present Illness - General Chief Complaint: Shortness of Breath Stated Complaint: SOB, CHILLS, PAIN Time Seen by Provider: 06/29/18 22:54 - History of Present Illness Initial Comments: 62 year old with PMH of alcoholic cirrhosis, pulmonary hypertension, CKD, and recent SBO presenting with shortness of breath and cough that acutely worsened at 19:00 today. States that he has been short of breath for the past few weeks but has been gradually worsening. She used a dose of Ventolin but without much relief. Denies any headache, chest pain, hemoptysis, worsening leg swelling, or other symptoms. She has been evaluated by a liver transplant team in the past and is currently in the process of liver transplant search. 06/29/18 22:55 Past History - Past Medical History Allergies/Adverse Reactions: Allergies Allergy/AdvReac Type Severity Reaction Status Date / Time No Known Allergies Allergy Verified 06/29/18 22:38 Home Medications: Ambulatory Orders Rifaximin [Xifaxan] 550 mg PO BID 01/21/18 Spironolactone [Aldactone] 50 mg PO DAILY 01/21/18 Furosemide [Lasix -] 40 mg PO DAILY #30 tablet 01/29/18 Lactulose (Oral Use) [Cephulac -] 20 gm PO BID udc 02/15/18 Anemia: No Asthma: Yes (as an ) Cancer: No Cardiac Disorders: Yes (A-fib) CVA: No COPD: No CHF: No DVT: No Dementia: No Diabetes: No GI Disorders: Yes (Liver cirrhosis) Disorders: No HTN: No Hypercholesterolemia: No Liver Disease: Yes Seizures: No Thyroid Disease: No - Surgical History Abdominal Surgery: No Appendectomy: No Cardiac Surgery: No Cholecystectomy: No Lung Surgery: No Neurologic Surgery: No Orthopedic Surgery: No - Immunization History Immunization Up to Date: Yes - Suicide/Smoking/Psychosocial Hx Smoking History: Former smoker Have you smoked in the past 12 months: No If you are a former smoker, when did you quit?: 30 years ago Information on smoking cessation initiated: No 'Breaking Loose' booklet given: 10/05/17 Hx Alcohol Use: Yes (abuse, last drink 09/03. States being in AA) Drug/Substance Use Hx: No Substance Use Type: None Hx Substance Use Treatment: No *Physical Exam - Vital Signs Last Vital Signs Temp Pulse Resp BP Pulse Ox 99.8 F H 94 H 30 H 136/97 94 L 06/29/18 22:39 06/29/18 22:39 06/29/18 22:39 06/29/18 22:39 06/29/18 22:39 Procedures - Chest Tube Left Mid Axillary Line 4th ICS Indication: Hemothorax Anesthesia: 1% Lidocaine Sterile Draping: Yes Sterile Technique: Yes Tube Drainage(ml): 2,600 Suction: Yes Tube Sutured to Skin: Yes Complications: No Post Procedure CXR: Yes ED Treatment Course - LABORATORY CBC & Chemistry Diagram: 06/29/18 23:35 06/30/18 00:20 Medical Decision Making - Medical Decision Making Patient with large left sided pleural effusion and advanced liver failure. Spoke to ICU and plan was to originally admit. Spoke to Dr. House at and he feels that the patient would be better served at a tertiary center with a liver transplant team. Patient's MELD-Na score is 27. Spoke to patient and she would like to be transferred to [facility]. We discussed the care with Dr. Pineda's open claims representative and he stated that he wants a pig tail placed prior to transfer. We placed the pig tail per procedure note with over 2.5 L serosanguineous fluid drained and sent for profile. 06/30/18 02:01 *DC/Admit/Observation/Transfer Diagnosis at time of Disposition: Pleural effusion associated with hepatic disorder Alcoholic cirrhosis of liver Qualifiers: Ascites presence: with ascites Qualified Code(s): K70.31 - Alcoholic cirrhosis of liver with ascites - Discharge Dispostion Disposition: TRANSFER ACUTE CARE/OTHER HOSP Condition at time of disposition: Stable Decision to Admit order: No - Referrals - Patient Instructions - Post Discharge Activity
--- NOTE | 2018-06-29 23:13 | PDOC ---
Attending Attestation - HPI HPI: This patient is 62 year old female with PMHx of CKD and alcoholic cirrhosis pulmonary HTN, who presents with cough, chills and worsening sob. Patient uses vent at home with some relief. She arrives short of breath, tachypneic and borderline febrile. Social Hx: former EtOH mos ago abuse (quit 09/11/17 - Physicial Exam PE: GENERAL: Awake, alert, and fully oriented, in moderate respiratory distress. HEAD: No signs of trauma EYES: R eye cataract. LUNGS: Egophony in left lung from base to 1/2 up. apex b/l normal. HEART: Regular rate and rhythm, normal S1 and S2, no murmurs, rubs or gallops ABDOMEN: Soft, ascites, distended, scar at the umbilicus nontender, normoactive bowel sounds. No guarding, no rebound. No masses EXTREMITIES: Normal range of motion, pitting edema in b/l legs up to knees L> R. Good DP and PT pulses b/l LE. Good brachial pulses. No swelling in UE. No clubbing or cyanosis. No cords, erythema, or tenderness NEUROLOGICAL: Cranial nerves II through XII grossly intact. Normal speech, normal gait SKIN: Warm, Dry, jaundiced, spider angioma on face (liver failure), mottled. <Homa Hoffman - Last Filed: 06/29/18 23:58> - Resident Resident Name: Hair Carl - ED Attending Attestation I have performed the following: I have examined & evaluated the patient, The case was reviewed & discussed with the resident, I agree w/resident's findings & plan - Medical Decision Making 06/29/18 23:31 Pt comes with a hx of liver failure. She comes with SOB and jaundice and Decreased BS of her left ling and 2/3 pleural effusion on the right side. Pt also has peripheral pitting edema, and she will requre diuresis and ICU admission. 06/30/18 02:08 Pt is being transferred to a tertiary care hospital for further evaluation. 06/30/18 02:13 Patient Name: GARRISON CORDERO THIS IS A PRELIMINARY REPORT FROM [facility] DATE OF SERVICE: 2018-06-30 01:18:45 IMAGES: [id number] EXAM: CHEST, ABDOMEN \T\ PELVIS CT W/O CONTR HISTORY: Pleural effusion COMPARISON: None. FINDINGS: CT CHEST: Large left pleural effusion with compression atelectasis Mild right basilar subsegmental atelectasis CONFIDENTIALITY NOTICE: This information is intended only for the use of the recipient(s) named above. If you are not the intended recipient, or a person responsible for delivering it to the intended recipient, you are hereby notified that any disclosure, copying, distribution or use of any of the information contained in or attached to this transmission is STRICTLY PROHIBITED. If you have received this transmission in error, please immediately notify [employer] and destroy the original transmission and its attachments without saving them in any manner [address] [facility] [address] [place] [address] Phone: [phone] ([phone]) Fax: Email: [email or web address] Patient Information: : 1955 Order Type: Preliminary Name: GIL JI Sex: F Study Description: CT CHEST ABDOMEN PELVIS Modality: CT Location: [facility] Referring Physician: ADELAIDE MCCOLLUM The heart is within the upper limits of normal without evidence of a pericardial effusion No pneumothorax or mediastinal lymphadenopathy CT ABDOMEN AND PELVIS: Nodularity of the liver that is suggestive of cirrhosis Small calcified granuloma within the right lobe of the liver Splenomegaly Moderate ascites Cholelithiasis Colonic diverticulosis without evidence of acute diverticulitis Normal appendix No evidence of intestinal obstruction, perforation, colitis, pancreatitis, or an intra-abdominal or pelvic abscess Atrophic uterus Anasarca <Althea Marie - Last Filed: 06/30/18 06:15> Procedures - Chest Tube Left Ant. Axillary Line Indication: Hemothorax (pleural effision) Swiss Tube Size(cm): 24(child) (PIGTAIL CATHETER) Anesthesia: 1% Lidocaine w/ epi Volume(ml): 4 Sterile Draping: Yes Sterile Technique: Yes Cason of Air Edwards: No Tube Drainage(ml): 250 Vaseline Gauze Dressing: Yes Suction: Yes Curved Clamp: No Tube Sutured to Skin: Yes Complications: No Post Procedure CXR: Yes <Althea Marie - Last Filed: 06/30/18 06:15>
[2018-06-29] MEDS ORDERED: ACETAMINOPHEN 1000 MG/100 ML VIAL (NON FORMULARY) IVPB ONE (23:14)
[2018-06-29] MEDS: ALBUTEROL SO4 2.5/IPRATROPIUM 0.5 INH SOL 3 ML VIAL.NEB. NEB SCH ×2 (23:30→23:58)
[2018-06-29 23:37] LABS: ARTERIAL BLD GAS O2 SATURATION 98.4 % (90-98.9); ARTERIAL BLOOD GAS BASE EXCESS -8.8 meq/l (-2-2); ARTERIAL BLOOD GAS PCO2 31.2 mmHg (35-45); ARTERIAL BLOOD GAS pH 7.33 (7.35-7.45)
[2018-06-29 23:39] LABS: ALLENS TEST POSITIVE
[2018-06-29 23:41] LABS: CARBOXYHEMOGLOBIN 2.1 gm% (0.5-2.0)
[2018-06-29] MEDS ORDERED: ACETAMINOPHEN INJECTION 100 ML IVPB ONE (23:46)
[2018-06-29 23:50] LABS: BASO % 0.3 % (0-2.0); EOS % 0.5 % (0-4.5); HEMATOCRIT 26.1 % (32.4-45.2); LYMPH % 3.9 % (8-40); MCH 34.2 pg (25.7-33.7); MCHC 34.5 g/dl (32.0-36.0); MEAN PLT VOLUME 7.6 fl (7.5-11.1); MONO % 4.3 % (3.8-10.2); PLATELET COUNT 95 K/MM3 (134-434); RBC 2.64 M/mm3 (3.60-5.2); WHITE BLOOD COUNT 11.6 K/mm3 (4.0-10.0)
[2018-06-30 00:03] LABS: INR 1.59 (0.83-1.09); PROTHROMBIN TIME (PATIENT) 18.9 SEC (9.7-13.0)
[2018-06-30 00:15] LABS: VENOUS PC02 47.4 mmHg (38-52); VENOUS PH 7.23 (7.32-7.42); VENOUS PO2 25.8 mmHg (28-48)
[2018-06-30] MEDS: ALBUTEROL SO4 2.5/IPRATROPIUM 0.5 INH SOL 3 ML VIAL.NEB. NEB SCH (00:30)
[2018-06-30] MEDS ORDERED: methylPREDNISolone NA SUCC 40 MG/1 ML VIAL ONE ×2 (00:53→06:20)
--- NOTE | 2018-06-30 00:56 | PN ---
Progress Note (short form) - Note Progress Note: Thoracic Surgery Images reviewed. Aware patient is hypoxic. Recommend U/S guided thoracentesis. Unclear if this will help this degree of hypoxia in this cirrhotic patient. CT with IV contrast to rule out PE and assess extent of possible pneumonia may be necessary. INR 1.5 may be due to cirrhosis. May require transfer to tertiary care facility that cares for cirrhotics. Full consult to follow.
[2018-06-30 00:58] LABS: ALBUMIN 2.6 g/dl (3.4-5.0); ALK PHOS 150 U/L (45-117); ANION GAP 13 MMOL/L (8-16); BILIRUBIN,TOTAL 4.9 mg/dL (0.2-1); BLOOD UREA NITROGEN 44 mg/dL (7-18); CALCIUM 8.3 mg/dL (8.5-10.1); CHLORIDE 105 mmol/L (98-107); CO2 18 mmol/L (21-32); CREATININE 2.2 mg/dL (0.55-1.3); GLUCOSE,RANDOM 163 mg/dL (74-106); POTASSIUM 4.8 mmol/L (3.5-5.1); SGOT/AST 37 U/L (15-37); SGPT/ALT 20 U/L (13-61); SODIUM 136 mmol/L (136-145); TOT PROT 7.1 g/dl (6.4-8.2)
[2018-06-30] MEDS: methylPREDNISolone NA SUCC 40 MG/1 ML VIAL IVPB SCH ×3 (00:58→06:24)
--- NOTE | 2018-06-30 01:08 | CONSULT ---
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 Due to her difficulty breathing, she is unable to provide a complete history. She states that she always has difficulty breathing, especially when laying down at night, but this has worsened over the past 1-2 weeks. Initially, she was trying to manage her symptoms at home using her albuterol inhaler. Today she realized that her symptoms were too severe to treat at home, and she presented to the ED. She denies any fevers but does note shivering today. She has chronic abdominal distension secondary to her liver dysfunction, BLE with L greater than R, and scleral icterus. Per Ms Colon, these symptoms are unchanged from her baseline. In the ED, she was found to have labored breathing and tachypnea to the 30's, other vitals were normal. She had a slight leukocytosis to 11 but was afebrile. ABG was slightly acidotic at 7.3 with low CO2. A CXR revealed a large left pleural effusion. Ms Colon was initially placed on a non-rebreather mask with some improvement, but she continued to be tachypnic and uncomfortable. She was switched to high flow NC with continued tachypnea. Given her persistent respiratory distress with the possibility of needing urgent intubation, the ICU was called to evaluate. [facility] [place] was also contacted for possible transfer because of Ms Colon's underlying medical conditions. She additionally reported that she follows with the liver transplant service at [place]. REVIEW OF SYSTEMS: General: No fevers, +rigors, no weight or appetite change, no malaise HEENT: No changes in vision, no changes in hearing, no congestion, no sore throat CV: No chest pain, no palpitations, +chronic LE edema L>R, +orthopnea Pulm: +SOB, no cough, no wheezing GI: +Nausea, +cirrhosis/ascites, no change in bowel habits : No frequency, no urgency, no dysuria Musc: +Right back pain, no joint swelling, no recent injury Skin: No rash, no lesions, no erythema Endo: No excessive thirst, no heat/cold intolerance Heme: No unusual bruising or bleeding, no swollen glands Neuro: No syncope, no numbness/tingling, no focal weakness Vasc: No claudication Psych: No recent change in mood, no SI or HI PHYSICAL EXAMINATION Vital Signs - 24 hr 06/29/18 06/29/18 06/30/18 22:39 23:58 00:37 Temperature 99.8 F H Pulse Rate 94 H Respiratory 30 H Rate Blood Pressure 136/97 O2 Sat by Pulse 94 L 100 100 Oximetry (%) General: Uncomfortable, in moderate distress HEENT: PERRL, EOMI, +scleral icterus, high-flow O2 in place Cards: RRR Pulm: Tachypnic, labored breathing. Conversational dyspnea. Abd: Soft, nontender, distended Ext: Atraumatic. 3+ BLE pitting edema, L>R. ROM intact. Strength equal bilaterally Vasc: Extremities WWP. Skin: No unusual rashes, bruising, lesions. Telangectasia on L cheek Neuro: A&Ox3, CN grossly intact, normal speech, motor/sensory grossly intact and symmetric Psych: Mood appropriate to situation Laboratory Results - last 24 hr 06/29/18 06/29/18 06/29/18 23:30 23:30 23:35 WBC 11.6 H RBC 2.64 L Hgb 9.0 L Hct 26.1 L MCV 99.0 H MCH 34.2 H MCHC 34.5 RDW 16.0 H Plt Count 95 L D MPV 7.6 D Absolute Neuts (auto) 10.5 H Neutrophils % 91.0 H D Lymphocytes % 3.9 L D Monocytes % 4.3 Eosinophils % 0.5 D Basophils % 0.3 Nucleated RBC % 0 PT with INR INR Puncture Site Right brachial ABG pH 7.33 L ABG pCO2 at Pt Temp 31.2 L ABG pO2 at Pt Temp 114.0 H ABG HCO3 15.8 L ABG O2 Sat (Measured) 98.4 ABG O2 Content 11.7 L ABG Base Excess -8.8 L Chandler Test Positive VBG pH POC VBG pCO2 POC VBG pO2 Mixed VBG HCO3 Carboxyhemoglobin 2.1 H Methemoglobin 0.3 L Oxygen Flow Rate Aerosol tx Sodium Potassium Chloride Carbon Dioxide Anion Gap BUN Creatinine Creat Clearance w eGFR Random Glucose Calcium Total Bilirubin AST ALT Alkaline Phosphatase Troponin I Total Protein Albumin 06/29/18 06/29/18 06/29/18 23:35 23:35 23:35 WBC RBC Hgb Hct MCV MCH MCHC RDW Plt Count MPV Absolute Neuts (auto) Neutrophils % Lymphocytes % Monocytes % Eosinophils % Basophils % Nucleated RBC % PT with INR 18.90 H INR 1.59 H Puncture Site ABG pH ABG pCO2 at Pt Temp ABG pO2 at Pt Temp ABG HCO3 ABG O2 Sat (Measured) ABG O2 Content ABG Base Excess Chandler Test VBG pH POC VBG pCO2 POC VBG pO2 Mixed VBG HCO3 Carboxyhemoglobin Methemoglobin Oxygen Flow Rate Sodium Cancelled Potassium Cancelled Chloride Cancelled Carbon Dioxide Cancelled Anion Gap Cancelled BUN Cancelled Creatinine Cancelled Creat Clearance w eGFR Cancelled Random Glucose Cancelled Calcium Cancelled Total Bilirubin Cancelled AST Cancelled ALT Cancelled Alkaline Phosphatase Cancelled Troponin I Cancelled Total Protein Cancelled Albumin Cancelled 06/30/18 00:00 WBC RBC Hgb Hct MCV MCH MCHC RDW Plt Count MPV Absolute Neuts (auto) Neutrophils % Lymphocytes % Monocytes % Eosinophils % Basophils % Nucleated RBC % PT with INR INR Puncture Site ABG pH ABG pCO2 at Pt Temp ABG pO2 at Pt Temp ABG HCO3 ABG O2 Sat (Measured) ABG O2 Content ABG Base Excess Chandler Test VBG pH 7.23 L* POC VBG pCO2 47.4 POC VBG pO2 25.8 L Mixed VBG HCO3 19.1 Carboxyhemoglobin Methemoglobin Oxygen Flow Rate Sodium Potassium Chloride Carbon Dioxide Anion Gap BUN Creatinine Creat Clearance w eGFR Random Glucose Calcium Total Bilirubin AST ALT Alkaline Phosphatase Troponin I Total Protein Albumin Active Medications Generic Name Dose Route Start Last Admin Trade Name Freq PRN Reason Stop Dose Admin Albuterol/Ipratropium 1 amp 06/30/18 08:00 Duoneb - NEB RQID JOVANNA Chlorhexidine Gluconate 1 applic 06/30/18 22:00 Hibiclens For Decolonization - TP HS [facility] Methylprednisolone Sodium Succinate 40 mg 06/30/18 00:44 Solu-Medrol - IVPB 06/30/18 00:45 TID ONE Mupirocin 1 applic 06/30/18 10:00 Bactroban Ointment (For Decolonization) - NS 10/18/18 09:59 BID [facility] ASSESSMENT/PLAN: Noram Colon is a 62yo woman with a PMH of alcoholic cirrhosis, CKD 2/2 hepatorenal syndrome, known pleural effusions who presented to the ED with worsening SOB and tachypnea. She was found to have a large left pleural effusion. Ms Colon improved only slightly when placed on high-flow oxygen by IA. Due to the possibility of worsening respiratory failure and potential need for emergent intubation, the ICU was consulted for possible admission and [facility] was also contacted for possible transfer (per recommendation of CV surgery). She was initially accepted to the ICU. Pulm: - Acute on chronic respiratory failure - Satting well on high flow nasal cannula - Monitor closely; potential to need urgent intubation if sats cannot be maintained with non-invasive methods - Repeat ABG at 2am to re-evaluate respiratory status - Duonebs Q6hr - Methylprednisolone 40mg TID - ED to order CT chest for additional evaluation - CV surgery consult for drainage of left pleural effusion - recommending IR thoracentisis vs transfer to a tertiary care center Heme: - Chronic anemia, hgb stable - Monitor daily CBC GI: - Alcoholic cirrhosis with ascites - Continue home lactulose, rifamixin Renal: - 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 While Ms Colon was waiting for an available ICU bed, a pigtail chest tube was successfully placed in the ED. She was subsequently accepted for transfer by [facility], where she follows with the liver transplant service. To be discussed with Dr Richardson. Medina Acosta PGY1 Visit type - Emergency Visit Emergency Visit: Yes ED Registration Date: 06/30/18 Care time: The patient presented to the Emergency Department on the above date and was hospitalized for further evaluation of their emergent condition. - New Patient This patient is new to me today: Yes Date on this admission: 06/30/18 - Critical Care Critical Care patient: Yes Total Critical Care Time (in minutes): 45 Critical Care Statement: The care of this patient involved high complexity decision making to prevent further life threatening deterioration of the patient 's condition and/or to evaluate & treat vital organ system(s) failure or risk of failure.
[2018-06-30 01:27] LABS: ACANTHOCYTES 1+; ANISOCYTOSIS 2+; MACROCYTOSIS 0; PLATELET ESTIMATE DECREASED
[2018-06-30 02:16] VITALS: TEMP 98.5
[2018-06-30 04:58] LABS: ALLENS TEST POSITIVE; ARTERIAL BLD GAS O2 SATURATION 96.8 % (90-98.9); ARTERIAL BLOOD GAS BASE EXCESS -8.7 meq/l (-2-2); ARTERIAL BLOOD GAS PO2 87.5 mmHg (80-100); ARTERIAL BLOOD GAS pH 7.35 (7.35-7.45)
[2018-06-30 04:59] LABS: ARTERIAL BLOOD GAS PCO2 28.9 mmHg (35-45)
[2018-06-30] MEDS ORDERED: morphine CARPU-JECT 4 MG/1 ML DISP.SYRIN IVPUSH ONE (06:26)
[2018-06-30] MEDS ORDERED: morphine SULFATE 4 MG/ML VIAL ONE ×2 (06:30→06:40)
[2018-06-30 07:24] LABS: ALBUMIN 2.3 g/dl (3.4-5.0); ALK PHOS 125 U/L (45-117); ANION GAP 13 MMOL/L (8-16); BILIRUBIN,TOTAL 4.5 mg/dL (0.2-1); BLOOD UREA NITROGEN 48 mg/dL (7-18); CALCIUM 8.2 mg/dL (8.5-10.1); CHLORIDE 106 mmol/L (98-107); CO2 17 mmol/L (21-32); CREATININE 2.5 mg/dL (0.55-1.3); GLUCOSE,RANDOM 188 mg/dL (74-106); MAGNESIUM 1.8 mg/dL (1.8-2.4); PHOSPHOROUS 4.4 mg/dL (2.5-4.9); SGOT/AST 33 U/L (15-37); SGPT/ALT 19 U/L (13-61); SODIUM 135 mmol/L (136-145); TOT PROT 6.3 g/dl (6.4-8.2)
[2018-06-30 07:27] LABS: INR 1.74 (0.83-1.09); PROTHROMBIN TIME (PATIENT) 20.6 SEC (9.7-13.0)
[2018-06-30 07:30] LABS: ACTIVATED PTT 31.5 SECONDS (25.2-36.5)
[2018-06-30 07:43] VITALS: BP 98/84; PULSE 84
[2018-06-30] MEDS ORDERED: ALBUTEROL SO4 2.5/IPRATROPIUM 0.5 INH SOL 3 ML VIAL.NEB. NEB SCH (08:00)
[2018-06-30] MEDS ORDERED: FUROSEMIDE 40 MG TABLET (FP) PO SCH (10:00)
[2018-06-30] MEDS ORDERED: LACTULOSE 20 GM/30 ML UDC (FOR ORAL USE ONLY) PO SCH (10:00)
[2018-06-30] MEDS ORDERED: MUPIROCIN 2% TOPICAL OINTMENT FOR DECOLONIZATION NS SCH (10:00)
[2018-06-30] MEDS ORDERED: RIFAXIMIN 550 MG TABLET (UD) PO SCH (10:00)
[2018-06-30] MEDS ORDERED: SPIRONOLACTONE 25 MG TABLET (FP) PO SCH (10:00)
[2018-06-30] MEDS ORDERED: CHLORHEXIDINE GLUCONATE 4% CLEANSER FOR DECOLONIZATION TP SCH (22:00)
[2018-07-03 08:40] LABS: TOTAL PROTEIN,PLEURAL FLUID 2.5
== END 2018-06-30 07:46 | disposition short-term general hospital (02) | DRG 186 ==
LOC: JER 22:29 → JERBED 06-30 00:24
PROVIDERS: ADMIT Internal Medicine; ATTEND Internal Medicine
PROC: 0W9B30Z Drainage of Left Pleural Cavity with Drainage Device, Percutaneous Approach (ICD-10-PCS; principal; 2018-06-30)
DX: J90 Pleural effusion, not elsewhere classified (principal); J96.20 Acute and chronic respiratory failure, unspecified whether with hypoxia or hypercapnia; K76.7 Hepatorenal syndrome; J98.11 Atelectasis; I27.20 Pulmonary hypertension, unspecified; Z87.891 Personal history of nicotine dependence; K70.30 Alcoholic cirrhosis of liver without ascites; N18.9 Chronic kidney disease, unspecified; D64.9 Anemia, unspecified; K70.31 Alcoholic cirrhosis of liver with ascites; D72.829 Elevated white blood cell count, unspecified
CPT/HCPCS: 36415; 36600; 71045-TC-FY; 71250-TC; 74176-TC; 80053; 82140; 82150; 82375; 82803; 82945; 83050; 83615; 83735; 84100; 84157; 84311; 84484; 85025; 85610; 85730; 87040; 87186; 94660; 99285-25; J0131; J7620

== ENCOUNTER 2018-08-16 14:31 | Emergency (ER) | payer OTHER ==
[2018-08-16 14:50] VITALS: BP 96/44; PULSE 97; TEMP 98.6; BMI 34.3
--- NOTE | 2018-08-16 14:53 | PDOC ---
Rapid Medical Evaluation Chief Complaint: Rectal Bleed Time Seen by Provider: 08/16/18 14:48 Medical Evaluation: Allergies Allergy/AdvReac Type Severity Reaction Status Date / Time No Known Allergies Allergy Verified 06/29/18 22:38 08/16/18 14:48 I have performed a brief in-person evaluation of this patient. The patient presents with a chief complaint of: h/o liver failure presnting with rectal bleeding from hemorrhoids. Patient admitted in [facility] for rectal bleeding and discharged last night . pt report called [facility] provider and was adviced to come to nearest ED for BRBPR Pertinent physical exam findings:A&O x 3. heart: RRR. lungs CTAB I have ordered the following: CBC,CMP, Fibrinogen, PT/PTT The patient will proceed to the ED for further evaluation. 08/16/18 15:00 Discharge Disposition - Diagnosis Rectal bleed - Referrals - Patient Instructions - Post Discharge Activity
--- NOTE | 2018-08-16 15:01 | PDOC ---
History of Present Illness - General Chief Complaint: Rectal Bleed Stated Complaint: PCP SENT Time Seen by Provider: 08/16/18 14:48 - History of Present Illness Initial Comments: 62 year old with PMH of alcoholic cirrhosis, pulmonary hypertension, ESRD ( left sided dialysis catheter recently placed), multiple large left sided pleural effusions (s/p pig tail x 2 over the past two months), and SBO in the past presenting with BRBPR. She was discharged from [facility] last night after presenting there 10 days prior for left sided pleural effusion and BRBPR requiring multiple colonoscopies and pig tail. Colonoscopies demonstrated ischemic colitis with ulcers and hemorrhoids which were intervened on. On discharge she had minor bleeding that she was told was from her hemorrhoids. Since then, she has had worsening bleeding and was lightheaded prior to her dialysis session today. She spoke to her her liver transplant specialist, Dr. Humphrey and he recommended that she go back to the closest ED for evaluation so she came here. 08/16/18 15:16 Past History - Past Medical History Allergies/Adverse Reactions: Allergies Allergy/AdvReac Type Severity Reaction Status Date / Time No Known Allergies Allergy Verified 06/29/18 22:38 Home Medications: Ambulatory Orders Rifaximin [Xifaxan] 550 mg PO BID 01/21/18 Spironolactone [Aldactone] 50 mg PO DAILY 01/21/18 Furosemide [Lasix -] 40 mg PO DAILY #30 tablet 01/29/18 Lactulose (Oral Use) [Cephulac -] 20 gm PO BID udc 02/15/18 Anemia: No Asthma: Yes (as an infant) Cancer: No Cardiac Disorders: Yes (A-fib) CVA: No COPD: No CHF: No DVT: No Dementia: No Diabetes: No GI Disorders: Yes (Liver cirrhosis) Disorders: No HTN: No Hypercholesterolemia: No Liver Disease: Yes Seizures: No Thyroid Disease: No - Surgical History Abdominal Surgery: No Appendectomy: No Cardiac Surgery: No Cholecystectomy: No Lung Surgery: No Neurologic Surgery: No Orthopedic Surgery: No - Immunization History Immunization Up to Date: Yes - Suicide/Smoking/Psychosocial Hx Smoking History: Never smoked Have you smoked in the past 12 months: No If you are a former smoker, when did you quit?: 30 years ago Information on smoking cessation initiated: No 'Breaking Loose' booklet given: 10/05/17 Hx Alcohol Use: No Drug/Substance Use Hx: No Substance Use Type: None Hx Substance Use Treatment: No Review of Systems - Review of Systems Constitutional: No: Diaphoresis, Fever, Loss of Appetite HEENTM: No: Blurred Vision, Tearing Respiratory: Yes: Shortness of Breath. No: Cough, Orthopnea Cardiac (ROS): Yes: Edema. No: Chest Pain, Irregular Heart Rate, Chest Tightness ABD/GI: Yes: Blood Streaked Bowels, Poor Appetite, Rectal Bleeding. No: Diarrhea, Nausea, Vomiting : No: Dysuria, Discharge, Frequency, Flank Pain, Hematuria, Incontinence Musculoskeletal: Yes: Back Pain. No: Joint Pain, Joint Swelling Integumentary: No: Bruising, Lesions, Lumps, Pallor, Pruritus, Rash Neurological: No: Headache, Numbness, Paresthesia, Tingling, Tremors, Weakness Psychiatric: No: Anxiety, Depression Endocrine: No: Increased Thirst, Increased Urine Hematologic/Lymphatic: No: Blood Clots, Easy Bleeding *Physical Exam - Vital Signs Last Vital Signs Temp Pulse Resp BP Pulse Ox 98.6 F 97 H 16 96/44 L 100 08/16/18 14:42 08/16/18 14:42 08/16/18 14:42 08/16/18 14:42 08/16/18 14:42 - Physical Exam General Appearance: Yes: Nourished, Appropriately Dressed. No: Apparent Distress HEENT: positive: EOMI, ASHTYN. negative: Normal ENT Inspection (icteric sclera) Neck: positive: Trachea midline, Normal Thyroid, Supple. negative: Tender, Rigid Respiratory/Chest: positive: Lungs Clear, Normal Breath Sounds. negative: Chest Tender, Respiratory Distress, Accessory Muscle Use Cardiovascular: positive: Regular Rhythm, Regular Rate Gastrointestinal/Abdominal: positive: Normal Bowel Sounds, Flat, Soft. negative : Tender Musculoskeletal: positive: Normal Inspection Extremity: positive: Normal Capillary Refill, Normal Inspection, Normal Range of Motion. negative: Tender Integumentary: positive: Normal Color, Dry, Warm Neurologic: positive: Fully Oriented, Alert, Normal Mood/Affect, Normal Response , Motor Strength 5/5 Moderate Sedation - Procedure Monitoring Vital Signs: Procedure Monitoring Vital Signs Temperature 98.6 F 08/16/18 14:42 Pulse Rate 97 H 11/29/18 14:42 Respiratory Rate 16 08/16/18 14:42 Blood Pressure 96/44 L 08/16/18 14:42 O2 Sat by Pulse Oximetry (%) 100 08/16/18 14:42 ED Treatment Course - LABORATORY CBC & Chemistry Diagram: 08/16/18 14:58 08/16/18 14:58 Medical Decision Making - Medical Decision Making Patient presenting with lightheadedness and slight hypotension prior to dialysis. Patient is on renal and liver transplant list. Spoke to her crown ironer, Dr. Humphrey's service and they want her to return to [facility] for monitoring and further work up for her weakness/ hypotension. Her labs were stable here and consistent with ESRD but HgB stable. Transfer set up but pending completion as patient was signed out to Dr. Pacheco in stable condition. 08/16/18 19:15 *DC/Admit/Observation/Transfer Diagnosis at time of Disposition: Rectal bleed Liver failure Qualifiers: Liver failure chronicity: chronic Hepatic coma status: without hepatic coma Qualified Code(s): K72.10 - Chronic hepatic failure without coma - Discharge Dispostion Disposition: TRANSFER ACUTE CARE/OTHER HOSP Condition at time of disposition: Stable Decision to Admit order: No - Referrals Referrals: Singh Muro MD [Primary Care Provider] - - Patient Instructions - Post Discharge Activity
--- NOTE | 2018-08-16 15:04 | PDOC ---
Attending Attestation - HPI HPI: 08/16/18 16:01 The patient is a 63 year old female with a significant PMH of alcoholic cirrhosis, pulmonary hypertension, ESRD (left sided dialysis catheter recently placed), multiple large left sided pleural effusions (s/p pig tail x 2 over the past two months), and SBO in the past, who is presenting to the ED today with with blood per rectum and lightheadedness today. She was reportedly discharged from [facility] last night after presenting there 10 days prior for left sided pleural effusion and bright red blood per rectum which required multiple colonoscopies and pig tail. Allergies: NKDA - Physicial Exam PE: 08/16/18 16:04 GENERAL: Awake, alert, and fully oriented, in no acute distress HEAD: No signs of trauma EYES: PERRLA, EOMI, sclera anicteric, conjunctiva clear ENT: Auricles normal inspection, hearing grossly normal, nares patent, oropharynx clear without exudates. Moist mucosa NECK: Normal ROM, supple, no lymphadenopathy, JVD, or masses LUNGS: Breath sounds equal, clear to auscultation bilaterally. No wheezes, and no crackles HEART: Regular rate and rhythm, normal S1 and S2, no murmurs, rubs or gallops ABDOMEN: Soft, nontender, normoactive bowel sounds. No guarding, no rebound. No masses EXTREMITIES: Normal range of motion, no edema. No clubbing or cyanosis. No cords, erythema, or tenderness NEUROLOGICAL: Cranial nerves II through XII grossly intact. Normal speech, normal gait SKIN: Warm, Dry, normal turgor, no rashes or lesions noted. - Medical Decision Making 08/16/18 16:04 Documentation prepared by Ashleigh Nava, acting as medical claims specialist for Meryl Rankin MD <Ashleigh Nava - Last Filed: 08/16/18 16:01> - Medical Decision Making 08/16/18 17:50 Pt presents to the ED complaining of rectal bleeding and generalized weakness. Extensive past medical history as described above. Labs appear to be little changed from baseline ( Hbg 8.4 yesterday as per transplant physician), but given the extent of bleeding reported by the patient and her comorbidities, she merits admission. Case discussedwith transplant physician, who has accepted the patient for transfer to [facility]. 08/16/18 18:38 <Meryl Rankin - Last Filed: 08/16/18 18:40>
[2018-08-16 15:18] LABS: BASO % 0.2 % (0-2.0); EOS % 1.1 % (0-4.5); HEMATOCRIT 23.6 % (32.4-45.2); HEMOGLOBIN 8.3 GM/dL (10.7-15.3); LYMPH % 10.7 % (8-40); MCH 34.2 pg (25.7-33.7); MCHC 35.3 g/dl (32.0-36.0); MEAN CELL VOLUME 96.8 fl (80-96); MEAN PLT VOLUME 7.9 fl (7.5-11.1); MONO % 12.3 % (3.8-10.2); NEUT % 75.7 % (42.8-82.8); PLATELET COUNT 48 K/MM3 (134-434); RBC 2.44 M/mm3 (3.60-5.2); RDW 21.3 % (11.6-15.6); WHITE BLOOD COUNT 7.6 K/mm3 (4.0-10.0)
[2018-08-16 15:52] LABS: ALBUMIN 2.9 g/dl (3.4-5.0); ALK PHOS 123 U/L (45-117); ANION GAP 10 MMOL/L (8-16); BILIRUBIN,TOTAL 7.8 mg/dL (0.2-1); BLOOD UREA NITROGEN 27 mg/dL (7-18); CALCIUM 9.2 mg/dL (8.5-10.1); CHLORIDE 96 mmol/L (98-107); CO2 29 mmol/L (21-32); CREATININE 3.8 mg/dL (0.55-1.3); GLUCOSE,RANDOM 169 mg/dL (74-106); POTASSIUM 4.2 mmol/L (3.5-5.1); SGOT/AST 42 U/L (15-37); SGPT/ALT 20 U/L (13-61); SODIUM 135 mmol/L (136-145); TOT PROT 6.2 g/dl (6.4-8.2)
[2018-08-16 16:09] LABS: INR 1.74 (0.83-1.09); PROTHROMBIN TIME (PATIENT) 20.6 SEC (9.7-13.0)
[2018-08-16 16:12] LABS: ACTIVATED PTT 35.3 SECONDS (25.2-36.5)
[2018-08-16] MEDS ORDERED: SODIUM CHLORIDE 0.9% 500 ML INFUS.BAG IV ONE (16:25)
[2018-08-16 17:45] LABS: ANISOCYTOSIS 1+; PLATELET ESTIMATE DECREASED
== END 2018-08-16 20:19 | disposition short-term general hospital (02) ==
LOC: JER 14:31
DX: K72.10 Chronic hepatic failure without coma (principal); K62.5 Hemorrhage of anus and rectum; K64.8 Other hemorrhoids; I48.91 Unspecified atrial fibrillation; Z79.01 Long term (current) use of anticoagulants; N18.6 End stage renal disease; Z99.2 Dependence on renal dialysis; I27.20 Pulmonary hypertension, unspecified; K74.60 Unspecified cirrhosis of liver; Z87.19 Personal history of other diseases of the digestive system
CPT/HCPCS: 36415; 80053; 82272; 85025; 85384; 85610; 85730; 99281-25